=== PATIENT | female | born 1945 | race African-American/Black ===

== ENCOUNTER 2022-05-26 12:22 | Inpatient (IN) | payer MEDICARE, SELFPAY ==
[2022-05-26] VITALS (31 sets, daily range): BP systolic 76–135; BP diastolic 46–67; PULSE 46–108; RESP 13–28; TEMP 36.6–37.9; O2SAT 94–100; BMI 37.2
--- NOTE | ~2022-05-26 | CT_ITS ---
EXAMINATION: CTA abd aorta runoff DATE: 05/31/2022 09:00 INDICATION: Diabetic foot ulcer with possible severe peripheral vascular disease TECHNIQUE: Computed tomographic angiography (CTA) of the abdominal, pelvis, and both lower extremitie s was performed with 150 mL Omnipaque 350 intravenous contrast. Automated exposure control and iterat silvestre reconstruction technique were employed. The dose-length product was 1875.28 mGy-cm. COMPARISON: None. FINDINGS: ABDOMINAL AORTA AND ITS BRANCHES: Abdominal aorta is normal in caliber with small amount of scattered atherosclerotic plaque without si gnificant stenosis. Mild, <50% stenosis at the origin of the celiac axis, left renal artery and domin ant right renal artery. Inferior mesenteric artery is patent. PELVIC VASCULATURE: Atherosclerotic plaque with mild stenosis along the bilateral common iliac and bilateral internal nick ac arteries. The bilateral external iliac arteries are patent with no evident plaque. RIGHT LOWER EXTREMITY: Mild scattered atherosclerotic plaque along the right femoral and popliteal arteries with mild stenos is at the [id number] right popliteal artery. There is occlusion of the right anterior tibial brooklynn ry with reconstitution of the dorsalis pedis artery below the level of the ankle via collaterals. The re is scattered atherosclerotic plaque along the right peroneal and posterior tibial arteries with mu ltifocal mild to moderate stenosis but with runoff below the ankle. LEFT LOWER EXTREMITY: Mild scattered atherosclerotic plaque along the left femoral and popliteal arteries with multifocal m ild stenosis. Moderate stenosis at the origin of the anterior tibial artery which occludes shortly af ter its origin. Atherosclerotic plaque with multifocal mild stenosis along the left peroneal artery. Atherosclerotic plaque along the left posterior tibial artery with multifocal moderate to severe sten osis along the mid to distal artery but with runoff below the ankle. ADDITIONAL FINDINGS: Mild dependent atelectasis in the bilateral lower lobes. Heart size is normal. No pericardial or pleu ral effusion. Liver, gallbladder, pancreas and bilateral adrenal glands are normal. 1.2 cm low-attenu ation splenic cyst versus hemangioma. Geographic region of cortical atrophy with thinning and decreas ed enhancement at the lower pole of the right kidney which could be related to prior infection or inf arction. The latter is favored as the anterior lower pole of the right kidney appears to be supplied via a tiny caliber accessory right renal artery. Left kidney is normal. Normal appendix. No bowel obs truction. Prominent but decreased amount of stool at the rectum where there is some persistent wall t hickening suggestive of stercoral colitis. Bladder is normal. 5.2 cm fibroid at the uterine fundus. M oderate-sized fat-containing umbilical hernia. Heterotopic ossification at the right iliopsoas tendon . Asymmetric soft tissue swelling and subcutaneous edema at the right calf. Bilateral subdermal dystrop hic calcifications. Ulceration extending to the level of bone at the posterior tuberosity of the righ t calcaneus. There is adjacent soft tissue gas as well as cortical erosion of the bone with small misael unt of intramedullary gas consistent with osteomyelitis. 7.0 x 3.3 x 2.3 cm gas and fluid containing subcutaneous abscess at the plantar/medial soft tissues at the right mid and hindfoot which drains vi a a sinus tract to the deep ulceration. IMPRESSION: 1. Atherosclerotic disease throughout the abdominal aorta, several of its branch vessels in the abdo men and pelvis and along multiple arteries in the bilateral lower limbs with no significant stenosis above the level of the popliteal arteries. 2. More prominent disease along the arteries of both calves with occlusion portion of the bilateral a nterior tibial arteries and three-vessel runoff
--- NOTE | ~2022-05-26 | XR_ITS ---
EXAM: XR abdomen/kub 1V DATE: 06/10/2022 17:15 HISTORY: Constipation . COMPARISON: 06/05/2022. FINDINGS: Senescent change in the lung bases. The rectum is mildly dilated up to 5.[address] ool, otherwise normal bowel gas pattern. No organomegaly. Multiple pelvic phleboliths. Degenerative d isc disease in the lumbar spine. Bilateral hip osteoarthritis.. IMPRESSION: Mild fecal impaction. Reviewed, dictated and finalized at location K. CH STRATEGIST IMPRESSION: Mild fecal impaction.
--- NOTE | ~2022-05-26 | XR_ITS ---
EXAMINATION: XR abdomen/kub 1V DATE: 06/05/2022 12:18 INDICATION: Bowel obstruction. TECHNIQUE: A supine view of the abdomen on 2 radiographs was obtained. COMPARISON: CT dated 05/31/2022 FINDINGS: Moderate amount of gas and stool scattered throughout the colon which could be seen with constipation . Moderate gaseous distention of the stomach. No dilated loops of gas-filled small bowel to suggest o bstruction. Several phleboliths in the left hemipelvis. Lung bases are clear. Cardiomegaly. There are bridging osteophytes at multiple levels in the lower thoracic spine consistent with diffuse idiopath ic skeletal hyperostosis (DISH). Severe lower lumbar facet osteoarthritis. IMPRESSION: 1. Moderate amount of gas and stool throughout the colon which could be seen with constipation. No di lated gas-filled small bowel to suggest obstruction. Reviewed, dictated and finalized at location A. E MIXER IMPRESSION: 1. Moderate amount of gas and stool throughout the colon which could be seen wi th constipation. No dilated gas-filled small bowel to suggest obstruction.
--- NOTE | ~2022-05-26 | US_ITS ---
EXAMINATION: US renal BI DATE: 06/12/2022 09:50 INDICATION: Acute kidney injury. TECHNIQUE: Multiple ultrasound grayscale images of the kidneys were obtained. COMPARISON: CT 05/31/2022 FINDINGS: The right kidney measures 10.1 x 5.2 x 6.1 cm. The left kidney measures 10.0 x 5.5 x 5.0 cm. The kidn eys demonstrate normal parenchymal echogenicity. There is no hydronephrosis. The bladder is normal. IMPRESSION: 1. Normal kidney sizes. No hydronephrosis. Reviewed, dictated and finalized at location A. IFIED MARINE MECHANIC
--- NOTE | ~2022-05-26 | CT_ITS ---
CT Abdomen and Pelvis with contrast. History: Abdominal pain. Spiral CT of the abdomen and pelvis was performed after the administration of intravenous contrast. 1 00 cc of Omnipaque 350 was administered intravenously without complication. Dose reduction technique was used on this scan by utilizing automated exposure control and iterative reconstruction technique. The dose-length product (DLP) was 1203.74 mGy-cm. Findings: Scans through the lung bases demonstrate mild atelectatic change. The liver, spleen, pancreas, gallbladder, adrenals and kidneys are within normal limits. No evidence of aortic aneurysm. No lymphadenopathy is seen. Rectum is significantly distended and filled with stool, with moderate stool throughout the remainder of the large bowel. No bowel obstruction evident. No abscess or free air. Normal appendix. Moderate fat-containing umbilical hernia present. Images through the pelvis were performed. Fundal hypodense, possibly degenerating fibroid measures 5 cm in diameter. No other adnexal mass seen. No ascites is seen. Impression: Fecal impaction and constipation. 5 cm presumed fibroid, as detailed above, possibly degenerating fibroid or necrotic given central hyp odensity. Moderate sized fat-containing umbilical hernia. Reviewed, dictated and finalized at location [] SH SPECIALIST Impression: Fecal impaction and constipation. 5 cm presumed fibroid, as detailed above, possibly degenerating fibroid or necr otic given central hypodensity. Moderate sized fat-containing umbilical hernia.
--- NOTE | ~2022-05-26 | US_ITS ---
EXAMINATION: US arterial ankle brachial ind DATE: 05/29/2022 19:44 INDICATION: Right foot diabetic ulcer. TECHNIQUE: Segmental pressures and plethysmographic and Doppler waveforms of the brachial and lower e xtremity arteries were obtained. COMPARISON: None. FINDINGS: Right and left brachial artery pressures of 175 mm Hg and 177 mm Hg, respectively, are concordant (no rmal difference <= 30 mmHg). The patient could not tolerate pressure at the ankles or toes. There is no detectable arterial signal in the right posterior tibial artery or dorsalis pedis. There is no detectable arterial signal in th e left posterior tibial artery. Dorsalis pedis demonstrates a biphasic waveform. IMPRESSION: 1. No detectable arterial signal in the right posterior tibial artery, right dorsalis pedis, or left posterior tibial artery. 2. ABIs and TBIs could not be measured. Reviewed, dictated and finalized at location A. ATIONAL INSTITUTION PRESIDENT IMPRESSION: 1. No detectable arterial signal in the right posterior tibial artery, right do rsalis pedis, or left posterior tibial artery. 2. ABIs and TBIs could not be measured.
--- NOTE | ~2022-05-26 | XR_ITS ---
Portable chest x-ray Comparison: None Clinical History: Cough Findings: Lungs are clear, without focal consolidation or pleural effusion. Cardiomediastinal silho uette is unremarkable. Bones and soft tissues are unremarkable. Impression: Clear lungs. Reviewed, dictated and finalized at location [] COREMAKER Impression: Clear lungs.
--- NOTE | ~2022-05-26 | XR_ITS ---
EXAMINATION: XR foot RT 2V DATE: 05/26/2022 20:40 INDICATION: Right foot heel ulcer TECHNIQUE: Dorsoplantar and lateral views of the right foot were obtained. COMPARISON: None. FINDINGS: Diffuse osteopenia. Bone alignment is normal. No fracture. Ulceration and underlying soft tissue gas at the heel. There is osteolysis along the inferior aspect of the posterior tuberosity of the calcane us consistent with osteomyelitis. Mild polyarticular osteoarthritis at many of the profiled joints th roughout the right foot. IMPRESSION: 1. Osteomyelitis at the inferior aspect of the posterior tuberosity of the calcaneus with overlying h eel ulceration and deep soft tissue gas. Reviewed, dictated and finalized at location A. AND AND CONTROL OFFICER IMPRESSION: 1. Osteomyelitis at the inferior aspect of the posterior tuberosity of the calc aneus with overlying heel ulceration and deep soft tissue gas.
--- NOTE | 2022-05-26 12:22 | ECG_ITS ---
Measurements Intervals [place] Rate: 107 P: 61 RI: 143 QRS: 0 QRSD: 94 T: 59 QT: 327 QTc: 437 Interpretive Statements SINUS TACHYCARDIA NONSPECIFIC ST AND T ABNORMALITY ABNORMAL ECG NO PREVIOUS ECG AVAILABLE FOR COMPARISON Electronically Signed On 05-26-2022 16:43:07 FIBERGLASS FINISHER by Trace Guerrero M.D.
--- NOTE | 2022-05-26 12:32 | ED.AMS ---
HPI - Altered Mental Status General Chief Complaint: Altered Mental Status Stated Complaint: AMS Time Seen by Provider: 05/26/22 12:29 History of Present Illness HPI narrative: Patient is a 77-year-old female presenting from a skilled nursing with altered mental status. Patient reportedly is ANO x4 at baseline. She has been experiencing fevers, nausea, vomiting for the last several days. Today she was noted to be more somnolent and confused so EMS was called. Currently patient is alert but only oriented to self. She complains of diffuse body pain. Denies any focal pain. Further history is limited due to altered mental status. Related Data Home Medications Medication Instructions Recorded Confirmed Ex-Lax (sennosides) 8.6 mg PO HS constipation 05/27/22 05/27/22 gabapentin 100 mg capsule 100 mg PO TID nerve pain 05/27/22 05/27/22 lisinopril 40 mg tablet 40 mg PO DAILY 05/27/22 05/27/22 metformin 500 mg tablet 500 mg PO TID DM 05/27/22 05/27/22 nifedipine 30 mg tablet,extended 30 mg PO DAILY 05/27/22 05/27/22 release 24 hr Allergies Allergy/AdvReac Type Severity Reaction Status Date / Time No Known Allergies Allergy Verified 05/27/22 04:16 Review of Systems Review of Systems: ROS unobtainable: Yes unobtainable due to mental status PMFSH Past Medical History Medical History (Updated 05/27/22 @ 09:15 by Yanira Mina PA-C) Combined hyperlipidemia CVA (cerebral vascular accident) Dementia Diabetic foot ulcer DM2 (diabetes mellitus, type 2) HTN (hypertension), benign Surgical History Surgical History (Updated 05/26/22 @ 20:03 by Marga Steele NP) No pertinent past surgical history Family History Family History Father Hypertension Diabetes mellitus Mother Hypertension Diabetes mellitus Social History Social History (Updated 05/26/22 @ 20:06 by Marga Steele NP) Social History: The patient is and has 6 children. 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 The patient resides at [facility]. Her daughter is the durable power commonwealth attorney for healthcare. Former smoker. She denies any alcohol marijuana or illicit drugs. Code status full code Smoking status: Former smoker Alcohol intake: never Substance use: never Lack of Transportation: No Lack of Food: Never True Current Housing: I Have Housing Concerned About Future Housing: No Difficulty Paying Gas/Electric Bills: No Difficulty Paying for Meds: No Currently Unemployed: No Education: Decline to Answer Difficulty w/ Childcare or Family Care: No Spiritual care concerns: No Exam Narrative: GENERAL: Ill-appearing but in no acute distress. HEAD: Normocephalic, atraumatic. EYES: PERRLA and EOMI. ENT: Nares clear, no rhinorrhea or epistaxis. Mucous membranes dry NECK: Supple. CHEST: Clear to auscultation. No respiratory distress. HEART: Tachycardic, regular rhythm. No murmur heard. Normal peripheral pulses. ABDOMEN: Soft, mild diffuse tenderness, nondistended, no guarding or rebound EXTREMITIES: Edema in bilateral lower extremities with skin changes consistent with chronic venous stasis changes, pressure ulcer on right heel with clean dressing in place SKIN: Warm, dry, no rash. NEURO: Moving all extremities spontaneously. Alert and oriented x1 Course Vital Signs Vital signs: Vital Signs Temperature 100.3 F H 05/26/22 12:22 Pulse Rate 106 H 05/26/22 12:22 Respiratory Rate 22 H 05/26/22 12:22 Blood Pressure 77/66 L 05/26/22 12:22 Pulse Oximetry 99 05/26/22 12:22 Oxygen Delivery Room Air 05/26/22 12:22 Temperature 97.8 F 05/27/22 04:40 Pulse Rate 78 05/27/22 12:00 Respiratory Rate 18 05/27/22 10:08 Blood Pressure 106/54 L 05/27/22 10:08 Pulse Oximetry 99 05/27/22 10:08 Oxygen Delivery Room Air 05/27/22 10:15 MDM - Altered Mental Status MDM Narrative Medical decision making narrative:
[2022-05-26] MEDS: SODIUM CHLORIDE 0.9% IV 1,000 ML 999 ML IV CONT (12:37)
[2022-05-26] MEDS: ONDANSETRON INJ 4 MG/2 ML VIAL IV PUSH (12:38)
[2022-05-26 12:46] LABS: Basophils Percent Auto 0.1 % (0.2-1.2); Eosinophils Percent Auto 0.1 % (0-4.4); Hematocrit 26.2 % (37.0-47.0); Hemoglobin 7.8 g/dL (12.0-15.0); Immature Granulocyte Percent A 0.6 % (0-0.5); Lymphocytes Absolute Auto 0.42 K/mm3 (0.9-3.2); Lymphocytes Percent Auto 2.6 % (18.3-44.2); Mean Corpuscular HGB Conc 29.8 g/dl (32-36); Mean Corpuscular Hemoglobin 25.2 pg (26-34); Mean Corpuscular Volume 84.5 fl (80-100); Mean Platelet Volume 9.2 fl (7.4-10.4); Monocytes Absolute Auto 0.1 K/mm3 (0.1-0.6); Monocytes Percent Auto 0.6 % (2.6-8.5); Neutrophils Absolute Auto 15.2 K/mm3 (1.3-6.7); Platelet Count Result 381 k/mm3 (150-375); Red Cell Distribution Width 14.8 % (11.5-14.5); White Blood Count 15.9 K/mm3 (4.5-10.0)
[2022-05-26 12:58] LABS: INR 1.3; Prothrombin Time 15.4 Seconds (11.1-14.7)
[2022-05-26 12:59] LABS: Partial Thromboplastin Time 28.5 SECONDS (22.3-36.8)
[2022-05-26 13:02] LABS: Alanine Aminotransferase 18 U/L (6-35); Albumin Level 3.2 g/dL (3.5-5.1); Alkaline Phosphatase 204 U/L (38-126); Anion Gap 6 mmol/L (8-16); Aspartate Amino Transferase 37 U/L (14-36); Bilirubin,Total 1.1 mg/dL (0.2-1.3); Blood Urea Nitrogen 38 mg/dL (7-17); Calcium 9.3 mg/dL (8.4-10.2); Carbon Dioxide 27 mmol/L (22-30); Chloride 104 mmol/L (98-107); Estimated Glomerular Filt Rate 53; Glucose 178 mg/dL (65-110); Lactic Acid Reflex 2.5 mmol/L (0.7-2.0); Lipase 48 U/L (23-300); Potassium 3.9 mmol/L (3.4-5.0); Sodium 137 mmol/L (137-145)
[2022-05-26 13:12] LABS: Add Urine Microscopic? YES; Appearance Urine Clear (Clear); Bilirubin Urine Negative (Negative); Blood Urine Negative (Negative); Color Urine Orange (Yellow); Glucose Urine UA Negative (Negative); Ketones Urine Negative (Negative); Leukocyte Esterase Ur Negative LEU/UL (Negative); Nitrate Urine Negative (Negative); Protein Urine Trace mg/dL (Negative); Specific Grav Ur 1.015 (1.001-1.035)
[2022-05-26 13:13] LABS: NT Pro B Type Natriuretic Pept 626 pg/mL (5-100); Troponin I < 0.012 ng/mL (0.000-0.034)
[2022-05-26 13:14] LABS: Bacteria Urine Trace /hpf; Mucus Urine Rare /lpf; Squamous Epithelial Cell Urine Rare /hpf (Few); WBC Urine 0-3 /hpf
[2022-05-26 13:16] LABS: Hypochromasia 1+ (NORMAL); Platelet Estimate Adequate (Adequate)
[2022-05-26 13:17] LABS: Anisocytosis 1+ (NORMAL)
[2022-05-26 13:20] LABS: Schistocytes None Seen (NORMAL)
[2022-05-26 13:46] LABS: Influenza A QL RT-PCR Negative (Negative); Influenza B QL RT-PCR Negative (Negative); RSV RNA, RT-PCR Negative (Negative); SARS-CoV-2 RNA PCR Negative
--- NOTE | 2022-05-26 15:17 | PM.IMHP ---
H&P: HPI History of Present Illness Date/Time: 05/26/22 15:17 Chief Complaint: Altered mental status Narrative: This is a 77-year-old female patient who is from [facility]. Her daughter is at the bedside answering questions for her. Typically the patient is A&O x4 but is slightly confused today. She has been experiencing fevers nausea vomiting for several days. The patient has a chronic diabetic wound to her right heel that has a very odorous smell. Her white count was 15.9. H&H is 7.8 and 26.9. The patient has never been admitted here and we have no previous labs to compare with these values. The patient had her right foot wrapped today and I would need to remove it and the patient would not allow me to remove her dressing from the right foot at this time. I explained her that the nurses would need to remove it to take pictures and the patient agreed that I could look at her heel then. Creatinine is 1.2. Glucose is 178. Lactic is 2.5 and 2.2. Her urine is negative for UTI. Patient was negative for influenza A/B RSV and COVID. The patient was started on vancomycin and cefepime. She was also given IV fluids and Zofran. Patient was placed in observation status on the date of service of 05/26/2022. Review of Systems Review of Systems: See HPI All systems reviewed & are unremarkable except as noted in HPI and below Constitutional: Constitutional: Reports as per HPI and Reports no additional constitutional complaints Eyes: Eyes: Reports as per HPI and Reports no additional eye complaints ENT: Reports system reviewed and no additional complaints, except as documented and Reports Normal hearing present Cardiovascular: Cardiovascular: Reports no additional cardiovascular complaints Respiratory: Respiratory: Reports no additional respiratory complaints and Reports no additional respiratory complaints Gastrointestinal: Gastrointestinal: Reports as per HPI and Reports no additional gastrointestinal complaints Musculoskeletal: Musculoskeletal: Reports no additional musculoskeletal complaints Integumentary/Breasts: Skin/Breast: Reports system reviewed and no additional complaints, except as docu and Reports as per HPI Neurologic: Reports system reviewed and no additional complaints, except as documented, Reports as per HPI and Reports Normal hearing present Psychiatric: Psychiatric: Reports no additional psychiatric complaints and Reports as per HPI Endocrine: Endocrine: Reports no additional endocrine complaints Hematologic/Lymphatic: Hematologic/Lymphatic: Reports no additional hematologic/lymphatic complaints Allergic/Immunologic: Allergic/Immunologic: Reports no additional allergic/immunologic complaints PMFSH Past Medical History Medical History (Updated 05/26/22 @ 20:12 by Marga Steele NP) Combined hyperlipidemia CVA (cerebral vascular accident) Dementia Diabetic foot ulcer DM2 (diabetes mellitus, type 2) HTN (hypertension), benign Surgical History Surgical History (Updated 05/26/22 @ 20:03 by Marga Steele NP) No pertinent past surgical history Family History Family History Father Hypertension Diabetes mellitus Mother Hypertension Diabetes mellitus Social History Social History (Updated 05/26/22 @ 20:06 by Marga Steele NP) Social History: The patient is and has 6 children. 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 The patient resides at [facility]. Her daughter is the durable power collections attorney for healthcare. Former smoker. She denies any alcohol marijuana or illicit drugs. Code status full code Smoking status: Former smoker Meds Vital Signs Vital Signs - 24 hr 05/26/22 12:22 05/26/22 13:03 05/26/22 13:36 Temperature 37.9 C H Pulse Rate 106 H 96 46 L Respiratory Rate 22 H 16 16 Blood Pressure 77/66 L 122/56 L 120/67 Pulse Oximetry 99 96 96 Oxygen Delivery Room Air
[2022-05-26 15:42] LABS: Reflex Lactic Acid Yes or No Add Lactic
[2022-05-26 16:17] LABS: Lactic Acid 2.2 mmol/L (0.7-2.0)
--- NOTE | 2022-05-26 16:57 | PC.NURSE ---
diabetic diet dinner tray ordered
[2022-05-26 17:14] LABS: Troponin I 0.015 ng/mL (0.000-0.034)
[2022-05-26 22:04] LABS: Hemoglobin A1C 6.2 % (<5.7)
[2022-05-26 23:14] LABS: Hematocrit 22.7 % (37.0-47.0)
[2022-05-26 23:25] LABS: Hemoglobin 6.9 g/dL (12.0-15.0)
[2022-05-27] VITALS (14 sets, daily range): BP systolic 106–135; BP diastolic 47–54; PULSE 66–82; RESP 16–20; TEMP 36.6–36.9; O2SAT 96–100
--- NOTE | 2022-05-27 00:31 | ADMGEN ---
This patient, Erika Young, was admitted to Medical Room 260-. Patient/family oriented to hospital policies and general routines including ID bracelet, bed and alarms, visiting hours, pain management, procedures, bathroom and other care routines, personal items, smoking policy, room service/diet, and visiting hours. Information on how to activate the Rapid Response Team has been discussed. Patient/Family are encouraged to report perceived risks to care and to ask questions if they do not understand what they are told or what they should do.
[2022-05-27] MEDS: SODIUM CHLORIDE 0.9% IV 1,000 ML 100 ML IV CONT ×2 (02:25→18:12)
[2022-05-27 05:28] LABS: Basophils Absolute Auto 0.1 K/mm3 (0.0-0.1); Basophils Percent Auto 0.3 % (0.2-1.2); Eosinophils Absolute Auto 0.2 K/mm3 (0-0.3); Eosinophils Percent Auto 0.7 % (0-4.4); Hematocrit 22.2 % (37.0-47.0); Immature Granulocyte Absolute 0.55 K/mm3 (0.00-0.031); Immature Granulocyte Percent A 1.9 % (0-0.5); Lymphocytes Absolute Auto 3.42 K/mm3 (0.9-3.2); Lymphocytes Percent Auto 12.1 % (18.3-44.2); Mean Corpuscular HGB Conc 30.6 g/dl (32-36); Mean Corpuscular Hemoglobin 26.7 pg (26-34); Mean Corpuscular Volume 87.1 fl (80-100); Mean Platelet Volume 9.2 fl (7.4-10.4); Monocytes Absolute Auto 1.4 K/mm3 (0.1-0.6); Neutrophils Absolute Auto 22.6 K/mm3 (1.3-6.7); Platelet Count Result 346 k/mm3 (150-375); Red Blood Count 2.55 M/mm3 (4.2-5.4); Red Cell Distribution Width 14.9 % (11.5-14.5); White Blood Count 28.3 K/mm3 (4.5-10.0)
[2022-05-27 05:46] LABS: Alanine Aminotransferase 16 U/L (6-35); Albumin Level 2.9 g/dL (3.5-5.1); Alkaline Phosphatase 124 U/L (38-126); Anion Gap 4 mmol/L (8-16); Aspartate Amino Transferase 29 U/L (14-36); Bilirubin,Total 0.8 mg/dL (0.2-1.3); Blood Urea Nitrogen 41 mg/dL (7-17); Calcium 8.6 mg/dL (8.4-10.2); Carbon Dioxide 26 mmol/L (22-30); Chloride 103 mmol/L (98-107); Estimated CRCL calculation 28 ml/min; Estimated Glomerular Filt Rate 41; Glucose 122 mg/dL (65-110); Magnesium 1.8 mg/dL (1.6-2.3); Potassium 3.9 mmol/L (3.4-5.0); Sodium 133 mmol/L (137-145)
[2022-05-27 06:25] LABS: Thyroid Stimulating Hormone Reflex 0.325 uIU/mL (0.465-4.68)
[2022-05-27 07:01] LABS: Hemoglobin 6.8 g/dL (12.0-15.0)
[2022-05-27 08:11] LABS: Free T4 Free Thyroxine Reflex 2.33 ng/dL (0.78-2.19)
[2022-05-27 08:53] LABS: Glucose Point of Care 114 mg/dl (65-105)
--- NOTE | 2022-05-27 09:02 | PM.IMPN ---
Progress Note: A&P Assessment and Plan (1) Osteomyelitis: Code(s): M86.9 - Osteomyelitis, unspecified Status: Acute Assessment and Plan: Although pt would not let me examin the right foot xray consistent with osteomyelitis -ortho has been consulted but i'm unsure if they have been notified. I have asked nursing staff to reach out -Continue cefepime and vanc, await wound and blood cultures -CBC worse today, hopfully this will start trending down with abx. Will likely need debridement but again I was unable to assess it on exam -last fever / at 1200 -tachycardia and bp have improved -continue IV fluids due to dry mucus membranes, no crackles on exam (2) Sepsis: Code(s): A41.9 - Sepsis, unspecified organism Status: Acute Assessment and Plan: 2/2 to above -vitals and lactic improving but CBC worsening -continue vanc and cefepime (3) Anemia: Code(s): D64.9 - Anemia, unspecified Status: Acute Assessment and Plan: Pt states she has a hx of this but we have no records -Will transfuse 1 prbc -anemia labs -telemetry until stable -no signs of blood loss. Pt does have fiborid but she is unable to tell me if she has had vagainal bleeding (4) Fibroid tumor: Code(s): D21.9 - Benign neoplasm of connective and other soft tissue, unspecified Status: Acute Assessment and Plan: Follow up with OBGYN outpatient. (5) DM2 (diabetes mellitus, type 2): Code(s): E11.9 - Type 2 diabetes mellitus without complications Status: Acute Assessment and Plan: Last glucose 114 with A1c 6.2 -continue SSI -hold home metformin while hospitlized (6) Combined hyperlipidemia: Code(s): E78.2 - Mixed hyperlipidemia Status: Acute Assessment and Plan: Continue with home medications (7) HTN (hypertension), benign: Code(s): I10 - Essential (primary) hypertension Status: Acute Assessment and Plan: Pt was hypotensive on admission but this is improving -hold lisinopril -continue nifedipine but add parameters -hydralazine PRN as needed (8) Dementia: Code(s): F03.90 - Unspecified dementia, unspecified severity, without behavioral disturbance, psychotic disturbance, mood disturbance, and anxiety Status: Acute Assessment and Plan: -continue home medications. (9) Fecal impaction: Code(s): K56.41 - Fecal impaction Status: Acute Assessment and Plan: Noted on imaging -start miralax and enema -good BS WO pain -monitor bowl movements Time Spent With Patient Time with patient: 25 - 35 minutes Subjective Date/time seen: 05/27/22 09:02 Interval history: Patient is a 77-year-old female here for osteomyelitis. Patient states that she is doing okay and feels better than yesterday. She denies any pain, chest pain, shortness of breath, diarrhea or abdominal pain. She says that she has a history of anemia but has never needed a blood transfusion. She is agreeable to one but once talk to her daughter as well about at. she said the nurse just wrapped her foot and she does not want me to unwrap it. Review of Systems Review of Systems: All systems reviewed & are unremarkable except as noted in HPI and below Exam Narrative: General: Well developed well nourished patient in NAD HEENT: normocephalic, dry mucus membranes Neck: supple Neuro: Alert and oriented x 3 (got the year wrong, thought it was 1921) CV:RRR no murmurs Resp:CTA Abd: Soft, non distended. No pain to palpation. Positive bowel sounds Extremities: right foot wrapped with gauze with a foul odor. Pt would not let me unwrap it. No erythema or edema to the LE Objective Data Vital Signs Vital Signs: Vital Signs - 24 hr 05/26/22 12:22 05/26/22 13:03 05/26/22 13:36 Temperature 100.3 F H Pulse Rate 106 H 96 46 L Respiratory Rate 22 H 16 16 Blood Pressure 77/66 L 122/56 L 120/6
[2022-05-27 09:28] LABS: Iron 14 ug/dL (37-170)
[2022-05-27 09:37] LABS: Percent Iron Saturation 8 % (20-50)
[2022-05-27 09:57] LABS: Transferrin 110 mg/dL (206-381)
[2022-05-27] MEDS: ENOXAPARIN 40 MG/0.4 ML SYRINGE SUB-Q (10:12)
[2022-05-27] MEDS: polyethylene glycoL 3350 17 GM POWD.PACK PO (10:12)
[2022-05-27] MEDS: GABAPENTIN 100 MG CAPSULE PO ×2 (10:12→18:12)
[2022-05-27 10:39] LABS: Folic Acid 4.1 ng/mL (2.76->20)
[2022-05-27 12:46] LABS: Glucose Point of Care 113 mg/dl (65-105)
[2022-05-27 17:10] LABS: IFOB Positive Control Positive
[2022-05-27 17:11] LABS: Immunochemical Fecal Occult Bl Negative (N)
--- NOTE | 2022-05-27 17:59 | PC.NURSE ---
spoke with pharmacy about patient antibiotics, did not hang cefepime on time due to patient getting blood transfusion and now vancomycin is due. Pharmacist states he will re-time cefepime and to hang vancomycin now.
[2022-05-27 18:35] LABS: Glucose Point of Care 144 mg/dl (65-105)
[2022-05-27 19:23] LABS: Hematocrit 27.4 % (37.0-47.0); Hemoglobin 8.5 g/dL (12.0-15.0); Mean Platelet Volume 9.6 fl (7.4-10.4); Platelet Count Result 358 k/mm3 (150-375); Red Blood Count 3.15 M/mm3 (4.2-5.4)
[2022-05-27] MEDS: SENNOSIDES 8.6 MG TABLET PO (20:00)
[2022-05-27 20:11] LABS: Glucose Point of Care 156 mg/dl (65-105)
[2022-05-28] VITALS (10 sets, daily range): BP systolic 145–160; BP diastolic 50–53; PULSE 77–82; RESP 16–20; TEMP 36.4–37.1; O2SAT 95–100
[2022-05-28] MEDS: SODIUM CHLORIDE 0.9% IV 1,000 ML 100 ML IV CONT (05:06)
[2022-05-28 05:39] LABS: Hematocrit 25.9 % (37.0-47.0); Mean Corpuscular HGB Conc 30.9 g/dl (32-36); Mean Corpuscular Hemoglobin 26.8 pg (26-34); Mean Corpuscular Volume 86.6 fl (80-100); Mean Platelet Volume 9.4 fl (7.4-10.4); Platelet Count Result 353 k/mm3 (150-375); Red Blood Count 2.99 M/mm3 (4.2-5.4); Red Cell Distribution Width 14.8 % (11.5-14.5); White Blood Count 24.9 K/mm3 (4.5-10.0)
[2022-05-28 05:48] LABS: Anion Gap 6 mmol/L (8-16); Blood Urea Nitrogen 30 mg/dL (7-17); Calcium 8.6 mg/dL (8.4-10.2); Carbon Dioxide 22 mmol/L (22-30); Chloride 109 mmol/L (98-107); Estimated CRCL calculation 38 ml/min; Estimated Glomerular Filt Rate 59; Glucose 117 mg/dL (65-110); Potassium 3.7 mmol/L (3.4-5.0); Sodium 137 mmol/L (137-145)
[2022-05-28 09:41] LABS: Glucose Point of Care 119 mg/dl (65-105)
[2022-05-28] MEDS: polyethylene glycoL 3350 17 GM POWD.PACK PO (09:44)
[2022-05-28] MEDS: ENOXAPARIN 40 MG/0.4 ML SYRINGE SUB-Q (09:44)
[2022-05-28] MEDS: GABAPENTIN 100 MG CAPSULE PO ×3 (09:44→17:02)
--- NOTE | 2022-05-28 11:45 | ECG_ITS ---
Measurements Intervals [place] Rate: 78 P: 57 NC: 177 QRS: -14 QRSD: 105 T: 15 QT: 370 QTc: 422 Interpretive Statements SINUS RHYTHM MODERATE VOLTAGE CRITERIA FOR LVH, CONSIDER NORMAL VARIANT [MEETS CRITERIA IN ONE OF: R(aVL), S(V1), R(V5), R(V5/V6)+S(V1)] COMPARED TO ECG 05/26/2022 12:28:49 THE RATE IS SLOWER Electronically Signed On 05-28-2022 14:49:56 TRUCKLOAD OWNER OPERATOR by Candice Cain M.D.
--- NOTE | 2022-05-28 11:48 | PM.IMPN ---
Progress Note: A&P Assessment and Plan (1) Osteomyelitis: Code(s): M86.9 - Osteomyelitis, unspecified Status: Acute Assessment and Plan: Clinically patient presents with right heel dark necrotic eschar; right foot xray consistent with osteomyelitis -Continue cefepime; start clindamycin and dincontinue vanc, blood cultures growing proteus mirabilis -Persistent leucocytosis on CBC -Obtain wound care consult, cont IV abx and Santyl for now (2) Sepsis: Code(s): A41.9 - Sepsis, unspecified organism Status: Acute Assessment and Plan: Sepsis secondary to infected heel wound bed currently improving with hemodynamic stability. -persistent leukocytosis. -continue vanc and clindamycin. (3) Anemia: Code(s): D64.9 - Anemia, unspecified Status: Acute Assessment and Plan: Patient presented with normocytic hypochromic anemia with a hemoglobin of 7.8. After 1 unit PRBC transfusion, hemoglobin is currently stable at 8.0. This likely represent anemia of chronic disease in the setting of a chronic wound infection. Will send iron panel B12 and folate levels. Continue to monitor the CBC in a.m. labs. No indication for blood transfusion today. Due to the history of fibroid there was a concern about possible chronic blood loss, however patient is postmenopausal and denies any ongoing vaginal bleeding. In the postmenopausal period, fibroid are likely to involute. (4) Fibroid tumor: Code(s): D21.9 - Benign neoplasm of connective and other soft tissue, unspecified Status: Acute Assessment and Plan: Unlikely a cause of ongoing vaginal bleeding in this postmenopausal patient. Follow up with OBGYN outpatient. (5) DM2 (diabetes mellitus, type 2): Code(s): E11.9 - Type 2 diabetes mellitus without complications Status: Acute Assessment and Plan: Last glucose 114 with A1c 6.2 -continue SSI -hold home metformin while hospitalized. -Accu-Cheks have been in the 113-159 range. (6) Combined hyperlipidemia: Code(s): E78.2 - Mixed hyperlipidemia Status: Acute Assessment and Plan: Continue with home medications (7) HTN (hypertension), benign: Code(s): I10 - Essential (primary) hypertension Status: Acute Assessment and Plan: Pt was hypotensive on admission but this is improving -hold lisinopril -continue nifedipine; -blood pressure is moderately controlled in the 147 over 50-1 60/50. This is appropriate in this acutely sick patient. Continue to monitor. (8) Dementia: Code(s): F03.90 - Unspecified dementia, unspecified severity, without behavioral disturbance, psychotic disturbance, mood disturbance, and anxiety Status: Acute Assessment and Plan: -continue home medications. -reassurance of the patient. -maintain fall precaution. -communication with family regarding decision making. (9) Fecal impaction: Code(s): K56.41 - Fecal impaction Status: Acute Assessment and Plan: Noted on imaging -start miralax and enema -good BS WO pain -monitor bowl movements Time Spent With Patient Time with patient: 15 - 25 minutes Subjective Date/time seen: 05/28/22 14:48 Interval history: S: Patient was seen and examined at the bedside; she denies any complaints. Review of Systems Review of Systems: All systems reviewed & are unremarkable except as noted in HPI and below ROS unobtainable: Yes unobtainable due to mental status Constitutional: Constitutional: Reports as per HPI and Reports no additional constitutional complaints Eyes: Eyes: Reports as per HPI and Reports no additional eye complaints ENT: Reports system reviewed and no additional complaints, except as documented and Reports Normal hearing present Cardiovascular: Cardiovascular: Reports no additional cardiovascular complaints Respiratory: Respiratory: Reports no addition
--- NOTE | 2022-05-28 12:10 | PM.CNGS ---
Assessment and Plan Assessment and plan (1) Sepsis: Code(s): A41.9 - Sepsis, unspecified organism Status: Acute Assessment and Plan: likely secondary to ulcer, osteo, cont abx, local wound care (2) Diabetic foot ulcer: Code(s): E11.621 - Type 2 diabetes mellitus with foot ulcer; L97.509 - Non-pressure chronic ulcer of other part of unspecified foot with unspecified severity Status: Acute Assessment and Plan: d/w pt need for abx and poss amputation, will discuss further c family tomorrow after getting wound care consult, cont IV abx and Santyl for now History of Present Illness Consult details Consult date: 05/28/22 Reason for consult: wound care Requesting physician: Marga Steele NP Narrative: The patient is a 77-year-old female with multiple medical issues presenting from her correction with confusion, fevers, poor appetite, and nausea over the last week or so. Of note, all history is obtained via chart given patient's mental status. The patient reports she has a chronic right foot wound, although she cannot tell me any treatment for the wound or how long it has been there. Review of Systems Review of Systems: ROS unobtainable: Yes unobtainable due to mental status PMFSH Past Medical History Medical History Combined hyperlipidemia CVA (cerebral vascular accident) Dementia Diabetic foot ulcer DM2 (diabetes mellitus, type 2) HTN (hypertension), benign Surgical History Surgical History No pertinent past surgical history Family History Family History Father Hypertension Diabetes mellitus Mother Hypertension Diabetes mellitus Social History Social History Social History: The patient is and has 6 children. 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 The patient resides at [facility]. Her daughter is the durable power legal support analyst for healthcare. Former smoker. She denies any alcohol marijuana or illicit drugs. Code status full code Smoking status: Former smoker Alcohol intake: never Substance use: never Lack of Transportation: No Lack of Food: Never True Current Housing: I Have Housing Concerned About Future Housing: No Difficulty Paying Gas/Electric Bills: No Difficulty Paying for Meds: No Currently Unemployed: No Education: Decline to Answer Difficulty w/ Childcare or Family Care: No Spiritual care concerns: No Meds Home Medications and Allergies Home Medications Medication Instructions Recorded Confirmed Type Ex-Lax (sennosides) 8.6 mg PO HS constipation 05/27/22 05/27/22 History gabapentin 100 mg capsule 100 mg PO TID nerve pain 05/27/22 05/27/22 History lisinopril 40 mg tablet 40 mg PO DAILY 05/27/22 05/27/22 History metformin 500 mg tablet 500 mg PO TID DM 05/27/22 05/27/22 History nifedipine 30 mg tablet,extended 30 mg PO DAILY 05/27/22 05/27/22 History release 24 hr Allergies Allergy/AdvReac Type Severity Reaction Status Date / Time No Known Allergies Allergy Verified 05/27/22 04:16 Vital Signs Vital Signs - 24 hr 05/27/22 15:05 05/27/22 15:20 05/27/22 15:24 Temperature 36.7 C 36.7 C 36.7 C Pulse Rate 80 79 75 Respiratory Rate 16 18 18 Blood Pressure 128/47 L 135/49 L 127/48 L Pulse Oximetry 100 97 100 Oxygen Delivery 05/27/22 14:25 05/27/22 16:00 05/27/22 16:24 Temperature 36.7 C 36.9 C Pulse Rate 75 79 74 Respiratory Rate 18 18 Blood Pressure 127/48 L 133/52 L Pulse Oximetry 100 100 Oxygen Delivery 05/27/22 17:56 05/27/22 20:00 05/27/22 22:00 Temperature 36.8 C 36.8 C Pulse Rate 73 82 Respiratory Rate 16 20 Blood Pressure 135/53 L 134/50 L Pulse Oximetry 100 99 Oxygen Delivery Room Air 05/27/22 20:00 05/28/22 00:00 05/28/22 04:00 Temp
[2022-05-28 12:36] LABS: Glucose Point of Care 159 mg/dl (65-105)
[2022-05-28] MEDS: CLINDAMYCIN 600 MG/D5W 50 ML 600 MG/50 ML PIGGYBACK 100 MG IVPB (17:01)
[2022-05-28] MEDS: COLLAGENASE OINT 30 GM TUBE 1 APPLIC TOPICAL (17:02)
[2022-05-28 18:12] LABS: Glucose Point of Care 199 mg/dl (65-105)
[2022-05-28] MEDS: SENNOSIDES 8.6 MG TABLET PO (20:16)
[2022-05-28 21:26] LABS: Glucose Point of Care 176 mg/dl (65-105)
[2022-05-29] VITALS (10 sets, daily range): BP systolic 151–164; BP diastolic 51–58; PULSE 66–76; RESP 16–18; TEMP 36.9–37.4; O2SAT 98–100
[2022-05-29] MEDS: CLINDAMYCIN 600 MG/D5W 50 ML 600 MG/50 ML PIGGYBACK 100 MG IVPB ×2 (01:49→09:49)
[2022-05-29 08:29] LABS: Glucose Point of Care 118 mg/dl (65-105)
[2022-05-29] MEDS: GABAPENTIN 100 MG CAPSULE PO ×3 (08:50→16:36)
[2022-05-29] MEDS: ENOXAPARIN 40 MG/0.4 ML SYRINGE SUB-Q (08:50)
[2022-05-29] MEDS: polyethylene glycoL 3350 17 GM POWD.PACK PO (08:50)
[2022-05-29] MEDS: COLLAGENASE OINT 30 GM TUBE 1 APPLIC TOPICAL (08:51)
--- NOTE | 2022-05-29 11:28 | PM.PNGS ---
Progress Note: A&P Assessment and Plan (1) Diabetic foot ulcer: Code(s): E11.621 - Type 2 diabetes mellitus with foot ulcer; L97.509 - Non-pressure chronic ulcer of other part of unspecified foot with unspecified severity Status: Acute Assessment and Plan: cont local wound care and abx, will at least need debridement of the wound, will d/w family and hospitalist as the patient will ultimately need vascular workup and likely amputation (2) Osteomyelitis: Code(s): M86.9 - Osteomyelitis, unspecified Status: Acute Assessment and Plan: cont IV abx, see above Subjective Subjective Date/Time Seen: 05/29/22 11:28 no acute issues overnight, still a little confused Review of Systems Review of Systems: ROS unobtainable: Yes unobtainable due to mental status Exam Const: General: cooperative, comfortable and no acute distress Resp: Auscultation: clear to auscultation bilaterally Cardio: Rate: regular rate Rhythm: regular rhythm GI: Inspection: normal to inspection Extrem: Other: R foot drsg - C/D/I Objective Data Vital Signs Vital Signs: Vital Signs - 24 hr 05/28/22 12:00 05/28/22 14:00 05/28/22 16:00 Temperature 36.4 C L Pulse Rate 78 82 82 Respiratory Rate 20 Blood Pressure 160/53 H Pulse Oximetry 100 Oxygen Delivery 05/28/22 21:47 05/28/22 20:00 05/28/22 20:00 Temperature 37.0 C Pulse Rate 81 81 Respiratory Rate 18 Blood Pressure 145/51 H Pulse Oximetry 100 Oxygen Delivery Room Air 05/29/22 00:00 05/29/22 04:00 05/29/22 05:38 Temperature 36.9 C Pulse Rate 72 71 70 Respiratory Rate 17 Blood Pressure 151/57 H Pulse Oximetry 98 Oxygen Delivery 05/29/22 08:48 05/29/22 08:00 05/29/22 08:50 Temperature Pulse Rate 66 66 Respiratory Rate 18 Blood Pressure 164/52 H Pulse Oximetry 100 Oxygen Delivery Room Air Intake/Output Intake/Output: Intake & Output 05/26/22 05/27/22 05/28/22 05/29/22 23:59 23:59 23:59 23:59 Intake Total 1615 2480 2200 100 Balance 1615 2480 2200 100 Meds/Results Medications: Active Medications Generic Name Dose Route Start Last Admin Trade Name Freq PRN Reason Stop Dose Admin Collagenase 1 applic 05/28/22 17:00 05/29/22 08:51 Collagenase Oint 30 Gm Tube TOPICAL 1 applic BID [place] Administration Dextrose 12.5 gm 05/26/22 20:15 Dextrose 50% 25 Gm/50 Ml Syringe IV PUSH PRN PRN Hypoglycemia Protocol Enoxaparin Sodium 40 mg 05/27/22 09:00 05/29/22 08:50 Enoxaparin 40 Mg/0.4 Ml Syringe SUB-Q 40 mg DAILY [place] Administration Gabapentin 100 mg 05/27/22 09:00 05/29/22 08:50 Gabapentin 100 Mg Capsule PO 100 mg TID [place] Administration Glucagon 1 mg 05/26/22 20:15 Glucagon For Inj 1 Mg Vial IM PRN PRN Hypoglycemia Protocol Glucose 15 gm 05/26/22 20:15 Glucose Oral Gel 15 Gm Of Glucse In 37.5 Gm Tube PO PRN PRN Hypoglycemia Protocol Cefepime HCl 2 gm in 50 mls @ 100 mls/hr 05/27/22 15:00 05/28/22 19:04 Maxipime 2 Gm/D5w 50 Ml IVPB Infused Q24H [place] Infusion Dextrose 1,000 mls @ 100 mls/hr 05/26/22 20:15 Dextrose 5% 1,000 Ml IVPB PRN PRN Hypoglycemia Protocol Clindamycin Phosphate 600 mg in 50 mls @ 100 mls/hr 05/28/22 17:00 05/29/22 10:38 Clindamycin 600 Mg/D5w 50 Ml IVPB Infused Q8H [place] Infusion Insulin Aspart 2 - 5 units 05/27/22 08:00 05/29/22 08:41 Insulin Aspart (*Bkc) 100 Units/Ml SUB-Q Not Given TIDWM [facility] Protocol Miconazole Nitrate 1 applic 05/29/22 09:00 05/29/22 11:19 Miconazole 2% Antifungal Ointment 56 Gm TOPICAL 1 applic Q12HR [place] Administration Nifedipine 30 mg 05/27/22 09:00 05/29/22 08:51 Nifedipine 30 Mg Tab.Er.24 PO Not Given DAILY [place] Ondansetron HCl 4 mg 05/26/22 14:37 Ondansetron Inj 4 Mg/2 Ml Vial IV PUSH Q4H PRN Nausea Polyethylene Glycol 17 gm 05/27/22 09:2
[2022-05-29 12:43] LABS: Glucose Point of Care 146 mg/dl (65-105)
--- NOTE | 2022-05-29 13:14 | PM.IMPN ---
Progress Note: A&P Assessment and Plan (1) Osteomyelitis: Code(s): M86.9 - Osteomyelitis, unspecified Status: Acute Assessment and Plan: Clinically patient presents with right heel dark necrotic eschar; right foot xray consistent with osteomyelitis -Continue cefepime; and clindamycin; blood cultures growing proteus mirabilis -Persistent leucocytosis on CBC -Obtain wound care consult, cont IV abx and Santyl for now -Plan for debridement nad later amputation. Discussed with daughter; family will discuss how to proceed. - (2) Sepsis: Code(s): A41.9 - Sepsis, unspecified organism Status: Acute Assessment and Plan: Sepsis secondary to infected heel wound bed currently improving with hemodynamic stability. -persistent leukocytosis. -continue vanc and clindamycin. (3) Anemia: Code(s): D64.9 - Anemia, unspecified Status: Acute Assessment and Plan: Patient presented with normocytic hypochromic anemia with a hemoglobin of 7.8. After 1 unit PRBC transfusion, hemoglobin is currently stable at 8.0. This likely represent anemia of chronic disease in the setting of a chronic wound infection. Will send iron panel B12 and folate levels. Continue to monitor the CBC in a.m. labs. No indication for blood transfusion today. Due to the history of fibroid there was a concern about possible chronic blood loss, however patient is postmenopausal and denies any ongoing vaginal bleeding. In the postmenopausal period, fibroid are likely to involute. (4) Fibroid tumor: Code(s): D21.9 - Benign neoplasm of connective and other soft tissue, unspecified Status: Acute Assessment and Plan: Unlikely a cause of ongoing vaginal bleeding in this postmenopausal patient. Follow up with OBGYN outpatient. (5) DM2 (diabetes mellitus, type 2): Code(s): E11.9 - Type 2 diabetes mellitus without complications Status: Acute Assessment and Plan: Last glucose 114 with A1c 6.2 -continue SSI -hold home metformin while hospitalized. -Accu-Cheks have been in the 118-146 range. (6) Combined hyperlipidemia: Code(s): E78.2 - Mixed hyperlipidemia Status: Acute Assessment and Plan: Continue with home medications (7) HTN (hypertension), benign: Code(s): I10 - Essential (primary) hypertension Status: Acute Assessment and Plan: Pt was hypotensive on admission but this is improving -hold lisinopril -continue nifedipine; -blood pressure is moderately controlled in the 151/57-164/52 range. This is appropriate in this acutely sick patient. Continue to monitor. (8) Dementia: Code(s): F03.90 - Unspecified dementia, unspecified severity, without behavioral disturbance, psychotic disturbance, mood disturbance, and anxiety Status: Acute Assessment and Plan: -continue home medications. -reassurance of the patient. -maintain fall precaution. -communication with family regarding decision making. (9) Fecal impaction: Code(s): K56.41 - Fecal impaction Status: Acute Assessment and Plan: Noted on imaging -start miralax and enema -good BS WO pain -monitor bowl movements Time Spent With Patient Time with patient: 15 - 25 minutes Subjective Date/time seen: 05/29/22 13:14 Interval history: S: Patient was seen and examined at the bedside; she denies any complaints. Grandson was at the bedside. Review of Systems Review of Systems: All systems reviewed & are unremarkable except as noted in HPI and below ROS unobtainable: Yes unobtainable due to mental status Constitutional: Constitutional: Reports as per HPI and Reports no additional constitutional complaints Eyes: Eyes: Reports as per HPI and Reports no additional eye complaints ENT: Reports system reviewed and no additional complaints, except as documented and Reports Normal hearing present Cardiovascular
--- NOTE | 2022-05-29 13:39 | PM.PNGS ---
Subjective Subjective Date/Time Seen: 05/29/22 13:39 Patient reports: afebrile Objective Data Vital Signs Vital Signs: Vital Signs - 24 hr 05/28/22 14:00 05/28/22 16:00 05/28/22 21:47 Temperature 97.5 F L 98.6 F Pulse Rate 82 82 81 Respiratory Rate 20 18 Blood Pressure 160/53 H 145/51 H Pulse Oximetry 100 100 Oxygen Delivery 05/28/22 20:00 05/28/22 20:00 05/29/22 00:00 Temperature Pulse Rate 81 72 Respiratory Rate Blood Pressure Pulse Oximetry Oxygen Delivery Room Air 05/29/22 04:00 05/29/22 05:38 05/29/22 08:48 Temperature 98.5 F Pulse Rate 71 70 66 Respiratory Rate 17 18 Blood Pressure 151/57 H 164/52 H Pulse Oximetry 98 100 Oxygen Delivery 05/29/22 08:00 05/29/22 08:50 05/29/22 12:00 Temperature Pulse Rate 66 69 Respiratory Rate Blood Pressure Pulse Oximetry Oxygen Delivery Room Air Intake/Output Intake/Output: Intake & Output 05/26/22 05/27/22 05/28/22 05/29/22 23:59 23:59 23:59 23:59 Intake Total 1615 2480 2200 100 Balance 1615 2480 2200 100 Meds/Results Medications: Active Medications Generic Name Dose Route Start Last Admin Trade Name Freq PRN Reason Stop Dose Admin Collagenase 1 applic 05/28/22 17:00 05/29/22 08:51 Collagenase Oint 30 Gm Tube TOPICAL 1 applic BID [place] Administration Dextrose 12.5 gm 05/26/22 20:15 Dextrose 50% 25 Gm/50 Ml Syringe IV PUSH PRN PRN Hypoglycemia Protocol Enoxaparin Sodium 40 mg 05/27/22 09:00 05/29/22 08:50 Enoxaparin 40 Mg/0.4 Ml Syringe SUB-Q 40 mg DAILY [place] Administration Gabapentin 100 mg 05/27/22 09:00 05/29/22 08:50 Gabapentin 100 Mg Capsule PO 100 mg TID [place] Administration Glucagon 1 mg 05/26/22 20:15 Glucagon For Inj 1 Mg Vial IM PRN PRN Hypoglycemia Protocol Glucose 15 gm 05/26/22 20:15 Glucose Oral Gel 15 Gm Of Glucse In 37.5 Gm Tube PO PRN PRN Hypoglycemia Protocol Cefepime HCl 2 gm in 50 mls @ 100 mls/hr 05/27/22 15:00 05/28/22 19:04 Maxipime 2 Gm/D5w 50 Ml IVPB Infused Q24H [place] Infusion Dextrose 1,000 mls @ 100 mls/hr 05/26/22 20:15 Dextrose 5% 1,000 Ml IVPB PRN PRN Hypoglycemia Protocol Clindamycin Phosphate 600 mg in 50 mls @ 100 mls/hr 05/28/22 17:00 05/29/22 10:38 Clindamycin 600 Mg/D5w 50 Ml IVPB Infused Q8H [place] Infusion Insulin Aspart 2 - 5 units 05/27/22 08:00 05/29/22 12:54 Insulin Aspart (*Bkc) 100 Units/Ml SUB-Q Not Given TIDWM [facility] Protocol Miconazole Nitrate 1 applic 05/29/22 09:00 05/29/22 11:19 Miconazole 2% Antifungal Ointment 56 Gm TOPICAL 1 applic Q12HR [place] Administration Nifedipine 30 mg 05/27/22 09:00 05/29/22 08:51 Nifedipine 30 Mg Tab.Er.24 PO Not Given DAILY [facility] Ondansetron HCl 4 mg 05/26/22 14:37 Ondansetron Inj 4 Mg/2 Ml Vial IV PUSH Q4H PRN Nausea Polyethylene Glycol 17 gm 05/27/22 09:20 05/29/22 08:50 Polyethylene Glycol 3350 17 Gm Powd.Pack PO 17 gm QAM [place] Administration Senna 8.6 mg 05/27/22 21:00 05/28/22 20:16 Sennosides 8.6 Mg Tablet PO 06/26/22 20:59 8.6 mg HS [place] Administration Radiology Results: ITS Impressions Abdomen/Pelvis CT 05/26/22 14:06 Impression: Fecal impaction and constipation. 5 cm presumed fibroid, as detailed above, possibly degenerating fibroid or necrotic given central hypodensity. Moderate sized fat-containing umbilical hernia. Chest X-Ray 05/26/22 14:10 Impression: Clear lungs. Foot X-Ray 05/26/22 21:39 IMPRESSION: 1. Osteomyelitis at the inferior aspect of the posterior tuberosity of the calcaneus with overlying heel ulceration and deep soft tissue gas. Labs Labs: Laboratory Results - last 24 hr 05/28/22 05/28/2222 18:10 20:14 08:26 POC Capillary Glucose 199 H 176 H 118 H 05/29/22 12:40 POC Capillary Glucose 146
[2022-05-29 14:26] LABS: Hematocrit 28.2 % (37.0-47.0); Hemoglobin 8.8 g/dL (12.0-15.0); Mean Corpuscular HGB Conc 31.2 g/dl (32-36); Mean Corpuscular Hemoglobin 27.2 pg (26-34); Mean Platelet Volume 9.4 fl (7.4-10.4); Platelet Count Result 387 k/mm3 (150-375); Red Blood Count 3.24 M/mm3 (4.2-5.4); Red Cell Distribution Width 15.1 % (11.5-14.5)
[2022-05-29 14:39] LABS: Anion Gap 4 mmol/L (8-16); Blood Urea Nitrogen 19 mg/dL (7-17); Calcium 8.8 mg/dL (8.4-10.2); Carbon Dioxide 27 mmol/L (22-30); Chloride 103 mmol/L (98-107); Estimated CRCL calculation 41 ml/min; Estimated Glomerular Filt Rate > 60; Glucose 145 mg/dL (65-110); Potassium 3.8 mmol/L (3.4-5.0); Sodium 134 mmol/L (137-145)
[2022-05-29 14:49] LABS: INR 1.3; Prothrombin Time 15.2 Seconds (11.1-14.7)
[2022-05-29] MEDS: SOD HYPOCHLORITE 1/4 STRENGTH 473 ML 1 APPLIC TOPICAL ×2 (16:30→20:14)
[2022-05-29 17:46] LABS: Glucose Point of Care 178 mg/dl (65-105)
[2022-05-29] MEDS: SENNOSIDES 8.6 MG TABLET PO (20:14)
[2022-05-29 21:42] LABS: Glucose Point of Care 165 mg/dl (65-105)
[2022-05-30] VITALS (17 sets, daily range): BP systolic 152–177; BP diastolic 53–87; PULSE 63–80; RESP 16–22; TEMP 36.4–37.4; O2SAT 98–100
[2022-05-30] MEDS: ENOXAPARIN 40 MG/0.4 ML SYRINGE SUB-Q (08:48)
[2022-05-30] MEDS: SOD HYPOCHLORITE 1/4 STRENGTH 473 ML 1 APPLIC TOPICAL ×2 (08:49→21:58)
[2022-05-30 09:09] LABS: Glucose Point of Care 128 mg/dl (65-105)
[2022-05-30 12:43] LABS: Glucose Point of Care 138 mg/dl (65-105)
[2022-05-30 13:50] LABS: Hematocrit 28.7 % (37.0-47.0); Hemoglobin 8.9 g/dL (12.0-15.0); Mean Corpuscular Hemoglobin 26.3 pg (26-34); Mean Corpuscular Volume 84.9 fl (80-100); Mean Platelet Volume 9.3 fl (7.4-10.4); Platelet Count Result 399 k/mm3 (150-375); Red Blood Count 3.38 M/mm3 (4.2-5.4); Red Cell Distribution Width 14.9 % (11.5-14.5); White Blood Count 19.6 K/mm3 (4.5-10.0)
[2022-05-30 14:01] LABS: Anion Gap 3 mmol/L (8-16); Blood Urea Nitrogen 14 mg/dL (7-17); Calcium 9.1 mg/dL (8.4-10.2); Carbon Dioxide 27 mmol/L (22-30); Chloride 106 mmol/L (98-107); Estimated CRCL calculation 51 ml/min; Estimated Glomerular Filt Rate > 60; Glucose 133 mg/dL (65-110); Potassium 4.1 mmol/L (3.4-5.0); Sodium 136 mmol/L (137-145)
[2022-05-30] MEDS: LACTATED RINGERS 1,000 ML 30 ML IV CONT (14:10)
--- NOTE | 2022-05-30 14:33 | WPDANESEPPF ---
Anes - Initial Pre Proc Eval Procedure: Operation Date: 05/30/22 15:00 Proposed Procedures p Incision And Drainage Right Heel Ulcer - Althea Huffman MD Date/Time: 05/30/22 14:33 Surgeon: Yanira Mina PA-C Pre Op Diagnosis: Sepsis Patient Data Age: 77 Gender: F Height: 1.52 m Weight: 86.4 kg Last Vital Signs Temp 37.4 C 05/30/22 14:08 Pulse 71 05/30/22 14:08 Resp 16 05/30/22 14:08 BP 173/64 H 05/30/22 14:08 Pulse Ox 100 05/30/22 14:08 O2 Del Method Room Air 05/30/22 14:08 Allergies Allergy/AdvReac Type Severity Reaction Status Date / Time No Known Allergies Allergy Verified 05/27/22 04:16 Home Medications Medication Instructions Recorded Confirmed Type Ex-Lax (sennosides) 8.6 mg PO HS constipation 05/27/22 05/27/22 History gabapentin 100 mg capsule 100 mg PO TID nerve pain 05/27/22 05/27/22 History lisinopril 40 mg tablet 40 mg PO DAILY 05/27/22 05/27/22 History metformin 500 mg tablet 500 mg PO TID DM 05/27/22 05/27/22 History nifedipine 30 mg tablet,extended 30 mg PO DAILY 05/27/22 05/27/22 History release 24 hr Laboratory Tests 05/29/22 05/29/22 05/29/22 14:12 14:12 17:33 WBC RBC Hgb Hct MCV MCH MCHC RDW Plt Count MPV PT 15.2 Seconds H Seconds (11.1-14.7) INR 1.3 Sodium 134 mmol/L L mmol/L (137-145) Potassium 3.8 mmol/L mmol/L (3.4-5.0) Chloride 103 mmol/L mmol/L (98-107) Carbon Dioxide 27 mmol/L mmol/L (22-30) Anion Gap 4 mmol/L L mmol/L (8-16) BUN 19 mg/dL H D mg/dL (7-17) Creatinine 1.00 mg/dL mg/dL (0.7-1.0) Estim Creat Clear Calc 41 ml/min ml/min Estimated GFR > 60 (59 - ) Glucose 145 mg/dL H mg/dL (65-110) POC Capillary Glucose 178 mg/dl H mg/dl (65-105) Calcium 8.8 mg/dL mg/dL (8.4-10.2) 05/29/22 05/30/22 05/30/22 20:13 08:50 12:40 WBC RBC Hgb Hct MCV MCH MCHC RDW Plt Count MPV PT INR Sodium Potassium Chloride Carbon Dioxide Anion Gap BUN Creatinine Estim Creat Clear Calc Estimated GFR Glucose POC Capillary Glucose 165 mg/dl H mg/dl 128 mg/dl H mg/dl 138 mg/dl H mg/dl (65-105) (65-105) (65-105) Calcium 05/30/22 05/30/22 13:37 13:37 WBC 19.6 K/mm3 H K/mm3 (4.5-10.0) RBC 3.38 M/mm3 L M/mm3 (4.2-5.4) Hgb 8.9 g/dL L g/dL (12.0-15.0) Hct 28.7 % L % (37.0-47.0) MCV 84.9 fl fl (80-100) MCH 26.3 pg pg (26-34) MCHC 31.0 g/dl L g/dl (32-36) RDW 14.9 % H % (11.5-14.5) Plt Count 399 k/mm3 H k/mm3 (150-375) MPV 9.3 fl fl (7.4-10.4) PT INR Sodium 136 mmol/L L mmol/L (137-145) Potassium 4.1 mmol/L mmol/L (3.4-5.0) Chloride 106 mmol/L mmol/L (98-107) Carbon Dioxide 27 mmol/L mmol/L (22-30) Anion Gap 3 mmol/L L mmol/L (8-16) BUN 14 mg/dL D mg/dL (7-17) Creatinine 0.80 mg/dL mg/dL (0.7-1.0) Estim Creat Clear Calc 51 ml/min ml/min Estimated GFR > 60 (59 - ) Glucose 133 mg/dL H mg/dL (65-110) POC Capillary Glucose Calcium 9.1 mg/dL mg/dL (8.4-10.2) Patient hx anesthesia problems: none Family hx anesthesia problems: none Results Review: All pre-operative results and documents have been reviewed as part of the pre-operative evaluation. [facility] Past Medical History Medical History Combined hyperlipidemi
--- NOTE | 2022-05-30 14:54 | WPDHPUPDATE1 ---
History and Physical Update Update Date/Time: 05/30/22 14:54 History and Physical has been reviewed, including an updated exam of the patient. There are NO changes in the patient's condition. Risks, benefits, and alternatives have been discussed and questions answered. Patient agrees to proceed with procedure.
--- NOTE | 2022-05-30 15:00 | PM.IMPN ---
Progress Note: A&P Assessment and Plan (1) Osteomyelitis: Code(s): M86.9 - Osteomyelitis, unspecified Status: Acute Assessment and Plan: Clinically patient presents with right heel dark necrotic eschar; right foot xray consistent with osteomyelitis -Continue cefepime; and clindamycin; blood cultures growing proteus mirabilis -Persistent leucocytosis on CBC -Obtain wound care consult, cont IV abx and Santyl for now -for debridement and later amputation Gen surgery following - (2) Sepsis: Code(s): A41.9 - Sepsis, unspecified organism Status: Acute Assessment and Plan: Sepsis secondary to infected heel wound bed currently improving with hemodynamic stability. -persistent leukocytosis. -continue vanc and Cefepime (3) Anemia: Code(s): D64.9 - Anemia, unspecified Status: Acute Assessment and Plan: Patient presented with normocytic hypochromic anemia with a hemoglobin of 7.8. After 1 unit PRBC transfusion, hemoglobin is currently stable at 8.0. This likely represent anemia of chronic disease in the setting of a chronic wound infection. Will send iron panel B12 and folate levels. Continue to monitor the CBC in a.m. labs. No indication for blood transfusion today. Due to the history of fibroid there was a concern about possible chronic blood loss, however patient is postmenopausal and denies any ongoing vaginal bleeding. In the postmenopausal period, fibroid are likely to involute. Iron profile indicative of iron def of inflammation however, SOluble transferrin receptor ordered Monitor and transfuse if hb below 7. (4) Fibroid tumor: Code(s): D21.9 - Benign neoplasm of connective and other soft tissue, unspecified Status: Acute Assessment and Plan: Unlikely a cause of ongoing vaginal bleeding in this postmenopausal patient. Follow up with OBGYN outpatient. (5) DM2 (diabetes mellitus, type 2): Code(s): E11.9 - Type 2 diabetes mellitus without complications Status: Acute Assessment and Plan: Last glucose 114 with A1c 6.2 -continue SSI -hold home metformin while hospitalized. -Accu-Cheks have been in the 118-146 range. (6) Combined hyperlipidemia: Code(s): E78.2 - Mixed hyperlipidemia Status: Acute Assessment and Plan: Continue with home medications (7) HTN (hypertension), benign: Code(s): I10 - Essential (primary) hypertension Status: Acute Assessment and Plan: Pt was hypotensive on admission but this is improving -hold lisinopril -continue nifedipine; -titrate home emds with clinical course (8) Dementia: Code(s): F03.90 - Unspecified dementia, unspecified severity, without behavioral disturbance, psychotic disturbance, mood disturbance, and anxiety Status: Acute Assessment and Plan: -continue home medications. -reassurance of the patient. -maintain fall precaution. -communication with family regarding decision making. (9) Fecal impaction: Code(s): K56.41 - Fecal impaction Status: Acute Assessment and Plan: Noted on imaging -start miralax and enema -good BS WO pain -monitor bowl movements (10) Peripheral artery disease: Code(s): I73.9 - Peripheral vascular disease, unspecified Status: Acute Assessment and Plan: VANIA did not detect any arterial flow and VANIA was immeasurable CTA abd aorta with runoof ordered if interventional lesion is present patient will need transfer to tertiary institution Subjective Date/time seen: 05/30/22 15:00 Interval history: Patient was seen and examined at the bedside, was mostly sleepy and unable to respond to questions. Review of Systems Review of Systems: All systems reviewed & are unremarkable except as noted in HPI and below ROS unobtainable: Yes unobtainable due to mental status Constitutional: Constitutional: Reports as per H
--- NOTE | 2022-05-30 16:17 | W.PM.PROC2 ---
Procedure Note - Detailed Date of Procedure 05/30/22 Pre-op Diagnosis Sepsis, Right heel necrotic ulcer, osteomyelitis Post-op Diagnosis Same Procedure Performed extensive debridement right heel necrotic ulcer, osteomyelitis, washout Surgeon Althea Huffman MD Anesthesia MAC Indications 77-year-old female presenting with sepsis secondary to necrotic right heel ulcer and osteomyelitis Findings necrotic right heel ulcer involving skin subcutaneous tissue underlying muscle and bone, wound measurements 11 by 6 by 3 cm with tunneling into the foot of approximately 2 additional cm Description of Procedure The patient was taken to the operating room placed in the supine position. After adequate induction of IV sedation, the patient was prepped and draped in the normal sterile fashion. A time-out was then done to verify the patient's identity, as well as the procedure being performed. I began by using a 10 blade scalpel and debriding away the necrotic eschar in the right heel. Upon getting through the dermis, it was noted that the underlying tissue was completely necrotic and liquified. This tissue included the underlying subcutaneous tissue as well as muscle, including the exposed bone. The necrotic and infected tissue was completely debrided using sharp dissection with the scalpel. After complete debridement, the wound measured approximately 11 x 6 by 3 cm. There was enough additional 2 cm tunneling going into the foot itself. I then copiously washed out the wound. Wet to dry dressing with Dakin solution was then placed. The patient was alert and awake in the operating room postoperatively and will be transferred back to the floor. Estimated Blood Loss 10 Complications No immediate complications Condition Stable Disposition PACU [facility] Billing Surgery - Charge Forward: Surgery Billing
[2022-05-30 16:19] LABS: Glucose Point of Care 173 mg/dl (65-105)
[2022-05-30 17:51] LABS: Glucose Point of Care 118 mg/dl (65-105)
[2022-05-30] MEDS: GABAPENTIN 100 MG CAPSULE PO (17:58)
--- NOTE | 2022-05-30 18:09 | PC.NURSE ---
Patient has returned to the floor with telemetry leads intact and attached, however the tele box itself is not with the patient. After extensive searching and calls to the PACU, the telemetry box was found and retrieved.
[2022-05-30] MEDS: SENNOSIDES 8.6 MG TABLET PO (22:00)
[2022-05-31] VITALS (9 sets, daily range): BP systolic 143–154; BP diastolic 46–50; PULSE 65–78; RESP 16–20; TEMP 36.2–36.8; O2SAT 96–98
[2022-05-31 01:15] LABS: Glucose Point of Care 222 mg/dl (65-105)
[2022-05-31 06:18] LABS: Estimated CRCL calculation 51 ml/min; Estimated Glomerular Filt Rate > 60
[2022-05-31 06:52] LABS: Iron 21 ug/dL (37-170)
[2022-05-31 07:02] LABS: Percent Iron Saturation 13 % (20-50)
--- NOTE | 2022-05-31 07:18 | WPDANESPN ---
Anes - Prog Note Post-Op Date/Time: 05/31/22 07:18 Cardiovascular status: normal Respiratory status: normal Airway patency: baseline Mental status: baseline Post-Op hydration status: normal Vital Signs: Last Vital Signs Temp 36.8 C 05/31/22 04:31 Pulse 65 05/31/22 04:31 Resp 20 05/31/22 04:31 BP 154/50 H 05/31/22 04:31 Pulse Ox 98 05/31/22 04:31 O2 Del Method Room Air 05/30/22 17:23 O2 Flow Rate 8 05/30/22 16:25 Pain Score (VAS): 2 I/O: Intake & Output 05/30/22 05/30/22 05/31/22 15:59 23:59 07:59 Intake Total 250 270 120 Balance 250 270 120 Laboratory Tests 05/30/22 13:37 05/31/22 05:57 05/30/22 05/30/22 05/30/22 08:50 12:40 13:37 WBC 19.6 H RBC 3.38 L Hgb 8.9 L Hct 28.7 L MCV 84.9 MCH 26.3 MCHC 31.0 L RDW 14.9 H Plt Count 399 H MPV 9.3 Sodium Potassium Chloride Carbon Dioxide Anion Gap BUN Creatinine Estim Creat Clear Calc Estimated GFR Glucose POC Capillary Glucose 128 H 138 H Calcium Iron TIBC % Saturation Lisa Transferrin Receptr 05/30/22 05/30/22 05/30/22 13:37 16:16 17:44 WBC RBC Hgb Hct MCV MCH MCHC RDW Plt Count MPV Sodium 136 L Potassium 4.1 Chloride 106 Carbon Dioxide 27 Anion Gap 3 L BUN 14 D Creatinine 0.80 Estim Creat Clear Calc 51 Estimated GFR > 60 Glucose 133 H POC Capillary Glucose 173 H 118 H Calcium 9.1 Iron TIBC % Saturation Lisa Transferrin Receptr 05/31/22 05/31/22 05/31/22 01:12 05:57 05:57 WBC RBC Hgb Hct MCV MCH MCHC RDW Plt Count MPV Sodium Potassium Chloride Carbon Dioxide Anion Gap BUN Creatinine Estim Creat Clear Calc Estimated GFR Glucose POC Capillary Glucose 222 H Calcium Iron 21 L TIBC 161 L % Saturation 13 L Lisa Transferrin Receptr Pending 05/31/22 05:57 WBC RBC Hgb Hct MCV MCH MCHC RDW Plt Count MPV Sodium Potassium Chloride Carbon Dioxide Anion Gap BUN Creatinine 0.80 Estim Creat Clear Calc 51 Estimated GFR > 60 Glucose POC Capillary Glucose Calcium Iron TIBC % Saturation Lisa Transferrin Receptr Microbiology 05/27/22 05:04 Foot Right Wound Culture - Final Staphylococcus aureus Post-procedural complaints: none Patient Feedback: Patient satisfied with anesthetic care.
[2022-05-31] MEDS: ENOXAPARIN 40 MG/0.4 ML SYRINGE SUB-Q (09:00)
[2022-05-31] MEDS: NIFEdipine 30 MG TAB.ER.24 PO (09:01)
[2022-05-31] MEDS: GABAPENTIN 100 MG CAPSULE PO ×3 (09:02→17:28)
[2022-05-31] MEDS: SOD HYPOCHLORITE 1/4 STRENGTH 473 ML 1 APPLIC TOPICAL ×2 (09:02→22:52)
[2022-05-31] MEDS: polyethylene glycoL 3350 17 GM POWD.PACK PO (09:02)
[2022-05-31 09:15] LABS: Glucose Point of Care 162 mg/dl (65-105)
[2022-05-31 11:54] LABS: Glucose Point of Care 180 mg/dl (65-105)
--- NOTE | 2022-05-31 13:02 | PM.PNGS ---
Progress Note: A&P Assessment and Plan (1) Osteomyelitis: Code(s): M86.9 - Osteomyelitis, unspecified Status: Acute Assessment and Plan: s/p debridement, cont local wound care, abx, will need more definitive treatment c likely amputation, long d/w family and will need vascular workup prior to amputation (2) Peripheral artery disease: Code(s): I73.9 - Peripheral vascular disease, unspecified Status: Acute Assessment and Plan: see above Subjective Subjective Date/Time Seen: 05/31/22 13:02 no acute issues, family present today at bedside Review of Systems Review of Systems: ROS unobtainable: Yes unobtainable due to mental status Exam Const: General: cooperative, comfortable and no acute distress Resp: Auscultation: clear to auscultation bilaterally Cardio: Rate: regular rate Rhythm: regular rhythm GI: Inspection: normal to inspection Skin: Other: R heel dressing - C/D/I Objective Data Vital Signs Vital Signs: Vital Signs - 24 hr 05/30/22 14:08 05/30/22 16:10 05/30/22 16:25 Temperature 37.4 C Pulse Rate 71 73 69 Respiratory Rate 16 16 18 Blood Pressure 173/64 H 176/80 H 170/61 H Pulse Oximetry 100 100 100 Oxygen Delivery Room Air Simple Face Mask Simple Face Mask Oxygen Flow Rate 8 8 05/30/22 16:29 05/30/22 16:40 05/30/22 16:55 Temperature Pulse Rate 68 67 Respiratory Rate 20 16 Blood Pressure 177/71 H 176/64 H Pulse Oximetry 100 100 100 Oxygen Delivery Room Air Room Air Room Air Oxygen Flow Rate 05/30/22 17:10 05/30/22 17:23 05/30/22 17:38 Temperature 36.7 C Pulse Rate 71 71 72 Respiratory Rate 22 H 22 H 16 Blood Pressure 173/62 H 166/55 H 152/74 H Pulse Oximetry 100 100 100 Oxygen Delivery Room Air Room Air Oxygen Flow Rate 05/30/22 17:53 05/30/22 20:10 05/31/22 04:31 Temperature 36.7 C 37.3 C 36.8 C Pulse Rate 80 72 65 Respiratory Rate 16 18 20 Blood Pressure 168/87 H 163/57 H 154/50 H Pulse Oximetry 100 98 98 Oxygen Delivery Oxygen Flow Rate 05/30/22 20:00 05/31/22 00:00 05/31/22 04:00 Temperature Pulse Rate 80 78 67 Respiratory Rate Blood Pressure Pulse Oximetry Oxygen Delivery Oxygen Flow Rate 05/31/22 08:00 05/31/22 09:00 Temperature Pulse Rate 67 Respiratory Rate Blood Pressure Pulse Oximetry Oxygen Delivery Room Air Oxygen Flow Rate Intake/Output Intake/Output: Intake & Output 05/28/22 05/29/22 05/30/22 05/31/22 23:59 23:59 23:59 23:59 Intake Total 2200 820 520 360 Balance 2200 820 520 360 Meds/Results Medications: Active Medications Generic Name Dose Route Start Last Admin Trade Name Freq PRN Reason Stop Dose Admin Dextrose 12.5 gm 05/26/22 20:15 Dextrose 50% 25 Gm/50 Ml Syringe IV PUSH PRN PRN Hypoglycemia Protocol Enoxaparin Sodium 40 mg 05/27/22 09:00 05/31/22 09:00 Enoxaparin 40 Mg/0.4 Ml Syringe SUB-Q 40 mg DAILY [place] Administration Gabapentin 100 mg 05/27/22 09:00 05/31/22 12:40 Gabapentin 100 Mg Capsule PO 100 mg TID [place] Administration Glucagon 1 mg 05/26/22 20:15 Glucagon For Inj 1 Mg Vial IM PRN PRN Hypoglycemia Protocol Glucose 15 gm 05/26/22 20:15 Glucose Oral Gel 15 Gm Of Glucse In 37.5 Gm Tube PO PRN PRN Hypoglycemia Protocol Cefepime HCl 2 gm in 50 mls @ 100 mls/hr 05/27/22 15:00 05/30/22 18:30 Maxipime 2 Gm/D5w 50 Ml IVPB Infused Q24H [place] Infusion Dextrose 1,000 mls @ 100 mls/hr 05/26/22 20:15 Dextrose 5% 1,000 Ml IVPB PRN PRN Hypoglycemia Protocol Vancomycin HCl 1,250 mg in 250 mls @ 200 mls/hr 05/29/22 15:00 05/31/22 03:42 Vancomycin 1,250 Mg/D5w 250 Ml IVPB 0 mls/hr Q18H [place] Infusion Insulin Aspart 2 - 5 units 05/27/22 08:00 05/31/22 12:40 Insulin Aspart (*Bkc) 100 Units/Ml SUB-Q Not Given TIDWM [place] Protocol Miconazole Nitrate 1 applic 05/29/22 09:00 05/31/22 09
[2022-05-31 15:52] LABS: Hematocrit 27.5 % (37.0-47.0); Hemoglobin 8.5 g/dL (12.0-15.0); Mean Corpuscular HGB Conc 30.9 g/dl (32-36); Mean Corpuscular Volume 87.3 fl (80-100); Mean Platelet Volume 9.3 fl (7.4-10.4); Platelet Count Result 382 k/mm3 (150-375); Red Blood Count 3.15 M/mm3 (4.2-5.4); Red Cell Distribution Width 15.4 % (11.5-14.5); White Blood Count 16.4 K/mm3 (4.5-10.0)
[2022-05-31 16:05] LABS: Anion Gap 4 mmol/L (8-16); Blood Urea Nitrogen 13 mg/dL (7-17); Calcium 8.8 mg/dL (8.4-10.2); Carbon Dioxide 27 mmol/L (22-30); Chloride 100 mmol/L (98-107); Estimated CRCL calculation 46 ml/min; Estimated Glomerular Filt Rate > 60; Glucose 233 mg/dL (65-110); Potassium 3.9 mmol/L (3.4-5.0); Sodium 131 mmol/L (137-145)
[2022-05-31 17:07] LABS: Glucose Point of Care 213 mg/dl (65-105)
[2022-05-31] MEDS: INSULIN ASPART (*BKC) 100 UNITS/ML SUB-Q (17:28)
--- NOTE | 2022-05-31 17:45 | PM.IMPN ---
Progress Note: A&P Assessment and Plan (1) Osteomyelitis: Code(s): M86.9 - Osteomyelitis, unspecified Status: Acute Assessment and Plan: Clinically patient presents with right heel dark necrotic eschar; right foot xray consistent with osteomyelitis -Continue cefepime; and clindamycin; blood cultures growing proteus mirabilis -Persistent leucocytosis on CBC -Obtain wound care consult, cont IV abx and Santyl for now -for debridement and later amputation Gen surgery following - 05/31/2022 interval history 77-year-old female resident of [facility] presented with dark necrotic eschar on right heal, patient was seen by surgery service and had a significant debridement of the wound and concerning for osteomyelitis, today patient had a CT angiogram of right lower extremity showing significant peripheral vascular disease, surgery service is recommending amputation however due to severe peripheral vascular disease patient will need to be seen by vascular surgery service which we do not have available at the hospital and may need to be transferred to tertiary care, had a long discussion with family, again patient will be seen by surgery service and further recommendation to follow (2) Sepsis: Code(s): A41.9 - Sepsis, unspecified organism Status: Acute Assessment and Plan: Sepsis secondary to infected heel wound bed currently improving with hemodynamic stability. -persistent leukocytosis. -continue vanc and Cefepime (3) Anemia: Code(s): D64.9 - Anemia, unspecified Status: Acute Assessment and Plan: Patient presented with normocytic hypochromic anemia with a hemoglobin of 7.8. After 1 unit PRBC transfusion, hemoglobin is currently stable at 8.0. This likely represent anemia of chronic disease in the setting of a chronic wound infection. Will send iron panel B12 and folate levels. Continue to monitor the CBC in a.m. labs. No indication for blood transfusion today. Due to the history of fibroid there was a concern about possible chronic blood loss, however patient is postmenopausal and denies any ongoing vaginal bleeding. In the postmenopausal period, fibroid are likely to involute. Iron profile indicative of iron def of inflammation however, SOluble transferrin receptor ordered Monitor and transfuse if hb below 7. (4) Fibroid tumor: Code(s): D21.9 - Benign neoplasm of connective and other soft tissue, unspecified Status: Acute Assessment and Plan: Unlikely a cause of ongoing vaginal bleeding in this postmenopausal patient. Follow up with OBGYN outpatient. (5) DM2 (diabetes mellitus, type 2): Code(s): E11.9 - Type 2 diabetes mellitus without complications Status: Acute Assessment and Plan: Last glucose 114 with A1c 6.2 -continue SSI -hold home metformin while hospitalized. -Accu-Cheks have been in the 118-146 range. (6) Combined hyperlipidemia: Code(s): E78.2 - Mixed hyperlipidemia Status: Acute Assessment and Plan: Continue with home medications (7) HTN (hypertension), benign: Code(s): I10 - Essential (primary) hypertension Status: Acute Assessment and Plan: Pt was hypotensive on admission but this is improving -hold lisinopril -continue nifedipine; -titrate home emds with clinical course (8) Dementia: Code(s): F03.90 - Unspecified dementia, unspecified severity, without behavioral disturbance, psychotic disturbance, mood disturbance, and anxiety Status: Acute Assessment and Plan: -continue home medications. -reassurance of the patient. -maintain fall precaution. -communication with family regarding decision making. (9) Fecal impaction: Code(s): K56.41 - Fecal impaction Status: Acute Assessment and Plan: Noted on imaging -start miralax and enema -good BS WO pain -monitor bowl movements (10) Periphera
[2022-05-31 21:11] LABS: Vancomycin Trough 16.9 ug/mL (10.0-20.0)
[2022-05-31] MEDS: SENNOSIDES 8.6 MG TABLET PO (22:57)
[2022-06-01] VITALS (10 sets, daily range): BP systolic 143–146; BP diastolic 48–82; PULSE 66–71; RESP 18; TEMP 36.7–37.3; O2SAT 99–100
[2022-06-01 01:10] LABS: Glucose Point of Care 163 mg/dl (65-105)
[2022-06-01 08:33] LABS: Glucose Point of Care 127 mg/dl (65-105)
[2022-06-01] MEDS: NIFEdipine 30 MG TAB.ER.24 PO (09:08)
[2022-06-01] MEDS: polyethylene glycoL 3350 17 GM POWD.PACK PO (09:08)
[2022-06-01] MEDS: GABAPENTIN 100 MG CAPSULE PO ×3 (09:08→18:01)
[2022-06-01] MEDS: ENOXAPARIN 40 MG/0.4 ML SYRINGE SUB-Q (09:09)
[2022-06-01] MEDS: SOD HYPOCHLORITE 1/4 STRENGTH 473 ML 1 APPLIC TOPICAL ×2 (09:09→21:40)
--- NOTE | 2022-06-01 10:51 | PM.PNGS ---
Progress Note: A&P Assessment and Plan (1) Osteomyelitis: Code(s): M86.9 - Osteomyelitis, unspecified Status: Acute Assessment and Plan: cont abx, local wound care, will need amputation but needs vascular workup/treatment prior to amp Subjective Subjective Date/Time Seen: 06/01/22 10:51 no acute issues Review of Systems Review of Systems: ROS unobtainable: Yes unobtainable due to mental status Exam Const: General: cooperative, comfortable and no acute distress Extrem: Other: R foot - dressing C/D/I Objective Data Vital Signs Vital Signs: Vital Signs - 24 hr 05/31/22 12:00 05/31/22 14:58 05/31/22 16:00 Temperature 36.6 C Pulse Rate 70 70 66 Respiratory Rate 16 Blood Pressure 154/46 H Pulse Oximetry 97 Oxygen Delivery 05/31/22 22:00 05/31/22 20:00 05/31/22 20:00 Temperature 36.2 C L Pulse Rate 71 73 Respiratory Rate 18 Blood Pressure 143/48 H Pulse Oximetry 96 Oxygen Delivery Room Air 06/01/22 00:00 06/01/22 04:50 06/01/22 04:00 Temperature 36.7 C Pulse Rate 69 67 66 Respiratory Rate 18 Blood Pressure 145/55 H Pulse Oximetry 99 Oxygen Delivery 06/01/22 09:15 Temperature Pulse Rate 70 Respiratory Rate Blood Pressure 143/82 H Pulse Oximetry 99 Oxygen Delivery Intake/Output Intake/Output: Intake & Output 05/29/22 05/30/22 05/31/22 06/01/22 23:59 23:59 23:59 23:59 Intake Total 104 803 4440 370 Balance 615 720 2227 370 Meds/Results Medications: Active Medications Generic Name Dose Route Start Last Admin Trade Name Freq PRN Reason Stop Dose Admin Dextrose 12.5 gm 05/26/22 20:15 Dextrose 50% 25 Gm/50 Ml Syringe IV PUSH PRN PRN Hypoglycemia Protocol Enoxaparin Sodium 40 mg 05/27/22 09:00 06/01/22 09:09 Enoxaparin 40 Mg/0.4 Ml Syringe SUB-Q 40 mg DAILY [place] Administration Gabapentin 100 mg 05/27/22 09:00 06/01/22 09:08 Gabapentin 100 Mg Capsule PO 100 mg TID [place] Administration Glucagon 1 mg 05/26/22 20:15 Glucagon For Inj 1 Mg Vial IM PRN PRN Hypoglycemia Protocol Glucose 15 gm 05/26/22 20:15 Glucose Oral Gel 15 Gm Of Glucse In 37.5 Gm Tube PO PRN PRN Hypoglycemia Protocol Cefepime HCl 2 gm in 50 mls @ 100 mls/hr 05/27/22 15:00 05/31/22 19:02 Maxipime 2 Gm/D5w 50 Ml IVPB Infused Q24H [place] Infusion Dextrose 1,000 mls @ 100 mls/hr 05/26/22 20:15 Dextrose 5% 1,000 Ml IVPB PRN PRN Hypoglycemia Protocol Vancomycin HCl 1,250 mg in 250 mls @ 200 mls/hr 05/31/22 22:00 06/01/22 00:15 Vancomycin 1,250 Mg/D5w 250 Ml IVPB Infused Q18H [place] Infusion Insulin Aspart 2 - 5 units 05/27/22 08:00 06/01/22 09:04 Insulin Aspart (*Bkc) 100 Units/Ml SUB-Q Not Given TIDWM [facility] Protocol Miconazole Nitrate 1 applic 05/29/22 09:00 06/01/22 09:09 Miconazole 2% Antifungal Ointment 56 Gm TOPICAL 1 applic Q12HR [place] Administration Nifedipine 30 mg 05/27/22 09:00 06/01/22 09:08 Nifedipine 30 Mg Tab.Er.24 PO 30 mg DAILY [place] Administration Ondansetron HCl 4 mg 05/26/22 14:37 Ondansetron Inj 4 Mg/2 Ml Vial IV PUSH Q4H PRN Nausea Polyethylene Glycol 17 gm 05/27/22 09:20 06/01/22 09:08 Polyethylene Glycol 3350 17 Gm Powd.Pack PO 17 gm QAM [place] Administration Senna 8.6 mg 05/27/22 21:00 05/31/22 22:57 Sennosides 8.6 Mg Tablet PO 06/26/22 20:59 8.6 mg HS [place] Administration Sodium Hypochlorite 1 applic 05/29/22 14:30 06/01/22 09:09 Sod Hypochlorite 1/4 Strength 473 Ml TOPICAL 1 applic Q12HR [place] Administration Radiology Results: ITS Impressions Abdomen/Pelvis CT 05/26/22 14:06 Impression: Fecal impaction and constipation. 5 cm presumed fibroid, as detailed above, possibly degenerating fibroid or necrotic given central hypodensity. Moderate sized fat-containing umbilical hernia. Chest X-Ray
[2022-06-01 12:39] LABS: Glucose Point of Care 157 mg/dl (65-105)
--- NOTE | 2022-06-01 13:29 | PM.IMPN ---
Progress Note: A&P Assessment and Plan (1) Osteomyelitis: Code(s): M86.9 - Osteomyelitis, unspecified Status: Acute Assessment and Plan: Clinically patient presents with right heel dark necrotic eschar; right foot xray consistent with osteomyelitis -Continue cefepime; and clindamycin; blood cultures growing proteus mirabilis -Persistent leucocytosis on CBC -Obtain wound care consult, cont IV abx and Santyl for now -for debridement and later amputation Gen surgery following - 06/01/2022 interval history 77-year-old [facility] presented with dark necrotic eschar on right heal, 05/30 patient was seen by surgery service and had a significant debridement of the wound and concerning for osteomyelitis, on 06/[address] angiogram of right lower extremity showing significant peripheral vascular disease, surgery service is recommending amputation however due to severe peripheral vascular disease patient will need to be seen by vascular surgery service which we do not have available at the hospital and may need to be transferred to tertiary care, spoke with the surgeon recommended to continue current abx treatment and reassess next week and plan, wound culture is growing staph aureus and blood culture is growing proteus mirabiliis, also discuseed with [facility] and recommended to continue ceftriaxone 2g IV daily, and on 05/31 had a long discussion with family, again patient will be seen by surgery service and further recommendation to follow (2) Sepsis: Code(s): A41.9 - Sepsis, unspecified organism Status: Acute Assessment and Plan: Sepsis secondary to infected heel wound bed currently improving with hemodynamic stability. -persistent leukocytosis. -continue vanc and Cefepime (3) Anemia: Code(s): D64.9 - Anemia, unspecified Status: Acute Assessment and Plan: Patient presented with normocytic hypochromic anemia with a hemoglobin of 7.8. After 1 unit PRBC transfusion, hemoglobin is currently stable at 8.0. This likely represent anemia of chronic disease in the setting of a chronic wound infection. Will send iron panel B12 and folate levels. Continue to monitor the CBC in a.m. labs. No indication for blood transfusion today. Due to the history of fibroid there was a concern about possible chronic blood loss, however patient is postmenopausal and denies any ongoing vaginal bleeding. In the postmenopausal period, fibroid are likely to involute. Iron profile indicative of iron def of inflammation however, SOluble transferrin receptor ordered Monitor and transfuse if hb below 7. (4) Fibroid tumor: Code(s): D21.9 - Benign neoplasm of connective and other soft tissue, unspecified Status: Acute Assessment and Plan: Unlikely a cause of ongoing vaginal bleeding in this postmenopausal patient. Follow up with OBGYN outpatient. (5) DM2 (diabetes mellitus, type 2): Code(s): E11.9 - Type 2 diabetes mellitus without complications Status: Acute Assessment and Plan: Last glucose 114 with A1c 6.2 -continue SSI -hold home metformin while hospitalized. -Accu-Cheks have been in the 118-146 range. (6) Combined hyperlipidemia: Code(s): E78.2 - Mixed hyperlipidemia Status: Acute Assessment and Plan: Continue with home medications (7) HTN (hypertension), benign: Code(s): I10 - Essential (primary) hypertension Status: Acute Assessment and Plan: Pt was hypotensive on admission but this is improving -hold lisinopril -continue nifedipine; -titrate home emds with clinical course (8) Dementia: Code(s): F03.90 - Unspecified dementia, unspecified severity, without behavioral disturbance, psychotic disturbance, mood disturbance, and anxiety Status: Acute Assessment and Plan: -continue home medications. -reassurance of the patient. -maintain
[2022-06-01 13:58] LABS: Hematocrit 28.7 % (37.0-47.0); Hemoglobin 8.8 g/dL (12.0-15.0); Mean Corpuscular HGB Conc 30.7 g/dl (32-36); Mean Corpuscular Hemoglobin 26.9 pg (26-34); Mean Corpuscular Volume 87.8 fl (80-100); Mean Platelet Volume 8.9 fl (7.4-10.4); Platelet Count Result 426 k/mm3 (150-375); Red Blood Count 3.27 M/mm3 (4.2-5.4); Red Cell Distribution Width 15.8 % (11.5-14.5)
[2022-06-01 14:10] LABS: Anion Gap 4 mmol/L (8-16); Blood Urea Nitrogen 13 mg/dL (7-17); Calcium 9.1 mg/dL (8.4-10.2); Carbon Dioxide 27 mmol/L (22-30); Chloride 101 mmol/L (98-107); Estimated CRCL calculation 41 ml/min; Estimated Glomerular Filt Rate > 60; Glucose 163 mg/dL (65-110); Potassium 4.1 mmol/L (3.4-5.0); Sodium 132 mmol/L (137-145)
[2022-06-01] MEDS: cefTRIAXone 2 GM in SODIUM CHLORIDE 0.9% IV 100 ML 200 ML IVPB (14:23)
[2022-06-01 17:34] LABS: Glucose Point of Care 169 mg/dl (65-105)
[2022-06-01] MEDS: DOXYCYCLINE 100 MG/NS 100 ML 100 MG/100 ML BAG IVPB (21:40)
[2022-06-01] MEDS: SENNOSIDES 8.6 MG TABLET PO (21:40)
[2022-06-01 21:56] LABS: Glucose Point of Care 180 mg/dl (65-105)
[2022-06-02] VITALS (10 sets, daily range): BP systolic 133–157; BP diastolic 41–80; PULSE 71–80; RESP 14–20; TEMP 36.6–37.7; O2SAT 95–99; BMI 37.2
[2022-06-02 08:28] LABS: Glucose Point of Care 140 mg/dl (65-105)
[2022-06-02] MEDS: GABAPENTIN 100 MG CAPSULE PO ×3 (09:38→17:01)
[2022-06-02] MEDS: NIFEdipine 30 MG TAB.ER.24 PO (09:38)
[2022-06-02] MEDS: polyethylene glycoL 3350 17 GM POWD.PACK PO (09:38)
[2022-06-02] MEDS: ENOXAPARIN 40 MG/0.4 ML SYRINGE SUB-Q (09:38)
[2022-06-02] MEDS: SOD HYPOCHLORITE 1/4 STRENGTH 473 ML 1 APPLIC TOPICAL ×2 (09:39→21:50)
[2022-06-02] MEDS: DOXYCYCLINE 100 MG/NS 100 ML 100 MG/100 ML BAG IVPB ×2 (10:17→22:08)
--- NOTE | 2022-06-02 10:49 | PM.PNGS ---
Progress Note: A&P Assessment and Plan (1) Osteomyelitis: Code(s): M86.9 - Osteomyelitis, unspecified Status: Acute Assessment and Plan: cont local wound care, cont abx, will need PICC and IV abx as outpt, will ultimately need further amputation and vascular workup Subjective Subjective Date/Time Seen: 06/02/22 10:49 no acute issues, still somewhat confused (?baseline) Review of Systems Review of Systems: ROS unobtainable: Yes unobtainable due to mental status Exam Const: General: cooperative, comfortable and no acute distress Skin: Other: R heel - dressing C/D/I Objective Data Vital Signs Vital Signs: Vital Signs - 24 hr 06/01/22 15:27 06/01/22 12:00 06/01/22 16:00 Temperature 37.3 C Pulse Rate 68 71 70 Respiratory Rate 18 Blood Pressure 143/49 H Pulse Oximetry 100 06/01/22 20:43 06/01/22 20:00 06/02/22 00:00 Temperature 36.7 C Pulse Rate 71 69 71 Respiratory Rate 18 Blood Pressure 146/48 H Pulse Oximetry 99 06/02/22 04:00 06/02/22 04:54 06/02/22 09:40 Temperature 36.6 C Pulse Rate 73 72 Respiratory Rate 20 Blood Pressure 137/48 L 155/80 H Pulse Oximetry 95 Intake/Output Intake/Output: Intake & Output 05/30/22 05/31/22 06/01/22 06/02/22 23:59 23:59 23:59 23:59 Intake Total 520 1340 1490 600 Balance 520 1340 1490 600 Meds/Results Medications: Active Medications Generic Name Dose Route Start Last Admin Trade Name Freq PRN Reason Stop Dose Admin Dextrose 12.5 gm 05/26/22 20:15 Dextrose 50% 25 Gm/50 Ml Syringe IV PUSH PRN PRN Hypoglycemia Protocol Enoxaparin Sodium 40 mg 05/27/22 09:00 06/02/22 09:38 Enoxaparin 40 Mg/0.4 Ml Syringe SUB-Q 40 mg DAILY [place] Administration Gabapentin 100 mg 05/27/22 09:00 06/02/22 09:38 Gabapentin 100 Mg Capsule PO 100 mg TID [place] Administration Glucagon 1 mg 05/26/22 20:15 Glucagon For Inj 1 Mg Vial IM PRN PRN Hypoglycemia Protocol Glucose 15 gm 05/26/22 20:15 Glucose Oral Gel 15 Gm Of Glucse In 37.5 Gm Tube PO PRN PRN Hypoglycemia Protocol Dextrose 1,000 mls @ 100 mls/hr 05/26/22 20:15 Dextrose 5% 1,000 Ml IVPB PRN PRN Hypoglycemia Protocol Doxycycline Hyclate 100 mg in 100 mls @ 100 mls/hr 06/01/22 21:00 06/02/22 10:17 Vibramycin 100 Mg/Ns 100 Ml IVPB 100 mls/hr Q12HR [place] Administration Ceftriaxone Sodium 2 gm/ 100 mls @ 200 mls/hr 06/01/22 14:00 06/01/22 14:53 Sodium Chloride IVPB Infused Q24H [place] Infusion Insulin Aspart 2 - 5 units 05/27/22 08:00 06/02/22 09:38 Insulin Aspart (*Bkc) 100 Units/Ml SUB-Q Not Given TIDWM [place] Protocol Miconazole Nitrate 1 applic 05/29/22 09:00 06/02/22 09:39 Miconazole 2% Antifungal Ointment 56 Gm TOPICAL 1 applic Q12HR [place] Administration Nifedipine 30 mg 05/27/22 09:00 06/02/22 09:38 Nifedipine 30 Mg Tab.Er.24 PO 30 mg DAILY [place] Administration Ondansetron HCl 4 mg 05/26/22 14:37 Ondansetron Inj 4 Mg/2 Ml Vial IV PUSH Q4H PRN Nausea Polyethylene Glycol 17 gm 05/27/22 09:20 06/02/22 09:38 Polyethylene Glycol 3350 17 Gm Powd.Pack PO 17 gm QAM [place] Administration Senna 8.6 mg 05/27/22 21:00 06/01/22 21:40 Sennosides 8.6 Mg Tablet PO 06/26/22 20:59 8.6 mg HS [place] Administration Sodium Hypochlorite 1 applic 05/29/22 14:30 06/02/22 09:39 Sod Hypochlorite 1/4 Strength 473 Ml TOPICAL 1 applic Q12HR [place] Administration Radiology Results: ITS Impressions Abdomen/Pelvis CT 05/26/22 14:06 Impression: Fecal impaction and constipation. 5 cm presumed fibroid, as detailed above, possibly degenerating fibroid or necrotic given central hypodensity. Moderate sized fat-containing umbilical hernia. Chest X-Ray 05/26/22 14:10 Impression: Clear lungs. Foot X-Ray 05/26/22 21:39 IMPRESSION: 1. Osteomyelitis at the i
[2022-06-02 12:36] LABS: Glucose Point of Care 165 mg/dl (65-105)
[2022-06-02] MEDS: cefTRIAXone 2 GM in SODIUM CHLORIDE 0.9% IV 100 ML 200 ML IVPB (14:06)
--- NOTE | 2022-06-02 14:32 | PM.IMPN ---
Progress Note: A&P Assessment and Plan (1) Osteomyelitis: Code(s): M86.9 - Osteomyelitis, unspecified Status: Acute Assessment and Plan: Clinically patient presents with right heel dark necrotic eschar; right foot xray consistent with osteomyelitis -Continue cefepime; and clindamycin; blood cultures growing proteus mirabilis -Persistent leucocytosis on CBC -Obtain wound care consult, cont IV abx and Santyl for now -for debridement and later amputation Gen surgery following 06/02/2022 interval history 77-year-old female resident of assisted presented with dark necrotic eschar on right heal, 05/30 patient was seen by surgery service and had a significant debridement of the wound and concerning for osteomyelitis, on 06/[address] angiogram of right lower extremity showing significant peripheral vascular disease, surgery service is recommending amputation however due to severe peripheral vascular disease patient will need to be seen by vascular surgery service which we do not have available at the hospital and may need to be transferred to tertiary care, on 06/01 spoke with the surgeon recommended to continue current abx treatment and reassess next week and plan, wound culture is growing staph aureus and blood culture is growing proteus mirabiliis, also on 06/01 discussed with ID pharmacy and recommended to continue ceftriaxone 2g IV daily, and on 05/31 had a long discussion with family, again patient will be seen by surgery service and further recommendation to follow (2) Sepsis: Code(s): A41.9 - Sepsis, unspecified organism Status: Acute Assessment and Plan: Sepsis secondary to infected heel wound bed currently improving with hemodynamic stability. -persistent leukocytosis. -continue vanc and Cefepime (3) Anemia: Code(s): D64.9 - Anemia, unspecified Status: Acute Assessment and Plan: Patient presented with normocytic hypochromic anemia with a hemoglobin of 7.8. After 1 unit PRBC transfusion, hemoglobin is currently stable at 8.0. This likely represent anemia of chronic disease in the setting of a chronic wound infection. Will send iron panel B12 and folate levels. Continue to monitor the CBC in a.m. labs. No indication for blood transfusion today. Due to the history of fibroid there was a concern about possible chronic blood loss, however patient is postmenopausal and denies any ongoing vaginal bleeding. In the postmenopausal period, fibroid are likely to involute. Iron profile indicative of iron def of inflammation however, SOluble transferrin receptor ordered Monitor and transfuse if hb below 7. (4) Fibroid tumor: Code(s): D21.9 - Benign neoplasm of connective and other soft tissue, unspecified Status: Acute Assessment and Plan: Unlikely a cause of ongoing vaginal bleeding in this postmenopausal patient. Follow up with OBGYN outpatient. (5) DM2 (diabetes mellitus, type 2): Code(s): E11.9 - Type 2 diabetes mellitus without complications Status: Acute Assessment and Plan: Last glucose 114 with A1c 6.2 -continue SSI -hold home metformin while hospitalized. -Accu-Cheks have been in the 118-146 range. (6) Combined hyperlipidemia: Code(s): E78.2 - Mixed hyperlipidemia Status: Acute Assessment and Plan: Continue with home medications (7) HTN (hypertension), benign: Code(s): I10 - Essential (primary) hypertension Status: Acute Assessment and Plan: Pt was hypotensive on admission but this is improving -hold lisinopril -continue nifedipine; -titrate home emds with clinical course (8) Dementia: Code(s): F03.90 - Unspecified dementia, unspecified severity, without behavioral disturbance, psychotic disturbance, mood disturbance, and anxiety Status: Acute Assessment and Plan: -continue home medications. -reassurance of the patien
[2022-06-02 17:16] LABS: Glucose Point of Care 169 mg/dl (65-105)
[2022-06-02 23:06] LABS: Glucose Point of Care 173 mg/dl (65-105)
[2022-06-03] VITALS (11 sets, daily range): BP systolic 146–158; BP diastolic 46–59; PULSE 66–86; RESP 16–18; TEMP 36.4–37.4; O2SAT 97–100
[2022-06-03 08:43] LABS: Glucose Point of Care 125 mg/dl (65-105)
--- NOTE | 2022-06-03 09:17 | PCPTNOTE ---
Patient has physical therapy orders, but also has bedrest orders. Unable to see until bedrest orders are discontinued.
[2022-06-03] MEDS: DOXYCYCLINE 100 MG/NS 100 ML 100 MG/100 ML BAG IVPB ×2 (10:01→21:39)
[2022-06-03] MEDS: ENOXAPARIN 40 MG/0.4 ML SYRINGE SUB-Q (10:01)
[2022-06-03] MEDS: GABAPENTIN 100 MG CAPSULE PO ×3 (10:01→18:14)
[2022-06-03] MEDS: polyethylene glycoL 3350 17 GM POWD.PACK PO (10:01)
[2022-06-03] MEDS: SOD HYPOCHLORITE 1/4 STRENGTH 473 ML 1 APPLIC TOPICAL (10:02)
[2022-06-03 12:16] LABS: Glucose Point of Care 136 mg/dl (65-105)
--- NOTE | 2022-06-03 14:51 | PM.IMPN ---
Progress Note: A&P Assessment and Plan (1) Osteomyelitis: Code(s): M86.9 - Osteomyelitis, unspecified Status: Acute Assessment and Plan: Clinically patient presents with right heel dark necrotic eschar; right foot xray consistent with osteomyelitis -Continue cefepime; and clindamycin; blood cultures growing proteus mirabilis -Persistent leucocytosis on CBC -Obtain wound care consult, cont IV abx and Santyl for now -for debridement and later amputation Gen surgery following 06/03/2022 interval history 77-year-old female [facility] presented with dark necrotic eschar on right heal, 05/30 patient was seen by surgery service and had a significant debridement of the wound and concerning for osteomyelitis, on 06/[address] angiogram of right lower extremity showing significant peripheral vascular disease, surgery service is recommending amputation however due to severe peripheral vascular disease patient will need to be seen by vascular surgery service which we do not have available at the hospital and may need to be transferred to tertiary care, on 06/01 spoke with the surgeon recommended to continue current abx treatment and reassess next week and plan, wound culture is growing staph aureus and blood culture is growing proteus mirabiliis, also on 06/01 discussed with ID pharmacy and recommended to continue ceftriaxone 2g IV daily, today patient daughter is present in the room discuss the plan will continue antibiotics until 06/06/2022 and may discharge patient home, patient will need to follow up with vascular surgeon possible angioplasty of RT lower extremity, again patient will be seen by surgery service and further recommendation to follow (2) Sepsis: Code(s): A41.9 - Sepsis, unspecified organism Status: Acute Assessment and Plan: Sepsis secondary to infected heel wound bed currently improving with hemodynamic stability. -persistent leukocytosis. -continue vanc and Cefepime (3) Anemia: Code(s): D64.9 - Anemia, unspecified Status: Acute Assessment and Plan: Patient presented with normocytic hypochromic anemia with a hemoglobin of 7.8. After 1 unit PRBC transfusion, hemoglobin is currently stable at 8.0. This likely represent anemia of chronic disease in the setting of a chronic wound infection. Will send iron panel B12 and folate levels. Continue to monitor the CBC in a.m. labs. No indication for blood transfusion today. Due to the history of fibroid there was a concern about possible chronic blood loss, however patient is postmenopausal and denies any ongoing vaginal bleeding. In the postmenopausal period, fibroid are likely to involute. Iron profile indicative of iron def of inflammation however, SOluble transferrin receptor ordered Monitor and transfuse if hb below 7. (4) Fibroid tumor: Code(s): D21.9 - Benign neoplasm of connective and other soft tissue, unspecified Status: Acute Assessment and Plan: Unlikely a cause of ongoing vaginal bleeding in this postmenopausal patient. Follow up with OBGYN outpatient. (5) DM2 (diabetes mellitus, type 2): Code(s): E11.9 - Type 2 diabetes mellitus without complications Status: Acute Assessment and Plan: Last glucose 114 with A1c 6.2 -continue SSI -hold home metformin while hospitalized. -Accu-Cheks have been in the 118-146 range. (6) Combined hyperlipidemia: Code(s): E78.2 - Mixed hyperlipidemia Status: Acute Assessment and Plan: Continue with home medications (7) HTN (hypertension), benign: Code(s): I10 - Essential (primary) hypertension Status: Acute Assessment and Plan: Pt was hypotensive on admission but this is improving -hold lisinopril -continue nifedipine; -titrate home emds with clinical course (8) Dementia: Code(s): F03.90 - Unspecified dementia, unspecified severity, wi
[2022-06-03 17:44] LABS: Glucose Point of Care 154 mg/dl (65-105)
--- NOTE | 2022-06-03 18:06 | PC.NURSE ---
Spoke with pharmacist to clarify that I can give 1400 rocephin now, as patient was awaiting midline placement and had no IV. She states okay to give dose now.
[2022-06-03] MEDS: cefTRIAXone 2 GM in SODIUM CHLORIDE 0.9% IV 100 ML 200 ML IVPB (18:24)
[2022-06-03 21:15] LABS: Glucose Point of Care 164 mg/dl (65-105)
[2022-06-03] MEDS: SENNOSIDES 8.6 MG TABLET PO (21:39)
[2022-06-04] VITALS (10 sets, daily range): BP systolic 142–156; BP diastolic 51–56; PULSE 69–92; RESP 17–18; TEMP 36.6–37.2; O2SAT 99–100
[2022-06-04 08:55] LABS: Glucose Point of Care 139 mg/dl (65-105)
[2022-06-04] MEDS: DOXYCYCLINE 100 MG/NS 100 ML 100 MG/100 ML BAG IVPB ×2 (09:35→21:59)
[2022-06-04] MEDS: ENOXAPARIN 40 MG/0.4 ML SYRINGE SUB-Q (09:36)
[2022-06-04] MEDS: GABAPENTIN 100 MG CAPSULE PO ×3 (09:36→17:47)
[2022-06-04] MEDS: polyethylene glycoL 3350 17 GM POWD.PACK PO (09:36)
[2022-06-04] MEDS: SOD HYPOCHLORITE 1/4 STRENGTH 473 ML 1 APPLIC TOPICAL ×2 (09:38→21:59)
--- NOTE | 2022-06-04 10:32 | PCOTNOTE ---
Patient has bedrest orders in on this date. Will complete OT evaluation when bedrest is removed.
--- NOTE | 2022-06-04 10:35 | PCPTNOTE ---
Patient has bedrest orders in on this date. Will complete PT evaluation when bedrest is removed.
[2022-06-04 12:30] LABS: Glucose Point of Care 123 mg/dl (65-105)
--- NOTE | 2022-06-04 12:43 | PM.IMPN ---
Progress Note: A&P Assessment and Plan (1) Osteomyelitis: Code(s): M86.9 - Osteomyelitis, unspecified Status: Acute Assessment and Plan: Clinically patient presents with right heel dark necrotic eschar; right foot xray consistent with osteomyelitis -Continue cefepime; and clindamycin; blood cultures growing proteus mirabilis -Persistent leucocytosis on CBC -Obtain wound care consult, cont IV abx and Santyl for now -for debridement and later amputation Gen surgery following 06/04/2022 interval history 77-year-[facility] presented with dark necrotic eschar on right heal, 05/30 patient was seen by surgery service and had a significant debridement of the wound and concerning for osteomyelitis, on 06/[address] angiogram of right lower extremity showing significant peripheral vascular disease, surgery service is recommending amputation however due to severe peripheral vascular disease patient will need to be seen by vascular surgery service which we do not have available at the hospital and may need to be transferred to tertiary care, on 06/01 spoke with the surgeon recommended to continue current abx treatment and reassess next week and plan, wound culture is growing staph aureus and blood culture is growing proteus mirabiliis, also on 06/01 discussed with ID pharmacy and recommended to continue ceftriaxone 2g IV daily, today patient daughter is present in the room discuss the plan will continue antibiotics until 06/06/2022 and may discharge patient home, patient will need to follow up with vascular surgeon for possible angioplasty of RT lower extremity, patient has no new complaitns, again patient will be seen by surgery service and further recommendation to follow (2) Sepsis: Code(s): A41.9 - Sepsis, unspecified organism Status: Acute Assessment and Plan: Sepsis secondary to infected heel wound bed currently improving with hemodynamic stability. -persistent leukocytosis. -continue vanc and Cefepime (3) Anemia: Code(s): D64.9 - Anemia, unspecified Status: Acute Assessment and Plan: Patient presented with normocytic hypochromic anemia with a hemoglobin of 7.8. After 1 unit PRBC transfusion, hemoglobin is currently stable at 8.0. This likely represent anemia of chronic disease in the setting of a chronic wound infection. Will send iron panel B12 and folate levels. Continue to monitor the CBC in a.m. labs. No indication for blood transfusion today. Due to the history of fibroid there was a concern about possible chronic blood loss, however patient is postmenopausal and denies any ongoing vaginal bleeding. In the postmenopausal period, fibroid are likely to involute. Iron profile indicative of iron def of inflammation however, SOluble transferrin receptor ordered Monitor and transfuse if hb below 7. (4) Fibroid tumor: Code(s): D21.9 - Benign neoplasm of connective and other soft tissue, unspecified Status: Acute Assessment and Plan: Unlikely a cause of ongoing vaginal bleeding in this postmenopausal patient. Follow up with OBGYN outpatient. (5) DM2 (diabetes mellitus, type 2): Code(s): E11.9 - Type 2 diabetes mellitus without complications Status: Acute Assessment and Plan: Last glucose 114 with A1c 6.2 -continue SSI -hold home metformin while hospitalized. -Accu-Cheks have been in the 118-146 range. (6) Combined hyperlipidemia: Code(s): E78.2 - Mixed hyperlipidemia Status: Acute Assessment and Plan: Continue with home medications (7) HTN (hypertension), benign: Code(s): I10 - Essential (primary) hypertension Status: Acute Assessment and Plan: Pt was hypotensive on admission but this is improving -hold lisinopril -continue nifedipine; -titrate home emds with clinical course (8) Dementia: Code(s): F03.90 - Unspecif
[2022-06-04] MEDS: METOCLOPRAMIDE HCL INJ 10 MG/2 ML VIAL IV PUSH (15:58)
[2022-06-04] MEDS: cefTRIAXone 2 GM in SODIUM CHLORIDE 0.9% IV 100 ML 200 ML IVPB (17:47)
[2022-06-04 17:52] LABS: Glucose Point of Care 124 mg/dl (65-105)
[2022-06-04 20:56] LABS: Glucose Point of Care 152 mg/dl (65-105)
[2022-06-04] MEDS: SENNOSIDES 8.6 MG TABLET PO (22:00)
[2022-06-05] VITALS (10 sets, daily range): BP systolic 140–160; BP diastolic 58–80; PULSE 68–78; RESP 14–20; TEMP 36.8–37; O2SAT 96–100
--- NOTE | 2022-06-05 08:45 | PCOTNOTE ---
Pt. unable to be seen for occupational therapy evaluation, until after bedrest orders can be removed and pt. has clear weight bearing status on LE. Awaiting availability of hospitalist for clarification. Following.
[2022-06-05 09:28] LABS: Glucose Point of Care 111 mg/dl (65-105)
[2022-06-05] MEDS: polyethylene glycoL 3350 17 GM POWD.PACK PO (09:46)
[2022-06-05] MEDS: NIFEdipine 30 MG TAB.ER.24 PO (09:46)
[2022-06-05] MEDS: GABAPENTIN 100 MG CAPSULE PO ×3 (09:46→16:51)
[2022-06-05] MEDS: SOD HYPOCHLORITE 1/4 STRENGTH 473 ML 1 APPLIC TOPICAL ×2 (09:46→21:35)
[2022-06-05] MEDS: ENOXAPARIN 40 MG/0.4 ML SYRINGE SUB-Q (09:46)
[2022-06-05] MEDS: DOXYCYCLINE 100 MG/NS 100 ML 100 MG/100 ML BAG IVPB ×2 (09:47→21:30)
--- NOTE | 2022-06-05 10:15 | PCPTNOTE ---
Spoke with Hospitalist this date about pt's ability to participate in skilled therapy due to bedrest orders and not having a weight bearing status. Per Hospitalist, pt OK to be discharged from therapy services at this time due to not being needed.
--- NOTE | 2022-06-05 10:35 | PCOTNOTE ---
Spoke with Hospitalist this date about pt's ability to participate in skilled therapy due to bedrest orders and not having a weight bearing status. Per Hospitalist, pt OK to be discharged from therapy services at this time due to pt. condition with intent to transfer to another hospital for specialized care.
[2022-06-05 12:12] LABS: Glucose Point of Care 125 mg/dl (65-105)
--- NOTE | 2022-06-05 12:48 | PM.IMPN ---
Progress Note: A&P Assessment and Plan (1) Osteomyelitis: Code(s): M86.9 - Osteomyelitis, unspecified Status: Acute Assessment and Plan: Clinically patient presents with right heel dark necrotic eschar; right foot xray consistent with osteomyelitis -Continue cefepime; and clindamycin; blood cultures growing proteus mirabilis -Persistent leucocytosis on CBC -Obtain wound care consult, cont IV abx and Santyl for now -for debridement and later amputation Gen surgery following 06/05/2022 interval history 77-year-old female resident of residential presented with dark necrotic eschar on right heal, 05/30 patient was seen by surgery service and had a significant debridement of the wound and concerning for osteomyelitis, on 06/[address] angiogram of right lower extremity showing significant peripheral vascular disease, surgery service is recommending amputation however due to severe peripheral vascular disease patient will need to be seen by vascular surgery service which we do not have available at the hospital and may need to be transferred to tertiary care, on 06/01 spoke with the surgeon recommended to continue current abx treatment and reassess next week and plan, wound culture is growing staph aureus and blood culture is growing proteus mirabiliis, also on 06/01 discussed with ID pharmacy and recommended to continue ceftriaxone 2g IV daily, patient complains of constipation has not had BM in several days passing gas, KUB showed constipation, patient is receiving Colace and MiraLax without any relief, will give the do clock suppository, , patient will need to follow up with vascular surgeon for possible angioplasty of RT lower extremity, patient has no new complains, again patient will be seen by surgery service and further recommendation to follow (2) Sepsis: Code(s): A41.9 - Sepsis, unspecified organism Status: Acute Assessment and Plan: Sepsis secondary to infected heel wound bed currently improving with hemodynamic stability. -persistent leukocytosis. -continue vanc and Cefepime (3) Anemia: Code(s): D64.9 - Anemia, unspecified Status: Acute Assessment and Plan: Patient presented with normocytic hypochromic anemia with a hemoglobin of 7.8. After 1 unit PRBC transfusion, hemoglobin is currently stable at 8.0. This likely represent anemia of chronic disease in the setting of a chronic wound infection. Will send iron panel B12 and folate levels. Continue to monitor the CBC in a.m. labs. No indication for blood transfusion today. Due to the history of fibroid there was a concern about possible chronic blood loss, however patient is postmenopausal and denies any ongoing vaginal bleeding. In the postmenopausal period, fibroid are likely to involute. Iron profile indicative of iron def of inflammation however, SOluble transferrin receptor ordered Monitor and transfuse if hb below 7. (4) Fibroid tumor: Code(s): D21.9 - Benign neoplasm of connective and other soft tissue, unspecified Status: Acute Assessment and Plan: Unlikely a cause of ongoing vaginal bleeding in this postmenopausal patient. Follow up with OBGYN outpatient. (5) DM2 (diabetes mellitus, type 2): Code(s): E11.9 - Type 2 diabetes mellitus without complications Status: Acute Assessment and Plan: Last glucose 114 with A1c 6.2 -continue SSI -hold home metformin while hospitalized. -Accu-Cheks have been in the 118-146 range. (6) Combined hyperlipidemia: Code(s): E78.2 - Mixed hyperlipidemia Status: Acute Assessment and Plan: Continue with home medications (7) HTN (hypertension), benign: Code(s): I10 - Essential (primary) hypertension Status: Acute Assessment and Plan: Pt was hypotensive on admission but this is improving -hold lisinopril -continue nifedipine; -titrate home emds with clinical co
[2022-06-05] MEDS: BISACODYL 10 MG SUPPOSITORY RECTAL (13:10)
[2022-06-05 17:26] LABS: Glucose Point of Care 118 mg/dl (65-105)
[2022-06-05] MEDS: cefTRIAXone 2 GM in SODIUM CHLORIDE 0.9% IV 100 ML 200 ML IVPB (17:41)
[2022-06-05] MEDS: SENNOSIDES 8.6 MG TABLET PO (21:00)
[2022-06-05 21:24] LABS: Glucose Point of Care 120 mg/dl (65-105)
[2022-06-05 21:49] LABS: Hematocrit 26.5 % (37.0-47.0); Mean Corpuscular HGB Conc 30.2 g/dl (32-36); Mean Corpuscular Hemoglobin 26.1 pg (26-34); Mean Corpuscular Volume 86.6 fl (80-100); Mean Platelet Volume 8.6 fl (7.4-10.4); Platelet Count Result 429 k/mm3 (150-375); Red Blood Count 3.06 M/mm3 (4.2-5.4); Red Cell Distribution Width 16.2 % (11.5-14.5); White Blood Count 11.4 K/mm3 (4.5-10.0)
[2022-06-05 22:04] LABS: Anion Gap 2 mmol/L (8-16); Blood Urea Nitrogen 15 mg/dL (7-17); Calcium 9.2 mg/dL (8.4-10.2); Carbon Dioxide 31 mmol/L (22-30); Chloride 102 mmol/L (98-107); Estimated CRCL calculation 41 ml/min; Estimated Glomerular Filt Rate > 60; Glucose 113 mg/dL (65-110); Potassium 4.3 mmol/L (3.4-5.0); Sodium 135 mmol/L (137-145)
[2022-06-06] VITALS (10 sets, daily range): BP systolic 147–157; BP diastolic 52–99; PULSE 63–75; RESP 17–20; TEMP 36.2–37.1; O2SAT 98–99
[2022-06-06 06:08] LABS: Hematocrit 26.8 % (37.0-47.0); Hemoglobin 8.1 g/dL (12.0-15.0); Mean Corpuscular HGB Conc 30.2 g/dl (32-36); Mean Corpuscular Hemoglobin 26.5 pg (26-34); Mean Corpuscular Volume 87.6 fl (80-100); Mean Platelet Volume 8.9 fl (7.4-10.4); Platelet Count Result 437 k/mm3 (150-375); Red Blood Count 3.06 M/mm3 (4.2-5.4); Red Cell Distribution Width 16.1 % (11.5-14.5); White Blood Count 10.9 K/mm3 (4.5-10.0)
[2022-06-06 06:17] LABS: Anion Gap 3 mmol/L (8-16); Blood Urea Nitrogen 14 mg/dL (7-17); Calcium 9.3 mg/dL (8.4-10.2); Carbon Dioxide 31 mmol/L (22-30); Chloride 106 mmol/L (98-107); Estimated CRCL calculation 46 ml/min; Estimated Glomerular Filt Rate > 60; Glucose 103 mg/dL (65-110); Potassium 4.1 mmol/L (3.4-5.0); Sodium 140 mmol/L (137-145)
[2022-06-06 08:44] LABS: Glucose Point of Care 94 mg/dl (65-105)
[2022-06-06] MEDS: GABAPENTIN 100 MG CAPSULE PO ×3 (09:45→17:59)
[2022-06-06] MEDS: polyethylene glycoL 3350 17 GM POWD.PACK PO (09:45)
[2022-06-06] MEDS: DOXYCYCLINE 100 MG/NS 100 ML 100 MG/100 ML BAG IVPB ×2 (09:45→20:30)
[2022-06-06] MEDS: SOD HYPOCHLORITE 1/4 STRENGTH 473 ML 1 APPLIC TOPICAL ×2 (09:46→20:31)
[2022-06-06] MEDS: ENOXAPARIN 40 MG/0.4 ML SYRINGE SUB-Q (09:46)
[2022-06-06 12:39] LABS: Glucose Point of Care 141 mg/dl (65-105)
--- NOTE | 2022-06-06 14:36 | PM.IMPN ---
Progress Note: A&P Assessment and Plan (1) Osteomyelitis: Code(s): M86.9 - Osteomyelitis, unspecified Status: Acute Assessment and Plan: Clinically patient presents with right heel dark necrotic eschar; right foot xray consistent with osteomyelitis -Continue cefepime; and clindamycin; blood cultures growing proteus mirabilis -Persistent leucocytosis on CBC -Obtain wound care consult, cont IV abx and Santyl for now -for debridement and later amputation Gen surgery following 06/06/2022 interval history 77-year-old female resident [facility] presented with dark necrotic eschar on right heal, 05/30 patient was seen by surgery service and had a significant debridement of the wound and concerning for osteomyelitis, on 06/[address] angiogram of right lower extremity showing significant peripheral vascular disease, surgery service is recommending amputation however due to severe peripheral vascular disease patient will need to be seen by vascular surgery service which we do not have available at the hospital and may need to be transferred to tertiary care, on 06/01 spoke with the surgeon recommended to continue current abx treatment and reassess next week and plan, wound culture is growing staph aureus and blood culture is growing proteus mirabiliis, also on 06/01 discussed with ID pharmacy and recommended to continue ceftriaxone 2g IV daily, patient complains of constipation has not had BM in several days passing gas, KUB showed constipation, patient is receiving Colace and MiraLax without any relief, no relief with dulcolax suppository, patient is passing gas, and no nausea or vomiting, will give fleet enema, general surgery will evaluate the patient today and further recommendations to follow, patient will need to follow up with vascular surgeon for possible angioplasty of RT lower extremity, patient has no new complains, again patient will be seen by surgery service and further recommendation to follow (2) Sepsis: Code(s): A41.9 - Sepsis, unspecified organism Status: Acute Assessment and Plan: Sepsis secondary to infected heel wound bed currently improving with hemodynamic stability. -persistent leukocytosis. -continue vanc and Cefepime (3) Anemia: Code(s): D64.9 - Anemia, unspecified Status: Acute Assessment and Plan: Patient presented with normocytic hypochromic anemia with a hemoglobin of 7.8. After 1 unit PRBC transfusion, hemoglobin is currently stable at 8.0. This likely represent anemia of chronic disease in the setting of a chronic wound infection. Will send iron panel B12 and folate levels. Continue to monitor the CBC in a.m. labs. No indication for blood transfusion today. Due to the history of fibroid there was a concern about possible chronic blood loss, however patient is postmenopausal and denies any ongoing vaginal bleeding. In the postmenopausal period, fibroid are likely to involute. Iron profile indicative of iron def of inflammation however, SOluble transferrin receptor ordered Monitor and transfuse if hb below 7. (4) Fibroid tumor: Code(s): D21.9 - Benign neoplasm of connective and other soft tissue, unspecified Status: Acute Assessment and Plan: Unlikely a cause of ongoing vaginal bleeding in this postmenopausal patient. Follow up with OBGYN outpatient. (5) DM2 (diabetes mellitus, type 2): Code(s): E11.9 - Type 2 diabetes mellitus without complications Status: Acute Assessment and Plan: Last glucose 114 with A1c 6.2 -continue SSI -hold home metformin while hospitalized. -Accu-Cheks have been in the 118-146 range. (6) Combined hyperlipidemia: Code(s): E78.2 - Mixed hyperlipidemia Status: Acute Assessment and Plan: Continue with home medications (7) HTN (hypertension), benign: Code(s): I10 - Essential (primary) hypertension Status: Acute
[2022-06-06 17:17] LABS: Soluble Transferrin Receptor 1.05 mg/L (0.76-1.76)
[2022-06-06 17:41] LABS: Glucose Point of Care 144 mg/dl (65-105)
[2022-06-06] MEDS: cefTRIAXone 2 GM in SODIUM CHLORIDE 0.9% IV 100 ML 200 ML IVPB (17:59)
[2022-06-06] MEDS: SENNOSIDES 8.6 MG TABLET PO (20:31)
[2022-06-06 22:43] LABS: Glucose Point of Care 163 mg/dl (65-105)
[2022-06-07] VITALS (10 sets, daily range): BP systolic 135–174; BP diastolic 42–83; PULSE 66–76; RESP 16–18; TEMP 36.5–37; O2SAT 96–100
[2022-06-07 05:57] LABS: Hematocrit 28.2 % (37.0-47.0); Hemoglobin 8.5 g/dL (12.0-15.0); Mean Corpuscular HGB Conc 30.1 g/dl (32-36); Mean Corpuscular Hemoglobin 26.6 pg (26-34); Mean Corpuscular Volume 88.4 fl (80-100); Mean Platelet Volume 8.7 fl (7.4-10.4); Platelet Count Result 411 k/mm3 (150-375); Red Blood Count 3.19 M/mm3 (4.2-5.4); Red Cell Distribution Width 16.3 % (11.5-14.5); White Blood Count 10.6 K/mm3 (4.5-10.0)
[2022-06-07 06:10] LABS: Anion Gap 4 mmol/L (8-16); Blood Urea Nitrogen 14 mg/dL (7-17); Calcium 9.1 mg/dL (8.4-10.2); Carbon Dioxide 29 mmol/L (22-30); Chloride 102 mmol/L (98-107); Estimated CRCL calculation 46 ml/min; Estimated Glomerular Filt Rate > 60; Glucose 123 mg/dL (65-110); Potassium 4.1 mmol/L (3.4-5.0); Sodium 135 mmol/L (137-145)
[2022-06-07 08:32] LABS: Glucose Point of Care 101 mg/dl (65-105)
[2022-06-07] MEDS: NIFEdipine 30 MG TAB.ER.24 PO (08:56)
[2022-06-07] MEDS: polyethylene glycoL 3350 17 GM POWD.PACK PO (08:56)
[2022-06-07] MEDS: GABAPENTIN 100 MG CAPSULE PO ×3 (08:56→18:07)
[2022-06-07] MEDS: DOXYCYCLINE 100 MG/NS 100 ML 100 MG/100 ML BAG IVPB ×2 (08:56→21:14)
[2022-06-07] MEDS: ENOXAPARIN 40 MG/0.4 ML SYRINGE SUB-Q (08:56)
[2022-06-07] MEDS: SOD HYPOCHLORITE 1/4 STRENGTH 473 ML 1 APPLIC TOPICAL ×2 (08:57→21:17)
--- NOTE | 2022-06-07 09:42 | PM.PNGS ---
Progress Note: A&P Assessment and Plan (1) Osteomyelitis: Code(s): M86.9 - Osteomyelitis, unspecified Status: Acute Assessment and Plan: Right foot ulcer with significant peripheral arterial disease s/p debridement. Still has some purulent drainage coming from the midfoot but draining through an opening in the skin just distal to the ulcer on the plantar aspect of the foot. Discussed this with Dr. Huffman. Will start 1/4 iodoform packing to the opening to help facilitate drainage, continue dakin's dressing changes to the right foot ulcer. Continue IV antibiotics. Recommend toe touch weight bearing with post-op shoe, PT/OT ordered. Okay from our standpoint to work on discharge planning for SNF placement with IV antibiotics. Will need vascular surgery referral as an outpatient. Plan I have discussed the patient's case and plan of care with Dr. Huffman. Subjective Subjective Date/Time Seen: 06/07/22 09:42 Patient reports: no new complaints and afebrile Interval history: Hospitalist requested we re-evaluate the patient for weight-bearing status and possibly working towards discharge planning. Patient seen this morning. She still has pain in the right foot with movement or palpation. She reports prior to admission, she would ambulate with a walker independently. In review of [facility] notes, she was at a snf ambulating with a walker. Review of Systems Review of Systems: ROS unobtainable: Yes unobtainable due to mental status (baseline confusion) Exam Const: General: alert Orientation/consciousness: oriented to person, No oriented to place, No oriented to time and confusion Skin: Other: Right heel ulcer with about 40% of the wound bed with yellow slough and some necrotic tissue, there is some fluctuance in the midfoot on the plantar aspect that with palpation there is some purulent drainage expressed at an opening in the skin near the heel ulcer. No surrounding erythema, swelling overall improved. Tender to palpation. Objective Data Vital Signs Vital Signs: Vital Signs - 24 hr 06/06/22 09:43 06/06/22 09:50 06/06/22 12:00 Temperature 98.1 F Pulse Rate 72 72 Respiratory Rate 17 Blood Pressure 157/52 H Pulse Oximetry 98 Oxygen Delivery Room Air 06/06/22 14:52 06/06/22 16:00 06/06/22 20:00 Temperature 98.8 F Pulse Rate 67 75 75 Respiratory Rate 20 Blood Pressure 148/54 H Pulse Oximetry 99 Oxygen Delivery 06/06/22 22:36 06/07/22 00:00 06/07/22 04:00 Temperature 97.7 F Pulse Rate 74 69 73 Respiratory Rate 20 Blood Pressure 147/99 H Pulse Oximetry 99 Oxygen Delivery 06/07/22 06:00 06/07/22 08:55 Temperature 98.5 F Pulse Rate 67 74 Respiratory Rate 18 18 Blood Pressure 174/57 H 158/83 H Pulse Oximetry 97 96 Oxygen Delivery Intake/Output Intake/Output: Intake & Output 06/04/22 06/05/22 06/06/22 06/07/22 23:59 23:59 23:59 23:59 Intake Total 1490 1250 1180 500 Balance 1490 1250 1180 500 Meds/Results Medications: Active Medications Generic Name Dose Route Start Last Admin Trade Name Freq PRN Reason Stop Dose Admin Dextrose 12.5 gm 05/26/22 20:15 Dextrose 50% 25 Gm/50 Ml Syringe IV PUSH PRN PRN Hypoglycemia Protocol Enoxaparin Sodium 40 mg 05/27/22 09:00 06/07/22 08:56 Enoxaparin 40 Mg/0.4 Ml Syringe SUB-Q 40 mg DAILY GERMANIA Administration Gabapentin 100 mg 05/27/22 09:00 06/07/22 08:56 Gabapentin 100 Mg Capsule PO 100 mg TID GERMANIA Administration Glucagon 1 mg 05/26/22 20:15 Glucagon For Inj 1 Mg Vial IM PRN PRN Hypoglycemia Protocol Glucose 15 gm 05/26/22 20:15 Glucose Oral Gel 15 Gm Of Glucse In 37.5 Gm Tube PO PRN PRN Hypoglycemia Protocol Dextrose 1,000 mls @ 100 mls/hr 05/26/22 20:15 Dextrose 5% 1,000 Ml IVPB PRN PRN Hypoglycemia Protocol Doxycycline Hyclate 100 mg in 100 mls @ 100 mls/hr 06/01/22 21:00 06/07/22 08:56
--- NOTE | 2022-06-07 11:52 | PCPTNOTE ---
Attempted PT evaluation. Pt requested the therapist return later. Will Follow
[2022-06-07 12:22] LABS: Glucose Point of Care 150 mg/dl (65-105)
[2022-06-07] MEDS: SALINE LOCK FLUSH 10 ML IV PUSH ×2 (12:50→21:17)
--- NOTE | 2022-06-07 16:36 | PM.IMPN ---
Progress Note: A&P Assessment and Plan (1) Osteomyelitis: Code(s): M86.9 - Osteomyelitis, unspecified Status: Acute Assessment and Plan: Clinically patient presents with right heel dark necrotic eschar; right foot xray consistent with osteomyelitis -Continue cefepime; and clindamycin; blood cultures growing proteus mirabilis -Persistent leucocytosis on CBC -Obtain wound care consult, cont IV abx and Santyl for now -for debridement and later amputation Gen surgery following 06/07/2022 interval history 77-year-old female resident of [facility] presented with dark necrotic eschar on right heal, 05/30 patient was seen by surgery service and had a significant debridement of the wound and concerning for osteomyelitis, on 06/[address] angiogram of right lower extremity showing significant peripheral vascular disease, surgery service is recommending amputation however due to severe peripheral vascular disease patient will need to be seen by vascular surgery service which we do not have available at the hospital and may need to be transferred to tertiary care, on 06/01 spoke with the surgeon recommended to continue current abx treatment and reassess next week and plan, wound culture is growing staph aureus and blood culture is growing proteus mirabiliis, also on 06/01 discussed with ID pharmacy and recommended to continue ceftriaxone 2g IV daily, patient complains of constipation has not had BM in several days passing gas, KUB showed constipation, patient is receiving Colace and MiraLax without any relief, no relief with dulcolax suppository, patient is passing gas, and no nausea or vomiting, will give fleet enema, general surgery evaluated the patient today patient may need revision of the surgery,and further recommendations to follow, patient will need to follow up with vascular surgeon for possible angioplasty of RT lower extremity, patient has no new complains, again patient will be seen by surgery service and further recommendation to follow (2) Sepsis: Code(s): A41.9 - Sepsis, unspecified organism Status: Acute Assessment and Plan: Sepsis secondary to infected heel wound bed currently improving with hemodynamic stability. -persistent leukocytosis. -continue vanc and Cefepime (3) Anemia: Code(s): D64.9 - Anemia, unspecified Status: Acute Assessment and Plan: Patient presented with normocytic hypochromic anemia with a hemoglobin of 7.8. After 1 unit PRBC transfusion, hemoglobin is currently stable at 8.0. This likely represent anemia of chronic disease in the setting of a chronic wound infection. Will send iron panel B12 and folate levels. Continue to monitor the CBC in a.m. labs. No indication for blood transfusion today. Due to the history of fibroid there was a concern about possible chronic blood loss, however patient is postmenopausal and denies any ongoing vaginal bleeding. In the postmenopausal period, fibroid are likely to involute. Iron profile indicative of iron def of inflammation however, SOluble transferrin receptor ordered Monitor and transfuse if hb below 7. (4) Fibroid tumor: Code(s): D21.9 - Benign neoplasm of connective and other soft tissue, unspecified Status: Acute Assessment and Plan: Unlikely a cause of ongoing vaginal bleeding in this postmenopausal patient. Follow up with OBGYN outpatient. (5) DM2 (diabetes mellitus, type 2): Code(s): E11.9 - Type 2 diabetes mellitus without complications Status: Acute Assessment and Plan: Last glucose 114 with A1c 6.2 -continue SSI -hold home metformin while hospitalized. -Accu-Cheks have been in the 118-146 range. (6) Combined hyperlipidemia: Code(s): E78.2 - Mixed hyperlipidemia Status: Acute Assessment and Plan: Continue with home medications (7) HTN (hypertension), benign: Code(s): I10 - Essential (pr
[2022-06-07 17:16] LABS: Glucose Point of Care 122 mg/dl (65-105)
[2022-06-07] MEDS: cefTRIAXone 2 GM in SODIUM CHLORIDE 0.9% IV 100 ML 200 ML IVPB (18:07)
[2022-06-07 20:58] LABS: Glucose Point of Care 125 mg/dl (65-105)
[2022-06-07] MEDS: SENNOSIDES 8.6 MG TABLET PO (21:16)
--- NOTE | 2022-06-07 22:18 | PC.NURSE ---
[address] [place] RN CHANGED DRESSING AT 1800 AND DID NOT SCAN DAKINS, SCANNED DAKINS AT 2100 BUT DID NOT CHANGE DRESSING.
[2022-06-08] VITALS (10 sets, daily range): BP systolic 134–152; BP diastolic 47–59; PULSE 63–77; RESP 16–20; TEMP 36.3–36.7; O2SAT 94–99
[2022-06-08 05:56] LABS: Hematocrit 27.9 % (37.0-47.0); Hemoglobin 8.3 g/dL (12.0-15.0); Mean Corpuscular HGB Conc 29.7 g/dl (32-36); Mean Corpuscular Hemoglobin 26.3 pg (26-34); Mean Corpuscular Volume 88.3 fl (80-100); Mean Platelet Volume 8.6 fl (7.4-10.4); Platelet Count Result 380 k/mm3 (150-375); Red Blood Count 3.16 M/mm3 (4.2-5.4); Red Cell Distribution Width 16.6 % (11.5-14.5); White Blood Count 9.4 K/mm3 (4.5-10.0)
[2022-06-08] MEDS: SALINE LOCK FLUSH 10 ML IV PUSH ×3 (05:57→21:11)
[2022-06-08 06:09] LABS: Anion Gap 4 mmol/L (8-16); Blood Urea Nitrogen 15 mg/dL (7-17); Calcium 9.2 mg/dL (8.4-10.2); Carbon Dioxide 28 mmol/L (22-30); Chloride 107 mmol/L (98-107); Estimated CRCL calculation 46 ml/min; Estimated Glomerular Filt Rate > 60; Glucose 99 mg/dL (65-110); Potassium 4.1 mmol/L (3.4-5.0); Sodium 139 mmol/L (137-145)
[2022-06-08 08:17] LABS: Glucose Point of Care 87 mg/dl (65-105)
[2022-06-08] MEDS: GABAPENTIN 100 MG CAPSULE PO ×3 (09:34→16:26)
[2022-06-08] MEDS: NIFEdipine 30 MG TAB.ER.24 PO (09:34)
[2022-06-08] MEDS: ENOXAPARIN 40 MG/0.4 ML SYRINGE SUB-Q (09:34)
[2022-06-08] MEDS: polyethylene glycoL 3350 17 GM POWD.PACK PO (09:34)
[2022-06-08] MEDS: SOD HYPOCHLORITE 1/4 STRENGTH 473 ML 1 APPLIC TOPICAL ×2 (09:35→21:12)
[2022-06-08] MEDS: DOXYCYCLINE 100 MG/NS 100 ML 100 MG/100 ML BAG IVPB ×2 (09:35→21:10)
[2022-06-08 12:40] LABS: Glucose Point of Care 120 mg/dl (65-105)
[2022-06-08 16:53] LABS: Glucose Point of Care 122 mg/dl (65-105)
[2022-06-08] MEDS: cefTRIAXone 2 GM in SODIUM CHLORIDE 0.9% IV 100 ML IVPB (17:19)
--- NOTE | 2022-06-08 18:11 | PM.IMPN ---
Progress Note: A&P Assessment and Plan (1) Osteomyelitis: Code(s): M86.9 - Osteomyelitis, unspecified Status: Acute Assessment and Plan: Clinically patient presents with right heel dark necrotic eschar; right foot xray consistent with osteomyelitis -Continue cefepime; and clindamycin; blood cultures growing proteus mirabilis -Persistent leucocytosis on CBC -Obtain wound care consult, cont IV abx and Santyl for now -for debridement and later amputation Gen surgery following 06/08/2022 interval history 77-year-old female [facility] presented with dark necrotic eschar on right heal, 05/30 patient was seen by surgery service and had a significant debridement of the wound and concerning for osteomyelitis, on 06/[address] angiogram of right lower extremity showing significant peripheral vascular disease, surgery service is recommending amputation however due to severe peripheral vascular disease patient will need to be seen by vascular surgery service which we do not have available at the hospital and may need to be transferred to tertiary care, on 06/01 spoke with the surgeon recommended to continue current abx treatment and reassess next week and plan, wound culture is growing staph aureus and blood culture is growing proteus mirabiliis, also on 06/01 discussed with ID pharmacy and recommended to continue ceftriaxone 2g IV daily, patient complains of constipation has not had BM in several days passing gas, KUB showed constipation, patient is receiving Colace and MiraLax without any relief, no relief with dulcolax suppository, patient is passing gas, and no nausea or vomiting, will give fleet enema, general surgery evaluated the patient today patient may need revision of the surgery,and further recommendations to follow, patient will need to follow up with vascular surgeon for possible angioplasty of RT lower extremity, patient has no new complains, again patient will be seen by surgery service and further recommendation to follow, Today I had VANIA to further evaluate her vascular, patient blood vessels are calcified that US was not able to do VANIA, I called [facility] transferline to tanfer the patient at [facility], there are completely full and currently not accepting any patient however I was able to talk to Dr. Diaz a vascular surgeon he is willing to accept the patient however I spoke with Dr. Monte hospitalist he refused the transfer as their currently does not have any ID physician, I spoke to patient duaghter let her know current situation, will CPM. (2) Sepsis: Code(s): A41.9 - Sepsis, unspecified organism Status: Acute Assessment and Plan: Sepsis secondary to infected heel wound bed currently improving with hemodynamic stability. -persistent leukocytosis. -continue vanc and Cefepime (3) Anemia: Code(s): D64.9 - Anemia, unspecified Status: Acute Assessment and Plan: Patient presented with normocytic hypochromic anemia with a hemoglobin of 7.8. After 1 unit PRBC transfusion, hemoglobin is currently stable at 8.0. This likely represent anemia of chronic disease in the setting of a chronic wound infection. Will send iron panel B12 and folate levels. Continue to monitor the CBC in a.m. labs. No indication for blood transfusion today. Due to the history of fibroid there was a concern about possible chronic blood loss, however patient is postmenopausal and denies any ongoing vaginal bleeding. In the postmenopausal period, fibroid are likely to involute. Iron profile indicative of iron def of inflammation however, SOluble transferrin receptor ordered Monitor and transfuse if hb below 7. (4) Fibroid tumor: Code(s): D21.9 - Benign neoplasm of connective and other soft tissue, unspecified Status: Acute Assessment and Plan: Unlikely a cause of ongoing vaginal bleeding in this postmenopausal patient. Follow
[2022-06-08] MEDS: SENNOSIDES 8.6 MG TABLET PO (21:12)
[2022-06-08 21:51] LABS: Glucose Point of Care 168 mg/dl (65-105)
[2022-06-09] VITALS (10 sets, daily range): BP systolic 130–152; BP diastolic 41–56; PULSE 66–71; RESP 16–21; TEMP 36.4–37.2; O2SAT 97–100
[2022-06-09 05:53] LABS: Hematocrit 27.6 % (37.0-47.0); Hemoglobin 8.2 g/dL (12.0-15.0); Mean Corpuscular HGB Conc 29.7 g/dl (32-36); Mean Corpuscular Hemoglobin 26.7 pg (26-34); Mean Corpuscular Volume 89.9 fl (80-100); Mean Platelet Volume 8.8 fl (7.4-10.4); Platelet Count Result 366 k/mm3 (150-375); Red Blood Count 3.07 M/mm3 (4.2-5.4); Red Cell Distribution Width 16.6 % (11.5-14.5); White Blood Count 8.7 K/mm3 (4.5-10.0)
[2022-06-09 06:20] LABS: Anion Gap 3 mmol/L (8-16); Blood Urea Nitrogen 17 mg/dL (7-17); Calcium 9.1 mg/dL (8.4-10.2); Carbon Dioxide 28 mmol/L (22-30); Chloride 104 mmol/L (98-107); Estimated CRCL calculation 51 ml/min; Estimated Glomerular Filt Rate > 60; Glucose 104 mg/dL (65-110); Potassium 4.2 mmol/L (3.4-5.0); Sodium 135 mmol/L (137-145)
[2022-06-09] MEDS: SALINE LOCK FLUSH 10 ML IV PUSH ×3 (06:36→21:04)
[2022-06-09 08:04] LABS: Glucose Point of Care 92 mg/dl (65-105)
[2022-06-09] MEDS: GABAPENTIN 100 MG CAPSULE PO ×3 (08:55→17:44)
[2022-06-09] MEDS: polyethylene glycoL 3350 17 GM POWD.PACK PO (08:55)
[2022-06-09] MEDS: ENOXAPARIN 40 MG/0.4 ML SYRINGE SUB-Q (08:55)
[2022-06-09] MEDS: DOXYCYCLINE 100 MG/NS 100 ML 100 MG/100 ML BAG IVPB ×2 (08:55→21:02)
[2022-06-09] MEDS: SOD HYPOCHLORITE 1/4 STRENGTH 473 ML 1 APPLIC TOPICAL ×2 (08:56→21:03)
[2022-06-09 11:51] LABS: Glucose Point of Care 124 mg/dl (65-105)
--- NOTE | 2022-06-09 12:45 | PCNFU ---
Nutrition Follow-Up Complete: Suboptimal po intake related to appetite as evidenced by charted intake Goal:PO intake 75% of meals and supplements. Pt is meeting goal. continue with same goal. Pt current nutrition is Diabetic consistent carb, glucerna shakes BID. Nutrition recommendation: Continue with current plan of care. Last recorded weight is 86.4 kg - stable at this time Bowel Motility: No BM recorded at this time Labs Reviewed: NA:135, Glu:124 Meds Noted: lovenox, novolog, zofran Skin: no skin issues noted Additional Notes: Pt continues on a diabetic consistent carb diet, intake 75-100% at this time. Monitor intake, wt, labs. Follow up in 7 days.
[2022-06-09 16:54] LABS: Glucose Point of Care 143 mg/dl (65-105)
[2022-06-09] MEDS: cefTRIAXone 2 GM in SODIUM CHLORIDE 0.9% IV 100 ML 200 ML IVPB (17:44)
[2022-06-09] MEDS: SENNOSIDES 8.6 MG TABLET PO (21:02)
[2022-06-09 21:55] LABS: Glucose Point of Care 138 mg/dl (65-105)
[2022-06-10] VITALS (11 sets, daily range): BP systolic 120–138; BP diastolic 40–80; PULSE 65–95; RESP 16–22; TEMP 36.7–37.1; O2SAT 98–100
[2022-06-10] MEDS: SALINE LOCK FLUSH 10 ML IV PUSH ×3 (06:00→20:17)
[2022-06-10 06:17] LABS: Hematocrit 28.6 % (37.0-47.0); Hemoglobin 8.6 g/dL (12.0-15.0); Mean Corpuscular HGB Conc 30.1 g/dl (32-36); Mean Corpuscular Hemoglobin 26.6 pg (26-34); Mean Corpuscular Volume 88.5 fl (80-100); Mean Platelet Volume 8.7 fl (7.4-10.4); Platelet Count Result 391 k/mm3 (150-375); Red Blood Count 3.23 M/mm3 (4.2-5.4); Red Cell Distribution Width 16.8 % (11.5-14.5); White Blood Count 8.2 K/mm3 (4.5-10.0)
[2022-06-10 06:41] LABS: Anion Gap 3 mmol/L (8-16); Blood Urea Nitrogen 15 mg/dL (7-17); Calcium 9.4 mg/dL (8.4-10.2); Carbon Dioxide 29 mmol/L (22-30); Chloride 104 mmol/L (98-107); Estimated CRCL calculation 51 ml/min; Estimated Glomerular Filt Rate > 60; Glucose 94 mg/dL (65-110); Potassium 4.2 mmol/L (3.4-5.0); Sodium 136 mmol/L (137-145)
--- NOTE | 2022-06-10 07:52 | PC.NURSE ---
Attempted to draw blood from midline- unable to do so No blood return
[2022-06-10 08:33] LABS: Glucose Point of Care 88 mg/dl (65-105)
--- NOTE | 2022-06-10 10:02 | PM.IMPN ---
Progress Note: A&P Assessment and Plan (1) Osteomyelitis: Code(s): M86.9 - Osteomyelitis, unspecified Status: Acute Assessment and Plan: Clinically patient presents with right heel dark necrotic eschar; right foot xray consistent with osteomyelitis -Continue cefepime; and clindamycin; blood cultures growing proteus mirabilis -Persistent leucocytosis on CBC -Obtain wound care consult, cont IV abx and Santyl for now -for debridement and later amputation Gen surgery following 06/09/2022 interval history 77-year-old female resident of assisted presented with dark necrotic eschar on right heal, 05/30 patient was seen by surgery service and had a significant debridement of the wound and concerning for osteomyelitis, on 06/[address] angiogram of right lower extremity showing significant peripheral vascular disease, surgery service is recommending amputation however due to severe peripheral vascular disease patient will need to be seen by vascular surgery service which we do not have available at the hospital and may need to be transferred to tertiary care, on 06/01 spoke with the surgeon recommended to continue current abx treatment and reassess next week and plan, wound culture is growing staph aureus and blood culture is growing proteus mirabiliis, also on 06/01 discussed with ID pharmacy and recommended to continue ceftriaxone 2g IV daily, patient complains of constipation has not had BM in several days passing gas, KUB showed constipation, patient is receiving Colace and MiraLax without any relief, no relief with dulcolax suppository, patient is passing gas, and no nausea or vomiting, will give fleet enema, general surgery evaluated the patient today patient may need revision of the surgery,and further recommendations to follow, patient will need to follow up with vascular surgeon for possible angioplasty of RT lower extremity, patient has no new complains, again patient will be seen by surgery service and further recommendation to follow, on 06/08 I had ordered VANIA to further evaluate her vascular, patient blood vessels are so calcified that US was not able to do VANIA, I called [facility] transferline to [facility] the patient at [facility], there are completely full and currently not accepting any patient however I was able to talk to Dr. Diaz a vascular surgeon he is willing to accept the patient however I spoke with Dr. Monte hospitalist he refused the transfer as their hospital because currently does not have any ID physician, I called and spoke with patient shawna let her know current situation, will CPM. today patient remains clinically stable, will continue abx and changing wound dressing, her daughter is present in the room gave update. (2) Sepsis: Code(s): A41.9 - Sepsis, unspecified organism Status: Acute Assessment and Plan: Sepsis secondary to infected heel wound bed currently improving with hemodynamic stability. -persistent leukocytosis. -continue vanc and Cefepime (3) Anemia: Code(s): D64.9 - Anemia, unspecified Status: Acute Assessment and Plan: Patient presented with normocytic hypochromic anemia with a hemoglobin of 7.8. After 1 unit PRBC transfusion, hemoglobin is currently stable at 8.0. This likely represent anemia of chronic disease in the setting of a chronic wound infection. Will send iron panel B12 and folate levels. Continue to monitor the CBC in a.m. labs. No indication for blood transfusion today. Due to the history of fibroid there was a concern about possible chronic blood loss, however patient is postmenopausal and denies any ongoing vaginal bleeding. In the postmenopausal period, fibroid are likely to involute. Iron profile indicative of iron def of inflammation however, SOluble transferrin receptor ordered Monitor and transfuse if hb below 7. (4) Fibroid tumor: Code(s): D21.9 - Benign neoplasm
[2022-06-10] MEDS: DOXYCYCLINE 100 MG/NS 100 ML 100 MG/100 ML BAG IVPB ×2 (10:28→20:13)
[2022-06-10] MEDS: NIFEdipine 30 MG TAB.ER.24 PO (10:29)
[2022-06-10] MEDS: ENOXAPARIN 40 MG/0.4 ML SYRINGE SUB-Q (10:29)
[2022-06-10] MEDS: polyethylene glycoL 3350 17 GM POWD.PACK PO (10:29)
[2022-06-10] MEDS: GABAPENTIN 100 MG CAPSULE PO ×3 (10:29→18:05)
[2022-06-10] MEDS: SOD HYPOCHLORITE 1/4 STRENGTH 473 ML 1 APPLIC TOPICAL ×2 (10:31→20:16)
[2022-06-10 12:19] LABS: Glucose Point of Care 118 mg/dl (65-105)
--- NOTE | 2022-06-10 15:29 | PCPTNOTE ---
Attempted to see patient for Physical Therapy this date. Patient refused and stated that she was too tired to do therapy. Nursing staff notified. Will plan to continue treatment per plan of care.
--- NOTE | 2022-06-10 16:13 | PM.IMPN ---
Progress Note: A&P Assessment and Plan (1) Osteomyelitis: Code(s): M86.9 - Osteomyelitis, unspecified Status: Acute Assessment and Plan: Clinically patient presents with right heel dark necrotic eschar; right foot xray consistent with osteomyelitis -Continue cefepime; and clindamycin; blood cultures growing proteus mirabilis -Persistent leucocytosis on CBC -Obtain wound care consult, cont IV abx and Santyl for now -for debridement and later amputation Gen surgery following 06/10/2022 interval history 77-year-old female resident of [facility]term presented with dark necrotic eschar on right heal, 05/30 patient was seen by surgery service and had a significant debridement of the wound and concerning for osteomyelitis, on 06/[address] angiogram of right lower extremity showing significant peripheral vascular disease, surgery service is recommending amputation however due to severe peripheral vascular disease patient will need to be seen by vascular surgery service which we do not have available at the hospital and may need to be transferred to tertiary care, on 06/01 spoke with the surgeon recommended to continue current abx treatment and reassess next week and plan, wound culture is growing staph aureus and blood culture is growing proteus mirabiliis, also on 06/01 discussed with ID pharmacy and recommended to continue ceftriaxone 2g IV daily, patient complains of constipation has not had BM in several days passing gas, KUB showed constipation, patient is receiving Colace and MiraLax without any relief, no relief with dulcolax suppository, patient is passing gas, and no nausea or vomiting, will give fleet enema, general surgery evaluated the patient today patient may need revision of the surgery,and further recommendations to follow, patient will need to follow up with vascular surgeon for possible angioplasty of RT lower extremity, patient has no new complains, again patient will be seen by surgery service and further recommendation to follow, on 06/08 I had ordered VANIA to further evaluate her vascular, patient blood vessels are so calcified that US was not able to do VANIA, [facility], there are completely full and currently not accepting any patient however I was able to talk to Dr. Diaz a vascular surgeon he is willing to accept the patient however I spoke with Dr. Monte hospitalist he refused the transfer as their hospital because currently does not have any ID physician, I called and spoke with patient shawna let her know current situation,. on 06/09 patient daughter was present in the room and discuss current situation, patient remains clinically stable, will continue abx and changing wound dressing, patient still has not had a regular BM but passing gas and has no complaints of N/V and eating well, may give Enema. (2) Sepsis: Code(s): A41.9 - Sepsis, unspecified organism Status: Acute Assessment and Plan: Sepsis secondary to infected heel wound bed currently improving with hemodynamic stability. -persistent leukocytosis. -continue vanc and Cefepime (3) Anemia: Code(s): D64.9 - Anemia, unspecified Status: Acute Assessment and Plan: Patient presented with normocytic hypochromic anemia with a hemoglobin of 7.8. After 1 unit PRBC transfusion, hemoglobin is currently stable at 8.0. This likely represent anemia of chronic disease in the setting of a chronic wound infection. Will send iron panel B12 and folate levels. Continue to monitor the CBC in a.m. labs. No indication for blood transfusion today. Due to the history of fibroid there was a concern about possible chronic blood loss, however patient is postmenopausal and denies any ongoing vaginal bleeding. In the postmenopausal period, fibroid are likely to involute. Iron profile indicative of iron def of inflammation however, SOluble
--- NOTE | 2022-06-10 16:14 | PCOTNOTE ---
The patient treatment was not able to be completed on [06/10/2022]. Will plan to continue treatment per plan of care.
[2022-06-10 17:18] LABS: Glucose Point of Care 113 mg/dl (65-105)
[2022-06-10] MEDS: cefTRIAXone 2 GM in SODIUM CHLORIDE 0.9% IV 100 ML IVPB (18:05)
[2022-06-10 20:13] LABS: Glucose Point of Care 208 mg/dl (65-105)
[2022-06-10] MEDS: SENNOSIDES 8.6 MG TABLET PO (20:16)
[2022-06-11] VITALS (10 sets, daily range): BP systolic 110–124; BP diastolic 38–42; PULSE 71–100; RESP 18–21; TEMP 36.2–37; O2SAT 98–100
[2022-06-11 03:52] LABS: IFOB Positive Control Positive; Immunochemical Fecal Occult Bl Positive (N)
[2022-06-11 05:30] LABS: Hemoglobin 8.2 g/dL (12.0-15.0); Mean Corpuscular HGB Conc 30.4 g/dl (32-36); Mean Corpuscular Hemoglobin 26.7 pg (26-34); Mean Corpuscular Volume 87.9 fl (80-100); Platelet Count Result 391 k/mm3 (150-375); Red Blood Count 3.07 M/mm3 (4.2-5.4); Red Cell Distribution Width 17.1 % (11.5-14.5); White Blood Count 16.1 K/mm3 (4.5-10.0)
[2022-06-11] MEDS: SALINE LOCK FLUSH 10 ML IV PUSH ×2 (06:05→14:37)
[2022-06-11 06:54] LABS: Anion Gap 6 mmol/L (8-16); Blood Urea Nitrogen 24 mg/dL (7-17); Carbon Dioxide 27 mmol/L (22-30); Chloride 105 mmol/L (98-107); Estimated CRCL calculation 32 ml/min; Estimated Glomerular Filt Rate 48; Glucose 193 mg/dL (65-110); Potassium 4.2 mmol/L (3.4-5.0); Sodium 138 mmol/L (137-145)
[2022-06-11 07:54] LABS: Glucose Point of Care 153 mg/dl (65-105)
[2022-06-11] MEDS: DOXYCYCLINE 100 MG/NS 100 ML 100 MG/100 ML BAG IVPB ×2 (09:24→20:31)
[2022-06-11] MEDS: NIFEdipine 30 MG TAB.ER.24 PO (09:25)
[2022-06-11] MEDS: polyethylene glycoL 3350 17 GM POWD.PACK PO (09:25)
[2022-06-11] MEDS: GABAPENTIN 100 MG CAPSULE PO ×3 (09:25→17:04)
[2022-06-11] MEDS: ENOXAPARIN 40 MG/0.4 ML SYRINGE SUB-Q (09:25)
[2022-06-11] MEDS: SOD HYPOCHLORITE 1/4 STRENGTH 473 ML 1 APPLIC TOPICAL ×2 (09:26→20:30)
--- NOTE | 2022-06-11 10:00 | PM.IMPN ---
Progress Note: A&P Assessment and Plan (1) Osteomyelitis: Code(s): M86.9 - Osteomyelitis, unspecified Status: Acute Assessment and Plan: Currently on doxycycline and rocephin IV 1 of 2 blood cultures from May 26 were positive for Proteus mirabilis, sensitive to rocephin Repeat blood cultures negative Wound culture did grow Staph aureus, pansensitive (2) Sepsis: Code(s): A41.9 - Sepsis, unspecified organism Status: Acute Assessment and Plan: As above (3) Anemia: Code(s): D64.9 - Anemia, unspecified Status: Acute Assessment and Plan: Stable, monitor hemoglobin (4) Fibroid tumor: Code(s): D21.9 - Benign neoplasm of connective and other soft tissue, unspecified Status: Acute (5) DM2 (diabetes mellitus, type 2): Code(s): E11.9 - Type 2 diabetes mellitus without complications Status: Acute Assessment and Plan: Accu-Cheks, sliding scale insulin, A1c less than 7 (6) Combined hyperlipidemia: Code(s): E78.2 - Mixed hyperlipidemia Status: Acute (7) HTN (hypertension), benign: Code(s): I10 - Essential (primary) hypertension Status: Acute (8) Dementia: Code(s): F03.90 - Unspecified dementia, unspecified severity, without behavioral disturbance, psychotic disturbance, mood disturbance, and anxiety Status: Acute (9) Fecal impaction: Code(s): K56.41 - Fecal impaction Status: Acute Assessment and Plan: Improving (10) Peripheral artery disease: Code(s): I73.9 - Peripheral vascular disease, unspecified Status: Acute Assessment and Plan: Will need vascular consultation, transfer attempted at [place], follow-up on this and attempt to transfer to other locations versus outpatient follow-up with vascular surgery due to severity of vascular disease (11) Leukocytosis: Code(s): D72.829 - Elevated white blood cell count, unspecified Status: Acute Assessment and Plan: White blood cell count suddenly jumped up to 16 from 8, no change in antibiotics, unsure of etiology No change in vital signs including no fever noted to him to possible worsening infection Will monitor and recheck tomorrow, continue current antibiotics and treatment plan (12) Acute kidney injury: Code(s): N17.9 - Acute kidney failure, unspecified Status: Acute Assessment and Plan: Renal ultrasound, urinalysis pending, no change in fluid status or medications to explain the sudden increasing creatinine and BUN, will give gentle IV fluid hydration and follow-up testing and creatinine level tomorrow Plan DVT prophylaxis with Lovenox GI prophylaxis not indicated Code status full code Subjective Date/time seen: 06/11/22 10:00 Interval history: No overnight events noted. No chest pain or shortness of breath. No nausea, vomiting or diarrhea. No fevers or chills. Review of Systems Review of Systems: 12 point review of systems was assessed and was negative except as noted in the HPI Exam Narrative: General: No acute distress, alert and oriented per baseline HEENT: Atraumatic, normocephalic, mucous membranes moist CV: Regular rate and rhythm, S1, S2 Lungs: Clear to auscultation bilaterally, no rales or crackles noted, no wheezes, good air entry Abdomen: Soft, nontender, nondistended Extremities: Normal to inspection Skin: No rashes noted, no lesions or wounds seen Psych: Euthymic, normal affect Objective Data Vital Signs Vital Signs: Vital Signs - 24 hr 06/10/22 10:32 06/10/22 12:00 06/10/22 14:20 Temperature 98.7 F Pulse Rate 80 73 Respiratory Rate 16 Blood Pressure 131/80 132/58 L Pulse Oximetry 98 Oxygen Delivery 06/10/22 10:30 06/10/22 16:00 06/10/22 21:30 Temperature Pulse Rate 69 Respiratory Rate Blood Pressure 120/40 L Pulse Oximetry Oxygen Delivery Room Air 06/10/22 20:00 06/10/22 22:11 06/11/22
[2022-06-11 12:05] LABS: Glucose Point of Care 135 mg/dl (65-105)
[2022-06-11 12:12] LABS: Lactic Acid Reflex 1.4 mmol/L (0.7-2.0)
[2022-06-11 12:15] LABS: CRP 4.6 mg/dL (<1.0)
[2022-06-11] MEDS: SODIUM CHLORIDE 0.9% IV 1,000 ML 100 ML IV CONT (12:18)
[2022-06-11 12:20] LABS: Erythrocyte Sedimentation Rate > 140 mm/hr (0-20)
[2022-06-11] MEDS: cefTRIAXone 2 GM in SODIUM CHLORIDE 0.9% IV 100 ML IVPB (17:05)
[2022-06-11 17:32] LABS: Glucose Point of Care 119 mg/dl (65-105)
[2022-06-11 17:50] LABS: Procalcitonin 7.2 ng/mL
[2022-06-11] MEDS: SENNOSIDES 8.6 MG TABLET PO (20:35)
[2022-06-11 20:51] LABS: Glucose Point of Care 155 mg/dl (65-105)
[2022-06-12] VITALS (9 sets, daily range): BP systolic 137–141; BP diastolic 47–49; PULSE 66–78; RESP 18–21; TEMP 36.2–37.4; O2SAT 98–100
[2022-06-12] MEDS: SODIUM CHLORIDE 0.9% IV 1,000 ML 100 ML IV CONT ×2 (00:45→12:01)
[2022-06-12] MEDS: SALINE LOCK FLUSH 10 ML IV PUSH ×4 (00:46→20:14)
[2022-06-12 05:47] LABS: Hematocrit 24.7 % (37.0-47.0); Hemoglobin 7.3 g/dL (12.0-15.0); Mean Corpuscular HGB Conc 29.6 g/dl (32-36); Mean Corpuscular Hemoglobin 26.3 pg (26-34); Mean Corpuscular Volume 88.8 fl (80-100); Mean Platelet Volume 9.2 fl (7.4-10.4); Platelet Count Result 363 k/mm3 (150-375); Red Blood Count 2.78 M/mm3 (4.2-5.4); Red Cell Distribution Width 17.2 % (11.5-14.5); White Blood Count 9.4 K/mm3 (4.5-10.0)
[2022-06-12 05:49] LABS: Anion Gap 3 mmol/L (8-16); Blood Urea Nitrogen 23 mg/dL (7-17); Calcium 8.7 mg/dL (8.4-10.2); Carbon Dioxide 25 mmol/L (22-30); Chloride 110 mmol/L (98-107); Estimated CRCL calculation 38 ml/min; Estimated Glomerular Filt Rate 59; Glucose 97 mg/dL (65-110); Potassium 3.9 mmol/L (3.4-5.0); Sodium 138 mmol/L (137-145)
--- NOTE | 2022-06-12 08:23 | PM.IMPN ---
Progress Note: A&P Assessment and Plan (1) Osteomyelitis: Code(s): M86.9 - Osteomyelitis, unspecified Status: Acute Assessment and Plan: Currently on doxycycline and rocephin IV 1 of 2 blood cultures from May 26 were positive for Proteus mirabilis, sensitive to rocephin Repeat blood cultures negative Wound culture did grow Staph aureus, pansensitive Will need long-term IV antibiotics, PICC placement ordered Anticipate discharge to SNF tomorrow, outpatient follow-up with vascular surgery for possible amputation in the future (2) Sepsis: Code(s): A41.9 - Sepsis, unspecified organism Status: Acute Assessment and Plan: As above (3) Anemia: Code(s): D64.9 - Anemia, unspecified Status: Acute Assessment and Plan: Stable, monitor hemoglobin (4) Fibroid tumor: Code(s): D21.9 - Benign neoplasm of connective and other soft tissue, unspecified Status: Acute (5) DM2 (diabetes mellitus, type 2): Code(s): E11.9 - Type 2 diabetes mellitus without complications Status: Acute Assessment and Plan: Accu-Cheks, sliding scale insulin, A1c less than 7 (6) Combined hyperlipidemia: Code(s): E78.2 - Mixed hyperlipidemia Status: Acute (7) HTN (hypertension), benign: Code(s): I10 - Essential (primary) hypertension Status: Acute (8) Dementia: Code(s): F03.90 - Unspecified dementia, unspecified severity, without behavioral disturbance, psychotic disturbance, mood disturbance, and anxiety Status: Acute (9) Fecal impaction: Code(s): K56.41 - Fecal impaction Status: Acute Assessment and Plan: Improving (10) Peripheral artery disease: Code(s): I73.9 - Peripheral vascular disease, unspecified Status: Acute Assessment and Plan: Will need vascular consultation, transfer attempted at [place], follow-up on this and attempt to transfer to other locations versus outpatient follow-up with vascular surgery due to severity of vascular disease No beds available, recommended d/c on IV abx and f/u outpatient for vasc workup (11) Leukocytosis: Code(s): D72.829 - Elevated white blood cell count, unspecified Status: Acute Assessment and Plan: 06/11/22 White blood cell count suddenly jumped up to 16 from 8, no change in antibiotics, unsure of etiology No change in vital signs including no fever noted to him to possible worsening infection Will monitor and recheck tomorrow, continue current antibiotics and treatment plan 06/12/22 WBC back down, not sure why the jump yesterday? Cont current management (12) Acute kidney injury: Code(s): N17.9 - Acute kidney failure, unspecified Status: Acute Assessment and Plan: 06/11/22 Renal ultrasound, urinalysis pending, no change in fluid status or medications to explain the sudden increasing creatinine and BUN, will give gentle IV fluid hydration and follow-up testing and creatinine level tomorrow 06/12/22 Creat improved on IVF Plan DVT prophylaxis with Lovenox GI prophylaxis not indicated Code status full code Subjective Date/time seen: 06/12/22 08:23 Interval history: No overnight events noted. No chest pain or shortness of breath. No nausea, vomiting or diarrhea. No fevers or chills. Review of Systems Review of Systems: 12 point review of systems was assessed and was negative except as noted in the HPI Exam Narrative: General: No acute distress, alert and oriented per baseline HEENT: Atraumatic, normocephalic, mucous membranes moist CV: Regular rate and rhythm, S1, S2 Lungs: Clear to auscultation bilaterally, no rales or crackles noted, no wheezes, good air entry Abdomen: Soft, nontender, nondistended Extremities: Normal to inspection significant necrotic lesions noted of right heel Psych: Euthymic, normal affect Objective Data Vital Signs Vital Signs: Vital Signs - 24 hr 06/11/22 09:20
[2022-06-12 08:45] LABS: Glucose Point of Care 91 mg/dl (65-105)
[2022-06-12] MEDS: DOXYCYCLINE 100 MG/NS 100 ML 100 MG/100 ML BAG IVPB ×2 (08:54→21:43)
[2022-06-12] MEDS: GABAPENTIN 100 MG CAPSULE PO ×3 (08:55→16:44)
[2022-06-12] MEDS: ENOXAPARIN 40 MG/0.4 ML SYRINGE SUB-Q (08:55)
[2022-06-12] MEDS: SOD HYPOCHLORITE 1/4 STRENGTH 473 ML 1 APPLIC TOPICAL ×2 (08:56→20:12)
[2022-06-12 12:17] LABS: Glucose Point of Care 109 mg/dl (65-105)
--- NOTE | 2022-06-12 13:05 | PCOTNOTE ---
Attempted to see patient this pm, however patient was with physical therapy.
[2022-06-12] MEDS: NIFEdipine 30 MG TAB.ER.24 PO (16:44)
[2022-06-12 16:57] LABS: Glucose Point of Care 106 mg/dl (65-105)
[2022-06-12] MEDS: cefTRIAXone 2 GM in SODIUM CHLORIDE 0.9% IV 100 ML IVPB (18:04)
[2022-06-12] MEDS: SENNOSIDES 8.6 MG TABLET PO (20:12)
[2022-06-12 22:32] LABS: Glucose Point of Care 115 mg/dl (65-105)
[2022-06-13] VITALS (8 sets, daily range): BP systolic 139–148; BP diastolic 46–55; PULSE 69–80; RESP 18–20; TEMP 36.3–36.6; O2SAT 98–100
[2022-06-13 05:33] LABS: Hemoglobin 7.5 g/dL (12.0-15.0); Mean Corpuscular Hemoglobin 27.1 pg (26-34); Mean Corpuscular Volume 90.3 fl (80-100); Platelet Count Result 350 k/mm3 (150-375); Red Blood Count 2.77 M/mm3 (4.2-5.4); Red Cell Distribution Width 17.1 % (11.5-14.5); White Blood Count 10.2 K/mm3 (4.5-10.0)
[2022-06-13 05:37] LABS: Anion Gap 2 mmol/L (8-16); Blood Urea Nitrogen 16 mg/dL (7-17); Calcium 8.8 mg/dL (8.4-10.2); Carbon Dioxide 25 mmol/L (22-30); Chloride 108 mmol/L (98-107); Estimated CRCL calculation 46 ml/min; Estimated Glomerular Filt Rate > 60; Glucose 88 mg/dL (65-110); Potassium 4.1 mmol/L (3.4-5.0); Sodium 135 mmol/L (137-145)
--- NOTE | 2022-06-13 07:53 | PM.IMPN ---
Progress Note: A&P Assessment and Plan (1) Osteomyelitis: Code(s): M86.9 - Osteomyelitis, unspecified Status: Acute Assessment and Plan: Currently on doxycycline and rocephin IV 1 of 2 blood cultures from May 26 were positive for Proteus mirabilis, sensitive to rocephin Repeat blood cultures negative Wound culture did grow Staph aureus, pansensitive Will need long-term IV antibiotics, PICC placement ordered On wait list for vasc surg + ID at [facility] (2) Sepsis: Code(s): A41.9 - Sepsis, unspecified organism Status: Acute Assessment and Plan: As above (3) Anemia: Code(s): D64.9 - Anemia, unspecified Status: Acute Assessment and Plan: Stable, monitor hemoglobin (4) Fibroid tumor: Code(s): D21.9 - Benign neoplasm of connective and other soft tissue, unspecified Status: Acute (5) DM2 (diabetes mellitus, type 2): Code(s): E11.9 - Type 2 diabetes mellitus without complications Status: Acute Assessment and Plan: Accu-Cheks, sliding scale insulin, A1c less than 7 (6) Combined hyperlipidemia: Code(s): E78.2 - Mixed hyperlipidemia Status: Acute (7) HTN (hypertension), benign: Code(s): I10 - Essential (primary) hypertension Status: Acute (8) Dementia: Code(s): F03.90 - Unspecified dementia, unspecified severity, without behavioral disturbance, psychotic disturbance, mood disturbance, and anxiety Status: Acute (9) Fecal impaction: Code(s): K56.41 - Fecal impaction Status: Acute Assessment and Plan: Improving (10) Peripheral artery disease: Code(s): I73.9 - Peripheral vascular disease, unspecified Status: Acute Assessment and Plan: Will need vascular consultation, transfer attempted at [place], follow-up on this and attempt to transfer to other locations versus outpatient follow-up with vascular surgery due to severity of vascular disease No beds available, recommended d/c on IV abx and f/u outpatient for vasc workup (11) Leukocytosis: Code(s): D72.829 - Elevated white blood cell count, unspecified Status: Acute Assessment and Plan: 06/11/22 White blood cell count suddenly jumped up to 16 from 8, no change in antibiotics, unsure of etiology No change in vital signs including no fever noted to him to possible worsening infection Will monitor and recheck tomorrow, continue current antibiotics and treatment plan 06/12/22 WBC back down, not sure why the jump yesterday? Cont current management 06/13/22 WBC fluctuating, cont current management (12) Acute kidney injury: Code(s): N17.9 - Acute kidney failure, unspecified Status: Acute Assessment and Plan: 06/11/22 Renal ultrasound, urinalysis pending, no change in fluid status or medications to explain the sudden increasing creatinine and BUN, will give gentle IV fluid hydration and follow-up testing and creatinine level tomorrow 06/12/22 Creat improved on IVF 06/13/22 Resolved, d/c IVF Plan 06/13/22: on waiting list for vasc surg + ID at [facility] DVT prophylaxis with Lovenox GI prophylaxis not indicated Code status full code Subjective Date/time seen: 06/13/22 07:53 Interval history: No overnight events noted. No chest pain or shortness of breath. No nausea, vomiting or diarrhea. No fevers or chills. Patient states she feels well, she does not understand why she needs to have her foot addressed. She states her children brought her to the hospital, she does not feel like she has an infection. Extensive time spent discussing with patient the risks and benefits of continuing treatment and she was in agreement with the treatment plan as detailed below. Review of Systems Review of Systems: 12 point review of systems was assessed and was negative except as noted in the HPI Exam Narrative: General: No acute distress, alert and oriented per baseline HEENT: Atraumatic, normocephali
[2022-06-13 08:14] LABS: Glucose Point of Care 76 mg/dl (65-105)
[2022-06-13] MEDS: DOXYCYCLINE 100 MG/NS 100 ML 100 MG/100 ML BAG IVPB ×2 (09:47→22:03)
[2022-06-13] MEDS: GABAPENTIN 100 MG CAPSULE PO ×3 (09:48→17:52)
[2022-06-13] MEDS: NIFEdipine 30 MG TAB.ER.24 PO (09:48)
[2022-06-13] MEDS: SALINE LOCK FLUSH 10 ML IV PUSH ×3 (09:48→22:08)
[2022-06-13] MEDS: ENOXAPARIN 40 MG/0.4 ML SYRINGE SUB-Q (09:48)
[2022-06-13] MEDS: SOD HYPOCHLORITE 1/4 STRENGTH 473 ML 1 APPLIC TOPICAL ×2 (09:49→22:04)
[2022-06-13] MEDS: polyethylene glycoL 3350 17 GM POWD.PACK PO (09:49)
[2022-06-13 12:16] LABS: Glucose Point of Care 129 mg/dl (65-105)
--- NOTE | 2022-06-13 13:45 | PCOTNOTE ---
Addendum entered by DURAN Cruz 06/13/22 15:58: Pt stated she did not want to wash up at this time and declined to participatein therapeutic exercises on edge of bed at this time. Original Note: Pt stated she already therapy on the side of the bed. She is tired and will wash up later. Continue with POC.
[2022-06-13 17:09] LABS: Glucose Point of Care 105 mg/dl (65-105)
[2022-06-13] MEDS: cefTRIAXone 2 GM in SODIUM CHLORIDE 0.9% IV 100 ML 200 ML IVPB (17:51)
[2022-06-13 21:47] LABS: Glucose Point of Care 115 mg/dl (65-105)
[2022-06-14] VITALS (8 sets, daily range): BP systolic 135–157; BP diastolic 52–54; PULSE 67–78; RESP 16–20; TEMP 36.3–36.8; O2SAT 98–100
[2022-06-14] MEDS: SALINE LOCK FLUSH 10 ML IV PUSH ×3 (05:33→21:17)
[2022-06-14] MEDS: LIDOCAINE HCL 1% PF INJ 5 ML VIAL INFILTRATE (08:40)
[2022-06-14 09:18] LABS: Glucose Point of Care 82 mg/dl (65-105)
[2022-06-14] MEDS: DOXYCYCLINE 100 MG/NS 100 ML 100 MG/100 ML BAG IVPB ×2 (10:27→21:16)
[2022-06-14] MEDS: ENOXAPARIN 40 MG/0.4 ML SYRINGE SUB-Q (10:27)
[2022-06-14] MEDS: SOD HYPOCHLORITE 1/4 STRENGTH 473 ML 1 APPLIC TOPICAL ×2 (10:27→21:18)
[2022-06-14] MEDS: GABAPENTIN 100 MG CAPSULE PO ×3 (10:27→18:56)
[2022-06-14] MEDS: polyethylene glycoL 3350 17 GM POWD.PACK PO (10:27)
[2022-06-14] MEDS: NIFEdipine 30 MG TAB.ER.24 PO (10:28)
[2022-06-14 10:53] LABS: Hematocrit 25.5 % (37.0-47.0); Hemoglobin 7.7 g/dL (12.0-15.0); Mean Corpuscular HGB Conc 30.2 g/dl (32-36); Mean Corpuscular Hemoglobin 26.5 pg (26-34); Mean Corpuscular Volume 87.6 fl (80-100); Mean Platelet Volume 8.9 fl (7.4-10.4); Platelet Count Result 365 k/mm3 (150-375); Red Blood Count 2.91 M/mm3 (4.2-5.4); Red Cell Distribution Width 17.1 % (11.5-14.5); White Blood Count 8.6 K/mm3 (4.5-10.0)
[2022-06-14 10:58] LABS: Anion Gap 2 mmol/L (8-16); Blood Urea Nitrogen 13 mg/dL (7-17); Calcium 9.4 mg/dL (8.4-10.2); Carbon Dioxide 29 mmol/L (22-30); Chloride 104 mmol/L (98-107); Estimated CRCL calculation 51 ml/min; Estimated Glomerular Filt Rate > 60; Glucose 103 mg/dL (65-110); Potassium 4.1 mmol/L (3.4-5.0); Sodium 135 mmol/L (137-145)
[2022-06-14 12:23] LABS: Glucose Point of Care 100 mg/dl (65-105)
[2022-06-14] MEDS: CENTRAL LINE FLUSH 10 ML IV PUSH ×2 (13:01→22:00)
--- NOTE | 2022-06-14 14:30 | PCOTNOTE ---
The OT treatment was unable to be completed this date. Will continue to follow with plan of care.
--- NOTE | 2022-06-14 15:09 | PM.IMPN ---
Progress Note: A&P Assessment and Plan (1) Osteomyelitis: Code(s): M86.9 - Osteomyelitis, unspecified Status: Acute (2) Sepsis: Code(s): A41.9 - Sepsis, unspecified organism Status: Acute (3) Anemia: Code(s): D64.9 - Anemia, unspecified Status: Acute (4) Acute kidney injury: Code(s): N17.9 - Acute kidney failure, unspecified Status: Acute (5) DM2 (diabetes mellitus, type 2): Code(s): E11.9 - Type 2 diabetes mellitus without complications Status: Acute (6) HTN (hypertension), benign: Code(s): I10 - Essential (primary) hypertension Status: Acute (7) Dementia: Code(s): F03.90 - Unspecified dementia, unspecified severity, without behavioral disturbance, psychotic disturbance, mood disturbance, and anxiety Status: Acute (8) Fecal impaction: Code(s): K56.41 - Fecal impaction Status: Acute (9) Peripheral artery disease: Code(s): I73.9 - Peripheral vascular disease, unspecified Status: Acute (10) Leukocytosis: Code(s): D72.829 - Elevated white blood cell count, unspecified Status: Acute (11) Fibroid tumor: Code(s): D21.9 - Benign neoplasm of connective and other soft tissue, unspecified Status: Acute (12) Combined hyperlipidemia: Code(s): E78.2 - Mixed hyperlipidemia Status: Acute (13) Foot abscess, right: Code(s): L02.611 - Cutaneous abscess of right foot Status: Acute Plan PICC line has been placed. Blood cultures were positive for Proteus mirabilis and she has completed a 2 week course of this. Wound culture growing methicillin sensitive Staph aureus. Repeat blood cultures are negative. A 3rd set of blood cultures drawn on 06/11/2022 is no growth to date. White count is normal now. Fecal impaction noted on admission. Most recent abdominal x-ray on 06/10/22 showing mild fecal impaction still. Continue MiraLax and senna. Uterine fibroid noted with possibly degenerative is necrosis. Foot x-ray shows osteomyelitis at the inferior aspect of the posterior tuberosity of the right calcaneus. CTA of the lower extremities showed bilateral calf atherosclerotic disease with occlusion of the bilateral anterior tibial arteries that reconstitutes. She also had a 7 cm subcutaneous abscess in the right mid and hindfoot now s/p debridement. She will need 6 weeks of treatment with continued dressing changes. Awaiting placement now. Stop tele. Subjective Date/time seen: 06/14/22 15:09 Interval history: 77yo female with DM and dementia here for AMS and found to have sepsis from diabetic wound. Assuming care. Chart reviewed. No problems overnight. Patient denies any chest pain or abdominal pain. no Shortness of breath. Exam Narrative: AF 135/54 71 16 100% ra Gen - NARD Chest - Few scattered rhonchi CV - RRR S1/S2. telemetry showing no significant dysrhythmias Abd - Soft, NT/ND, Positive BS Ext - No pedal edema. wrinkling of the LE skin bilaterally. Waffle boots in place. Neuro - Alert and oriented x4. Psych - Nml mood and affect Skin - Warm and dry. Right ankle dressing is clean, dry and intact. Objective Data Vital Signs Vital Signs: Vital Signs - 24 hr 06/13/22 16:00 06/13/22 20:00 06/14/22 00:00 Temperature Pulse Rate 73 79 78 Respiratory Rate Blood Pressure Pulse Oximetry Oxygen Delivery 06/14/22 05:08 06/14/22 04:00 06/14/22 10:25 Temperature 97.4 F L Pulse Rate 69 67 71 Respiratory Rate 18 16 Blood Pressure 143/53 H 135/54 L Pulse Oximetry 98 100 Oxygen Delivery 06/14/22 08:00 06/14/22 10:30 06/14/22 12:00 Temperature Pulse Rate 71 71 Respiratory Rate Blood Pressure Pulse Oximetry Oxygen Delivery Room Air Intake/Output Intake/Output: Intake & Output 06/11/22 06/12/22 06/13/22 06/14/22 23:59 23:59 23:59 23:59 Intake Total 2060 2798 3400 580 Output Total 300 90
[2022-06-14 16:58] LABS: Glucose Point of Care 104 mg/dl (65-105)
[2022-06-14] MEDS: cefTRIAXone 2 GM in SODIUM CHLORIDE 0.9% IV 100 ML 200 ML IVPB (18:30)
[2022-06-14 22:11] LABS: Glucose Point of Care 82 mg/dl (65-105)
[2022-06-15 05:32] VITALS: BP 151/48; PULSE 72; RESP 17; TEMP 36.8; O2SAT 96
[2022-06-15 08:15] LABS: Glucose Point of Care 74 mg/dl (65-105)
[2022-06-15 08:38] VITALS: BP 164/80
[2022-06-15] MEDS: ENOXAPARIN 40 MG/0.4 ML SYRINGE SUB-Q (08:40)
[2022-06-15] MEDS: DOXYCYCLINE 100 MG/NS 100 ML 100 MG/100 ML BAG IVPB ×2 (08:40→20:38)
[2022-06-15] MEDS: polyethylene glycoL 3350 17 GM POWD.PACK PO (08:40)
[2022-06-15] MEDS: NIFEdipine 30 MG TAB.ER.24 PO (08:41)
[2022-06-15] MEDS: GABAPENTIN 100 MG CAPSULE PO ×2 (08:41→13:10)
[2022-06-15] MEDS: SOD HYPOCHLORITE 1/4 STRENGTH 473 ML 1 APPLIC TOPICAL ×2 (08:41→20:36)
--- NOTE | 2022-06-15 12:01 | PM.IMPN ---
Progress Note: A&P Assessment and Plan (1) Osteomyelitis: Code(s): M86.9 - Osteomyelitis, unspecified Status: Acute (2) Sepsis: Code(s): A41.9 - Sepsis, unspecified organism Status: Acute (3) Anemia: Code(s): D64.9 - Anemia, unspecified Status: Acute (4) Acute kidney injury: Code(s): N17.9 - Acute kidney failure, unspecified Status: Acute (5) DM2 (diabetes mellitus, type 2): Code(s): E11.9 - Type 2 diabetes mellitus without complications Status: Acute (6) HTN (hypertension), benign: Code(s): I10 - Essential (primary) hypertension Status: Acute (7) Dementia: Code(s): F03.90 - Unspecified dementia, unspecified severity, without behavioral disturbance, psychotic disturbance, mood disturbance, and anxiety Status: Acute (8) Fecal impaction: Code(s): K56.41 - Fecal impaction Status: Acute (9) Peripheral artery disease: Code(s): I73.9 - Peripheral vascular disease, unspecified Status: Acute (10) Leukocytosis: Code(s): D72.829 - Elevated white blood cell count, unspecified Status: Acute (11) Fibroid tumor: Code(s): D21.9 - Benign neoplasm of connective and other soft tissue, unspecified Status: Acute (12) Combined hyperlipidemia: Code(s): E78.2 - Mixed hyperlipidemia Status: Acute (13) Foot abscess, right: Code(s): L02.611 - Cutaneous abscess of right foot Status: Acute Plan Patient was admitted from skilled nursing for altered mental status. Blood cultures were positive for Proteus mirabilis and she has completed a course of abx. Wound culture growing methicillin sensitive Staph aureus. Repeat blood cultures were negative. A 3rd set of blood cultures drawn on 06/11/2022 are no growth to date. White count is normal now. Fecal impaction noted on admission. Most recent abdominal x-ray on 06/10/22 showing mild fecal impaction still. Continue MiraLax and senna. Uterine fibroid noted with possibly degenerative is necrosis. Foot x-ray shows osteomyelitis at the inferior aspect of the posterior tuberosity of the right calcaneus. CTA of the lower extremities showed bilateral calf atherosclerotic disease with occlusion of the bilateral anterior tibial arteries that reconstitutes. She also had a 7 cm subcutaneous abscess in the right mid and hindfoot now s/p debridement. She will need 6 weeks of treatment with continued dressing changes. PICC line has been placed. Awaiting placement now Subjective Date/time seen: 06/15/22 12:01 Interval history: 77yo female with DM and dementia here for AMS and found to have sepsis from diabetic wound. No problems overnight. Eating okay. Denies chest pain or shortness of breath. Exam Narrative: AF 164/80 72 17 96% ra Gen - NARD Chest - clar anteriorly and in the flanks. nml RR CV - RRR S1/S2 Abd - Soft, NT/ND, Positive BS Ext - No pedal edema. wrinkling of the LE skin bilaterally. Waffle boots in place. Psych - Nml mood and affect. Alert and appropriate Skin - Warm and dry. Right ankle dressing is clean, dry and intact. bilateral lower extremity dry, peeling skin. Small left shallow heel ulcer. Objective Data Vital Signs Vital Signs: Vital Signs - 24 hr 06/14/22 15:00 06/14/22 22:00 06/15/22 05:32 Temperature 97.4 F L 98.3 F 98.2 F Pulse Rate 70 71 72 Respiratory Rate 20 18 17 Blood Pressure 147/52 H 157/54 H 151/48 H Pulse Oximetry 98 100 96 06/15/22 08:38 Temperature Pulse Rate Respiratory Rate Blood Pressure 164/80 H Pulse Oximetry Intake/Output Intake/Output: Intake & Output 06/12/22 06/13/22 06/14/22 06/15/22 23:59 23:59 23:59 23:59 Intake Total 2798 3400 1490 490 Output Total 900 150 Balance 1898 3400 1340 490 Meds/Results Medications: Active Medications Generic Name Dose Route Start Last Admin Trade Name Freq PRN Reason Stop Dose Admin Dextrose 12.5 gm
[2022-06-15 12:19] LABS: Glucose Point of Care 101 mg/dl (65-105)
[2022-06-15] MEDS: EUCERIN CREAM 120 GM JAR 1 APPLIC TOPICAL (13:10)
[2022-06-15] MEDS: CENTRAL LINE FLUSH 10 ML IV PUSH (13:11)
[2022-06-15] MEDS: SALINE LOCK FLUSH 10 ML IV PUSH ×2 (13:11→20:37)
--- NOTE | 2022-06-15 14:32 | PCOTNOTE ---
Attempted to see patient this pm, however patient declined stating maybe later. Encouraged patient to participate at this time and patient replied, I'm busy. Pt stated, I'm busy watching tv, and I'm about to watch the news. Pt continued to refuse at this time.
[2022-06-15 14:39] VITALS: BP 174/61; PULSE 69; RESP 20; TEMP 36.3; O2SAT 100
[2022-06-15 17:42] LABS: Glucose Point of Care 94 mg/dl (65-105)
[2022-06-15] MEDS: cefTRIAXone 2 GM in SODIUM CHLORIDE 0.9% IV 100 ML 200 ML IVPB (17:49)
[2022-06-15 20:00] VITALS: PULSE 73; RESP 20; O2SAT 93
[2022-06-15] MEDS: SENNOSIDES 8.6 MG TABLET PO (20:36)
[2022-06-15 21:08] LABS: Glucose Point of Care 87 mg/dl (65-105)
[2022-06-15 21:09] VITALS: BP 144/54; PULSE 73; RESP 20; TEMP 36.6; O2SAT 93
[2022-06-16 06:33] VITALS: BP 143/58; PULSE 67; RESP 18; TEMP 36.6; O2SAT 100
[2022-06-16] MEDS: SALINE LOCK FLUSH 10 ML IV PUSH ×2 (06:58→13:22)
[2022-06-16 08:23] LABS: Glucose Point of Care 81 mg/dl (65-105)
[2022-06-16] MEDS: DOXYCYCLINE 100 MG/NS 100 ML 100 MG/100 ML BAG IVPB (08:51)
[2022-06-16] MEDS: CENTRAL LINE FLUSH 10 ML IV PUSH ×2 (08:54→13:23)
[2022-06-16] MEDS: ENOXAPARIN 40 MG/0.4 ML SYRINGE SUB-Q (08:55)
[2022-06-16] MEDS: GABAPENTIN 100 MG CAPSULE PO ×3 (08:55→17:45)
[2022-06-16] MEDS: NIFEdipine 30 MG TAB.ER.24 PO (08:55)
[2022-06-16] MEDS: EUCERIN CREAM 120 GM JAR 1 APPLIC TOPICAL ×2 (08:56→17:46)
[2022-06-16] MEDS: polyethylene glycoL 3350 17 GM POWD.PACK PO (08:56)
[2022-06-16] MEDS: SOD HYPOCHLORITE 1/4 STRENGTH 473 ML 1 APPLIC TOPICAL (08:56)
--- NOTE | 2022-06-16 10:48 | PCNFU ---
Nutrition Follow-Up Complete: Suboptimal po intake related to appetite as evidenced by charted intake Goal: PO intake 75% of meals and supplements Patient is meeting current goal. No new goal. Pt current nutrition is DBCC. Last recorded weight is 86.4 kg. Bowel Motility:Last BM reported 06/11. Miralax started. Labs Reviewed:No labs to report. Meds Noted:Miralax, Senokot,NovoLog, Lovenox, Zofran Skin:WNL Additional Notes: Nutrition follow up. Patient seen today finished breakfast, tolerated diet (95% consumed). Patient is not drinking Glucerna shakes, discontinued today. Agree with diet orders. No further nutritional needs at this time. Monitor intake, wt, labs. Follow up in 7 days.
[2022-06-16 12:54] LABS: Glucose Point of Care 106 mg/dl (65-105)
[2022-06-16 14:00] VITALS: BP 105/51; PULSE 87; RESP 16; TEMP 36.4; O2SAT 99
--- NOTE | 2022-06-16 14:00 | PM.DS ---
DS: Admitting Diagnosis Discharge Date 06/16/22 Admitting Diagnosis Altered mental status DS: Discharge Diagnosis Discharge Diagnosis (1) Osteomyelitis: Code(s): M86.9 - Osteomyelitis, unspecified Status: Acute (2) Sepsis: Code(s): A41.9 - Sepsis, unspecified organism Status: Acute (3) Anemia: Code(s): D64.9 - Anemia, unspecified Status: Acute (4) Acute kidney injury: Code(s): N17.9 - Acute kidney failure, unspecified Status: Acute (5) DM2 (diabetes mellitus, type 2): Code(s): E11.9 - Type 2 diabetes mellitus without complications Status: Acute (6) HTN (hypertension), benign: Code(s): I10 - Essential (primary) hypertension Status: Acute (7) Dementia: Code(s): F03.90 - Unspecified dementia, unspecified severity, without behavioral disturbance, psychotic disturbance, mood disturbance, and anxiety Status: Acute (8) Fecal impaction: Code(s): K56.41 - Fecal impaction Status: Acute (9) Peripheral artery disease: Code(s): I73.9 - Peripheral vascular disease, unspecified Status: Acute (10) Leukocytosis: Code(s): D72.829 - Elevated white blood cell count, unspecified Status: Acute (11) Fibroid tumor: Code(s): D21.9 - Benign neoplasm of connective and other soft tissue, unspecified Status: Acute (12) Combined hyperlipidemia: Code(s): E78.2 - Mixed hyperlipidemia Status: Acute (13) Foot abscess, right: Code(s): L02.611 - Cutaneous abscess of right foot Status: Acute DS: Summary Hospital Course Reason for hospitalization: 77yo female with DM and dementia here for AMS and found to have sepsis from diabetic wound. Please see H&P for details. Hospital Course: Patient was admitted from intermediate for altered mental status. Blood cultures were positive for Proteus mirabilis and she has completed a course of abx. Wound culture growing methicillin sensitive Staph aureus. Repeat blood cultures were negative. A 3rd set of blood cultures drawn on 06/11/2022 are no growth to date. Powers that her AMS was realted to the infections. White count is normal now. Fecal impaction noted on admission. Most recent abdominal x-ray on 06/10/22 showing mild fecal impaction still. We continued MiraLax and senna. Uterine fibroid noted with possibly degenerative necrosis. Foot x-ray shows osteomyelitis at the inferior aspect of the posterior tuberosity of the right calcaneus. CTA of the lower extremities showed bilateral calf atherosclerotic disease with occlusion of the bilateral anterior tibial arteries that reconstitutes. She also had a 7 cm subcutaneous abscess in the right mid and hindfoot now s/p debridement. General surgery feels the wound is healing well. She will need 6 weeks of treatment for osteomyelitis with continued dressing changes (to start after her debridement). Plan for her to follow-up with a vascular surgeon further evaluation treatment of her vascular disease. Our hope is at the right foot wound well healed with antibiotics dressing changes. If it does not, she may need amputation. This was discussed with her. PICC line was placed. she overall did well able discharged 06/16/2022. Status at Discharge Cognitive/behavioral status at discharge: Stable Time Spent with Patient Time attestation: Total time spent providing and/or coordinating discharge services: 35 minutes Time spent: Greater than 30 minutes Exam Narrative: AF143/[id number] 67 18 100% ra Gen - NARD Chest - CTA bilaterally, nml RR CV - RRR S1/S2 Abd - Soft, NT/ND, Positive BS Ext - No pedal edema. wrinkling of the LE skin bilaterally. Psych - Nml mood and affect. Alert and appropriate Skin - Warm and dry. Right ankle dressing is clean, dry and intact. DS: Data Data Completed and Pending Labs on day of discharge: Labs from last 24 hours 06/16/22 06/16/22 06/15/22 12:34
[2022-06-16 15:14] LABS: EDCOVIDSCREEN Negative (Negative)
[2022-06-16 17:33] LABS: Glucose Point of Care 111 mg/dl (65-105)
[2022-06-16] MEDS: cefTRIAXone 2 GM in SODIUM CHLORIDE 0.9% IV 100 ML 200 ML IVPB (17:45)
== END 2022-06-16 20:24 | DRG 854 ==
LOC: ANHED 16:01 → ANH3MEDSUR 18:35 → ANH2MED 20:23
PROVIDERS: Emergency Medicine; Family Medicine; Internal Medicine; Internal Medicine Critical Care Medicine; Nurse Practitioner; Physician Assistant; Student in an Organized Health Care Education/Training Program; Surgery; Admitting Provider Internal Medicine; Emergency Provider Emergency Medicine; Visit Provider Internal Medicine
PROC: 0QBL0ZZ Excision of Right Tarsal, Open Approach (ICD-10-PCS; principal; 2022-05-30 15:00)
DX: A41.9 Sepsis, unspecified organism (principal); L02.611 Cutaneous abscess of right foot; M86.171 Other acute osteomyelitis, right ankle and foot; L97.414 Non-pressure chronic ulcer of right heel and midfoot with necrosis of bone; N17.9 Acute kidney failure, unspecified; T81.49XA Infection following a procedure, other surgical site, initial encounter; E11.69 Type 2 diabetes mellitus with other specified complication; E11.621 Type 2 diabetes mellitus with foot ulcer; B95.61 Methicillin susceptible Staphylococcus aureus infection as the cause of diseases classified elsewhere; B96.4 Proteus (mirabilis) (morganii) as the cause of diseases classified elsewhere; F03.90 Unspecified dementia, unspecified severity, without behavioral disturbance, psychotic disturbance, mood disturbance, and anxiety; I95.9 Hypotension, unspecified; I10 Essential (primary) hypertension; E78.2 Mixed hyperlipidemia; D63.8 Anemia in other chronic diseases classified elsewhere; Z20.822 Contact with and (suspected) exposure to COVID-19; D25.9 Leiomyoma of uterus, unspecified; I73.9 Peripheral vascular disease, unspecified; K56.41 Fecal impaction; Z86.73 Personal history of transient ischemic attack (TIA), and cerebral infarction without residual deficits; Z87.891 Personal history of nicotine dependence; E66.9 Obesity, unspecified; Z68.37 Body mass index [BMI] 37.0-37.9, adult; D72.829 Elevated white blood cell count, unspecified
CPT/HCPCS: 36415; 36430; 36569; 51701; 71045; 73620; 74018; 74177; 75635; 76775; 80048; 80053; 80202; 81001; 82274; 82565; 82607; 82728; 82746; 82948; 83036; 83540; 83550; 83605; 83690; 83735; 83880; 84145; 84238; 84439; 84443; 84466; 84484; 85014; 85018; 85025; 85027; 85610; 85652; 85730; 86140; 86850; 86900; 86901; 86923; 87040; 87070; 87077; 87147; 87186; 87205; 87426; 87637; 93005; 93922; 96361; 96365; 96366; 96367; 96372; 96375; 97110; 97161; 97166; 97530; 97535; 99285; A9270; C1751; C9803; G0378; J0131; J0692; J0696; J1650; J1815; J2405; J2704; J2765; J3010; J3370; J7030; J7120; P9016; Q9967

== ENCOUNTER 2022-09-13 19:05 | Observation (INO) | payer MEDICARE, MEDICAID, SELFPAY ==
[2022-09-13] VITALS (27 sets, daily range): BP systolic 126–143; BP diastolic 61–73; PULSE 88–98; RESP 12–25; TEMP 36.7; O2SAT 97–100
--- NOTE | ~2022-09-13 | CT_ITS ---
EXAMINATION: CT abdomen pelvis wo con DATE: 09/13/2022 20:15 INDICATION: Abdominal distention TECHNIQUE: Computed tomography (CT) of the abdomen and pelvis was performed without intravenous contr ast. Automated exposure control and iterative reconstruction technique were employed. The dose-length product was 1272.83 mGy-cm. COMPARISON: 05/26/2022. FINDINGS: Lower thorax: Left basilar scarring. Aortic valve, mitral, and coronary artery calcification. Cardiom egaly. Liver: Normal. Biliary/Gallbladder: Gallbladder is normal, with spurious contrast excretion. No bile duct dilation. Pancreas: Pancreatic atrophy. Spleen: Normal. Adrenals:Normal. Kidneys: No mass, stone, or hydronephrosis. GI tract: Diffuse large bowel dilation with large volume of colonic feces. Marked rectal dilation, up to 10.9 cm by formed stool, with rectal wall thickening. No small bowel dilation. Normal appendix. Mesentery/Peritoneum: No ascites, mass, or free air. Retroperitoneum: No mass. Atherosclerotic abdominal aortic and/or arterial calcifications. Pelvis: The bladder and uterus are displaced. Uterine fibroids.. Soft Tissues: Moderate sized, uncomplicated appearing fat-containing umbilical hernia. Dystrophic bakari cifications in the left lateral and lower abdomen subcutaneous tissues. Bones: No acute osseous finding. IMPRESSION: Marked fecal impaction, with accompanying diffuse large bowel dilation. Rectal wall thickening which can be early sign of stercoral colitis. Reviewed, dictated and finalized at location K.
--- NOTE | ~2022-09-13 | US_ITS ---
EXAMINATION: US renal BI DATE: 09/14/2022 11:43 INDICATION: Acute on chronic kidney disease TECHNIQUE: Multiple grayscale and Doppler ultrasound images of the kidneys were obtained. COMPARISON: None. FINDINGS: The right kidney measures 9.5 x 4.7 x 5.0 cm. The left kidney measures 9.3 x 5.1 x 4.6 cm. The kidneys demonstrate normal parenchymal echogenicity. There is no hydronephrosis. The bladder is n ormal. IMPRESSION: 1. Mild atrophy of the kidneys. Reviewed, dictated and finalized at location L.
--- NOTE | 2022-09-13 19:28 | ECG_ITS ---
Measurements Intervals [place] Rate: 93 P: 53 GA: 191 QRS: -9 QRSD: 97 T: 66 QT: 364 QTc: 455 Interpretive Statements SINUS RHYTHM MODERATE VOLTAGE CRITERIA FOR LVH, CONSIDER NORMAL VARIANT [MEETS CRITERIA IN ONE OF: R(aVL), S(V1), R(V5), R(V5/V6)+S(V1)] NONSPECIFIC T-WAVE ABNORMALITY COMPARED TO ECG 05/28/2022 12:12:01 NO SIGNIFICANT CHANGES Electronically Signed On 09-14-2022 10:37:32 CDT by Amanuel Mary M.D.
[2022-09-13] MEDS: SODIUM CHLORIDE 0.9% IV 1,000 ML 999 ML IV CONT ×2 (19:49→22:06)
[2022-09-13] MEDS: PANTOPRAZOLE SODIUM IV 40 MG VIAL 80 MG IV PUSH (19:51)
[2022-09-13 19:52] LABS: Basophils Percent Auto 0.2 % (0.2-1.2); Eosinophils Absolute Auto 0.4 K/mm3 (0-0.3); Eosinophils Percent Auto 3.1 % (0-4.4); Hematocrit 28.4 % (37.0-47.0); Hemoglobin 8.4 g/dL (12.0-15.0); Immature Granulocyte Absolute 0.03 K/mm3 (0.00-0.031); Immature Granulocyte Percent A 0.3 % (0-0.5); Lymphocytes Absolute Auto 4.58 K/mm3 (0.9-3.2); Lymphocytes Percent Auto 38.9 % (18.3-44.2); Mean Corpuscular HGB Conc 29.6 g/dl (32-36); Mean Corpuscular Hemoglobin 26.7 pg (26-34); Mean Corpuscular Volume 90.2 fl (80-100); Mean Platelet Volume 8.8 fl (7.4-10.4); Monocytes Absolute Auto 0.6 K/mm3 (0.1-0.6); Neutrophils Absolute Auto 6.2 K/mm3 (1.3-6.7); Neutrophils Percent Auto 52.5 % (45.5-73.1); Platelet Count Result 439 k/mm3 (150-375); Red Blood Count 3.15 M/mm3 (4.2-5.4); Red Cell Distribution Width 16.3 % (11.5-14.5); White Blood Count 11.8 K/mm3 (4.5-10.0)
--- NOTE | 2022-09-13 19:54 | ED.GENADULT ---
HPI - General Adult General Chief complaint: Unspecified Stated complaint: coffee ground emesis Time Seen by Provider: 09/13/22 19:10 History of Present Illness HPI narrative: This is a 77-year-old female from a long term presenting for coffee-ground emesis. He patient has dementia and is a poor historian. Per EMS and long term patient had 2 bouts of coffee-ground emesis, 1 at noon and 1 at 3:00 p.m. today. They also say she has been constipated and has not had a normal bowel movement for several days. The patient herself denies any complaints at this time. Related Data Home Medications Medication Instructions Recorded Confirmed Ex-Lax (sennosides) 8.6 mg PO HS constipation 05/27/22 05/27/22 gabapentin 100 mg capsule 100 mg PO TID nerve pain 05/27/22 05/27/22 nifedipine 30 mg tablet,extended 30 mg PO DAILY 05/27/22 05/27/22 release 24 hr Allergies Allergy/AdvReac Type Severity Reaction Status Date / Time No Known Allergies Allergy Verified 09/13/22 19:28 [facility] Past Medical History Medical History Combined hyperlipidemia CVA (cerebral vascular accident) Dementia Diabetic foot ulcer DM2 (diabetes mellitus, type 2) HTN (hypertension), benign Surgical History Surgical History No pertinent past surgical history Family History Family History Father Hypertension Diabetes mellitus Mother Hypertension Diabetes mellitus Social History Social History Social History: The patient is and has 6 children. 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 The patient resides at [facility]. Her daughter is the durable power automotive exhaust emissions technician for healthcare. Former smoker. She denies any alcohol marijuana or illicit drugs. Code status full code Smoking status: Former smoker Alcohol intake: never Substance use: never Lack of Transportation: No Lack of Food: Never True Current Housing: I Have Housing Concerned About Future Housing: No Difficulty Paying Gas/Electric Bills: No Difficulty Paying for Meds: No Currently Unemployed: No Education: Decline to Answer Difficulty w/ Childcare or Family Care: No Spiritual care concerns: No Exam Narrative: APPEARANCE: No apparent distress. Head: atraumatic. EYES: EOMI, NOSE: Atraumatic NECK: Trachea midline RESPIRATORY: No increased rate of breathing , clear to auscultation CARDIOVASCULAR: RRR, ABDOMINAL: Abdomen is soft but distended with a reducible periumbilical hernia. No guarding no rebound. rectal exam revealed soft stool in the rectal vault. No jeovanny blood. MUSCULOSKELETAl: No obvious deformities NEURO: Alert. Moving 4/4 extremities SKIN:: stage II decubitus ulcers in the sacrum. Patient's ankles are wrapped in gauze for chronic infections that are being treated in a long term. PSYCHIATRIC: Normal affect Course Vital Signs Vital signs: Vital Signs Temperature 98.1 F 09/13/22 19:10 Pulse Rate 94 09/13/22 19:10 Respiratory Rate 16 09/13/22 19:10 Blood Pressure 126/64 09/13/22 19:10 Pulse Oximetry 100 09/13/22 19:10 Oxygen Delivery Room Air 09/13/22 19:10 Temperature 98.1 F 09/13/22 19:10 Pulse Rate 95 09/13/22 19:45 Respiratory Rate 19 09/13/22 19:45 Blood Pressure 126/64 09/13/22 19:10 Pulse Oximetry 100 09/13/22 19:10 Oxygen Delivery Room Air 09/13/22 19:10 Procedures Rectal Disimpaction Rectal Disimpaction #1: Rectal Disimpaction Date: 09/13/22 Time out performed rectal disimpaction: Yes Indication: fecal impaction Procedural Sedation: No Sedation/Analgesia: benzodiazepines Technique: manual disimpaction with gloved finger Result: significant stool output Patient Tolerated Procedure: well
[2022-09-13 20:03] LABS: Alanine Aminotransferase 10 U/L (6-35); Albumin Level 3.4 g/dL (3.5-5.1); Alkaline Phosphatase 89 U/L (38-126); Anion Gap 8 mmol/L (8-16); Aspartate Amino Transferase 18 U/L (14-36); Bilirubin,Total 0.5 mg/dL (0.2-1.3); Blood Urea Nitrogen 51 mg/dL (7-17); Calcium 9.9 mg/dL (8.4-10.2); Carbon Dioxide 29 mmol/L (22-30); Chloride 104 mmol/L (98-107); Estimated CRCL calculation 23 ml/min; Estimated Glomerular Filt Rate 29; Glucose 127 mg/dL (65-110); Lactic Acid Reflex 1.5 mmol/L (0.7-2.0); Lipase 42 U/L (23-300); Magnesium 2.2 mg/dL (1.6-2.3); Potassium 3.9 mmol/L (3.4-5.0); Sodium 141 mmol/L (137-145)
[2022-09-13 20:05] LABS: Estimated CRCL calculation 19 ml/min; Estimated Glomerular Filt Rate 23
[2022-09-13 20:13] LABS: INR 1.1; Prothrombin Time 14.1 Seconds (11.1-14.7)
[2022-09-13 20:14] LABS: Partial Thromboplastin Time 34.7 SECONDS (22.3-36.8)
[2022-09-13 20:24] LABS: Platelet Estimate Increased (Adequate)
[2022-09-13 20:25] LABS: Schistocytes None Seen (NORMAL)
[2022-09-13 20:26] LABS: Anisocytosis 2+ (NORMAL); Hypochromasia 1+ (NORMAL)
[2022-09-13 20:39] LABS: Influenza A QL RT-PCR Negative (Negative); Influenza B QL RT-PCR Negative (Negative); RSV RNA, RT-PCR Negative (Negative); SARS-CoV-2 RNA PCR Negative
[2022-09-13] MEDS: MIDAZOLAM HCL (*CRX) 2 MG/2 ML VIAL IV PUSH (21:10)
[2022-09-13] MEDS: BISACODYL 10 MG SUPPOSITORY RECTAL (21:26)
--- NOTE | 2022-09-13 21:27 | PM.IMHP ---
H&P: HPI History of Present Illness Date/Time: 09/13/22 21:27 Chief Complaint: Constipation Narrative: This is a 77-year-old female detention resident with past medical history significant for hypertension, patient was brought to the emergency room due to detention concerns for the patient's constipation has not had a bowel movement in several days. Patient was unable to give much history. Preliminary workup was significant for BUN [address] of abdomen and pelvis was reported as: FINDINGS: Lower thorax: Left basilar scarring. Aortic valve, mitral, and coronary artery calcification. Cardiomegaly. Liver: Normal.? Biliary/Gallbladder: Gallbladder is normal, with spurious contrast excretion. No bile duct dilation. Pancreas: Pancreatic atrophy. Spleen: Normal. Adrenals:Normal. Kidneys: No mass, stone, or hydronephrosis. GI tract: Diffuse large bowel dilation with large volume of colonic feces. Marked rectal dilation, up to 10.9 cm by formed stool, with rectal wall thickening. No small bowel dilation. Normal appendix. Mesentery/Peritoneum: No ascites, mass, or free air. Retroperitoneum: No mass. Atherosclerotic abdominal aortic and/or arterial calcifications. Pelvis: The bladder and uterus are displaced. Uterine fibroids.. Soft Tissues: Moderate sized, uncomplicated appearing fat-containing umbilical hernia. Dystrophic calcifications in the left lateral and lower abdomen subcutaneous tissues. Bones:? No acute osseous finding. IMPRESSION: Marked fecal impaction, with accompanying diffuse large bowel dilation. Rectal wall thickening which can be early sign of stercoral colitis. Patient was disimpacted in emergency room. Patient tested negative for influenza type A, influenza type B and COVID-19 Patient being admitted for further evaluation management and treatment Review of Systems Review of Systems: ROS unobtainable: Yes unobtainable due to mental status (dementia) [facility] Past Medical History Medical History Combined hyperlipidemia CVA (cerebral vascular accident) Dementia Diabetic foot ulcer DM2 (diabetes mellitus, type 2) HTN (hypertension), benign Surgical History Surgical History No pertinent past surgical history Family History Family History Father Hypertension Diabetes mellitus Mother Hypertension Diabetes mellitus Social History Social History Social History: The patient is and has 6 children. 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 The patient resides at [facility]. Her daughter is the durable power employee benefits attorney for healthcare. Former smoker. She denies any alcohol marijuana or illicit drugs. Code status full code Smoking status: Former smoker Alcohol intake: never Substance use: never Lack of Transportation: No Lack of Food: Never True Current Housing: I Have Housing Concerned About Future Housing: No Difficulty Paying Gas/Electric Bills: No Difficulty Paying for Meds: No Currently Unemployed: No Education: Decline to Answer Difficulty w/ Childcare or Family Care: No Spiritual care concerns: No Meds Home Medications and Allergies Home Medications Medication Instructions Recorded Confirmed Type Ex-Lax (sennosides) 8.6 mg PO HS constipation 05/27/22 05/27/22 History gabapentin 100 mg capsule 100 mg PO TID nerve pain 05/27/22 05/27/22 History nifedipine 30 mg tablet,extended 30 mg PO DAILY 05/27/22 05/27/22 History release 24 hr ceftriaxone 2 gram intravenous 2 g IV DAILY #26 ea 06/16/22 Rx solution lanolin alcohols-mineral 1 applic topical BID #113 grams 06/16/22 Rx oil-w.petrolatum-ceresin topical cream (Minerin Creme topical) lisinopril 40 mg tablet 20 mg PO DAILY #30 tabs 06/16/22 05/27/22 Rx metro
[2022-09-13 22:01] LABS: Appearance Urine Clear (Clear); Bacteria Urine None Seen /hpf; Bilirubin Urine Negative (Negative); Blood Urine Negative (Negative); Color Urine Dark Yellow (Yellow); Glucose Urine UA Negative (Negative); Hyaline Casts Urine Present /lpf; Ketones Urine Trace mg/dL (Negative); Leukocyte Esterase Ur Negative LEU/UL (Negative); Nitrate Urine Negative (Negative); Non Pathogenic Casts >20; Protein Urine Trace mg/dL (Negative); RBC Urine 0-2 /hpf (0-2); Specific Grav Ur 1.024 (1.001-1.035); Squamous Epithelial Cell Urine None seen /hpf (Few); Urobilinogen Urine 0.2 mg/dL (<2.0); WBC Urine 0-5 /hpf
[2022-09-13 22:02] LABS: Add Urine Microscopic? YES
--- NOTE | 2022-09-13 22:10 | PC.NURSE ---
Osvaldo Rae, daughter, updated at this time via telephone. [phone]. No further questions.
--- NOTE | 2022-09-13 23:52 | PC.NURSE ---
Addendum entered by Cecelia Irvin RN 09/13/22 23:52: Report given to SMOOTH Fernandes at [id number]. Original Note: Report given to SMOOTH Fernandes at this time.
[2022-09-14] VITALS (10 sets, daily range): BP systolic 131–151; BP diastolic 51–62; PULSE 81–100; RESP 16–18; TEMP 36.2–36.4; O2SAT 98–100; BMI 26.8
--- NOTE | 2022-09-14 01:30 | ADMGEN ---
This patient, Erika Young, was admitted to Medical Room 343-01. Patient/family oriented to hospital policies and general routines including ID bracelet, bed and alarms, visiting hours, pain management, procedures, bathroom and other care routines, personal items, smoking policy, room service/diet, and visiting hours. Information on how to activate the Rapid Response Team has been discussed. Patient/Family are encouraged to report perceived risks to care and to ask questions if they do not understand what they are told or what they should do.
[2022-09-14] MEDS: LACTATED RINGERS 1,000 ML 125 ML IV CONT ×2 (01:41→12:28)
[2022-09-14 07:33] LABS: Glucose Point of Care 66 mg/dl (65-105)
[2022-09-14] MEDS: DEXTROSE 50% 25 GM/50 ML SYRINGE IV PUSH (07:56)
[2022-09-14 08:06] LABS: Glucose Point of Care 64 mg/dl (65-105)
[2022-09-14 08:19] LABS: Glucose Point of Care 108 mg/dl (65-105)
--- NOTE | 2022-09-14 09:24 | PM.IMPN ---
Progress Note: A&P Assessment and Plan (1) Acute kidney injury: Code(s): N17.9 - Acute kidney failure, unspecified Status: Acute Assessment and Plan: Likely from dehydration due to fecal impaction and poor PO intake. Continue IV hydration. Trend chemistry Monitor I/O. hold lisinopril Renal ultrasound shows mild atrophy of kidneys Last drawn labs show BUN 13, creatinine 0.8, GFR >60 on 06/2022 (2) Fecal impaction: Code(s): K56.41 - Fecal impaction Status: Acute Assessment and Plan: Status post disimpaction in the ED Continue bowel regimen (3) Peripheral artery disease: Code(s): I73.9 - Peripheral vascular disease, unspecified Status: Chronic Assessment and Plan: Continue current medications and wound care. (4) Diabetic foot ulcer: Code(s): E11.621 - Type 2 diabetes mellitus with foot ulcer; L97.509 - Non-pressure chronic ulcer of other part of unspecified foot with unspecified severity Status: Chronic Assessment and Plan: Continue glucose control and topical wound care. Wound RN consulted for assistance. (5) DM2 (diabetes mellitus, type 2): Code(s): E11.9 - Type 2 diabetes mellitus without complications Status: Chronic Assessment and Plan: Glucose 66 this morning and patient given juice. Continue accu-checks AC/HS with sliding scale insulin and hypoglycemic protocol. Consistent carb diet. Resume metformin at discharge when renal function at baseline. (6) HTN (hypertension), benign: Code(s): I10 - Essential (primary) hypertension Status: Chronic Assessment and Plan: BP 131-143/57. Continue nifedipine Hold lisinopril due to JENNIFER and resume when renal function improved for renal protection d/t diabetes. Plan CODE STATUS: FULL CODE Disposition: from SNF. Discharge when renal function improved. Time Spent With Patient Time: 25 minutes time spent with patient assessment, patient education, review of labs, vitals and nursing documentation. All questions answered to the best of my ability. Subjective Date/time seen: 09/14/22 09:24 She denies new complaints. No overnight events. Nursing reports the patient has had multiple bowel movements. She reports urinating without concerns and denies concerns for incomplete emptying. Review of Systems Review of Systems: All systems reviewed & are unremarkable except as noted in HPI and below Exam Narrative: General: No acute distress.? Older adult female sitting up in bed. Neuro/Psych: Awake, alert and oriented x3 with clear speech. Pleasant and cooperative. Neutral mood and affect. No focal deficits. Skin: warm. BLE chronic wounds not assessed, dressings clean, dry and intact. Chronic lymphedema skin changes BLE. HEENT: Normocephalic. Sclera is non-icteric. Pupils equal and round. Oral mucosa pink and moist. Neck: Supple. No JVD. Heart: S1 and S2 regular rate and rhythm. No murmurs, gallops or rubs. Chest: Respirations even and unlabored. Lung sounds clear to auscultation bilaterally. Abdomen: Soft, round, non-distended and non-tender to palpation.? Bowel sounds present in all 4 quadrants. No guarding or suprapubic tenderness. Extremities: No edema, erythema or calf tenderness. Grossly normal ROM all extremities. ? Objective Data Vital Signs Vital Signs: Vital Signs - 24 hr 09/13/22 19:10 09/13/22 19:29 09/13/22 19:33 Temperature 98.1 F Pulse Rate 94 96 97 Respiratory Rate 16 20 Blood Pressure 126/64 Pulse Oximetry 100 Oxygen Delivery Room Air 09/13/22 19:45 09/13/22 20:19 09/13/22 20:39 Temperature Pulse Rate 95 92 88 Respiratory Rate 19 24 H 15 Blood Pressure Pulse Oximetry 100 100 Oxygen Delivery 09/13/22 20:51 09/13/22 21:00 09/13/22 21:20 Temperature Pulse Rate 89 90 95 Respiratory Rate 13 20 19 Blood Pressure Pulse Oximetry 100 100 100 Oxygen Delivery 09/13/22 21:30 09/13/22 2
[2022-09-14 10:16] LABS: Alanine Aminotransferase 11 U/L (6-35); Alkaline Phosphatase 79 U/L (38-126); Anion Gap 10 mmol/L (8-16); Aspartate Amino Transferase 17 U/L (14-36); Bilirubin,Total 0.5 mg/dL (0.2-1.3); Blood Urea Nitrogen 46 mg/dL (7-17); Calcium 9.3 mg/dL (8.4-10.2); Carbon Dioxide 21 mmol/L (22-30); Chloride 109 mmol/L (98-107); Estimated CRCL calculation 24 ml/min; Estimated Glomerular Filt Rate 38; Glucose 108 mg/dL (65-110); Potassium 4.7 mmol/L (3.4-5.0); Sodium 140 mmol/L (137-145)
[2022-09-14 10:47] LABS: Thyroid Stimulating Hormone Reflex 0.041 uIU/mL (0.465-4.68)
[2022-09-14] MEDS: polyethylene glycoL 3350 17 GM POWD.PACK PO (11:33)
[2022-09-14] MEDS: SILVERGEL (ELTA) 45 ML 1 APPLIC TOPICAL (11:33)
[2022-09-14] MEDS: MULTIVITAMINS /C LUTEIN (CENTRUM SILVER) TABLET *BKC 1 TAB PO (11:33)
[2022-09-14] MEDS: NIFEdipine 30 MG TAB.ER.24 PO (11:33)
[2022-09-14 11:51] LABS: Glucose Point of Care 120 mg/dl (65-105)
[2022-09-14] MEDS: GABAPENTIN 100 MG CAPSULE PO ×2 (12:05→17:20)
[2022-09-14 13:44] LABS: Free T4 Free Thyroxine Reflex 1.98 ng/dL (0.78-2.19)
[2022-09-14 14:42] LABS: Total Triiodothyronine (T3) 0.71 NG/ML (0.97-1.69)
[2022-09-14 16:26] LABS: Glucose Point of Care 126 mg/dl (65-105)
[2022-09-14] MEDS: ASCORBIC ACID 500 MG TABLET PO (17:20)
[2022-09-14] MEDS: SENNA/DOCUSATE SODIUM TABLET 1 TAB PO (20:27)
[2022-09-14 21:11] LABS: Glucose Point of Care 105 mg/dl (65-105)
[2022-09-15] MEDS: LACTATED RINGERS 1,000 ML 75 ML IV CONT (01:20)
[2022-09-15 05:51] VITALS: BP 122/50; PULSE 90; RESP 18; TEMP 36.6; O2SAT 100
[2022-09-15 06:35] LABS: Hematocrit 26.3 % (37.0-47.0); Hemoglobin 7.8 g/dL (12.0-15.0); Mean Corpuscular HGB Conc 29.7 g/dl (32-36); Mean Platelet Volume 8.9 fl (7.4-10.4); Platelet Count Result 350 k/mm3 (150-375); Red Blood Count 2.89 M/mm3 (4.2-5.4); White Blood Count 10.6 K/mm3 (4.5-10.0)
[2022-09-15 06:42] LABS: Albumin Level 2.9 g/dL (3.5-5.1); Anion Gap 6 mmol/L (8-16); Blood Urea Nitrogen 41 mg/dL (7-17); Calcium 9.3 mg/dL (8.4-10.2); Carbon Dioxide 25 mmol/L (22-30); Chloride 107 mmol/L (98-107); Estimated CRCL calculation 30 ml/min; Estimated Glomerular Filt Rate 48; Glucose 85 mg/dL (65-110); Magnesium 1.9 mg/dL (1.6-2.3); Phosphorus 2.3 mg/dL (2.5-4.5); Potassium 4.7 mmol/L (3.4-5.0); Sodium 138 mmol/L (137-145)
[2022-09-15 08:37] LABS: Glucose Point of Care 84 mg/dl (65-105)
[2022-09-15] MEDS: polyethylene glycoL 3350 17 GM POWD.PACK PO (08:58)
[2022-09-15] MEDS: GABAPENTIN 100 MG CAPSULE PO ×2 (08:58→13:00)
[2022-09-15] MEDS: ASCORBIC ACID 500 MG TABLET PO (08:59)
[2022-09-15] MEDS: NIFEdipine 30 MG TAB.ER.24 PO (08:59)
[2022-09-15] MEDS: MULTIVITAMINS /C LUTEIN (CENTRUM SILVER) TABLET *BKC 1 TAB PO (08:59)
[2022-09-15 09:00] VITALS: PULSE 90; RESP 18; O2SAT 100
[2022-09-15] MEDS: SILVERGEL (ELTA) 45 ML 1 APPLIC TOPICAL (09:00)
--- NOTE | 2022-09-15 11:59 | PM.DS ---
DS: Admitting Diagnosis Discharge Date 09/15/2022 Admitting Diagnosis Acute kidney failure, unspecified Fecal impaction Peripheral vascular disease, unspecified, chronic Diabetic foot ulcer, chronic DM2 (diabetes mellitus, type 2) Hypertension DS: Discharge Diagnosis Discharge Diagnosis (1) Acute kidney injury: Code(s): N17.9 - Acute kidney failure, unspecified Status: Acute Assessment and Plan: Likely from dehydration due to fecal impaction and poor PO intake. Treated with IV hydration and renal function improved to near baseline. Monitor I/O. held lisinopril while inpatient. Resumed when renal function improved. Renal ultrasound shows mild atrophy of kidneys Last drawn labs show BUN 13, creatinine 0.8, GFR >60 on 06/2022 labs on discharge BUN 41, creatinine 1.3, GFR 48. Repeat renal function panel in 3 days. (2) Fecal impaction: Code(s): K56.41 - Fecal impaction Status: Acute Assessment and Plan: Status post disimpaction in the ED Treated with senna plus at HS and miralax 17 gm in am Last BM 09/15/22 (3) Peripheral artery disease: Code(s): I73.9 - Peripheral vascular disease, unspecified Status: Chronic Assessment and Plan: Continue current medications and wound care. Plans to see vascular specialist in [place] outpatient. (4) Diabetic foot ulcer: Code(s): E11.621 - Type 2 diabetes mellitus with foot ulcer; L97.509 - Non-pressure chronic ulcer of other part of unspecified foot with unspecified severity Status: Chronic Assessment and Plan: Continue glucose control and topical wound care with silver gel for autodebridement Wound RN consulted for assistance. (5) DM2 (diabetes mellitus, type 2): Code(s): E11.9 - Type 2 diabetes mellitus without complications Status: Chronic Assessment and Plan: Glucose 66 on 09/14 and patient given juice. Continue accu-checks AC/HS with sliding scale insulin and hypoglycemic protocol. Consistent carb diet. Resumed metformin at discharge when renal function improved. GFR 48 (6) HTN (hypertension), benign: Code(s): I10 - Essential (primary) hypertension Status: Chronic Assessment and Plan: BP 131-143/57. Continued nifedipine Held lisinopril due to JENNIFER and resume when renal function improved for renal protection d/t diabetes. Resumed lisinopril at discharge. Repeat chemistry in 3 days to monitor. DS: Summary Hospital Course Reason for hospitalization: Constipation Hospital Course: Patient is a 77-year-old female correction resident with hypertension, noninsulin dependent diabetes, hyperlipidemia, peripheral artery disease with chronic ulcerations, dementia and previous stroke. Patient was brought to the emergency room for concerns of constipation as patient had not had a bowel movement in several days. Patient was unable to give much history upon admission.? Preliminary workup was significant for BUN 50, creatinine 2.5, a CT of abdomen and pelvis showed marked fecal impaction with accompanying mild diffuse large bowel dilation and rectal wall thickening. Patient was disimpacted in the emergency room. She was admitted to the medical floor and treated with IV isotonic fluids. Renal US was unremarkable. Renal function panel was monitored her renal function improved to near normal levels. She was eating and drinking with encouragement. Bowel regimen of senna plus and miralax daily was initiated and the patient was having regular bowel movements. She had no complaints of abdominal pain or nausea. Wound RN was consulted for evaluation of bilateral foot ulcers and recommended silver gel and dry gauze dressing changes daily. Patient was discharged back to the nursing facility in stable condition. She will have repeat renal function profile in 3 days. We discussed drinking more fluids throughout the day to prevent dehydration and her daughters were updated regarding the soledad
[2022-09-15 12:22] LABS: Glucose Point of Care 83 mg/dl (65-105)
[2022-09-15] MEDS: LINEZOLID 600 MG TABLET PO (12:59)
[2022-09-15 14:00] VITALS: BP 136/63; PULSE 97; RESP 20; TEMP 36.9; O2SAT 100
[2022-09-15 17:31] LABS: Glucose Point of Care 128 mg/dl (65-105)
== END 2022-09-15 17:40 ==
LOC: ANHED 22:45 → ANH3MED 09-14 06:38
PROVIDERS: Nurse Practitioner Family; Admitting Provider Internal Medicine; Emergency Provider Emergency Medicine; Visit Provider Internal Medicine
DX: K92.0 Hematemesis (principal); K56.41 Fecal impaction; I73.9 Peripheral vascular disease, unspecified; E11.621 Type 2 diabetes mellitus with foot ulcer; L97.509 Non-pressure chronic ulcer of other part of unspecified foot with unspecified severity; I10 Essential (primary) hypertension; F03.90 Unspecified dementia, unspecified severity, without behavioral disturbance, psychotic disturbance, mood disturbance, and anxiety; E11.9 Type 2 diabetes mellitus without complications; R19.7 Diarrhea, unspecified; Z20.822 Contact with and (suspected) exposure to COVID-19; E78.2 Mixed hyperlipidemia; N17.9 Acute kidney failure, unspecified; Z87.891 Personal history of nicotine dependence; Z86.73 Personal history of transient ischemic attack (TIA), and cerebral infarction without residual deficits; Z79.899 Other long term (current) drug therapy; Z82.3 Family history of stroke; Z82.49 Family history of ischemic heart disease and other diseases of the circulatory system; Z83.3 Family history of diabetes mellitus
CPT/HCPCS: 36415; 45915; 74176; 76775; 80053; 80069; 81001; 82948; 83605; 83690; 83735; 84439; 84443; 84480; 85025; 85027; 85610; 85730; 87637; 93005; 96361; 96374; 96375; 99285; A9270; C9113; G0378; J2250; J7030; J7120

== ENCOUNTER 2022-10-08 13:06 | Inpatient (IN) | payer MEDICARE, MEDICAID, SELFPAY ==
[2022-10-08] VITALS (7 sets, daily range): BP systolic 100–121; BP diastolic 51–81; PULSE 80–100; RESP 14–20; TEMP 36.3–37.1; O2SAT 97–100; BMI 28.5
--- NOTE | ~2022-10-08 | XR_ITS ---
EXAMINATION: XR barium swallow modified DATE: 10/09/2022 14:13 INDICATION: Slurred speech. Right hemiparesis. TECHNIQUE: The patient was given barium-containing material of multiple consistencies to swallow by t isabel speech pathologist while I performed fluoroscopy. Fluoroscopy exposure time was 1.4 minutes. The n umber of fluoroscopy images saved to the PACS was 1. Dose-area product was 0.828 Gy-cm^2. FINDINGS: There is aspiration of thin liquids. IMPRESSION: 1. Aspiration of thin liquids. 2. Please refer to the speech therapy report for recommendations. Reviewed, dictated and finalized at location A.
--- NOTE | ~2022-10-08 | XR_ITS ---
EXAMINATION: XR foot RT min 3V DATE: 10/08/2022 14:31 INDICATION: Right foot pain, ulceration TECHNIQUE: Dorsoplantar, lateral, and oblique views of the right foot were obtained. COMPARISON: 05/26/2012 FINDINGS: There is a large soft tissue ulceration overlying the calcaneus which penetrates to the bon e. No definite fracture is identified. There is periarticular osteopenia and mild to moderate polyart icular osteoarthritis at many metatarsophalangeal joints and interphalangeal joints. IMPRESSION: 1. Large soft tissue ulceration inferior to the calcaneus which penetrates to the bone. Reviewed, dictated and finalized at location F. IMPRESSION: 1. Large soft tissue ulceration inferior to the calcaneus which penetrates to t he bone.
--- NOTE | ~2022-10-08 | CT_ITS ---
EXAMINATION: CT brain wo con DATE: 10/08/2022 14:15 INDICATION: Right arm weakness TECHNIQUE: Computed tomography (CT) of the head was performed without intravenous contrast. Sagittal and coronal reconstructions were performed. The mA was adjusted according to patient size. Iterative reconstruction technique was employed. The dose-length product was 605.33 mGy-cm. COMPARISON: None FINDINGS: Small regions of encephalomalacia in the left frontal and right parietal lobes consistent with chroni c infarcts. There is moderate-sized region of slightly less decreased attenuation at the inferior rig ht cerebellar hemisphere consistent with additional age-indeterminate infarct. There is moderate to s evere additional scattered white matter hypoattenuation consistent with chronic small vessel ischemic disease. No acute intracranial hemorrhage or abnormal extra axial fluid collection. Symmetric promin ence of the sulci consistent with mild age-appropriate diffuse cerebral volume loss. Ventricles are normal and symmetric. No mass/mass effect. The orbits, paranasal sinuses and mastoid air cells are no rmal. Intracranial calcified cerebral atherosclerosis is noted. IMPRESSION: 1. Moderate sized region of decreased attenuation in the inferior right cerebellar hemisphere consist ent with age-indeterminate infarct. 2. Small chronic infarcts in the left frontal and right parietal lobes. 3. Age-related changes including mild diffuse volume loss and moderate to severe scattered white michael er hypoattenuation consistent with chronic small vessel ischemic disease. Reviewed, dictated and finalized at location A. IMPRESSION: 1. Moderate sized region of decreased attenuation in the inferior right cerebel lar hemisphere consistent with age-indeterminate infarct. 2. Small chronic infarcts in the left frontal and right parietal lobes. 3. Age-related changes including mild diffuse volume loss and moderate to sever e scattered white matter hypoattenuation consistent with chronic small vessel i schemic disease.
--- NOTE | ~2022-10-08 | US_ITS ---
EXAMINATION: US art doppler w press LE DATE: 10/09/2022 12:41 INDICATION: Peripheral arterial disease. TECHNIQUE: Segmental pressures and plethysmographic and Doppler waveforms of the brachial and lower e xtremity arteries were obtained. COMPARISON: None. FINDINGS: Right and left brachial artery pressures of 136 mm Hg and 125 mm Hg, respectively, are concordant (no rmal difference <= 30 mmHg). The right ankle-brachial index (VANIA) is 1.45 (normal >= 0.9-1.0). The right great toe-brachial index (TBI) is 0.36 (normal >= 0.65). Arterial Doppler waveforms are biphasic from common femoral artery to dorsalis pedis and not well evaluated in posterior tibial artery.. Arterial flow was not detectable in left posterior tibial artery or dorsalis pedis. Left VANIA could no t be measured. The left TBI is 0.49. Arterial Doppler waveforms are biphasic from common femoral brooklynn ry to popliteal artery. IMPRESSION: 1. Decreased right TBI and normal right VANIA, consistent with right right-sided arterial occlusive dis ease. Note that VANIA may be overestimated if arteries are calcified. 2. Undetectable arterial flow in left posterior tibial artery and left dorsalis pedis. Left VANIA could not be measured. Reviewed, dictated and finalized at location A. IMPRESSION: 1. Decreased right TBI and normal right VANIA, consistent with right right-sided arterial occlusive disease. Note that VANIA may be overestimated if arteries are calcified. 2. Undetectable arterial flow in left posterior tibial artery and left dorsalis pedis. Left VANIA could not be measured.
--- NOTE | ~2022-10-08 | XR_ITS ---
EXAMINATION: XR foot LT min 3V DATE: 10/08/2022 14:31 INDICATION: Ulcer, left foot pain TECHNIQUE: Dorsoplantar, lateral, and oblique views of the left foot were obtained. COMPARISON: None. FINDINGS: There is a posterior soft tissue ulceration overlying the calcaneus which penetrates to the bone. Subtle osteopenia is seen where the ulceration touches the bone. The bones are osteopenic whic h limits the sensitivity for fracture however none is seen. There is mild to moderate polyarticular o steoarthritis. Calcified atherosclerosis is noted. IMPRESSION: 1. Posterior soft tissue ulceration overlying the calcaneus with possible associated osteomyelitis of the calcaneus. Reviewed, dictated and finalized at location F. IMPRESSION: 1. Posterior soft tissue ulceration overlying the calcaneus with possible assoc iated osteomyelitis of the calcaneus.
--- NOTE | ~2022-10-08 | XR_ITS ---
EXAMINATION: XR chest 1V INDICATION: Weakness TECHNIQUE: AP view of the chest is obtained. COMPARISON: 05/26/2022 FINDINGS: The lungs are free of acute opacities. No pleural effusion or pneumothorax. The cardiomedia stinal silhouette is normal. IMPRESSION: 1. No acute cardiopulmonary abnormality. Reviewed, dictated and finalized at location F.
[2022-10-08 13:12] LABS: Glucose Point of Care 165 mg/dl (65-105)
--- NOTE | 2022-10-08 13:19 | ECG_ITS ---
Measurements Intervals [place] Rate: 95 P: 55 NH: 137 QRS: -9 QRSD: 93 T: 54 QT: 332 QTc: 419 Interpretive Statements SINUS RHYTHM MODERATE VOLTAGE CRITERIA FOR LVH, CONSIDER NORMAL VARIANT [MEETS CRITERIA IN ONE OF: R(aVL), S(V1), R(V5), R(V5/V6)+S(V1)] NONSPECIFIC T-WAVE ABNORMALITY COMPARED TO ECG 09/13/2022 19:55:13 NO SIGNIFICANT CHANGES Electronically Signed On 10-08-2022 13:44:53 CDT by Amanuel Mary M.D.
--- NOTE | 2022-10-08 13:26 | ED.NEUROSD ---
HPI - Neuro Symptoms/Deficit General Chief Complaint: Suspected CVA Stated Complaint: slurred speech, weakness Time Seen by Provider: 10/08/22 13:08 Source: patient, EMS and RN notes reviewed Mode of arrival: EMS Limitations: dementia History of Present Illness HPI Narrative: This is 77 year old female with history of peripheral vascular disease, hypertension, demention, chronic bilateral heel ulcers who presents for evaluation of slurred speech. EMS states that patient's family came to visit her at 11 am and they noticed patient seemed to be slurring her speech. She lives at [facility] so her last well is unknown. EMS reports nursing staff reports patient has been weak for a couple of days. They states she slept all day yesterday and today. They reported that patient only had urine output once. Patient is oriented x 2 which is her baseline. EMS reports patient complained of being tired. She as found to have right arm drift on exam by EMS. It is reported that patient had CVA years ago that affected her left side. PAtient is bedbound. Related Data Home Medications Medication Instructions Recorded Confirmed gabapentin 100 mg capsule 100 mg PO TID nerve pain 05/27/22 09/14/22 nifedipine 30 mg tablet,extended 30 mg PO DAILY 05/27/22 09/14/22 release 24 hr acidophilus 100 million 1 cap PO BID 09/14/22 09/14/22 cell-pectin, citrus 10 mg capsule ascorbic acid (vitamin C) 500 mg 500 mg PO BID 09/14/22 09/14/22 tablet magnesium citrate (Citroma oral 300 ml PO DAILY PRN Constipation 09/14/22 09/14/22 solution) magnesium hydroxide 400 mg/5 mL 400 mg PO HS PRN Constipation 09/14/22 09/14/22 oral suspension (Milk of Magnesia) metformin 500 mg tablet 500 mg PO BID 09/14/22 09/14/22 multivit with minerals-iron 18 1 tablet PO DAILY 09/14/22 09/14/22 mg-folic ac 400 mcg-vit K 25 mcg tablet (Adults Multivitamin) povidone-iodine 10 % solution 1 ml miscellaneous BID 09/14/22 09/14/22 sennosides 8.6 mg capsule (senna) 8.6 mg PO HS 09/14/22 09/14/22 Allergies Allergy/AdvReac Type Severity Reaction Status Date / Time No Known Allergies Allergy Verified 09/14/22 01:58 Review of Systems Review of Systems: ROS unobtainable: Yes unobtainable due to medical condition PMFSH Past Medical History Medical History Combined hyperlipidemia CVA (cerebral vascular accident) Dementia Diabetic foot ulcer DM2 (diabetes mellitus, type 2) HTN (hypertension), benign Surgical History Surgical History No pertinent past surgical history Family History Family History Father Hypertension Diabetes mellitus Mother Hypertension Diabetes mellitus Social History Social History Social History: The patient is and has 6 children. 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 The patient resides at [facility]. Her daughter is the durable power attorney at law for healthcare. Former smoker. She denies any alcohol marijuana or illicit drugs. Code status full code Smoking status: Former smoker Alcohol intake: never Substance use: never Lack of Transportation: No Lack of Food: Never True Current Housing: I Have Housing Concerned About Future Housing: No Difficulty Paying Gas/Electric Bills: No Difficulty Paying for Meds: No Currently Unemployed: No Education: Don't Know Difficulty w/ Childcare or Family Care: No Spiritual care concerns: No Exam Const: General: cooperative and lethargic Nutritional Appearance: overweight Orientation/consciousness: oriented to person, oriented to place and lethargic HENMT: Head: normal to inspection, normocephalic and atraumatic Face/Nose/Sinus: Normal external nose present Face and sinus: face symmetric and dry mucous membranes Mout
[2022-10-08 13:37] LABS: Basophils Percent Auto 0.3 % (0.2-1.2); Eosinophils Absolute Auto 0.2 K/mm3 (0-0.3); Eosinophils Percent Auto 1.4 % (0-4.4); Hematocrit 24.2 % (37.0-47.0); Hemoglobin 7.3 g/dL (12.0-15.0); Immature Granulocyte Absolute 0.06 K/mm3 (0.00-0.031); Immature Granulocyte Percent A 0.4 % (0-0.5); Lymphocytes Absolute Auto 5.77 K/mm3 (0.9-3.2); Lymphocytes Percent Auto 42.5 % (18.3-44.2); Mean Corpuscular HGB Conc 30.2 g/dl (32-36); Mean Corpuscular Hemoglobin 27.1 pg (26-34); Mean Platelet Volume 9.5 fl (7.4-10.4); Monocytes Absolute Auto 0.9 K/mm3 (0.1-0.6); Monocytes Percent Auto 6.6 % (2.6-8.5); Neutrophils Absolute Auto 6.6 K/mm3 (1.3-6.7); Neutrophils Percent Auto 48.8 % (45.5-73.1); Platelet Count Result 405 k/mm3 (150-375); Red Blood Count 2.69 M/mm3 (4.2-5.4); Red Cell Distribution Width 16.7 % (11.5-14.5); White Blood Count 13.6 K/mm3 (4.5-10.0)
[2022-10-08 14:03] LABS: Troponin I 0.013 ng/mL (0.000-0.034)
[2022-10-08] MEDS: SODIUM CHLORIDE 0.9% IV 1,000 ML 999 ML IV CONT (14:03)
--- NOTE | 2022-10-08 14:06 | PC.NURSE ---
Phlebotomy called at 1405 to ask for a blood draw. Had to stick multiple times to get blood as veins are fragile. Spoke to Francesca who said she would be down within the hour.
[2022-10-08 14:13] LABS: Influenza A QL RT-PCR Negative (Negative); Influenza B QL RT-PCR Negative (Negative); SARS-CoV-2 RNA PCR Negative (Negative)
[2022-10-08 14:20] LABS: Lactic Acid Reflex 1.3 mmol/L (0.7-2.0)
[2022-10-08 14:30] LABS: Add Urine Microscopic? YES; Appearance Urine Turbid (Clear); Bacteria Urine 4+ /hpf; Bilirubin Urine Negative (Negative); Color Urine Dark Yellow (Yellow); Glucose Urine UA Negative (Negative); Ketones Urine Negative (Negative); Leukocyte Esterase Ur 3+ LEU/UL (Negative); Need Manual Microscopic Reviewed; Nitrate Urine Positive (Negative); Protein Urine 1+ mg/dL (Negative); RBC Urine 0-2 /hpf (0-2); Specific Grav Ur 1.016 (1.001-1.035); Squamous Epithelial Cell Urine None seen /hpf (Few); WBC Urine >100 /hpf; pH Urine 6.5 (5.0-9.0)
[2022-10-08 15:31] LABS: INR 1.1; Prothrombin Time 14.8 Seconds (11.1-14.7)
[2022-10-08 15:47] LABS: Alanine Aminotransferase 12 U/L (6-35); Albumin Level 2.9 g/dL (3.5-5.1); Alkaline Phosphatase 86 U/L (38-126); Anion Gap 6 mmol/L (8-16); Aspartate Amino Transferase 30 U/L (14-36); Bilirubin,Total 0.6 mg/dL (0.2-1.3); Blood Urea Nitrogen 68 mg/dL (7-17); Carbon Dioxide 28 mmol/L (22-30); Chloride 106 mmol/L (98-107); Estimated Glomerular Filt Rate 26; Glucose 156 mg/dL (65-110); Potassium 4.8 mmol/L (3.4-5.0); Sodium 140 mmol/L (137-145)
[2022-10-08 15:57] LABS: CRP 15.9 mg/dL (<1.0)
[2022-10-08] MEDS: PIPERACILLN/TAZ 3.375GM/NS50ML 3.375 GM/50 ML BAG IVPB (16:10)
--- NOTE | 2022-10-08 17:38 | PM.IMHP ---
H&P: HPI History of Present Illness Date/Time: 10/08/22 17:38 Chief Complaint: Slurred speech and weakness Narrative: This is a 77-year-old female patient who has a history of peripheral vascular disease, dementia, chronic bilateral heel ulcers and hypertension. She was brought in to be evaluated for her slurred speech. Her family members came to visit her are at 11:00 a.m. and then noticed that she was slurring her speech at her resident at [facility]. According to the nursing staff the patient has been weak for the last couple days. She slept all day yesterday and today. They reported that the patient only had urinated once. The patient is orientated x2 at her baseline. The patient has been complaining of feeling tired. She was found have a right arm drift per exam right EMS. 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 The patient is bedbound. She has open areas to bilateral heels. Her white count is noted to be 13.7. H&H is 7.3 and hematocrit 24.2. With a hemoglobin of 7.8 earlier this month. Her creatinine is 2.2 with a creatinine of 1.3 earlier this month. Her blood sugar is 165 now 126. C reactive protein is 15.9. Her urine is positive for nitrate and greater than 100 wbc's. She is negative for influenza A/B and COVID. The patient was started on IV fluids and Zosyn. Left foot x-ray was read asPosterior soft tissue ulceration overlying the calcaneus with possible associated osteomyelitis of the calcaneus. Chest x-ray was read as no acute cardiopulmonary abnormality. Right foot x-ray was read as1. Large soft tissue ulceration inferior to the calcaneus which penetrates to the bone. Head CT was read asModerate sized region of decreased attenuation in the inferior right cerebellar hemisphere consistent with age-indeterminate infarct. 2. Small chronic infarcts in the left frontal and right parietal lobes. 3. Age-related changes including mild diffuse volume loss and moderate to severe scattered white matter hypoattenuation consistent with chronic small vessel ischemic disease. The patient is being admitted to inpatient status on the date of service of 10/08/2022. Review of Systems Review of Systems: All systems reviewed & are unremarkable except as noted in HPI and below Constitutional: Constitutional: Reports as per HPI and Reports no additional constitutional complaints Eyes: Eyes: Reports as per HPI and Reports no additional eye complaints ENT: Reports system reviewed and no additional complaints, except as documented and Reports Normal hearing present Cardiovascular: Cardiovascular: Reports no additional cardiovascular complaints Respiratory: Respiratory: Reports no additional respiratory complaints and Reports no additional respiratory complaints Gastrointestinal: Gastrointestinal: Reports as per HPI and Reports no additional gastrointestinal complaints Musculoskeletal: Musculoskeletal: Reports no additional musculoskeletal complaints Integumentary/Breasts: Skin/Breast: Reports system reviewed and no additional complaints, except as docu and Reports as per HPI Neurologic: Reports system reviewed and no additional complaints, except as documented, Reports as per HPI and Reports Normal hearing present Psychiatric: Psychiatric: Reports no additional psychiatric complaints and Reports as per HPI Endocrine: Endocrine: Reports no additional endocrine complaints Hematologic/Lymphatic: Hematologic/Lymphatic: Reports no additional hematologic/lymphatic complaints Allergic/Immunologic: Allergic/Immunologic: Reports no additional allergic/immunologic complaints PMFSH Past Medical History Medical History Combined hyperlipidemia CVA (cerebral vascular accident) Dementia Diabetic foot ulcer DM2 (diabetes mellitus, type 2) HTN (hypertension), benign Surgical History Surgical History (Reviewed 10/08/22 @ 19:27 by Marga Delcid
--- NOTE | 2022-10-08 17:49 | PC.NURSE ---
Patient's Blood glucose at 1747 was 126. Rn notified.
[2022-10-08 17:54] LABS: Glucose Point of Care 126 mg/dl (65-105)
--- NOTE | 2022-10-08 19:44 | ADMGEN ---
This patient, Erika Young, was admitted to Medical Room 251-01. Patient/family oriented to hospital policies and general routines including ID bracelet, bed and alarms, visiting hours, pain management, procedures, bathroom and other care routines, personal items, smoking policy, room service/diet, and visiting hours. Information on how to activate the Rapid Response Team has been discussed. Patient/Family are encouraged to report perceived risks to care and to ask questions if they do not understand what they are told or what they should do.
--- NOTE | 2022-10-08 20:16 | PC.NURSE ---
Called Marga Steele NP, to clarify which bedside glucose management order to follow. Ordered to follow Q6H bedside glucose management since pt is NPO.
[2022-10-08] MEDS: SODIUM CHLORIDE 0.9% IV 1,000 ML 125 ML IV CONT (20:38)
[2022-10-08] MEDS: ASPIRIN 300 MG SUPPOSITORY RECTAL (20:57)
[2022-10-08] MEDS: HEPARIN SODIUM 5,000 UNITS/ML VIAL 5000 UNITS SUB-Q (21:02)
[2022-10-08] MEDS: PIPERACILLIN/TAZ 2.25G/NS 50ML 2.25 GM/50 ML BAG IVPB (22:51)
[2022-10-08 23:07] LABS: Glucose Point of Care 143 mg/dl (65-105)
[2022-10-09] VITALS (9 sets, daily range): BP systolic 107–139; BP diastolic 34–56; PULSE 72–87; RESP 16–21; TEMP 36.3–37; O2SAT 99–100; BMI 28.5
[2022-10-09] MEDS: PIPERACILLIN/TAZ 2.25G/NS 50ML 2.25 GM/50 ML BAG IVPB ×3 (05:25→21:52)
[2022-10-09 05:41] LABS: Basophils Percent Auto 0.4 % (0.2-1.2); Eosinophils Absolute Auto 0.4 K/mm3 (0-0.3); Eosinophils Percent Auto 4.7 % (0-4.4); Hematocrit 24.8 % (37.0-47.0); Hemoglobin 7.2 g/dL (12.0-15.0); Immature Granulocyte Absolute 0.05 K/mm3 (0.00-0.031); Immature Granulocyte Percent A 0.5 % (0-0.5); Lymphocytes Percent Auto 38.5 % (18.3-44.2); Mean Corpuscular Volume 92.9 fl (80-100); Mean Platelet Volume 9.1 fl (7.4-10.4); Monocytes Absolute Auto 0.7 K/mm3 (0.1-0.6); Monocytes Percent Auto 7.3 % (2.6-8.5); Neutrophils Absolute Auto 4.6 K/mm3 (1.3-6.7); Neutrophils Percent Auto 48.6 % (45.5-73.1); Platelet Count Result 389 k/mm3 (150-375); Red Blood Count 2.67 M/mm3 (4.2-5.4); Red Cell Distribution Width 16.4 % (11.5-14.5); White Blood Count 9.4 K/mm3 (4.5-10.0)
[2022-10-09 05:51] LABS: Hemoglobin A1C 5.2 % (<5.7)
[2022-10-09 06:02] LABS: Lactic Acid Reflex 0.9 mmol/L (0.7-2.0)
[2022-10-09 06:03] LABS: Alanine Aminotransferase 12 U/L (6-35); Albumin Level 2.9 g/dL (3.5-5.1); Alkaline Phosphatase 82 U/L (38-126); Anion Gap 4 mmol/L (8-16); Aspartate Amino Transferase 25 U/L (14-36); Bilirubin,Total 0.6 mg/dL (0.2-1.3); Blood Urea Nitrogen 61 mg/dL (7-17); Calcium 9.2 mg/dL (8.4-10.2); Carbon Dioxide 24 mmol/L (22-30); Chloride 110 mmol/L (98-107); Estimated CRCL calculation 23 ml/min; Estimated Glomerular Filt Rate 33; Glucose 70 mg/dL (65-110); Magnesium 2.2 mg/dL (1.6-2.3); Potassium 4.9 mmol/L (3.4-5.0); Sodium 138 mmol/L (137-145)
[2022-10-09 06:27] LABS: Glucose Point of Care 75 mg/dl (65-105)
[2022-10-09 06:27] LABS: Glucose Point of Care 74 mg/dl (65-105)
[2022-10-09] MEDS: SODIUM CHLORIDE 0.9% IV 1,000 ML 125 ML IV CONT ×2 (07:39→19:38)
[2022-10-09 08:51] LABS: Glucose Point of Care 79 mg/dl (65-105)
[2022-10-09] MEDS: HEPARIN SODIUM 5,000 UNITS/ML VIAL 5000 UNITS SUB-Q ×2 (09:26→20:41)
--- NOTE | 2022-10-09 09:54 | PCPTNOTE ---
Pt is bedbound (pt at Prior level of function) and is a retirement resident. Spoke with hospitalist who agreed to DC therapy orders at this time.
--- NOTE | 2022-10-09 10:03 | PCOTNOTE ---
Pt is bedbound (pt at Prior level of function for dependence with ADLs) and is a [facility] resident. Spoke with hospitalist who agreed to DC therapy orders at this time.
--- NOTE | 2022-10-09 10:53 | PCSTNOTE ---
Communication/language evaluation attempted but pt being taken for testing and reported to be unavailable for next 50 minutes.
--- NOTE | 2022-10-09 11:57 | WPDNEURCNPN ---
Assessment and Plan Assessment and plan (1) Weakness of right arm: Code(s): R29.898 - Other symptoms and signs involving the musculoskeletal system Status: Acute (2) Sepsis: Code(s): A41.9 - Sepsis, unspecified organism Status: Acute Plan 1. Cerebrovascular accident as documented by the CT scan 2. Ongoing dementia 3. Diabetic foot ulcer 4. Peripheral vascular disease. Plan as already outlined with continuation of the antibiotics and further adjustment accordingly. Might need an EEG, Doppler study of the carotid. Consult date: 10/09/22 HPI: Erika Young is a 77 year old female admitted to the hospital through the emergency room for the complaints of slurred speech and weakness in addition to the history of underlying 1. dementia, 2. Hypertension 3. Peripheral vascular disease 4. Chronic bilateral heel ulcers. As per the information available in the emergency room family visited the patient at 11:00 a.m. when she was found to have slurred speech she lives at [facility] saw her last Lucero was unknown but the EMS were informed by the nursing staff patient had been weak for couple of days and she slept the whole day day prior to. Patient normally oriented x2 with only urinary output once in the last 24 hours and complaining of being tired and observation of right upper extremity drift by the EMS. Patient has had CVA years ago which affected her left side. Her medications included gabapentin 100 mg 3 times a day nifedipine 30 mg daily extended release metformin 500 mg twice a day. As mentioned before she carries the diagnosis of hyperlipidemia, cerebrovascular accident, dementia, diabetic foot ulcer, and hypertension. On initial evaluation in the emergency room she was found to have hyper pigmented skin of both lower extremities with bilateral heel ulcer and left heel black eschar with debridement of the right heel and right great toe with black eschar on neurological examination she was noted to have drift of the right upper extremity against the gravity, Rhonda signs were stable CBC was normal BMP with BUN of 68 and creatinine of 2.2 with blood sugar 156 negative for influenza A influenza B and sars negative, lactic acid only 1.3 urine nitrate positive with more than 100 wbc's and 4+ bacteria. The CT scan of the head documented decreased attenuation in the inferior right cerebellar hemisphere with the possibility of infarct of undetermined age and small chronic infarct in left frontal and right parietal lobes along with scattered changes and mild diffuse volume loss also x-rays of the foot documenting large soft tissue ulceration inferior to the calcaneus penetrating to the bone. EKG was normal without atrial fibrillation. [facility] Past Medical History Medical History Combined hyperlipidemia CVA (cerebral vascular accident) Dementia Diabetic foot ulcer DM2 (diabetes mellitus, type 2) HTN (hypertension), benign Surgical History Surgical History No pertinent past surgical history Family History Family History Father Hypertension Diabetes mellitus Mother Hypertension Diabetes mellitus Social History Social History Social History: The patient is and has 6 children. 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 The patient resides at [facility]. Her daughter is the durable power real estate attorney for healthcare. Former smoker. She denies any alcohol marijuana or illicit drugs. Code status full code Smoking status: Former smoker Alcohol intake: never Substance use: never Lack of Transportation: No Lack of Food: Never True Current Housing: I Have Housing Concerned About Future Housing: No Difficulty Paying Gas/Electric Bills: No Difficulty Paying for Meds: No Currently Unempl
[2022-10-09 12:46] LABS: Glucose Point of Care 75 mg/dl (65-105)
[2022-10-09] MEDS: MULTIVITAMINS /C LUTEIN (CENTRUM SILVER) TABLET *BKC 1 TAB PO (12:46)
[2022-10-09] MEDS: GABAPENTIN 100 MG CAPSULE PO ×2 (12:46→17:16)
[2022-10-09] MEDS: lisinopriL 20 MG TABLET PO (12:46)
[2022-10-09 17:12] LABS: Glucose Point of Care 119 mg/dl (65-105)
[2022-10-09] MEDS: EUCERIN CREAM 120 GM JAR 1 APPLIC TOPICAL (17:16)
[2022-10-09] MEDS: ASCORBIC ACID 500 MG TABLET PO (17:16)
[2022-10-09] MEDS: SACCHAROMYCES BOULARDII 250 MG CAPSULE PO (17:17)
--- NOTE | 2022-10-09 17:42 | PM.IMPN ---
Progress Note: A&P Assessment and Plan (1) CVA (cerebral vascular accident): Code(s): I63.9 - Cerebral infarction, unspecified Status: Acute Assessment and Plan: CT of the brain was read as1. Moderate sized region of decreased attenuation in the inferior right cerebellar hemisphere consistent with age-indeterminate infarct. 2. Small chronic infarcts in the left frontal and right parietal lobes. 3. Age-related changes including mild diffuse volume loss and moderate to severe scattered white matter hypoattenuation consistent with chronic small vessel ischemic disease. The patient was given an aspirin suppository she is NPO tonight. Speech therapy consult was placed for swallow study PT OT evaluation with greatly be appreciated Neurology consultation with greatly be appreciated Her speech is clear at this time. She is moving all extremities. She has no focal weakness noted. 10/09/2022 interval history: 77-year-old female was brought to emergency department with concerning of CVA however CT scan of the head did not show any acute injury patient does have chronic cerebral disease, and patient clinical symptoms have resolved patient now her baseline, patient also has bilateral lower extremity wound and venous Doppler showed poor circulation and lower extremity, I discussed the patient daughter in detail the patient is to be seen vascular surgeon, we do not have vascular surgeon and heart patient needs to go to [facility] to further evaluate for vascular surgery and her wound evaluation, daughter stated C Will discussed with nursing to arrange for transfer port to vascular clinic at the [facility]. (2) Acute kidney injury: Code(s): N17.9 - Acute kidney failure, unspecified Status: Acute Assessment and Plan: Continue with IV fluids. The patient is NPO for swallow study tomorrow. Her creatinine is 2.2 now. Her last creatinine earlier this month with 1.3. However it has been up to 2.5 in the past. Avoid nephrotoxic medication. (3) Combined hyperlipidemia: Code(s): E78.2 - Mixed hyperlipidemia Status: Acute Assessment and Plan: The patient should be on a statin with her history of CVA. She is currently NPO at this time. (4) Dementia: Code(s): F03.90 - Unspecified dementia, unspecified severity, without behavioral disturbance, psychotic disturbance, mood disturbance, and anxiety Status: Acute Assessment and Plan: The patient is aware of who she is but is not able to answer all my questions. She is a poor historian. She did ask me if her legs broke open again. So she is aware that she has skin issues on her legs. (5) Diabetic foot ulcer: Code(s): E11.621 - Type 2 diabetes mellitus with foot ulcer; L97.509 - Non-pressure chronic ulcer of other part of unspecified foot with unspecified severity Status: Chronic Assessment and Plan: The patient was placed on vancomycin and Zosyn. Patient did have vascular studies on 05/30/2022. No detectable arterial signal in the right posterior tibial artery, right dorsalis pedis, or left posterior tibial artery. 2. ABIs and TBIs could not be measured. I will repeat her arterial Doppler. She does have weak pedal pulses. She has multiple dried cracked areas to both feet with diabetic ulcers to bilateral heels the take up the entire heel area. She has serosanguineous drainage. (6) DM2 (diabetes mellitus, type 2): Code(s): E11.9 - Type 2 diabetes mellitus without complications Status: Chronic Assessment and Plan: Accu-Cheks every 6 hours with sliding scale insulin and hypoglycemic protocol check The patient is NPO and her metformin is on hold due to the acute renal failure [id number] if not performed in the last 3 month (7) HTN (hypertension), benign: Code(s): I10 - Essential (primary) hypertension Status: Chronic Assessment and Plan: The patient's blood pressure is on
[2022-10-09 20:34] LABS: Glucose Point of Care 130 mg/dl (65-105)
[2022-10-09 20:37] LABS: Vancomycin Random 9.7 ug/mL (10-20)
[2022-10-09] MEDS: SENNOSIDES 8.6 MG TABLET PO (20:39)
[2022-10-09] MEDS: TOLNAFTATE 1% POWDER 45 GM BTL 1 APPLIC TOPICAL (20:44)
[2022-10-10] VITALS (10 sets, daily range): BP systolic 118–148; BP diastolic 45–85; PULSE 72–79; RESP 12–21; TEMP 36.3–36.7; O2SAT 100
[2022-10-10 05:59] LABS: Estimated CRCL calculation 28 ml/min; Estimated Glomerular Filt Rate 41
[2022-10-10] MEDS: PIPERACILLIN/TAZ 2.25G/NS 50ML 2.25 GM/50 ML BAG IVPB ×2 (06:11→13:29)
[2022-10-10 08:38] LABS: Glucose Point of Care 72 mg/dl (65-105)
[2022-10-10] MEDS: lisinopriL 20 MG TABLET PO (09:00)
[2022-10-10] MEDS: GABAPENTIN 100 MG CAPSULE PO ×3 (09:00→17:09)
[2022-10-10] MEDS: ASCORBIC ACID 500 MG TABLET PO ×2 (09:00→17:10)
[2022-10-10] MEDS: NIFEdipine 30 MG TAB.ER.24 PO (09:00)
[2022-10-10] MEDS: SACCHAROMYCES BOULARDII 250 MG CAPSULE PO ×2 (09:00→17:10)
[2022-10-10] MEDS: MULTIVITAMINS /C LUTEIN (CENTRUM SILVER) TABLET *BKC 1 TAB PO (09:00)
[2022-10-10] MEDS: HEPARIN SODIUM 5,000 UNITS/ML VIAL 5000 UNITS SUB-Q (09:25)
[2022-10-10] MEDS: SODIUM CHLORIDE 0.9% IV 1,000 ML 125 ML IV CONT (11:03)
--- NOTE | 2022-10-10 11:27 | PC.NURSE ---
On 10/10/22, the student, [Ace Garibay], provided care and completed [facility] documentation on this patient. I have reviewed the student's documentation and agree with the findings.
[2022-10-10 12:14] LABS: Glucose Point of Care 98 mg/dl (65-105)
--- NOTE | 2022-10-10 14:43 | PM.DS ---
DS: Admitting Diagnosis Discharge Date 10/10/2022 Admitting Diagnosis Slurred speech and weakness DS: Discharge Diagnosis Discharge Diagnosis (1) CVA (cerebral vascular accident): Code(s): I63.9 - Cerebral infarction, unspecified Status: Acute Assessment and Plan: CT of the brain was read as1. Moderate sized region of decreased attenuation in the inferior right cerebellar hemisphere consistent with age-indeterminate infarct. 2. Small chronic infarcts in the left frontal and right parietal lobes. 3. Age-related changes including mild diffuse volume loss and moderate to severe scattered white matter hypoattenuation consistent with chronic small vessel ischemic disease. The patient was given an aspirin suppository she is NPO tonight. Speech therapy consult was placed for swallow study PT OT evaluation with greatly be appreciated Neurology consultation with greatly be appreciated Her speech is clear at this time. She is moving all extremities. She has no focal weakness noted. 10/09/2022 interval history: 77-year-old female was brought to emergency department with concerning of CVA however CT scan of the head did not show any acute injury patient does have chronic cerebral disease, and patient clinical symptoms have resolved patient now her baseline, patient also has bilateral lower extremity wound and venous Doppler showed poor circulation and lower extremity, I discussed the patient daughter in detail the patient is to be seen vascular surgeon, we do not have vascular surgeon and heart patient needs to go to [facility] to further evaluate for vascular surgery and her wound evaluation, daughter stated C Will discussed with nursing to arrange for transfer port to vascular clinic at the [facility]. (2) Acute kidney injury: Code(s): N17.9 - Acute kidney failure, unspecified Status: Acute Assessment and Plan: Continue with IV fluids. The patient is NPO for swallow study tomorrow. Her creatinine is 2.2 now. Her last creatinine earlier this month with 1.3. However it has been up to 2.5 in the past. Avoid nephrotoxic medication. (3) Combined hyperlipidemia: Code(s): E78.2 - Mixed hyperlipidemia Status: Acute Assessment and Plan: The patient should be on a statin with her history of CVA. She is currently NPO at this time. (4) Dementia: Code(s): F03.90 - Unspecified dementia, unspecified severity, without behavioral disturbance, psychotic disturbance, mood disturbance, and anxiety Status: Acute Assessment and Plan: The patient is aware of who she is but is not able to answer all my questions. She is a poor historian. She did ask me if her legs broke open again. So she is aware that she has skin issues on her legs. (5) Diabetic foot ulcer: Code(s): E11.621 - Type 2 diabetes mellitus with foot ulcer; L97.509 - Non-pressure chronic ulcer of other part of unspecified foot with unspecified severity Status: Chronic Assessment and Plan: The patient was placed on vancomycin and Zosyn. Patient did have vascular studies on 05/30/2022. No detectable arterial signal in the right posterior tibial artery, right dorsalis pedis, or left posterior tibial artery. 2. ABIs and TBIs could not be measured. I will repeat her arterial Doppler. She does have weak pedal pulses. She has multiple dried cracked areas to both feet with diabetic ulcers to bilateral heels the take up the entire heel area. She has serosanguineous drainage. (6) DM2 (diabetes mellitus, type 2): Code(s): E11.9 - Type 2 diabetes mellitus without complications Status: Chronic Assessment and Plan: Accu-Cheks every 6 hours with sliding scale insulin and hypoglycemic protocol check The patient is NPO and her metformin is on hold due to the acute renal failure [id number] if not performed in the last 3 month (7) HTN (hypertension), benign: Code(s): I10 - Essential
[2022-10-10] MEDS: EUCERIN CREAM 120 GM JAR 1 APPLIC TOPICAL (17:09)
[2022-10-10] MEDS: TOLNAFTATE 1% POWDER 45 GM BTL 1 APPLIC TOPICAL (17:09)
[2022-10-10] MEDS: SILVERGEL (ELTA) 45 ML 1 APPLIC TOPICAL (17:09)
[2022-10-10 18:21] LABS: Glucose Point of Care 135 mg/dl (65-105)
== END 2022-10-10 21:08 | DRG 683 ==
LOC: ANHED 14:29 → ANH3MEDSUR 17:38 → ANH2MED 19:06
PROVIDERS: Nurse Practitioner; Admitting Provider Internal Medicine; Emergency Provider General Practice; Visit Provider Family Medicine
DX: N17.9 Acute kidney failure, unspecified (principal); L97.415 Non-pressure chronic ulcer of right heel and midfoot with muscle involvement without evidence of necrosis; N39.0 Urinary tract infection, site not specified; Z16.12 Extended spectrum beta lactamase (ESBL) resistance; L97.429 Non-pressure chronic ulcer of left heel and midfoot with unspecified severity; L97.519 Non-pressure chronic ulcer of other part of right foot with unspecified severity; E11.621 Type 2 diabetes mellitus with foot ulcer; E11.51 Type 2 diabetes mellitus with diabetic peripheral angiopathy without gangrene; I73.9 Peripheral vascular disease, unspecified; I10 Essential (primary) hypertension; B96.20 Unspecified Escherichia coli [E. coli] as the cause of diseases classified elsewhere; E78.2 Mixed hyperlipidemia; F03.90 Unspecified dementia, unspecified severity, without behavioral disturbance, psychotic disturbance, mood disturbance, and anxiety; R47.81 Slurred speech; Z20.822 Contact with and (suspected) exposure to COVID-19; Z86.73 Personal history of transient ischemic attack (TIA), and cerebral infarction without residual deficits; Z74.01 Bed confinement status
CPT/HCPCS: 36415; 70450; 71045; 73630; 80053; 80202; 81001; 82565; 82948; 83036; 83605; 83735; 84484; 85025; 85610; 85730; 86140; 87040; 87077; 87086; 87186; 87636; 92522; 92611; 93005; 93923; 96365; 99285; A9270; J1644; J2543; J3370; J7030

== ENCOUNTER 2023-02-08 13:18 | Inpatient (IN) | payer OTHER, SELFPAY ==
[2023-02-08] VITALS (39 sets, daily range): BP systolic 103–144; BP diastolic 47–107; PULSE 71–95; RESP 11–18; TEMP 36.6–36.9; O2SAT 100; BMI 29.0
--- NOTE | ~2023-02-08 | US_ITS ---
EXAMINATION: US carotid duplex BI DATE: 02/09/2023 19:43 INDICATION: Carotid stenosis. TECHNIQUE: Grayscale, color Doppler, and pulsed Doppler images of the cervical carotid arteries were obtained. The degree of vessel stenosis is placed in one of the following categories: normal, <50%, 5 0-69%, >=70% but less than near-occlusion, near-occlusion, or total occlusion. Note that percent sten osis relative to normal distal artery lumen diameter is indirectly measured from velocity measurement s as described by Alfred, et al. Radiology 2003; 229:340-346. COMPARISON: Neck CT 02/08/2023 FINDINGS: RIGHT: The right common carotid artery (CCA) peak systolic velocity (PSV) is 74 cm/s. The right internal car otid artery (ICA) PSV is 77 cm/s. The right ICA end-diastolic velocity (EDV) is 16 cm/s. The right IC A/CCA PSV ratio is 1.0. Grayscale and color Doppler images yield an estimate of <50% diameter reducti on from plaque in the ICA. There is antegrade flow in the right vertebral artery. LEFT: The left CCA PSV is 93 cm/s. The left ICA PSV is 124 cm/s. The left ICA EDV is 39 cm/s. The left ICA/ CCA PSV ratio is 1.3. Grayscale and color Doppler images yield an estimate of <50% diameter reduction from plaque in the ICA. There is antegrade flow in the left vertebral artery. IMPRESSION: 1. <50% stenosis in the right internal carotid artery. 2. <50% stenosis in the left internal carotid artery. Reviewed, dictated and finalized at location E.
--- NOTE | ~2023-02-08 | XR_ITS ---
Right foot Technique: AP, oblique, and lateral views were obtained. Clinical History: Osteomyelitis Findings: Generalized osteopenia is present. There is a probable fracture of the distal phalanx of th e great toe. No definite evidence for osteomyelitis. Osseous alignment is anatomic. Joint spaces are preserved without erosive or degenerative change. Soft tissues are unremarkable. Impression: Suspected fracture the distal phalanx of the great toe. No definite evidence for osteomyelitis. Evaluation is suboptimal due to marked osteopenia. Consider MR for further evaluation for fracture/os teomyelitis. Reviewed, dictated and finalized at location . Impression: Suspected fracture the distal phalanx of the great toe. No definite evidence for osteomyelitis. Evaluation is suboptimal due to marked osteopenia. Consider MR for further eval uation for fracture/osteomyelitis.
--- NOTE | ~2023-02-08 | CT_ITS ---
EXAMINATION: CT soft tissue neck wo con DATE: 02/08/2023 18:35 INDICATION: Facial and tongue swelling TECHNIQUE: Computed tomography (CT) of the neck was performed without intravenous contrast. Automated exposure control and iterative reconstruction technique were employed. The dose-length product was 4 65.66 mGy-cm. COMPARISON: None FINDINGS: Orbits are normal. The paranasal sinuses are clear. Mastoid air cells and middle ear cavities are gris ar. Submandibular and parotid glands are symmetric. Thyroid gland is unremarkable. There are scattere d normal-sized lymph nodes in the neck, no lymphadenopathy. There is soft tissue swelling with mild s ubcutaneous edema overlying the right mandible. No abnormal masses or fluid collections identified. A therosclerotic calcifications at the bilateral carotid bulbs which appears potentially hemodynamicall y significant on the left. Multinodular goiter with intrathoracic extension and up to 3 cm nodule in the right thyroid. Airway is unremarkable, specifically the epiglottis and aryepiglottic folds, retro pharyngeal and subglottic tissues are normal. Superior mediastinum is unremarkable. Visualized mid to upper lungs are clear. Patient is edentulous. Mild cervical spondylosis. There are bridging osteophy abram at several levels in the upper thoracic spine consistent with diffuse idiopathic skeletal hyperos tosis (DISH). IMPRESSION: 1. Soft tissue swelling with subcutaneous edema overlying the right mandible. No abnormal masses or f luid collections identified. 2. Atherosclerotic calcific lesions at the bilateral carotid bulbs which may be hemodynamically signi ficant on the left. Could consider further evaluation with carotid ultrasound or CT angiogram. 3. Multinodular goiter with up to 3 cm nodule in the right. Consider further evaluation with thyroid ultrasound for risk stratification. Reviewed, dictated and finalized at location A. IMPRESSION: 1. Soft tissue swelling with subcutaneous edema overlying the right mandible. N o abnormal masses or fluid collections identified. 2. Atherosclerotic calcific lesions at the bilateral carotid bulbs which may be hemodynamically significant on the left. Could consider further evaluation wit h carotid ultrasound or CT angiogram. 3. Multinodular goiter with up to 3 cm nodule in the right. Consider further ev aluation with thyroid ultrasound for risk stratification.
--- NOTE | ~2023-02-08 | CT_ITS ---
Clinical Indication: Acute anemia CT Scan of the Chest, Abdomen, and Pelvis without Contrast: Technique: Contiguous sections were acquired throughout the chest, abdomen, and pelvis without IV con trast administration. Dose reduction technique was used on this scan by utilizing automated exposure control and iterative reconstruction technique. The dose-length product (DLP) was 1376.85 mGy-cm. COMPARISON: 09/13/2022 Findings: Hypodense right thyroid lobe nodule measures 2.8 cm. There is no evidence of any significant mediastinal, hilar or axillary lymphadenopathy. Atherosclerot ic calcifications of the aorta and coronary arteries are present. There is no evidence of pleural or pericardial effusion. The lungs are clear. No pulmonary nodules or infiltrates are noted. The liver, spleen, pancreas, adrenals and kidneys are within normal limits. There is cholelithiasis/g allbladder sludge versus vicarious excretion of contrast in the gallbladder. There are atheroscleroti c calcifications of the aorta. No lymphadenopathy. No bowel obstruction or bowel wall thickening. Large amount of stool present. Moderate fat-containing umbilical hernia present. Urinary bladder is collapsed around a Perla catheter. Possible uterine fib roid. No other adnexal mass seen. No ascites. Impression: No evidence for acute hemorrhage. 2.8 cm hypodense right thyroid lobe nodule. Consider follow-up ultrasound as indicated. Probable vicarious excretion contrast in the gallbladder versus cholelithiasis/gallbladder sludge. Large amount of stool, consistent with constipation. Moderate fat-containing umbilical hernia. Suspected uterine fibroid. Reviewed, dictated and finalized at [facility]. Impression: No evidence for acute hemorrhage. 2.8 cm hypodense right thyroid lobe nodule. Consider follow-up ultrasound as in dicated. Probable vicarious excretion contrast in the gallbladder versus cholelithiasis/ gallbladder sludge. Large amount of stool, consistent with constipation. Moderate fat-containing umbilical hernia. Suspected uterine fibroid.
--- NOTE | ~2023-02-08 | XR_ITS ---
Left foot Technique: AP, oblique, and lateral views were obtained. Clinical History: Osteomyelitis Findings: Marked generalized osteopenia noted. No acute fracture or dislocation is seen. Osseous alig nment is anatomic. Joint spaces are preserved without erosive or degenerative change. Soft tissues ar e unremarkable. Impression: No definite fracture or osteomyelitis. Exam is limited due to marked osteopenia. Consider MR for furt her evaluation as indicated. Reviewed, dictated and finalized at location M. Impression: No definite fracture or osteomyelitis. Exam is limited due to marked osteopenia . Consider MR for further evaluation as indicated.
--- NOTE | ~2023-02-08 | US_ITS ---
EXAMINATION: US thyroid DATE: 02/09/2023 16:55 INDICATION: Thyroid nodule. TECHNIQUE: Multiple ultrasound images of the thyroid were obtained. COMPARISON: CT neck 02/08/2023, chest single view 05/26/2022 FINDINGS: The right thyroid lobe measures at least 5.8 x 3.4 x 2.4 cm. The left thyroid lobe measures at least 2.8 x 2.0 x 1.8 cm. The entirety of the thyroid is not well visualized. The thyroid extends into the superior mediastinum by CT. There are ill-defined nodules throughout the thyroid of similar ultrasou nd appearance without normal intervening parenchyma. IMPRESSION: 1. Partially visualized multinodular goiter. Biopsy is likely not necessary. Reviewed, dictated and finalized at location E.
--- NOTE | 2023-02-08 14:01 | ED.ALLEREA ---
HPI - Allergic Reaction General Chief complaint: Allergic Reaction Stated complaint: POSS ALLERGIC REACTION Time Seen by Provider: 02/08/23 13:30 History of Present Illness HPI narrative: Patient is a 77-year-old female presenting with a possible allergic reaction. Patient is coming from a nursing facility and she is a rather poor historian. She denies any complaints at this time. She was reportedly noted to have some right facial swelling and her tongue looked swollen so the facility called EMS. She denies feeling like her tongue is swelling. She denies difficulty swallowing or breathing. No rashes or itching. Denies further complaints. Related Data Home Medications Medication Instructions Recorded Confirmed gabapentin 100 mg capsule 100 mg PO TID nerve pain 05/27/22 02/08/23 nifedipine 30 mg tablet,extended 30 mg PO DAILY 05/27/22 02/08/23 release 24 hr ascorbic acid (vitamin C) 500 mg 500 mg PO BID 09/14/22 02/08/23 tablet magnesium citrate (Citroma oral 296 ml PO DAILY PRN Constipation 09/14/22 02/08/23 solution) magnesium hydroxide 400 mg/5 mL 30 ml PO HS PRN Constipation 09/14/22 02/08/23 oral suspension (Milk of Magnesia) metformin 500 mg tablet 500 mg PO BID 09/14/22 02/08/23 multivit with minerals-iron 18 1 tablet PO DAILY 09/14/22 02/08/23 mg-folic ac 400 mcg-vit K 25 mcg tablet (Adults Multivitamin) Saccharomyces boulardii 250 mg 250 mg PO BID 10/09/22 02/08/23 capsule mirtazapine 7.5 mg tablet 7.5 mg PO HS 10/09/22 02/08/23 povidone-iodine 10 % topical 1 applic topical DAILY 10/09/22 02/08/23 ointment cholecalciferol (vitamin D3) 25 25 mcg PO DAILY 02/08/23 02/08/23 mcg (1,000 unit) tablet collagenase clostridium histo. 250 1 applic topical DAILY 02/08/23 02/08/23 unit/gram topical ointment (Santyl) cyanocobalamin (vitamin B-12) 1,000 mcg PO DAILY 02/08/23 02/08/23 1,000 mcg tablet gentamicin 0.1 % topical ointment 1 applic topical DAILY 02/08/23 02/08/23 hydrocodone 5 mg-acetaminophen 325 1 tablet PO Q4H PRN Moderate Pain 02/08/23 02/08/23 mg tablet (Scale Score 5-6) lisinopril 20 mg tablet 20 mg PO DAILY 02/08/23 02/08/23 quetiapine 25 mg tablet (Seroquel) 12.5 mg PO HS 02/08/23 02/08/23 zinc gluconate 50 mg tablet 100 mg PO DAILY 02/08/23 02/08/23 Allergies Allergy/AdvReac Type Severity Reaction Status Date / Time No Known Allergies Allergy Verified 02/08/23 13:36 Review of Systems Review of Systems: All systems reviewed & are unremarkable except as noted in HPI and below PMFSH Past Medical History Medical History Combined hyperlipidemia CVA (cerebral vascular accident) Dementia Diabetic foot ulcer DM2 (diabetes mellitus, type 2) HTN (hypertension), benign Surgical History Surgical History No pertinent past surgical history Family History Family History Father Hypertension Diabetes mellitus Mother Hypertension Diabetes mellitus Social History Social History Social History: The patient is and has 6 children. 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 The patient resides at [facility]. Her daughter is the durable power real estate associate attorney for healthcare. Former smoker. She denies any alcohol marijuana or illicit drugs. Code status full code Smoking status: Former smoker Alcohol intake: never Substance use: never Substance use type: does not use Lack of Transportation: No Lack of Food: Never True Current Housing: I Have Housing Concerned About Future Housing: No Difficulty Paying Gas/Electric Bills: No Difficulty Paying for Meds: No Currently Unemployed: No Education: Don't Know Difficulty w/ Childcare or Family Care: No Spiritual care concerns: No Exam Narrative: GENERAL: Elderly female lying in bed in no ac
[2023-02-08] MEDS: methylPREDNISolone SOD SUCC 125 MG VIAL IV PUSH (14:23)
[2023-02-08] MEDS: FAMOTIDINE 20 MG/2 ML VIAL IV PUSH (14:23)
--- NOTE | 2023-02-08 16:49 | PC.NURSE ---
Nurse at [facility] called to check on patient. This RN updated her on the meds that were given and that pt is being observed. Nurse notified that pt is currently resting.
[2023-02-08 18:07] LABS: Influenza A QL RT-PCR Negative (Negative); Influenza B QL RT-PCR Negative (Negative); SARS-CoV-2 RNA PCR Negative (Negative)
[2023-02-08 18:38] LABS: Basophils Percent Auto 0.2 % (0.2-1.2); Eosinophils Absolute Auto 0.3 K/mm3 (0-0.3); Hematocrit 24.9 % (37.0-47.0); Hemoglobin 7.1 g/dL (12.0-15.0); Immature Granulocyte Absolute 0.04 K/mm3 (0.00-0.031); Immature Granulocyte Percent A 0.3 % (0-0.5); Lymphocytes Absolute Auto 4.36 K/mm3 (0.9-3.2); Lymphocytes Percent Auto 34.3 % (18.3-44.2); Mean Corpuscular HGB Conc 28.5 g/dl (32-36); Mean Corpuscular Volume 87.7 fl (80-100); Mean Platelet Volume 9.5 fl (7.4-10.4); Monocytes Absolute Auto 0.6 K/mm3 (0.1-0.6); Monocytes Percent Auto 4.4 % (2.6-8.5); Neutrophils Absolute Auto 7.5 K/mm3 (1.3-6.7); Neutrophils Percent Auto 58.8 % (45.5-73.1); Platelet Count Result 575 k/mm3 (150-375); Red Blood Count 2.84 M/mm3 (4.2-5.4); Red Cell Distribution Width 16.7 % (11.5-14.5); White Blood Count 12.7 K/mm3 (4.5-10.0)
[2023-02-08 18:39] LABS: Hypochromasia 1+ (NORMAL); Platelet Estimate Increased (Adequate)
[2023-02-08 18:40] LABS: Ovalocytes 1+ (NORMAL); Schistocytes None Seen (NORMAL)
[2023-02-08] MEDS: SODIUM CHLORIDE 0.9% IV 1,000 ML 999 ML IV CONT ×3 (18:40→21:05)
[2023-02-08 18:59] LABS: Alanine Aminotransferase 10 U/L (6-35); Albumin Level 3.5 g/dL (3.5-5.1); Alkaline Phosphatase 87 U/L (38-126); Anion Gap 9 mmol/L (8-16); Aspartate Amino Transferase 20 U/L (14-36); Bilirubin,Total 0.3 mg/dL (0.2-1.3); Blood Urea Nitrogen 60 mg/dL (7-17); Calcium 10.8 mg/dL (8.4-10.2); Carbon Dioxide 24 mmol/L (22-30); Chloride 107 mmol/L (98-107); Estimated Glomerular Filt Rate 22; Glucose 130 mg/dL (65-110); Potassium 6.7 mmol/L (3.4-5.0); Sodium 140 mmol/L (137-145)
--- NOTE | 2023-02-08 19:10 | ECG_ITS ---
Measurements Intervals [employer] Rate: 94 P: 43 [place]: 183 QRS: -9 QRSD: 94 T: 55 QT: 337 QTc: 422 Interpretive Statements SINUS RHYTHM EARLY PRECORDIAL R/S TRANSITION VOLTAGE CRITERIA FOR LVH BASELINE ARTIFACT- III, V1-V2 BORDERLINE ECG COMPARED TO ECG 10/08/2022 13:11:05 NO SIGNIFICANT CHANGES Electronically Signed On 02-09-2023 6:47:11 CDT by Cortez Abernathy D.O.
[2023-02-08] MEDS: SODIUM ZIRCONIUM CYCLOSILICATE 10 GM POWD.PACK PO (19:36)
[2023-02-08] MEDS: SODIUM BICARBONATE 8.4% 50 MEQ/50 ML SYRINGE IV PUSH (19:41)
[2023-02-08] MEDS: CALCIUM GLUCONATE 1,000 MG/10 ML VIAL 1000 MG IV PUSH (19:41)
[2023-02-08] MEDS: DEXTROSE 50% 25 GM/50 ML SYRINGE IV PUSH (19:41)
[2023-02-08] MEDS: INSULIN HUMAN REGULAR (*BKC) 100 UNITS/ML 10 UNITS IV PUSH (19:43)
[2023-02-08] MEDS: AMPICILLIN SULB 1.5 GM/NS 50ML 1.5 GM/50 ML VIAL IVPB (21:05)
[2023-02-08 21:07] LABS: Appearance Urine Clear (Clear); Bacteria Urine None Seen /hpf; Bilirubin Urine Negative (Negative); Blood Urine Negative (Negative); Color Urine Yellow (Yellow); Glucose Urine UA Negative (Negative); Ketones Urine Negative (Negative); Leukocyte Esterase Ur Negative LEU/UL (Negative); Need Manual Microscopic Reviewed; Nitrate Urine Negative (Negative); Non Pathogenic Casts 0-2; Protein Urine 1+ mg/dL (Negative); RBC Urine 0-2 /hpf (0-2); Specific Grav Ur 1.017 (1.001-1.035); Squamous Epithelial Cell Urine None seen /hpf (Few); WBC Urine 0-5 /hpf; pH Urine 7.5 (5.0-9.0)
[2023-02-08 21:09] LABS: Add Urine Microscopic? YES
--- NOTE | 2023-02-08 21:34 | PM.IMHP ---
H&P: HPI History of Present Illness Date/Time: 02/08/23 21:34 Chief Complaint: Patient transferred to the ER from care home for evaluation because of swelling of her tongue and being tired and fatigued Narrative: Our patient is a very unfortunate Afro-Ugand[place] female with multiple chronic medical issues who is a care home resident. She is feeling weak, tired and fatigued for the last few days and the nursing staff noticed swelling of her tongue and right-sided facial swelling. Patient was sent to the ER for evaluation. Workup was done which showed JENNIFER with hyperkalemia. Patient was aggressively treated with IV hydration and hypokalemia protocol and she is feeling little better and although she still remains pleasantly confused, she is more communicative with the ER staff during my evaluation in the ER. She was given 1 dose of IV Solu-Medrol for tongue swelling treating for possible allergic etiology. Patient also has a WBC count of 12.7 hence she has been started on Unasyn IV to cover for infectious etiology as well. She is diabetic and also has severe PVD with chronic ulcerations in her both feet and multiple deformities/loss of toe-nails. She is being admitted for medical management and close monitoring. Review of Systems Review of Systems: Unable to be obtained. Patient is pleasantly confused All systems reviewed & are unremarkable except as noted in HPI and below PMFSH Past Medical History Medical History Combined hyperlipidemia CVA (cerebral vascular accident) Dementia Diabetic foot ulcer DM2 (diabetes mellitus, type 2) HTN (hypertension), benign Surgical History Surgical History No pertinent past surgical history Family History Family History Father Hypertension Diabetes mellitus Mother Hypertension Diabetes mellitus Social History Social History Social History: The patient is and has 6 children. 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 The patient resides at [facility]. Her daughter is the durable power workers compensation defense attorney for healthcare. Former smoker. She denies any alcohol marijuana or illicit drugs. Code status full code Smoking status: Former smoker Alcohol intake: never Substance use: never Lack of Transportation: No Lack of Food: Never True Current Housing: I Have Housing Concerned About Future Housing: No Difficulty Paying Gas/Electric Bills: No Difficulty Paying for Meds: No Currently Unemployed: No Education: Don't Know Difficulty w/ Childcare or Family Care: No Spiritual care concerns: No Meds Home Medications and Allergies Home Medications Medication Instructions Recorded Confirmed Type gabapentin 100 mg capsule 100 mg PO TID nerve pain 05/27/22 10/09/22 History nifedipine 30 mg tablet,extended 30 mg PO DAILY 05/27/22 10/09/22 History release 24 hr polyethylene glycol 3350 17 gram 17 g PO QAM #30 ea 06/16/22 10/09/22 Rx oral powder packet (Miralax) ascorbic acid (vitamin C) 500 mg 500 mg PO BID 09/14/22 10/09/22 History tablet magnesium citrate (Citroma oral 296 ml PO DAILY PRN Constipation 09/14/22 10/09/22 History solution) magnesium hydroxide 400 mg/5 mL 30 ml PO HS PRN Constipation 09/14/22 10/09/22 History oral suspension (Milk of Magnesia) metformin 500 mg tablet 500 mg PO BID 09/14/22 10/09/22 History multivit with minerals-iron 18 1 tablet PO DAILY 09/14/22 10/09/22 History mg-folic ac 400 mcg-vit K 25 mcg tablet (Adults Multivitamin) sennosides 8.6 mg capsule (senna) 8.6 mg PO HS 09/14/22 10/09/22 History bisacodyl 10 mg rectal suppository 10 mg RECTAL DAILY PRN 09/15/22 10/09/22 Rx Constipation #12 ea clotrimazole 1 % topical cream 1 applic topical BID #15 grams 09/15/22 10/09/22 Rx lisinopril 40 mg ta
[2023-02-08 23:05] LABS: Anion Gap 12 mmol/L (8-16); Blood Urea Nitrogen 52 mg/dL (7-17); Calcium 10.3 mg/dL (8.4-10.2); Carbon Dioxide 18 mmol/L (22-30); Chloride 109 mmol/L (98-107); Estimated CRCL calculation 16 ml/min; Estimated Glomerular Filt Rate 25; Glucose 157 mg/dL (65-110); Potassium 5.9 mmol/L (3.4-5.0); Sodium 139 mmol/L (137-145)
[2023-02-08] MEDS: SODIUM CHLORIDE 0.9% IV 1,000 ML 100 ML IV CONT (23:52)
[2023-02-09] VITALS (14 sets, daily range): BP systolic 107–159; BP diastolic 52–70; PULSE 72–94; RESP 12–20; TEMP 36.1–37.7; O2SAT 99–100; BMI 29.0
[2023-02-09 05:51] LABS: Basophils Percent Auto 0.1 % (0.2-1.2); Hematocrit 26.6 % (37.0-47.0); Hemoglobin 7.7 g/dL (12.0-15.0); Immature Granulocyte Absolute 0.06 K/mm3 (0.00-0.031); Immature Granulocyte Percent A 0.5 % (0-0.5); Lymphocytes Absolute Auto 2.44 K/mm3 (0.9-3.2); Mean Corpuscular HGB Conc 28.9 g/dl (32-36); Mean Corpuscular Hemoglobin 25.4 pg (26-34); Mean Corpuscular Volume 87.8 fl (80-100); Mean Platelet Volume 8.9 fl (7.4-10.4); Monocytes Absolute Auto 0.1 K/mm3 (0.1-0.6); Monocytes Percent Auto 0.8 % (2.6-8.5); Neutrophils Absolute Auto 9.6 K/mm3 (1.3-6.7); Neutrophils Percent Auto 78.6 % (45.5-73.1); Platelet Count Result 476 k/mm3 (150-375); Red Blood Count 3.03 M/mm3 (4.2-5.4); Red Cell Distribution Width 16.5 % (11.5-14.5); White Blood Count 12.2 K/mm3 (4.5-10.0)
[2023-02-09 06:03] LABS: Anion Gap 6 mmol/L (8-16); Blood Urea Nitrogen 51 mg/dL (7-17); Calcium 10.3 mg/dL (8.4-10.2); Carbon Dioxide 22 mmol/L (22-30); Chloride 110 mmol/L (98-107); Estimated CRCL calculation 19 ml/min; Estimated Glomerular Filt Rate 29; Glucose 167 mg/dL (65-110); Magnesium 2.4 mg/dL (1.6-2.3); Phosphorus 3.9 mg/dL (2.5-4.5); Potassium 6.3 mmol/L (3.4-5.0); Sodium 138 mmol/L (137-145)
[2023-02-09] MEDS: ALBUTEROL SULFATE NEB 2.5 MG/3 ML INH INHALATION (06:25)
[2023-02-09] MEDS: SODIUM BICARBONATE 8.4% 50 MEQ/50 ML SYRINGE IV PUSH (06:45)
[2023-02-09] MEDS: CYANOCOBALAMIN 1,000 MCG TABLET 1000 MCG PO (09:14)
[2023-02-09] MEDS: ASCORBIC ACID 500 MG TABLET PO ×2 (09:14→17:20)
[2023-02-09] MEDS: MULTIVITAMINS /C LUTEIN (CENTRUM SILVER) TABLET *BKC 1 TAB PO (09:14)
[2023-02-09] MEDS: GABAPENTIN 100 MG CAPSULE PO ×3 (09:14→17:20)
[2023-02-09] MEDS: CHOLECALCIFEROL 1,000 UNITS TABLET 1000 UNITS PO (09:14)
[2023-02-09] MEDS: NIFEdipine 30 MG TAB.ER.24 PO (09:15)
[2023-02-09] MEDS: CALCIUM GLUC 1,000 MG/NS 100ML 1,000 MG/100 ML BAG 200 MG IVPB (09:15)
[2023-02-09 09:16] LABS: Glucose Point of Care 166 mg/dl (65-105)
[2023-02-09] MEDS: SACCHAROMYCES BOULARDII 250 MG CAPSULE PO ×2 (09:16→17:20)
[2023-02-09] MEDS: ZINC SULFATE 220 MG CAPSULE PO (09:17)
[2023-02-09] MEDS: AMPICILLIN SULB 1.5 GM/NS 50ML 1.5 GM/50 ML VIAL IVPB ×2 (09:21→20:13)
[2023-02-09] MEDS: SODIUM ZIRCONIUM CYCLOSILICATE 10 GM POWD.PACK PO (09:21)
[2023-02-09] MEDS: LIDOCAINE HCL 1% LOCAL INJ 2 ML AMPUL 5 ML INFILTRATE (11:30)
[2023-02-09 11:33] LABS: Glucose Point of Care 196 mg/dl (65-105)
--- NOTE | 2023-02-09 11:40 | P.CONNP_ITS ---
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 * allergic reaction (?) * check urine studies, CPK, and renal ultrasound * agree with IVF hydration as tolerated * follow trend of repeat labs and UOP (2) Hyperkalemia: Code(s): E87.5 - Hyperkalemia Status: Acute Assessment and Plan: * better following medical management * secondary to JENNIFER/ARF + FRANNY-I use * follow trend of K+ (3) Chronic foot ulcer: Code(s): L97.509 - Non-pressure chronic ulcer of other part of unspecified foot with unspecified severity Status: Acute Assessment and Plan: * extensive history of severe vascular disease in LEs complicated by wound infections * this seems to be the case with right heal on this admission * on antibiotics * follow culture data * precipitation factor for #1 (?) * further intervention needed (?) (4) HTN (hypertension), benign: Code(s): I10 - Essential (primary) hypertension Status: Chronic Assessment and Plan: * reasonable control * FRANNY-I on hold * follow trend of hemodynamics (5) DM2 (diabetes mellitus, type 2): Code(s): E11.9 - Type 2 diabetes mellitus without complications Status: Chronic Assessment and Plan: * follow accu-cheks * glycemic control per hospitalists I will continue to follow the patient with you while she remains hospitalized to make further recommendations as necessary. Thank you for allowing me to participate in care this patient. History of Present Illness Reason for Consult Consult date: 02/09/23 Reason for consult: acute renal failure Chief Complaint Chief complaint: JENNIFER, Hyperkalemia History of Present Illness Narrative: The patient is a 77-year-old female with a past medical history as outlined below is sent to [facility] Emergency room from her nursing facility for further evaluation of swelling of her tongue and right face. Apparently, the nursing staff is no the patient is tongue and right face seemed to be more swollen than usual and because of this change, she was sent to the ER. In association with these symptoms, she has had profound weakness and fatigue. Workup and evaluation in the emergency room were significant for hyperkalemia and acute kidney injury/ acute renal failure. She received medical management for her hyperkalemia and IV fluids were instituted given the afore mentioned acute kidney injury. Her right-sided facial swelling and tongue edema was thought to be a potential allergic reaction so she received a dose of IV Solu-Medrol. Empiric antibiotics were also initiated due to her elevated white blood cell count and numerous ulcerations in her lower extremities. She was subsequently admitted to the hospital for further evaluation and therapy. Since her admission, her potassium level has fluctuated with repeat labs this morning showing persistence of her hyperkalemia and she was reinstituted on medical management for this issue. Her renal function
--- NOTE | 2023-02-09 11:40 | PM.CNNEP ---
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 (?) check urine studies, CPK, and renal ultrasound agree with IVF hydration as tolerated follow trend of repeat labs and UOP (2) Hyperkalemia: Code(s): E87.5 - Hyperkalemia Status: Acute Assessment and Plan: better following medical management secondary to JENNIFER/ARF + FRANNY-I use follow trend of K+ (3) Chronic foot ulcer: Code(s): L97.509 - Non-pressure chronic ulcer of other part of unspecified foot with unspecified severity Status: Acute Assessment and Plan: extensive history of severe vascular disease in LEs complicated by wound infections this seems to be the case with right heal on this admission on antibiotics follow culture data precipitation factor for #1 (?) further intervention needed (?) (4) HTN (hypertension), benign: Code(s): I10 - Essential (primary) hypertension Status: Chronic Assessment and Plan: reasonable control FRANNY-I on hold follow trend of hemodynamics (5) DM2 (diabetes mellitus, type 2): Code(s): E11.9 - Type 2 diabetes mellitus without complications Status: Chronic Assessment and Plan: follow accu-cheks glycemic control per hospitalists I will continue to follow the patient with you while she remains hospitalized to make further recommendations as necessary. Thank you for allowing me to participate in care this patient. History of Present Illness Reason for Consult Consult date: 02/09/23 Reason for consult: acute renal failure Chief Complaint Chief complaint: JENNIFER, Hyperkalemia History of Present Illness Narrative: The patient is a 77-year-old female with a past medical history as outlined below is sent to [facility] Emergency room from her nursing facility for further evaluation of swelling of her tongue and right face. Apparently, the nursing staff is no the patient is tongue and right face seemed to be more swollen than usual and because of this change, she was sent to the ER. In association with these symptoms, she has had profound weakness and fatigue. Workup and evaluation in the emergency room were significant for hyperkalemia and acute kidney injury/ acute renal failure. She received medical management for her hyperkalemia and IV fluids were instituted given the aforementioned acute kidney injury. Her right-sided facial swelling and tongue edema was thought to be a potential allergic reaction so she received a dose of IV Solu-Medrol. Empiric antibiotics were also initiated due to her elevated white blood cell count and numerous ulcerations in her lower extremities. She was subsequently admitted to the hospital for further evaluation and therapy. Since her admission, her potassium level has fluctuated with repeat labs this morning showing persistence of her hyperkalemia and she was reinstituted on medical management for this issue. Her renal function is also better but still not back to baseline Renal consultation was requested due to her acute kidney injury/acute renal failure in association with her hyperkalemia. From review of records, her kidney function was normal earlier this year although she has had some fluctuations in her kidney function as noted by her hospitalizations here at [facility] but they all seem to demonstrate improv
[2023-02-09] MEDS: SOD HYPOCHLORITE 1/4 STRENGTH 473 ML 1 APPLIC TOPICAL (12:13)
[2023-02-09 13:18] LABS: Potassium 5.3 mmol/L (3.4-5.0)
[2023-02-09] MEDS: SALINE LOCK FLUSH 10 ML IV PUSH ×2 (13:45→20:14)
--- NOTE | 2023-02-09 15:54 | PM.IMPN ---
Progress Note: A&P Assessment and Plan (1) Tongue swelling: Code(s): R22.0 - Localized swelling, mass and lump, head Status: Acute Assessment and Plan: Patient brought into the ED for right facial edema and tongue swelling. Tongue appeared edematous but patietn without complaints. CT scan showing soft tissue swelling with SQ edema overlying the right mandible but no masses of fluid collections. Possible thyroid nodules but thyroid US showing goiter but nothing requiring biopsy. Patient is edentulous. She received steroids in ED but this was not continued. Unasyn started for possible anaerobic infection. WBC unchanged but she did receive steroids. Symptoms appear to have resolved. Follow. (2) JESSEE (acute kidney injury): Code(s): N17.9 - Acute kidney failure, unspecified Status: Acute Assessment and Plan: Baseline Cr is probably normal. Cr normal earlier this year but has been noted to have elevated Cr when hospitalized previously. Cr 2.6 with BUN 60 on admission. Suspect related to dehydration, FRANNY inhibitor and acute/chronic infection. She may have underlying CKD from PAD, DM and HTN. Cr trending down with IV fluids. Lisinopril on hold. Continue to follow. Nephrology consulted and appropriate testing ordered. Appreciate their input. (3) Hyperkalemia: Code(s): E87.5 - Hyperkalemia Status: Acute Assessment and Plan: Potassium 6.7 this morning and was treated. Related to the [place] and FRANNY inhibitor. Potassium elevated again this morning and was treated. Repeat potassium now 5.3. 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 Was discharged on IV abx for 6 weeks for osteomyelitis. CTA showing occlusion of the Rt anterior tibial artery with reconstitution of the DP artery below the ankle. There was [id number] stenosis of the right peroneal and posterior tibial arteries. 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 She had moderate to severe stenosis along the left posterior tibial artery with runoff below the ankle. Patient was seen here in October which showed a black eschar noted on the right and left foot including bilateral heel. This admission, there is now purulent material from the right heel. Will continue Unasyn. Will add vancomycin. General surgery consult. Patient most likely will need amputation. (5) Peripheral artery disease: Code(s): I73.9 - Peripheral vascular disease, unspecified Status: Chronic Assessment and Plan: As above. (6) HTN (hypertension), benign: Code(s): I10 - Essential (primary) hypertension Status: Chronic Assessment and Plan: Patient's blood pressure was reviewed on 02/09 Blood pressure remains reasonably well controlled. Will continue to monitor. (7) Dementia: Code(s): F03.90 - Unspecified dementia, unspecified severity, without behavioral disturbance, psychotic disturbance, mood disturbance, and anxiety Status: Acute Assessment and Plan: Stable. (8) DM2 (diabetes mellitus, type 2): Code(s): E11.9 - Type 2 diabetes mellitus without complications Status: Chronic Assessment and Plan: A1c 5.2. The patient's blood glucose was reviewed on 02/09 Glucose remains well controlled. Continue AccuCheks covering with sliding scale. Hypoglycemia protocol available as needed. Continue to monitor. Plan DVT prophylaxis - SCDs Code status - full Disposition - skilled nursing at [facility] Subjective Date/time seen: 02/09/23 15:5
[2023-02-09 16:44] LABS: Glucose Point of Care 129 mg/dl (65-105)
[2023-02-09] MEDS: MICONAZOLE NITRATE 2% CREAM 30 GM TUBE 1 APPLIC TOPICAL (17:20)
[2023-02-09] MEDS: SODIUM CHLORIDE 0.9% IV 1,000 ML 100 ML IV CONT (17:21)
[2023-02-09 17:41] LABS: Creatinine Urine 42.6 mg/dL; Sodium Urine Random 160 meq/L; Total Protein Urine Random 38 mg/dL; Ur Ttl Prot Creatinine Ratio 0.89 mg/mg (0-0.20); Urea Random Urine 569 MG/DL
[2023-02-09 18:01] LABS: Potassium 5.1 mmol/L (3.4-5.0)
[2023-02-09] MEDS: QUEtiapine FUMARATE 12.5 MG TABLET PO (20:13)
[2023-02-09] MEDS: MIRTAZAPINE 7.5 MG TABLET PO (20:13)
[2023-02-09 21:03] LABS: Glucose Point of Care 148 mg/dl (65-105)
[2023-02-10] VITALS (19 sets, daily range): BP systolic 115–159; BP diastolic 45–81; PULSE 70–101; RESP 12–18; TEMP 36.1–37.1; O2SAT 100
[2023-02-10] MEDS: SODIUM CHLORIDE 0.9% IV 1,000 ML 100 ML IV CONT ×2 (03:54→21:36)
[2023-02-10] MEDS: SALINE LOCK FLUSH 10 ML IV PUSH ×3 (03:55→21:36)
[2023-02-10 04:56] LABS: Anion Gap 1 mmol/L (8-16); Blood Urea Nitrogen 46 mg/dL (7-17); Calcium 9.9 mg/dL (8.4-10.2); Carbon Dioxide 27 mmol/L (22-30); Chloride 111 mmol/L (98-107); Creatine Kinase < 20 U/L (30-135); Estimated CRCL calculation 20 ml/min; Estimated Glomerular Filt Rate 31; Glucose 91 mg/dL (65-110); Magnesium 2.1 mg/dL (1.6-2.3); Phosphorus 3.3 mg/dL (2.5-4.5); Potassium 5.4 mmol/L (3.4-5.0); Sodium 139 mmol/L (137-145)
[2023-02-10 05:05] LABS: Basophils Percent Auto 0.2 % (0.2-1.2); Eosinophils Absolute Auto 0.2 K/mm3 (0-0.3); Eosinophils Percent Auto 1.7 % (0-4.4); Immature Granulocyte Absolute 0.04 K/mm3 (0.00-0.031); Immature Granulocyte Percent A 0.3 % (0-0.5); Lymphocytes Absolute Auto 3.19 K/mm3 (0.9-3.2); Lymphocytes Percent Auto 27.9 % (18.3-44.2); Mean Corpuscular HGB Conc 29.3 g/dl (32-36); Mean Corpuscular Hemoglobin 25.6 pg (26-34); Mean Corpuscular Volume 87.2 fl (80-100); Mean Platelet Volume 8.3 fl (7.4-10.4); Monocytes Absolute Auto 0.6 K/mm3 (0.1-0.6); Monocytes Percent Auto 5.1 % (2.6-8.5); Neutrophils Absolute Auto 7.4 K/mm3 (1.3-6.7); Neutrophils Percent Auto 64.8 % (45.5-73.1); Platelet Count Result 408 k/mm3 (150-375); Red Blood Count 2.27 M/mm3 (4.2-5.4); Red Cell Distribution Width 16.6 % (11.5-14.5); White Blood Count 11.4 K/mm3 (4.5-10.0)
[2023-02-10 05:11] LABS: Hematocrit 19.8 % (37.0-47.0); Hemoglobin 5.8 g/dL (12.0-15.0)
[2023-02-10 05:15] LABS: Hypochromasia 1+ (NORMAL); Platelet Estimate Adequate (Adequate); Schistocytes None Seen (NORMAL)
[2023-02-10 05:16] LABS: Eosinophil Urine None Seen % (None Seen); Urine Eos QC 2nd Tech Confirmed
[2023-02-10 06:09] LABS: Hematocrit 19.8 % (37.0-47.0); Hemoglobin 5.8 g/dL (12.0-15.0)
[2023-02-10 06:34] LABS: Free T4 Free Thyroxine Reflex 1.75 ng/dL (0.78-2.19)
[2023-02-10 07:31] LABS: Total Triiodothyronine (T3) 0.63 NG/ML (0.97-1.69)
[2023-02-10 07:38] LABS: Glucose Point of Care 73 mg/dl (65-105)
[2023-02-10] MEDS: SODIUM CHLORIDE 0.9% IV 250 ML 30 ML IV CONT (09:34)
[2023-02-10] MEDS: PANTOPRAZOLE SODIUM IV 40 MG VIAL IV PUSH ×2 (09:35→21:41)
[2023-02-10] MEDS: ASCORBIC ACID 500 MG TABLET PO ×2 (09:43→18:42)
[2023-02-10] MEDS: GABAPENTIN 100 MG CAPSULE PO ×3 (09:43→18:42)
[2023-02-10] MEDS: ZINC SULFATE 220 MG CAPSULE PO (09:43)
[2023-02-10] MEDS: SACCHAROMYCES BOULARDII 250 MG CAPSULE PO ×2 (09:43→18:42)
[2023-02-10] MEDS: NIFEdipine 30 MG TAB.ER.24 PO (09:44)
[2023-02-10] MEDS: MULTIVITAMINS /C LUTEIN (CENTRUM SILVER) TABLET *BKC 1 TAB PO (09:44)
[2023-02-10] MEDS: CHOLECALCIFEROL 1,000 UNITS TABLET 1000 UNITS PO (09:44)
[2023-02-10] MEDS: CYANOCOBALAMIN 1,000 MCG TABLET 1000 MCG PO (09:45)
[2023-02-10] MEDS: TUBING, BLOOD PLUM PUMP TUBING 1 EACH XX (09:45)
[2023-02-10] MEDS: MICONAZOLE NITRATE 2% CREAM 30 GM TUBE 1 APPLIC TOPICAL ×2 (09:45→18:42)
[2023-02-10 12:30] LABS: Glucose Point of Care 124 mg/dl (65-105)
--- NOTE | 2023-02-10 13:18 | PM.IMPN ---
Progress Note: A&P Assessment and Plan (1) Anemia: Code(s): D64.9 - Anemia, unspecified Status: Acute Assessment and Plan: Patient with chronic anemia with Hgb 7-8 range mostly. Patient's hemoglobin was 5.8 this morning. This was verified. She received one unit of PRBC. Source of the blood loss unclear. Possibly GI. Protonix added. Stool guaiac ordered. Patient is asymptomatic from this. She was typed/crossed and given 1U PRBC. Repeat HH and transfuse if needed. (2) Tongue swelling: Code(s): R22.0 - Localized swelling, mass and lump, head Status: Acute Assessment and Plan: Patient brought into the ED for right facial edema and tongue swelling. Tongue appeared edematous but patietn without complaints. CT scan showing soft tissue swelling with SQ edema overlying the right mandible but no masses of fluid collections. Possible thyroid nodules but thyroid US showing goiter but nothing requiring biopsy. Patient is edentulous. She received steroids in ED but this was not continued. Unasyn started for possible anaerobic infection. WBC unchanged but she did receive steroids. Symptoms appear to have resolved. Follow. (3) JENNIFER (acute kidney injury): Code(s): N17.9 - Acute kidney failure, unspecified Status: Acute Assessment and Plan: Baseline Cr is probably normal. Cr normal earlier this year but has been noted to have elevated Cr when hospitalized previously. Cr 2.6 with BUN 60 on admission. Suspect related to dehydration, FRANNY inhibitor and acute/chronic infection. She may have underlying CKD from PAD, DM and HTN. Cr trending down with IV fluids. Lisinopril on hold. Continue to follow. Nephrology consulted and appropriate testing ordered. Appreciate their input. (4) Hyperkalemia: Code(s): E87.5 - Hyperkalemia Status: Acute Assessment and Plan: Potassium 6.7 and was treated. Related to the JENNIFER and FRANNY inhibitor. Potassium elevated again and was treated. Repeat potassium now 5.4. Repeat Lokelma. 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 Was discharged on IV abx for 6 weeks for osteomyelitis. CTA showing occlusion of the Rt anterior tibial artery with reconstitution of the DP artery below the ankle. There was [id number] stenosis of the right peroneal and posterior tibial arteries. 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 She had moderate to severe stenosis along the left posterior tibial artery with runoff below the ankle. Patient was seen here in October which showed a black eschar noted on the right and left foot including bilateral heel. This admission, there is now purulent material from the right heel. Will adjust abx. General surgery consulted and appreciate their input. Discussed the case with surgery in the room with the patient. [place] the patient most likely will need bilateral amputation but patient refuses. Spoke with family (Osvaldo Rae). She and her sister and her father make decisions for the patient. The family has been told inthe past that she needs an amputation but have decided angainst this. Discussed hospice but Ms Rae states that the patietn is already on palliative care. (6) Peripheral artery disease: Code(s): I73.9 - Peripheral vascular disease, unspecified Status: Chronic Assessment and Plan: As above. (7) HTN (hypertension), benign: Code(s): I10 - Essential (primary) hypertension Status: Chronic Assessment and Plan: Patient's blood pressure was reviewed on 02/10 Blood pressure bob
--- NOTE | 2023-02-10 13:21 | PCPTNOTE ---
Patient getting blood HgB 5.8 currently and hospitalist report state patient is probably having amputation. Patient will check on patient tomorrow.
--- NOTE | 2023-02-10 13:37 | PCOTNOTE ---
Addendum entered by Violet Foss, OT 02/10/23 13:43: Pt. to be seen when medically stable and appropriate for therapy services. Original Note: Patient getting blood currently and hospitalist report state patient is probably having amputation.
--- NOTE | 2023-02-10 14:26 | PM.CNGS ---
Assessment and Plan Assessment and plan (1) Chronic foot ulcer: Code(s): L97.509 - Non-pressure chronic ulcer of other part of unspecified foot with unspecified severity Status: Acute Assessment and Plan: would recommend bilateral amputation with preoperative vascular workup as she would not heal any intervention to her bilateral feet at this time, alternatively she could see vascular surgery for options of possible revascularization, patient currently reports that she is not interested in any surgical intervention or amputation, primary care team to reach out to her POA for further discussion, continue local wound care for now History of Present Illness Consult details Consult date: 02/10/23 Reason for consult: wound care Requesting physician: Sher Nick MD Narrative: The patient is a 77-year-old female with multiple medical issues presenting from her assisted initially with tongue swelling possibly secondary to allergic reaction. The patient did receive some steroids and that has seemingly resolved. The patient has multiple chronic issues including severe bilateral lower extremity wounds. The patient was admitted in May of 2020 and had abscess drained in her lower extremity at that time. Workup at that time also showed severe peripheral vascular disease. The patient has been evaluated by Wound Care during this visit and it is felt that her lower extremity wounds are worsening at this time. Of note most history is obtained via the chart and nurse as the patient does not really answer questions. The patient is adamant that she does not want any surgical intervention or amputation. Review of Systems Review of Systems: ROS unobtainable: Yes unobtainable due to mental status PMFSH Past Medical History Medical History Combined hyperlipidemia CVA (cerebral vascular accident) Dementia Diabetic foot ulcer DM2 (diabetes mellitus, type 2) HTN (hypertension), benign Surgical History Surgical History No pertinent past surgical history Family History Family History Father Hypertension Diabetes mellitus Mother Hypertension Diabetes mellitus Social History Social History Social History: The patient is and has 6 children. 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 The patient resides at [facility]. Her daughter is the durable power assistant district attorney for healthcare. Former smoker. She denies any alcohol marijuana or illicit drugs. Code status full code Smoking status: Former smoker Alcohol intake: never Substance use: never Substance use type: does not use Lack of Transportation: No Lack of Food: Never True Current Housing: I Have Housing Concerned About Future Housing: No Difficulty Paying Gas/Electric Bills: No Difficulty Paying for Meds: No Currently Unemployed: No Education: Don't Know Difficulty w/ Childcare or Family Care: No Spiritual care concerns: No Meds Home Medications and Allergies Home Medications Medication Instructions Recorded Confirmed Type gabapentin 100 mg capsule 100 mg PO TID nerve pain 05/27/22 02/08/23 History nifedipine 30 mg tablet,extended 30 mg PO DAILY 05/27/22 02/08/23 History release 24 hr ascorbic acid (vitamin C) 500 mg 500 mg PO BID 09/14/22 02/08/23 History tablet magnesium citrate (Citroma oral 296 ml PO DAILY PRN Constipation 09/14/22 02/08/23 History solution) magnesium hydroxide 400 mg/5 mL 30 ml PO HS PRN Constipation 09/14/22 02/08/23 History oral suspension (Milk of Magnesia) metformin 500 mg tablet 500 mg PO BID 09/14/22 02/08/23 History multivit with minerals-iron 18 1 tablet PO DAILY 09/14/22 02/08/23 History mg-folic ac 400 mcg-vit K 25 mcg tablet (Adults Multivitamin)
[2023-02-10] MEDS: VANCOMYCIN 1,000 MG/NS 250 ML 1,000 MG/250 ML BAG 250 MG IVPB (16:38)
[2023-02-10 16:57] LABS: Glucose Point of Care 143 mg/dl (65-105)
[2023-02-10] MEDS: metroNIDAZOLE 500 MG/ISO 100ML 500 MG/100 ML BAG 100 MG IVPB ×2 (18:41→21:36)
[2023-02-10] MEDS: SOD HYPOCHLORITE 1/4 STRENGTH 473 ML 1 APPLIC TOPICAL ×2 (18:41→21:42)
[2023-02-10] MEDS: MEROPENEM 500 MG in SODIUM CHLORIDE 0.9% IV 100 ML 200 ML IVPB ×2 (18:42→22:52)
[2023-02-10 20:38] LABS: Hematocrit 27.6 % (37.0-47.0); Hemoglobin 8.1 g/dL (12.0-15.0)
--- NOTE | 2023-02-10 21:26 | P.PNNP_ITS ---
Progress Note: A&P Assessment and Plan (1) JENNIFER (acute kidney injury): Code(s): N17.9 - Acute kidney failure, unspecified Status: Acute Assessment and Plan: * creatinine normal in June 2022 * JENNIFER/ARF in September 2022 with a discharge creatinine of 1.5mg/dl * it is unclear if her creatinine returned to normal after that. * renal sono in September did show mild atrophy * I agree that she may have some component of CKD due to DM, HTN * U 'lytes nonprerenal and FeUrea above 50%. 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 * * agree with IVF hydration as tolerated * check cultures (urine clear but infection in foot) * follow trend of repeat labs and UOP (2) Hyperkalemia: Code(s): E87.5 - Hyperkalemia Status: Acute Assessment and Plan: * K 5.4 today * given lokelma today by Dr Nick * check in am (3) Chronic foot ulcer: Code(s): L97.509 - Non-pressure chronic ulcer of other part of unspecified foot with unspecified severity Status: Acute Assessment and Plan: * extensive history of severe vascular disease in LEs complicated by wound infections * this seems to be the case with right heal on this admission * on broad spectrum antibiotics (4) HTN (hypertension), benign: Code(s): I10 - Essential (primary) hypertension Status: Chronic Assessment and Plan: * bp 100 to 140. * see how bp doea over the next 24 hours (5) DM2 (diabetes mellitus, type 2): Code(s): E11.9 - Type 2 diabetes mellitus without complications Status: Chronic Assessment and Plan: * follow accu-cheks * glycemic control per hospitalists Subjective Date/time seen: 02/10/23 21:26 Interval history: alert. eating some lunch non-enthusiastically denies sob feet both bandaged. Review of Systems Cardiovascular: Cardiovascular: Reports no additional cardiovascular complaints Respiratory: Respiratory: Reports no additional respiratory complaints Gastrointestinal: Gastrointestinal: Reports no additional gastrointestinal complaints Genitourinary: Genitourinary: Reports no additional female genitourinary complaints Exam Narrative: WDWN in NAD skin no rash. some chronic venous stasis dermatitis in LEs head ncat lungs clear cor reg no rub abd BS+ nontender and soft ext no edema. feet bandaged Objective Data Vital Signs Vital Signs: Vital Signs - 24 hr 02/09/23 22:00 02/10/23 00:00 02/10/23 00:00 Temperature 97.5 F L Pulse Rate 73 97 71 Respiratory Rate 18 Blood Pressure 116/51 L Pulse Oximetry 100 Oxygen Delivery 02/10/23 02:00 02/10/23 04:00 02/10/23 04:00 Temperature 97.6 F Pulse Rate 70 73 75 Respiratory Rate 16 Blood Pressure 129/59 L Pulse Oximetry 100 Oxygen Delivery 02/10/23 06:00 02/10/23 08:00 02/10/23 09:25 Temperature 97.3 F L 97.1 F L Pulse Rate 71 77 80 Respiratory Rate 14 16 Blood Pressure 133/56 L 124/45 L Pulse Oximetry 100 Oxygen Delivery 02/10/23 09:46 02/10/23 10:42 02/10/23 12:00 Temperature 97.0 F
--- NOTE | 2023-02-10 21:26 | PM.PNNEP ---
Progress Note: A&P Assessment and Plan (1) JENNIFER (acute kidney injury): Code(s): N17.9 - Acute kidney failure, unspecified Status: Acute Assessment and Plan: creatinine normal in June 2022 JENNIFER/ARF in September 2022 with a discharge creatinine of 1.5mg/dl it is unclear if her creatinine returned to normal after that. renal sono in September did show mild atrophy I agree that she may have some component of CKD due to DM, HTN U 'lytes nonprerenal and FeUrea above 50%. 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 agree with IVF hydration as tolerated check cultures (urine clear but infection in foot) follow trend of repeat labs and UOP (2) Hyperkalemia: Code(s): E87.5 - Hyperkalemia Status: Acute Assessment and Plan: K 5.4 today given lokelma today by Dr Nick check in am (3) Chronic foot ulcer: Code(s): L97.509 - Non-pressure chronic ulcer of other part of unspecified foot with unspecified severity Status: Acute Assessment and Plan: extensive history of severe vascular disease in LEs complicated by wound infections this seems to be the case with right heal on this admission on broad spectrum antibiotics (4) HTN (hypertension), benign: Code(s): I10 - Essential (primary) hypertension Status: Chronic Assessment and Plan: bp 100 to 140. see how bp doea over the next 24 hours (5) DM2 (diabetes mellitus, type 2): Code(s): E11.9 - Type 2 diabetes mellitus without complications Status: Chronic Assessment and Plan: follow accu-cheks glycemic control per hospitalists Subjective Date/time seen: 02/10/23 21:26 Interval history: alert. eating some lunch non-enthusiastically denies sob feet both bandaged. Review of Systems Cardiovascular: Cardiovascular: Reports no additional cardiovascular complaints Respiratory: Respiratory: Reports no additional respiratory complaints Gastrointestinal: Gastrointestinal: Reports no additional gastrointestinal complaints Genitourinary: Genitourinary: Reports no additional female genitourinary complaints Exam Narrative: WDWN in NAD skin no rash. some chronic venous stasis dermatitis in LEs head ncat lungs clear cor reg no rub abd BS+ nontender and soft ext no edema. feet bandaged Objective Data Vital Signs Vital Signs: Vital Signs - 24 hr 02/09/23 22:00 02/10/23 00:00 02/10/23 00:00 Temperature 97.5 F L Pulse Rate 73 97 71 Respiratory Rate 18 Blood Pressure 116/51 L Pulse Oximetry 100 Oxygen Delivery 02/10/23 02:00 02/10/23 04:00 02/10/23 04:00 Temperature 97.6 F Pulse Rate 70 73 75 Respiratory Rate 16 Blood Pressure 129/59 L Pulse Oximetry 100 Oxygen Delivery 02/10/23 06:00 02/10/23 08:00 02/10/23 09:25 Temperature 97.3 F L 97.1 F L Pulse Rate 71 77 80 Respiratory Rate 14 16 Blood Pressure 133/56 L 124/45 L Pulse Oximetry 100 Oxygen Delivery 02/10/23 09:46 02/10/23 10:42 02/10/23 12:00 Temperature 97.0 F L 97.3 F L 97.1 F L Pulse Rate 83 75 75 Respiratory Rate 16 12 12 Blood Pressure 119/51 L 119/51 L 115/47 L Pulse Oximetry 100 100 Oxygen Delivery 02/10/23 10:46 02/10/23 11:46 02/10/23 12:46 Temperature 97.1 F L 97.1 F L 98.8 F Pulse Rate 75 75 88 Respiratory Rate 12 12 14 Blood Pressure 115/47 L 115/47 L 150/57 H Pulse Oximetry 100 100 Oxygen Delivery 02/10/23 13:39 02/10/23 16:00 02/10/23 08:00 Temperature 97.2 F L 98.8 F Pulse Rate 75 92 92 Respiratory Rate 16 16 16 Blood Pressure 115/62 159/81 H Pulse Oximetry 100 100 Oxygen Delivery Room Air 02/10/23 12:00 02/10/23 16:00 02/10/23 08:00 Temperature Pulse Rate 92 92 90 Respiratory Rate 16 16 Blood Pressure Pulse Oximetry 100 100 Oxygen Delivery Room Air Room Air 02/10/23 10:00 02/10/23 12:00 02/10/23 14:00 Temperature
[2023-02-10 21:31] LABS: Glucose Point of Care 133 mg/dl (65-105)
[2023-02-10] MEDS: MIRTAZAPINE 7.5 MG TABLET PO (21:36)
[2023-02-10] MEDS: QUEtiapine FUMARATE 12.5 MG TABLET PO (21:36)
[2023-02-10 21:47] LABS: Creatine Kinase 22 U/L (30-135)
[2023-02-11] VITALS (7 sets, daily range): BP systolic 119–146; BP diastolic 55–64; PULSE 75–93; RESP 16–20; TEMP 36.1–37.1; O2SAT 100
[2023-02-11 00:56] LABS: Hematocrit 26.2 % (37.0-47.0); Hemoglobin 7.7 g/dL (12.0-15.0)
[2023-02-11 05:36] LABS: Basophils Percent Auto 0.2 % (0.2-1.2); Eosinophils Absolute Auto 0.2 K/mm3 (0-0.3); Eosinophils Percent Auto 1.7 % (0-4.4); Hematocrit 25.9 % (37.0-47.0); Hemoglobin 7.5 g/dL (12.0-15.0); Immature Granulocyte Absolute 0.04 K/mm3 (0.00-0.031); Immature Granulocyte Percent A 0.3 % (0-0.5); Lymphocytes Absolute Auto 3.95 K/mm3 (0.9-3.2); Lymphocytes Percent Auto 32.5 % (18.3-44.2); Mean Corpuscular Volume 89.6 fl (80-100); Mean Platelet Volume 8.7 fl (7.4-10.4); Monocytes Absolute Auto 0.7 K/mm3 (0.1-0.6); Monocytes Percent Auto 6.1 % (2.6-8.5); Neutrophils Absolute Auto 7.2 K/mm3 (1.3-6.7); Neutrophils Percent Auto 59.2 % (45.5-73.1); Platelet Count Result 385 k/mm3 (150-375); Red Blood Count 2.89 M/mm3 (4.2-5.4); Red Cell Distribution Width 16.3 % (11.5-14.5); White Blood Count 12.2 K/mm3 (4.5-10.0)
[2023-02-11 05:47] LABS: Alanine Aminotransferase 7 U/L (6-35); Albumin Level 2.7 g/dL (3.5-5.1); Alkaline Phosphatase 68 U/L (38-126); Anion Gap 6 mmol/L (8-16); Aspartate Amino Transferase 13 U/L (14-36); Bilirubin,Total 0.2 mg/dL (0.2-1.3); Blood Urea Nitrogen 44 mg/dL (7-17); Calcium 9.3 mg/dL (8.4-10.2); Carbon Dioxide 19 mmol/L (22-30); Chloride 114 mmol/L (98-107); Estimated CRCL calculation 22 ml/min; Estimated Glomerular Filt Rate 35; Glucose 84 mg/dL (65-110); Magnesium 2.1 mg/dL (1.6-2.3); Phosphorus 2.2 mg/dL (2.5-4.5); Potassium 4.9 mmol/L (3.4-5.0); Sodium 139 mmol/L (137-145)
[2023-02-11 05:49] LABS: Vancomycin Random 10.1 ug/mL (10-20)
[2023-02-11] MEDS: metroNIDAZOLE 500 MG/ISO 100ML 500 MG/100 ML BAG 100 MG IVPB ×2 (06:17→21:44)
[2023-02-11] MEDS: SALINE LOCK FLUSH 10 ML IV PUSH ×3 (06:18→21:45)
[2023-02-11 06:31] LABS: Anisocytosis 1+ (NORMAL); Hypochromasia 1+ (NORMAL); Platelet Estimate Increased (Adequate); Poikilocytosis 1+ (NORMAL); Schistocytes None Seen (NORMAL)
--- NOTE | 2023-02-11 08:23 | PCOTNOTE ---
Pt. not appropriate at this time for therapy services due to severity of chronic conditions both physically and cognitively. Spoke with nursing and hospitalist, Dr. Nick, who agree that pt. not appropriate for therapy services at this time, and with cancelation of orders.
--- NOTE | 2023-02-11 10:07 | PM.IMPN ---
Progress Note: A&P Assessment and Plan (1) Anemia: Code(s): D64.9 - Anemia, unspecified Status: Acute Assessment and Plan: Patient with chronic anemia with Hgb 7-8 range mostly. Patient's hemoglobin was 5.8 yesterday morning that was verified. She received one unit of PRBC. Source of the blood loss unclear. CT scan showing no acute blood loss. Protonix added. Stool guaiac ordered. No active GI bleeding noted. Patient was asymptomatic from this. She received 1U PRBC and Hgb climbed to 8.1. Suspect may have been a false result since hgb 5.8->8.1 with just one unit. Will follow. (2) Tongue swelling: Code(s): R22.0 - Localized swelling, mass and lump, head Status: Acute Assessment and Plan: Patient brought into the ED for right facial edema and tongue swelling. Tongue appeared edematous but patietn without complaints. CT scan showing soft tissue swelling with SQ edema overlying the right mandible but no masses of fluid collections. Possible thyroid nodules but thyroid US showing goiter but nothing requiring biopsy. Patient is edentulous. She received steroids in ED but this was not continued. Unasyn started for possible anaerobic infection. WBC unchanged but she did receive steroids. Symptoms appear to have resolved. Follow. (3) JENNIFER (acute kidney injury): Code(s): N17.9 - Acute kidney failure, unspecified Status: Acute Assessment and Plan: Baseline Cr is probably normal. Cr normal earlier this year but has been noted to have elevated Cr when hospitalized previously. Cr 2.6 with BUN 60 on admission. Suspect related to dehydration, FRANNY inhibitor and acute/chronic infection. She may have underlying CKD from PAD, DM and HTN. Lisinopril on hold. Cr trending down with IV fluids. Cr 1.7 today. Positive fluid balance. Will stop IV fluids Continue to follow. Nephrology consulted and appropriate testing ordered. Appreciate their input. (4) Hyperkalemia: Code(s): E87.5 - Hyperkalemia Status: Acute Assessment and Plan: Potassium 6.7 and was treated. Related to the JENNIFER and FRANNY inhibitor. Potassium elevated again and was treated. Repeat potassium now 4.9. Okay to stop Lokelma. 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 Was discharged on IV abx for 6 weeks for osteomyelitis. CTA showing occlusion of the Rt anterior tibial artery with reconstitution of the DP artery below the ankle. There was [id number] stenosis of the right peroneal and posterior tibial arteries. 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 She had moderate to severe stenosis along the left posterior tibial artery with runoff below the ankle. Patient was seen here in October which showed a black eschar noted on the right and left foot including bilateral heel. This admission, there is now purulent material from the right heel. Unasyn stopped and abx adjusted. General surgery consulted and appreciate their input. Discussed the case with surgery who felt the patient most likely will need bilateral amputation but patient refuses. Spoke with family (Osvaldo Rae). She and her sister and her father make decisions for the patient. The family has been told in the past that she needs an amputation but have decided against this. Discussed hospice but Ms Rae states that the patient is already on palliative care. Will have care coordination discussed hospice with family (6) Peripheral artery disease: Code(s): I73.9 - Peripheral vascular disease, unspecified Status: Chronic Assessment and Plan
[2023-02-11] MEDS: VANCOMYCIN 1,000 MG/NS 250 ML 1,000 MG/250 ML BAG 250 MG IVPB (10:48)
[2023-02-11] MEDS: ASCORBIC ACID 500 MG TABLET PO (10:48)
[2023-02-11] MEDS: CHOLECALCIFEROL 1,000 UNITS TABLET 1000 UNITS PO (10:49)
[2023-02-11] MEDS: ZINC SULFATE 220 MG CAPSULE PO (10:49)
[2023-02-11] MEDS: MULTIVITAMINS /C LUTEIN (CENTRUM SILVER) TABLET *BKC 1 TAB PO (10:49)
[2023-02-11] MEDS: NIFEdipine 30 MG TAB.ER.24 PO (10:49)
[2023-02-11] MEDS: SACCHAROMYCES BOULARDII 250 MG CAPSULE PO (10:49)
[2023-02-11] MEDS: MICONAZOLE NITRATE 2% CREAM 30 GM TUBE 1 APPLIC TOPICAL (10:49)
[2023-02-11] MEDS: PANTOPRAZOLE SODIUM IV 40 MG VIAL IV PUSH ×2 (10:49→21:45)
[2023-02-11] MEDS: CYANOCOBALAMIN 1,000 MCG TABLET 1000 MCG PO (10:49)
[2023-02-11] MEDS: GABAPENTIN 100 MG CAPSULE PO (10:49)
--- NOTE | 2023-02-11 10:53 | PM.PNGS ---
Progress Note: A&P Assessment and Plan (1) Chronic foot ulcer: Code(s): L97.509 - Non-pressure chronic ulcer of other part of unspecified foot with unspecified severity Status: Acute Assessment and Plan: appreciate Dr. Nick speaking c family/POA, pt and family do not want amputation, cont local wound care at this point Subjective Subjective Date/Time Seen: 02/11/23 10:53 Interval history: no acute issues, cont to refuse surgical intervention Review of Systems Review of Systems: All systems reviewed & are unremarkable except as noted in HPI and below Exam Const: General: cooperative, no acute distress and ill appearing Resp: Auscultation: diminished lung sounds Cardio: Rate: regular rate Rhythm: regular rhythm GI: Inspection: normal to inspection Extrem: Other: sanjeev LE - dressing and air cast C/D/I Objective Data Vital Signs Vital Signs: Vital Signs - 24 hr 02/10/23 12:00 02/10/23 11:46 02/10/23 12:46 Temperature 36.2 C L 36.2 C L 37.1 C Pulse Rate 75 75 88 Respiratory Rate 12 12 14 Blood Pressure 115/47 L 115/47 L 150/57 H Pulse Oximetry 100 100 Oxygen Delivery 02/10/23 13:39 02/10/23 16:00 02/10/23 12:00 Temperature 36.2 C L 37.1 C Pulse Rate 75 92 92 Respiratory Rate 16 16 16 Blood Pressure 115/62 159/81 H Pulse Oximetry 100 100 Oxygen Delivery Room Air 02/10/23 16:00 02/10/23 12:00 02/10/23 14:00 Temperature Pulse Rate 92 92 81 Respiratory Rate 16 Blood Pressure Pulse Oximetry 100 Oxygen Delivery Room Air 02/10/23 16:00 02/10/23 18:00 02/10/23 20:00 Temperature 36.1 C L Pulse Rate 88 90 101 H Respiratory Rate 16 Blood Pressure 141/59 H Pulse Oximetry 100 Oxygen Delivery 02/10/23 20:00 02/10/23 22:00 02/11/23 00:00 Temperature 36.1 C L Pulse Rate 89 92 93 Respiratory Rate 16 Blood Pressure 139/59 L Pulse Oximetry 100 Oxygen Delivery 02/11/23 00:00 02/11/23 02:00 02/11/23 04:00 Temperature 36.2 C L Pulse Rate 85 81 80 Respiratory Rate 16 Blood Pressure 136/55 L Pulse Oximetry 100 Oxygen Delivery 02/11/23 04:00 02/11/23 06:00 02/11/23 08:00 Temperature 36.8 C Pulse Rate 83 75 82 Respiratory Rate 17 Blood Pressure 138/58 L Pulse Oximetry 100 Oxygen Delivery Intake/Output Intake/Output: Intake & Output 02/08/23 02/09/23 02/10/23 02/11/23 23:59 23:59 23:59 23:59 Intake Total 3050 1800 3700 150 Output Total 400 1100 800 Balance 3050 1400 2600 -650 Meds/Results Medications: Active Medications Generic Name Dose Route Start Last Admin Trade Name Freq PRN Reason Stop Dose Admin Hydrocodone Bitart/Acetaminophen 1 tab 02/08/23 23:53 Hydrocodone/Acetaminophen (*Crx) 5-325 Mg Tablet PO Q4H PRN Pain Rated 4-6 Ascorbic Acid 500 mg 02/09/23 09:00 02/11/23 10:48 Ascorbic Acid 500 Mg Tablet PO 500 mg BID [place] Administration Bisacodyl 10 mg 02/08/23 23:53 Bisacodyl 10 Mg Suppository RECTAL DAILY PRN Constipation Cyanocobalamin 1,000 mcg 02/09/23 09:00 02/11/23 10:49 Cyanocobalamin 1,000 Mcg Tablet PO 1,000 mcg DAILY GER[place] Administration Dextrose 12.5 gm 02/08/23 21:59 Dextrose 50% 25 Gm/50 Ml Syringe IV PUSH PRN PRN Hypoglycemia Protocol Gabapentin 100 mg 02/09/23 09:00 02/11/23 10:49 Gabapentin 100 Mg Capsule PO 100 mg TID GER[place] Administration Glucagon 1 mg 02/08/23 21:59 Glucagon For Inj 1 Mg Vial IM PRN PRN Hypoglycemia Protocol Glucose 15 gm 02/08/23 21:59 Glucose Oral Gel 15 Gm Of Glucse In 37.5 Gm Tube PO PRN PRN Hypoglycemia Protocol Dextrose 1,000 mls @ 100 mls/hr 02/08/23 21:59 Dextrose 5% 1,000 Ml IVPB PRN PRN Hypoglycemia Protocol Sodium Chloride 1,000 mls @ 100 mls/hr 02/08/23 22:05 02/11/23 01:01 Normal Saline Iv IV CONT Not Given .Q10H GER[place]IA Vancomycin HCl 1,000 mg in 250 ml
[2023-02-11] MEDS: MEROPENEM 500 MG in SODIUM CHLORIDE 0.9% IV 100 ML 200 ML IVPB ×2 (12:07→22:51)
[2023-02-11] MEDS: SOD HYPOCHLORITE 1/4 STRENGTH 473 ML 1 APPLIC TOPICAL (12:12)
--- NOTE | 2023-02-11 14:10 | P.PNNP_ITS ---
Progress Note: A&P Assessment and Plan (1) JENNIFER (acute kidney injury): Code(s): N17.9 - Acute kidney failure, unspecified Status: Acute Assessment and Plan: * creatinine normal in June 2022 * JENNIFER/ARF in September 2022 with a discharge creatinine of 1.5mg/dl * it is unclear if her creatinine returned to normal after that. * renal sono in September did show mild atrophy * I agree that she may have some component of CKD due to DM, HTN * U 'lytes nonprerenal and FeUrea above 50%. 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 Now it is down to 1.7. * Blood cultures pending * check another creatinine tomorrow (2) Hyperkalemia: Code(s): E87.5 - Hyperkalemia Status: Acute Assessment and Plan: * K normal today. Check in the morning. (3) Chronic foot ulcer: Code(s): L97.509 - Non-pressure chronic ulcer of other part of unspecified foot with unspecified severity Status: Acute Assessment and Plan: * extensive history of severe vascular disease in LEs complicated by wound infections * this seems to be the case with right heal on this admission * on broad spectrum antibiotics (4) HTN (hypertension), benign: Code(s): I10 - Essential (primary) hypertension Status: Chronic Assessment and Plan: * bp 110s to 140s For the most part. * follow-up both pressure going forward (5) DM2 (diabetes mellitus, type 2): Code(s): E11.9 - Type 2 diabetes mellitus without complications Status: Chronic Assessment and Plan: * follow accu-cheks * glycemic control per hospitalists Subjective Date/time seen: 02/11/23 14:10 Interval history: sleepy now. She was wide awake for family earlier today than was sleepy again then woke up for lunch and now sleepy again. feet both bandaged. Vital signs are stable. Exam Narrative: WDWN Female, sleepy but in NAD skin no rash. some chronic venous stasis dermatitis in LEs head ncat lungs clear cor reg no rub abd BS+ nontender and soft ext no edema. feet bandaged Objective Data Vital Signs Vital Signs: Vital Signs - 24 hr 02/10/23 16:00 02/10/23 16:00 02/10/23 16:00 Temperature 98.8 F Pulse Rate 92 92 88 Respiratory Rate 16 16 Blood Pressure 159/81 H Pulse Oximetry 100 100 Oxygen Delivery Room Air 02/10/23 18:00 02/10/23 20:00 02/10/23 20:00 Temperature 97 F L Pulse Rate 90 101 H 89 Respiratory Rate 16 Blood Pressure 141/59 H Pulse Oximetry 100 Oxygen Delivery 02/10/23 22:00 02/11/23 00:00 02/11/23 00:00 Temperature 97 F L Pulse Rate 92 93 85 Respiratory Rate 16 Blood Pressure 139/59 L Pulse Oximetry 100 Oxygen Delivery 02/11/23 02:00 02/11/23 04:00 02/11/23 04:00 Temperature 97.1 F L Pulse Rate 81 80 83 Respiratory Rate 16 Blood Pressure 136/55 L Pulse Oximetry 100 Oxygen Delivery 02/11/23 06:00 02/11/23 08:00 02/11/23 08:00 Temperature 98.2 F Pulse Rate 75 82
--- NOTE | 2023-02-11 14:10 | PM.PNNEP ---
Progress Note: A&P Assessment and Plan (1) JENNIFER (acute kidney injury): Code(s): N17.9 - Acute kidney failure, unspecified Status: Acute Assessment and Plan: creatinine normal in June 2022 JENNIFER/ARF in September 2022 with a discharge creatinine of 1.5mg/dl it is unclear if her creatinine returned to normal after that. renal sono in September did show mild atrophy I agree that she may have some component of CKD due to DM, HTN U 'lytes nonprerenal and FeUrea above 50%. JENNIFER etiology probably multifactorial: infection relative hypotension ongoing use of FRANNY-I [employer] SAL[employer]GER her creatinine continues to improve gradually. Now it is down to 1.7. Blood cultures pending check another creatinine tomorrow (2) Hyperkalemia: Code(s): E87.5 - Hyperkalemia Status: Acute Assessment and Plan: K normal today. Check in the morning. (3) Chronic foot ulcer: Code(s): L97.509 - Non-pressure chronic ulcer of other part of unspecified foot with unspecified severity Status: Acute Assessment and Plan: extensive history of severe vascular disease in [facility] complicated by wound infections this seems to be the case with right heal on this admission on broad spectrum antibiotics (4) HTN (hypertension), benign: Code(s): I10 - Essential (primary) hypertension Status: Chronic Assessment and Plan: bp 110s to 140s For the most part. follow-up both pressure going forward (5) DM2 (diabetes mellitus, type 2): Code(s): E11.9 - Type 2 diabetes mellitus without complications Status: Chronic Assessment and Plan: follow accu-cheks glycemic control per hospitalists Subjective Date/time seen: 02/11/23 14:10 Interval history: sleepy now. She was wide awake for family earlier today than was sleepy again then woke up for lunch and now sleepy again. feet both bandaged. Vital signs are stable. Exam Narrative: WDWN Female, sleepy but in NAD skin no rash. some chronic venous stasis dermatitis in LEs head ncat lungs clear cor reg no rub abd BS+ nontender and soft ext no edema. feet bandaged Objective Data Vital Signs Vital Signs: Vital Signs - 24 hr 02/10/23 16:00 02/10/23 16:00 02/10/23 16:00 Temperature 98.8 F Pulse Rate 92 92 88 Respiratory Rate 16 16 Blood Pressure 159/81 H Pulse Oximetry 100 100 Oxygen Delivery Room Air 02/10/23 18:00 02/10/23 20:00 02/10/23 20:00 Temperature 97 F L Pulse Rate 90 101 H 89 Respiratory Rate 16 Blood Pressure 141/59 H Pulse Oximetry 100 Oxygen Delivery 02/10/23 22:00 02/11/23 00:00 02/11/23 00:00 Temperature 97 F L Pulse Rate 92 93 85 Respiratory Rate 16 Blood Pressure 139/59 L Pulse Oximetry 100 Oxygen Delivery 02/11/23 02:00 02/11/23 04:00 02/11/23 04:00 Temperature 97.1 F L Pulse Rate 81 80 83 Respiratory Rate 16 Blood Pressure 136/55 L Pulse Oximetry 100 Oxygen Delivery 02/11/23 06:00 02/11/23 08:00 02/11/23 08:00 Temperature 98.2 F Pulse Rate 75 82 Respiratory Rate 17 Blood Pressure 138/58 L Pulse Oximetry 100 Oxygen Delivery Room Air Intake/Output Intake/Output: Intake & Output 02/08/23 02/09/23 02/10/23 02/11/23 23:59 23:59 23:59 23:59 Intake Total 3050 1800 3700 1350 Output Total 400 1100 800 Balance 3050 1400 2600 550 Meds/Results Medications: Active Medications Generic Name Dose Route Start Last Admin Trade Name Freq PRN Reason Stop Dose Admin Hydrocodone Bitart/Acetaminophen 1 tab 02/08/23 23:53 Hydrocodone/Acetaminophen (*Crx) 5-325 Mg Tablet PO Q4H PRN Pain Rated 4-6 Ascorbic Acid 500 mg 02/09/23 09:00 02/11/23 10:48 Ascorbic Acid 500 Mg Tablet PO 500 mg BID [place] Administration Bisacodyl 10 mg 02/08/23 23:53 Bisacodyl 10 Mg Suppository RECTAL DAILY PRN Constipation Cyanocobalamin 1,000 mcg 02/09/23 09:00
[2023-02-11 15:45] LABS: Glucose Point of Care 115 mg/dl (65-105)
[2023-02-11 23:23] LABS: Glucose Point of Care 78 mg/dl (65-105)
[2023-02-11 23:53] LABS: Glucose Point of Care 74 mg/dl (65-105)
[2023-02-12] MEDS: SOD HYPOCHLORITE 1/4 STRENGTH 473 ML 1 APPLIC TOPICAL ×3 (02:35→22:00)
[2023-02-12 03:07] LABS: Glucose Point of Care 102 mg/dl (65-105)
[2023-02-12 06:00] VITALS: BP 121/67; PULSE 71; RESP 19; TEMP 36.6; O2SAT 100
[2023-02-12] MEDS: metroNIDAZOLE 500 MG/ISO 100ML 500 MG/100 ML BAG 100 MG IVPB ×3 (06:08→22:40)
[2023-02-12] MEDS: SALINE LOCK FLUSH 10 ML IV PUSH ×3 (06:28→22:52)
[2023-02-12 06:41] LABS: Basophils Percent Auto 0.2 % (0.2-1.2); Eosinophils Absolute Auto 0.3 K/mm3 (0-0.3); Eosinophils Percent Auto 2.3 % (0-4.4); Hematocrit 26.7 % (37.0-47.0); Hemoglobin 7.8 g/dL (12.0-15.0); Immature Granulocyte Absolute 0.06 K/mm3 (0.00-0.031); Immature Granulocyte Percent A 0.5 % (0-0.5); Lymphocytes Absolute Auto 4.31 K/mm3 (0.9-3.2); Lymphocytes Percent Auto 35.9 % (18.3-44.2); Mean Corpuscular HGB Conc 29.2 g/dl (32-36); Mean Corpuscular Hemoglobin 25.7 pg (26-34); Mean Corpuscular Volume 88.1 fl (80-100); Mean Platelet Volume 8.9 fl (7.4-10.4); Monocytes Absolute Auto 0.7 K/mm3 (0.1-0.6); Monocytes Percent Auto 5.7 % (2.6-8.5); Neutrophils Absolute Auto 6.7 K/mm3 (1.3-6.7); Neutrophils Percent Auto 55.4 % (45.5-73.1); Platelet Count Result 399 k/mm3 (150-375); Red Blood Count 3.03 M/mm3 (4.2-5.4); Red Cell Distribution Width 16.5 % (11.5-14.5)
[2023-02-12 06:55] LABS: Vancomycin Random 16.1 ug/mL (10-20)
[2023-02-12 07:01] LABS: Platelet Estimate Increased (Adequate)
[2023-02-12 07:02] LABS: Anisocytosis 1+ (NORMAL); Hypochromasia 1+ (NORMAL); Schistocytes None Seen (NORMAL)
[2023-02-12 07:11] LABS: Albumin Level 2.9 g/dL (3.5-5.1); Anion Gap 4 mmol/L (8-16); Blood Urea Nitrogen 42 mg/dL (7-17); Calcium 9.7 mg/dL (8.4-10.2); Carbon Dioxide 21 mmol/L (22-30); Chloride 113 mmol/L (98-107); Estimated CRCL calculation 22 ml/min; Estimated Glomerular Filt Rate 35; Glucose 74 mg/dL (65-110); Magnesium 1.9 mg/dL (1.6-2.3); Phosphorus 2.5 mg/dL (2.5-4.5); Potassium 4.9 mmol/L (3.4-5.0); Sodium 138 mmol/L (137-145)
[2023-02-12 08:27] LABS: Glucose Point of Care 67 mg/dl (65-105)
[2023-02-12] MEDS: ZINC SULFATE 220 MG CAPSULE PO (09:18)
[2023-02-12] MEDS: CYANOCOBALAMIN 1,000 MCG TABLET 1000 MCG PO (09:18)
[2023-02-12] MEDS: polyethylene glycoL 3350 17 GM POWD.PACK PO (09:18)
[2023-02-12] MEDS: GABAPENTIN 100 MG CAPSULE PO ×2 (09:18→13:01)
[2023-02-12] MEDS: MULTIVITAMINS /C LUTEIN (CENTRUM SILVER) TABLET *BKC 1 TAB PO (09:18)
[2023-02-12] MEDS: PANTOPRAZOLE SODIUM IV 40 MG VIAL IV PUSH ×2 (09:18→21:48)
[2023-02-12] MEDS: MICONAZOLE NITRATE 2% CREAM 30 GM TUBE 1 APPLIC TOPICAL ×2 (09:18→17:02)
[2023-02-12] MEDS: CHOLECALCIFEROL 1,000 UNITS TABLET 1000 UNITS PO (09:18)
[2023-02-12] MEDS: NIFEdipine 30 MG TAB.ER.24 PO (09:18)
[2023-02-12] MEDS: ASCORBIC ACID 500 MG TABLET PO (09:18)
[2023-02-12] MEDS: SACCHAROMYCES BOULARDII 250 MG CAPSULE PO (09:18)
[2023-02-12] MEDS: MEROPENEM 500 MG in SODIUM CHLORIDE 0.9% IV 100 ML 200 ML IVPB ×2 (09:26→21:37)
[2023-02-12] MEDS: VANCOMYCIN 1,000 MG/NS 250 ML 1,000 MG/250 ML BAG 250 MG IVPB (10:18)
--- NOTE | 2023-02-12 11:55 | PM.IMPN ---
Progress Note: A&P Assessment and Plan (1) Anemia: Code(s): D64.9 - Anemia, unspecified Status: Acute Assessment and Plan: Patient with chronic anemia with Hgb 7-8 range mostly. Patient's hemoglobin was 5.8 on 02/10 that was verified (but drawn out of a line). She received one unit of PRBC. Source of the blood loss unclear; possible factitious. CT scan Ch/A/P showing no acute blood loss. Protonix added. Stool guaiac ordered. No active GI bleeding noted. Patient was asymptomatic from this. She received 1U PRBC and Hgb climbed to 8.1. Suspect may have been a false result since hgb 5.8->8.1 with just one unit. Hgb stable in the 7-8 range. Will follow. (2) Tongue swelling: Code(s): R22.0 - Localized swelling, mass and lump, head Status: Acute Assessment and Plan: Patient brought into the ED for right facial edema and tongue swelling. Tongue appeared edematous but patient without complaints. CT scan showing soft tissue swelling with SQ edema overlying the right mandible but no masses of fluid collections. Possible thyroid nodules but thyroid US showing goiter but nothing requiring biopsy. Patient is edentulous. She received steroids in ED but this was not continued. Unasyn started for possible anaerobic infection and abx adjusted for her feet wounds. WBC unchanged. Symptoms appear to have resolved and she is eating normally. Follow. (3) JENNIFER (acute kidney injury): Code(s): N17.9 - Acute kidney failure, unspecified Status: Acute Assessment and Plan: Baseline Cr is probably normal. Cr normal earlier this year but has been noted to have elevated Cr when hospitalized previously. Cr 2.6 with BUN 60 on admission. Suspect related to dehydration, FRANNY inhibitor and acute/chronic infection. She may have underlying CKD from PAD, DM and HTN. Lisinopril on hold. Cr trending down with IV fluids. Cr 1.7 again today. Positive fluid balance so IV fluids stopped Continue to follow. Nephrology consulted and appropriate testing ordered. Appreciate their input. (4) Hyperkalemia: Code(s): E87.5 - Hyperkalemia Status: Acute Assessment and Plan: Potassium 6.7 and was treated. Related to the JENNIFER and FRANNY inhibitor. Potassium elevated again and was treated. Repeat potassium normal now. 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 Was discharged on IV abx for 6 weeks for osteomyelitis. CTA showing occlusion of the Rt anterior tibial artery with reconstitution of the DP artery below the ankle. There was [id number] stenosis of the right peroneal and posterior tibial arteries. 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 She had moderate to severe stenosis along the left posterior tibial artery with runoff below the ankle. Patient was seen here in October which showed a black eschar noted on the right and left foot including bilateral heel. This admission, there is now purulent material from the right heel. Unasyn stopped and abx adjusted. General surgery consulted and appreciate their input. Discussed the case with surgery who felt the patient most likely will need bilateral amputation but patient refuses. Spoke with family (Osvaldo Rae). She and her sister and her father make decisions for the patient. The family has been told in the past that she needs an amputation but have decided against this. Discussed hospice but Ms Rae states that the patient is already on palliative care. Spoke with Ms Rae's sister in the room. She stated that the family has been told that amputation is recommended but other prov
[2023-02-12 12:06] LABS: Glucose Point of Care 81 mg/dl (65-105)
--- NOTE | 2023-02-12 12:33 | P.PNNP_ITS ---
Progress Note: A&P Assessment and Plan (1) JENNIFER (acute kidney injury): Code(s): N17.9 - Acute kidney failure, unspecified Status: Acute Assessment and Plan: * slow improvement noted * creatinine normal in June 2022 * JENNIFER/ARF in September 2022 with a discharge creatinine of 1.5mg/dl * unclear if her creatinine returned to normal after that * renal ultrasoun in September 2022 did show mild atrophy * hence, she may have some component of CKD due to DM, HTN, vascular disease, and age * urine lytes nonprerenal and FeUrea above 50% * follow repeat labs and UOP (2) Hyperkalemia: Code(s): E87.5 - Hyperkalemia Status: Acute Assessment and Plan: * resolved * follow trend of K+ (3) Chronic foot ulcer: Code(s): L97.509 - Non-pressure chronic ulcer of other part of unspecified foot with unspecified severity Status: Acute Assessment and Plan: * extensive history of severe vascular disease in LEs complicated by wound inf ections * this seems to be the case with right heal on this admission * on broad spectrum antibiotics (4) HTN (hypertension), benign: Code(s): I10 - Essential (primary) hypertension Status: Chronic Assessment and Plan: * reasonable control * follow trend of hemodynamics (5) DM2 (diabetes mellitus, type 2): Code(s): E11.9 - Type 2 diabetes mellitus without complications Status: Chronic Assessment and Plan: * follow accu-cheks * glycemic control per hospitalists Will continue to follow. Subjective Date/time seen: 02/12/23 12:33 Interval history: Follow-up for acute renal failure/acute kidney injury and hyperkalemia. Renal function slowly improving with relative stability in potassium level; fluctuating mentation noted but does not appear to be in any acute distress. Exam Narrative: General: WD/WN AA female in NAD Heart: normal S1 and S2; no rub Lungs: clear to auscultation Abdomen: soft, nontender, nondistended, positive bowel sounds Extremities: no cyanosis or clubbing; no edema Skin: dressings in place of feet Objective Data Vital Signs Vital Signs: Vital Signs Temp Pulse Resp BP Pulse Ox O2 Del Method 02/12/23 08:00 Room Air 02/12/23 06:00 97.9 F 71 19 121/67 100 02/11/23 22:00 97.7 F 82 20 119/64 100 Intake/Output Intake/Output: Intake & Output 02/09/23 02/10/23 02/11/23 02/12/23 23:59 23:59 23:59 23:59 Intake Total 1800 3700 1550 1670 Output Total 400 1100 1550 950 Balance 1400 2600 0 720 Meds/Results Medications: Active Medications Generic Name Dose Route Start Last Admin Trade Name Tonyq PRN Reason Stop Dose Admin Hydrocodone Bitart/Acetaminophen 1 tab 02/08/23 23:53 Hydrocodone/Acetaminophen (*Crx) 5-325 Mg Tablet PO Q4H PRN Pain Rated 4-6 Ascorbic Acid 500 mg 02/09/23 09:00 02/12/23 09:18 Ascorbic Acid 500 Mg Tablet PO 500 mg BID [place] Administration Bisacodyl 10 mg 02/08/23 23:53 Bisacodyl 10 Mg Suppository RECTAL DAILY PRN Constipation Cyanocobalamin 1,000 mcg 02/09/23 09:00 02/12/23 09:18 Cyanocobalamin 1
--- NOTE | 2023-02-12 12:33 | PM.PNNEP ---
Progress Note: A&P Assessment and Plan (1) JENNIFER (acute kidney injury): Code(s): N17.9 - Acute kidney failure, unspecified Status: Acute Assessment and Plan: slow improvement noted creatinine normal in June 2022 JENNIFER/ARF in September 2022 with a discharge creatinine of 1.5mg/dl unclear if her creatinine returned to normal after that renal ultrasoun in September 2022 did show mild atrophy hence, she may have some component of CKD due to DM, HTN, vascular disease, and age urine lytes nonprerenal and FeUrea above 50% follow repeat labs and UOP (2) Hyperkalemia: Code(s): E87.5 - Hyperkalemia Status: Acute Assessment and Plan: resolved follow trend of K+ (3) Chronic foot ulcer: Code(s): L97.509 - Non-pressure chronic ulcer of other part of unspecified foot with unspecified severity Status: Acute Assessment and Plan: extensive history of severe vascular disease in LEs complicated by wound infections this seems to be the case with right heal on this admission on broad spectrum antibiotics (4) HTN (hypertension), benign: Code(s): I10 - Essential (primary) hypertension Status: Chronic Assessment and Plan: reasonable control follow trend of hemodynamics (5) DM2 (diabetes mellitus, type 2): Code(s): E11.9 - Type 2 diabetes mellitus without complications Status: Chronic Assessment and Plan: follow accu-cheks glycemic control per hospitalists Will continue to follow. Subjective Date/time seen: 02/12/23 12:33 Interval history: Follow-up for acute renal failure/acute kidney injury and hyperkalemia. Renal function slowly improving with relative stability in potassium level; fluctuating mentation noted but does not appear to be in any acute distress. Exam Narrative: General: WD/WN AA female in NAD Heart: normal S1 and S2; no rub Lungs: clear to auscultation Abdomen: soft, nontender, nondistended, positive bowel sounds Extremities: no cyanosis or clubbing; no edema Skin: dressings in place of feet Objective Data Vital Signs Vital Signs: Vital Signs Temp Pulse Resp BP Pulse Ox O2 Del Method 02/12/23 08:00 Room Air 02/12/23 06:00 97.9 F 71 19 121/67 100 02/11/23 22:00 97.7 F 82 20 119/64 100 Intake/Output Intake/Output: Intake & Output 02/09/23 02/10/23 02/11/23 02/12/23 23:59 23:59 23:59 23:59 Intake Total 1800 3700 1550 1670 Output Total 400 1100 1550 950 Balance 1400 2600 0 720 Meds/Results Medications: Active Medications Generic Name Dose Route Start Last Admin Trade Name Freq PRN Reason Stop Dose Admin Hydrocodone Bitart/Acetaminophen 1 tab 02/08/23 23:53 Hydrocodone/Acetaminophen (*Crx) 5-325 Mg Tablet PO Q4H PRN Pain Rated 4-6 Ascorbic Acid 500 mg 02/09/23 09:00 02/12/23 09:18 Ascorbic Acid 500 Mg Tablet PO 500 mg BID [place] Administration Bisacodyl 10 mg 02/08/23 23:53 Bisacodyl 10 Mg Suppository RECTAL DAILY PRN Constipation Cyanocobalamin 1,000 mcg 02/09/23 09:00 02/12/23 09:18 Cyanocobalamin 1,000 Mcg Tablet PO 1,000 mcg DAILY [place] Administration Dextrose 12.5 gm 02/08/23 21:59 Dextrose 50% 25 Gm/50 Ml Syringe IV PUSH PRN PRN Hypoglycemia Protocol Gabapentin 100 mg 02/09/23 09:00 02/12/23 13:01 Gabapentin 100 Mg Capsule PO 100 mg TID [place] Administration Glucagon 1 mg 02/08/23 21:59 Glucagon For Inj 1 Mg Vial IM PRN PRN Hypoglycemia Protocol Glucose 15 gm 02/08/23 21:59 Glucose Oral Gel 15 Gm Of Glucse In 37.5 Gm Tube PO PRN PRN Hypoglycemia Protocol Dextrose 1,000 mls @ 100 mls/hr 02/08/23 21:59 Dextrose 5% 1,000 Ml IVPB PRN PRN Hypoglycemia Protocol Vancomycin HCl 1,000 mg in 250 mls @ 250 mls/hr 02/11/23 09:31 Vancomycin 1,000 Mg/Ns 250 Ml IVPB PRN PRN PHARMACY DOSING
[2023-02-12 14:00] VITALS: BP 118/69; PULSE 64; RESP 18; TEMP 36.7; O2SAT 99
[2023-02-12 15:10] LABS: IFOB Positive Control Positive; Immunochemical Fecal Occult Bl Negative (N)
[2023-02-12 16:58] LABS: Glucose Point of Care 131 mg/dl (65-105)
[2023-02-12 20:00] VITALS: BP 146/95; PULSE 88; RESP 18; TEMP 36.8; O2SAT 97
[2023-02-12 21:54] LABS: Glucose Point of Care 193 mg/dl (65-105)
[2023-02-13] MEDS: SALINE LOCK FLUSH 10 ML IV PUSH ×2 (05:39→13:37)
[2023-02-13] MEDS: metroNIDAZOLE 500 MG/ISO 100ML 500 MG/100 ML BAG 100 MG IVPB (05:39)
--- NOTE | 2023-02-13 06:25 | PC.NURSE ---
mack catheter removed per order at 0600
[2023-02-13 06:27] VITALS: BP 135/58; PULSE 83; RESP 19; TEMP 36.7; O2SAT 100
[2023-02-13 07:33] LABS: Glucose Point of Care 98 mg/dl (65-105)
[2023-02-13] MEDS: PANTOPRAZOLE SODIUM IV 40 MG VIAL IV PUSH (08:29)
[2023-02-13] MEDS: polyethylene glycoL 3350 17 GM POWD.PACK PO (08:29)
[2023-02-13] MEDS: MEROPENEM 500 MG in SODIUM CHLORIDE 0.9% IV 100 ML 200 ML IVPB (08:29)
[2023-02-13] MEDS: CHOLECALCIFEROL 1,000 UNITS TABLET 1000 UNITS PO (08:30)
[2023-02-13] MEDS: MICONAZOLE NITRATE 2% CREAM 30 GM TUBE 1 APPLIC TOPICAL (08:30)
[2023-02-13] MEDS: SACCHAROMYCES BOULARDII 250 MG CAPSULE PO (08:30)
[2023-02-13] MEDS: ZINC SULFATE 220 MG CAPSULE PO (08:30)
[2023-02-13] MEDS: MULTIVITAMINS /C LUTEIN (CENTRUM SILVER) TABLET *BKC 1 TAB PO (08:30)
[2023-02-13] MEDS: ASCORBIC ACID 500 MG TABLET PO (08:30)
[2023-02-13] MEDS: SOD HYPOCHLORITE 1/4 STRENGTH 473 ML 1 APPLIC TOPICAL (08:30)
[2023-02-13] MEDS: GABAPENTIN 100 MG CAPSULE PO (08:30)
[2023-02-13] MEDS: NIFEdipine 30 MG TAB.ER.24 PO (08:30)
[2023-02-13] MEDS: CYANOCOBALAMIN 1,000 MCG TABLET 1000 MCG PO (08:30)
[2023-02-13 09:24] LABS: Anion Gap 4 mmol/L (8-16); Blood Urea Nitrogen 46 mg/dL (7-17); Calcium 9.8 mg/dL (8.4-10.2); Carbon Dioxide 22 mmol/L (22-30); Chloride 111 mmol/L (98-107); Estimated CRCL calculation 23 ml/min; Estimated Glomerular Filt Rate 38; Glucose 99 mg/dL (65-110); Phosphorus 2.8 mg/dL (2.5-4.5); Sodium 137 mmol/L (137-145)
[2023-02-13 09:45] LABS: Vancomycin Random 20.6 ug/mL (10-20)
[2023-02-13 09:50] LABS: Basophils Percent Auto 0.2 % (0.2-1.2); Eosinophils Absolute Auto 0.4 K/mm3 (0-0.3); Eosinophils Percent Auto 3.2 % (0-4.4); Hematocrit 26.2 % (37.0-47.0); Hemoglobin 7.8 g/dL (12.0-15.0); Immature Granulocyte Absolute 0.06 K/mm3 (0.00-0.031); Immature Granulocyte Percent A 0.4 % (0-0.5); Lymphocytes Absolute Auto 4.81 K/mm3 (0.9-3.2); Lymphocytes Percent Auto 34.8 % (18.3-44.2); Mean Corpuscular HGB Conc 29.8 g/dl (32-36); Mean Corpuscular Hemoglobin 26.5 pg (26-34); Mean Corpuscular Volume 89.1 fl (80-100); Mean Platelet Volume 8.9 fl (7.4-10.4); Monocytes Absolute Auto 0.7 K/mm3 (0.1-0.6); Monocytes Percent Auto 4.7 % (2.6-8.5); Neutrophils Absolute Auto 7.8 K/mm3 (1.3-6.7); Neutrophils Percent Auto 56.7 % (45.5-73.1); Platelet Count Result 417 k/mm3 (150-375); Red Blood Count 2.94 M/mm3 (4.2-5.4); White Blood Count 13.8 K/mm3 (4.5-10.0)
--- NOTE | 2023-02-13 10:55 | P.PNNP_ITS ---
Progress Note: A&P Assessment and Plan (1) JENNIFER (acute kidney injury): Code(s): N17.9 - Acute kidney failure, unspecified Status: Acute Assessment and Plan: * slow improvement noted * creatinine normal in June 2022 * JENNIFER/ARF in September 2022 with a discharge creatinine of 1.5mg/dl * unclear if her creatinine returned to normal after that * renal ultrasoun in September 2022 did show mild atrophy * hence, she may have some component of CKD due to DM, HTN, vascular disease, and age * urine lytes nonprerenal and FeUrea above 50% * follow repeat labs and UOP (2) Hyperkalemia: Code(s): E87.5 - Hyperkalemia Status: Acute Assessment and Plan: * resolved * follow trend of K+ (3) Chronic foot ulcer: Code(s): L97.509 - Non-pressure chronic ulcer of other part of unspecified foot with unspecified severity Status: Acute Assessment and Plan: * extensive history of severe vascular disease in LEs complicated by wound inf ections * this seems to be the case with right heal on this admission * on broad spectrum antibiotics (4) HTN (hypertension), benign: Code(s): I10 - Essential (primary) hypertension Status: Chronic Assessment and Plan: * reasonable control * follow trend of hemodynamics (5) DM2 (diabetes mellitus, type 2): Code(s): E11.9 - Type 2 diabetes mellitus without complications Status: Chronic Assessment and Plan: * follow accu-cheks * glycemic control per hospitalists Will continue to follow. Subjective Date/time seen: 02/13/23 10:55 Interval history: Follow-up for acute renal failure/acute kidney injury and hyperkalemia. Slow improvement noted in renal function as noted by trend of labs; no other issues/events overnight or earlier this morning; no apparent distress noted. Exam Narrative: General: WD/WN AA female in NAD Heart: normal S1 and S2; no rub Lungs: clear to auscultation Abdomen: soft, nontender, nondistended, positive bowel sounds Extremities: no cyanosis or clubbing; no edema Skin: dressings in place on feet Objective Data Vital Signs Vital Signs: Vital Signs Temp Pulse Resp BP Pulse Ox O2 Del Method 02/13/23 08:00 Room Air 02/13/23 06:27 98.1 F 83 19 135/58 L 100 02/12/23 20:00 98.3 F 88 18 146/95 H 97 02/12/23 20:00 Room Air 02/12/23 14:00 98.1 F 64 18 118/69 99 Intake/Output Intake/Output: Intake & Output 02/10/23 02/11/23 02/12/23 02/13/23 23:59 23:59 23:59 23:59 Intake Total 3700 1550 2230 340 Output Total 1100 1550 1875 550 Balance 2600 0 355 -210 Meds/Results Medications: Active Medications Generic Name Dose Route Start Last Admin Trade Name Freq PRN Reason Stop Dose Admin Hydrocodone Bitart/Acetaminophen 1 tab 02/08/23 23:53 Hydrocodone/Acetaminophen (*Crx) 5-325 Mg Tablet PO Q4H PRN Pain Rated 4-6 Ascorbic Acid 500 mg 02/09/23 09:00 02/13/23 08:30 Ascorbic Acid 500 Mg Tablet PO 500 mg BID [place] Administration Bisacodyl 10 mg 02/08/23 23:53 Bisacodyl 10 Mg Suppository RECTAL DAILY PRN Constipati
--- NOTE | 2023-02-13 10:55 | PM.PNNEP ---
Progress Note: A&P Assessment and Plan (1) JENNIFER (acute kidney injury): Code(s): N17.9 - Acute kidney failure, unspecified Status: Acute Assessment and Plan: slow improvement noted creatinine normal in June 2022 JENNIFER/ARF in September 2022 with a discharge creatinine of 1.5mg/dl unclear if her creatinine returned to normal after that renal ultrasoun in September 2022 did show mild atrophy hence, she may have some component of CKD due to DM, HTN, vascular disease, and age urine lytes nonprerenal and FeUrea above 50% follow repeat labs and UOP (2) Hyperkalemia: Code(s): E87.5 - Hyperkalemia Status: Acute Assessment and Plan: resolved follow trend of K+ (3) Chronic foot ulcer: Code(s): L97.509 - Non-pressure chronic ulcer of other part of unspecified foot with unspecified severity Status: Acute Assessment and Plan: extensive history of severe vascular disease in LEs complicated by wound infections this seems to be the case with right heal on this admission on broad spectrum antibiotics (4) HTN (hypertension), benign: Code(s): I10 - Essential (primary) hypertension Status: Chronic Assessment and Plan: reasonable control follow trend of hemodynamics (5) DM2 (diabetes mellitus, type 2): Code(s): E11.9 - Type 2 diabetes mellitus without complications Status: Chronic Assessment and Plan: follow accu-cheks glycemic control per hospitalists Will continue to follow. Subjective Date/time seen: 02/13/23 10:55 Interval history: Follow-up for acute renal failure/acute kidney injury and hyperkalemia. Slow improvement noted in renal function as noted by trend of labs; no other issues/events overnight or earlier this morning; no apparent distress noted. Exam Narrative: General: WD/WN AA female in NAD Heart: normal S1 and S2; no rub Lungs: clear to auscultation Abdomen: soft, nontender, nondistended, positive bowel sounds Extremities: no cyanosis or clubbing; no edema Skin: dressings in place on feet Objective Data Vital Signs Vital Signs: Vital Signs Temp Pulse Resp BP Pulse Ox O2 Del Method 02/13/23 08:00 Room Air 02/13/23 06:27 98.1 F 83 19 135/58 L 100 02/12/23 20:00 98.3 F 88 18 146/95 H 97 02/12/23 20:00 Room Air 02/12/23 14:00 98.1 F 64 18 118/69 99 Intake/Output Intake/Output: Intake & Output 02/10/23 02/11/23 02/12/23 02/13/23 23:59 23:59 23:59 23:59 Intake Total 3700 1550 2230 340 Output Total 1100 1550 1875 550 Balance 2600 0 355 -210 Meds/Results Medications: Active Medications Generic Name Dose Route Start Last Admin Trade Name Freq PRN Reason Stop Dose Admin Hydrocodone Bitart/Acetaminophen 1 tab 02/08/23 23:53 Hydrocodone/Acetaminophen (*Crx) 5-325 Mg Tablet PO Q4H PRN Pain Rated 4-6 Ascorbic Acid 500 mg 02/09/23 09:00 02/13/23 08:30 Ascorbic Acid 500 Mg Tablet PO 500 mg BID [place] Administration Bisacodyl 10 mg 02/08/23 23:53 Bisacodyl 10 Mg Suppository RECTAL DAILY PRN Constipation Cyanocobalamin 1,000 mcg 02/09/23 09:00 02/13/23 08:30 Cyanocobalamin 1,000 Mcg Tablet PO 1,000 mcg DAILY [place] Administration Dextrose 12.5 gm 02/08/23 21:59 Dextrose 50% 25 Gm/50 Ml Syringe IV PUSH PRN PRN Hypoglycemia Protocol Gabapentin 100 mg 02/09/23 09:00 02/13/23 08:30 Gabapentin 100 Mg Capsule PO 100 mg TID [place] Administration Glucagon 1 mg 02/08/23 21:59 Glucagon For Inj 1 Mg Vial IM PRN PRN Hypoglycemia Protocol Glucose 15 gm 02/08/23 21:59 Glucose Oral Gel 15 Gm Of Glucse In 37.5 Gm Tube PO PRN PRN Hypoglycemia Protocol Dextrose 1,000 mls @ 100 mls/hr 02/08/23 21:59 Dextrose 5% 1,000 Ml IVPB PRN PRN Hypoglycemia Protocol Meropenem 500 mg/ Sodium 100 mls @ 200 mls/hr 02/10/23 13:4
[2023-02-13 11:11] LABS: Anisocytosis 1+ (NORMAL); Platelet Estimate Increased (Adequate)
[2023-02-13 11:39] LABS: Glucose Point of Care 138 mg/dl (65-105)
[2023-02-13 12:00] LABS: Schistocytes None Seen (NORMAL)
[2023-02-13 14:00] VITALS: BP 141/63; PULSE 76; RESP 20; TEMP 36.9; O2SAT 99
--- NOTE | 2023-02-13 16:52 | PM.DS ---
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: Code(s): I70.25 - Atherosclerosis of [place] arteries of other extremities with ulceration; L97.509 - Non-pressure chronic ulcer of other part of unspecified foot with unspecified severity Status: Acute (6) Peripheral artery disease: Code(s): I73.9 - Peripheral vascular disease, unspecified Status: Chronic (7) HTN (hypertension), benign: Code(s): I10 - Essential (primary) hypertension Status: Chronic (8) Dementia: Code(s): F03.90 - Unspecified dementia, unspecified severity, without behavioral disturbance, psychotic disturbance, mood disturbance, and anxiety Status: Acute (9) DM2 (diabetes mellitus, type 2): Code(s): E11.9 - Type 2 diabetes mellitus without complications Status: Chronic DS: Summary Hospital Course Reason for hospitalization: 77yo female with dementia, DM and HTN here for tongue swelling. Please see H&P for details. Hospital Course: Patient brought into the ED for right facial edema and tongue swelling. Tongue appeared edematous but patient without complaints. CT scan showing soft tissue swelling with SQ edema overlying the right mandible but no masses or fluid collections. Possible thyroid nodules but thyroid US showing goiter but nothing requiring biopsy. Patient is edentulous. She received steroids in ED but this was not continued. Unasyn started for possible anaerobic infection and abx adjusted for her feet wounds. Symptoms appear to have resolved and she is eating normally. She ws recently restarted on lisinopril per family and this was stopped on admission. No plans to resume this medication; allergy placed on list. Patient had JENNIFER with Cr 2.6 with BUN 60 on admission. Baseline Cr is unclear but suspect underlying CKD. Cr normal earlier this year but has been noted to have elevated Cr when hospitalized previously. Suspect related to dehydration, FRANNY inhibitor and acute/chronic infection. She may have underlying CKD from PAD, DM and HTN. Renal US in September showing mild renal atrophy. Potassium 6.7 and was treated. Related to the JENNIFER and FRANNY inhibitor. Potassium elevated again and was treated. Repeat potassium normal now. Cr trended down with IV fluids to 1.6. Nephrology consulted and appropriate testing ordered. Appreciate their input. Patient with chronic anemia with Hgb 7-8 range mostly. Patient's hemoglobin was 5.8 on 02/10 that was verified (but drawn out of a line). She received one unit of PRBC. Source of the blood loss unclear; possible factitious. CT scan Ch/A/P showing no acute blood loss. Protonix added. Stool guaiac negative. No active GI bleeding noted. Patient was asymptomatic from this. She received 1U PRBC and Hgb climbed to 8.1. Suspect may have been a false reading result since hgb 5.8->8.1 with just one unit. Hgb remained stable in the 7-8 range. Patient was hospitalized here in May 2022 and found to have right foot abscess s/p debridement and wound vac. Was discharged on IV abx for 6 weeks for osteomyelitis. CTA showing occlusion of the Rt anterior tibial artery with reconstitution of the DP artery below the ankle.? There was [id number] stenosis of the right peroneal and posterior tibial arteries.? She had occlusion of the left anterior tibial artery.? She had moderate to severe stenosis along the left posterior tibial artery with runoff below the ankle.? Patient was seen here
[2023-02-13 17:31] LABS: Glucose Point of Care 116 mg/dl (65-105)
[2023-02-13 17:50] LABS: SARS-CoV-2 RNA PCR Negative (Negative)
[2023-02-13] MEDS: NEOMYCIN/POLYMYXIN/BACITRACIN OINTMENT PACKET 1 PACKET (18:30)
[2023-02-13 20:18] LABS: Glucose Point of Care 108 mg/dl (65-105)
== END 2023-02-13 23:41 | DRG 683 ==
LOC: ANHED 13:40 → ANHIMU 21:34 → ANH3MEDSUR 02-11 17:11
PROVIDERS: Internal Medicine; Internal Medicine Nephrology; Admitting Provider Family Medicine; Emergency Provider Emergency Medicine; Visit Provider Internal Medicine
DX: N17.9 Acute kidney failure, unspecified (principal); E11.52 Type 2 diabetes mellitus with diabetic peripheral angiopathy with gangrene; I70.263 Atherosclerosis of native arteries of extremities with gangrene, bilateral legs; E11.621 Type 2 diabetes mellitus with foot ulcer; L97.509 Non-pressure chronic ulcer of other part of unspecified foot with unspecified severity; E87.5 Hyperkalemia; I10 Essential (primary) hypertension; L97.529 Non-pressure chronic ulcer of other part of left foot with unspecified severity; L97.519 Non-pressure chronic ulcer of other part of right foot with unspecified severity; D64.9 Anemia, unspecified; E04.9 Nontoxic goiter, unspecified; E78.2 Mixed hyperlipidemia; R22.0 Localized swelling, mass and lump, head; S92.421A Displaced fracture of distal phalanx of right great toe, initial encounter for closed fracture; F03.90 Unspecified dementia, unspecified severity, without behavioral disturbance, psychotic disturbance, mood disturbance, and anxiety; Z20.822 Contact with and (suspected) exposure to COVID-19
CPT/HCPCS: 36415; 36430; 36569; 70490; 71250; 73630; 74176; 76536; 80048; 80053; 80069; 80076; 80202; 81001; 81050; 82274; 82550; 82570; 82948; 83735; 84100; 84132; 84156; 84300; 84439; 84443; 84480; 84540; 85014; 85018; 85025; 85999; 86850; 86900; 86901; 86923; 87040; 87635; 87636; 93005; 93880; 94640; 96361; 96365; 96375; 99285; A9270; C9113; J0295; J0612; J1815; J1836; J2185; J2930; J3370; J7030; J7050; P9016

== ENCOUNTER 2024-10-06 13:48 | Emergency (ER) | payer OTHER, SELFPAY ==
[2024-10-06] VITALS (30 sets, daily range): BP systolic 150–191; BP diastolic 59–114; PULSE 59–63; RESP 14; TEMP 36.6–37.1; O2SAT 99–100
--- NOTE | ~2024-10-06 | CT_ITS ---
EXAMINATION: CT abdomen pelvis wo con DATE: 10/06/2024 22:05 INDICATION: rectal distention TECHNIQUE: Computed tomography (CT) of the abdomen and pelvis was performed without intravenous contr ast. Automated exposure control and iterative reconstruction technique were employed. The dose-length product was 969.04 mGy-cm. COMPARISON: 02/10/2023. FINDINGS: Lower thorax: Coronary artery, aortic valve, and mitral calcification. Mild cardiac megaly. Liver: Normal. Biliary/Gallbladder: Cholelithiasis. No inflammatory changes. No bile duct dilation. Pancreas: No mass or duct dilation. Spleen: Normal. Adrenals:No mass. Kidneys: No suspicious mass, obstructing stone, or hydronephrosis. GI tract: No small bowel dilation. Large volume of colonic feces. The rectum is dilated to 8.2 cm by partially formed stool, with mild surrounding stranding and wall thickening. Eccentric wall thickenin g at the anus/rectum. Normal appendix. Mesentery/Peritoneum: No ascites, mass, or free air. Retroperitoneum: No mass. Atherosclerotic calcifications of intra-abdominal arterial vessels. Pelvis: Multiple uterine fibroids. Normal appearing bilateral ovaries. The bladder is mostly empty. Soft Tissues: Small fat-containing left inguinal hernia. Moderate sized, gated appearing fat-containi ng umbilical hernia. Dystrophic calcifications in the left lateral abdominal wall subcutaneous fat, p ossibly from prior injury or injection granuloma. Bones: No acute osseous finding. IMPRESSION: CT findings suggestive of fecal impaction and constipation. Mild surrounding wall thickening/inflamma tion as can be seen with early stercoral colitis. Eccentric distal rectal wall thickening, correlate for clinical findings of proctitis or rectal mass. Reviewed, dictated and finalized at location K. IMPRESSION: CT findings suggestive of fecal impaction and constipation. Mild surrounding wa ll thickening/inflammation as can be seen with early stercoral colitis. Eccentric distal rectal wall thickening, correlate for clinical findings of pro ctitis or rectal mass.
--- NOTE | ~2024-10-06 | US_ITS ---
EXAMINATION: US pelvic complete DATE: 10/06/2024 20:25 INDICATION: vaginal bleeding TECHNIQUE: Multiple transabdominal sonographic images of the pelvis were obtained. COMPARISON: CT cap 03-03 FINDINGS: Uterus: 10.2 x 5.7 x 7.0 cm. Multiple masslike areas within the uterine parenchyma, measuring up to 6 .0 cm Endometrial complex is partially obscured by fibroids and difficult to measure. Right Ovary: cm. Vascular flow is present. Left Ovary: cm. Vascular flow is present. There is no free fluid in the pelvis. Distended rectum which displaces the uterus and bladder. IMPRESSION: Multiple likely uterine fibroids. Endometrial stripe is not adequately visualized in this transabdominal examination. Bilateral ovaries not visualized. Rectal distention. Reviewed, dictated and finalized at location K. IMPRESSION: Multiple likely uterine fibroids. Endometrial stripe is not adequately visualized in this transabdominal examinat ion. Bilateral ovaries not visualized. Rectal distention.
--- OUTSIDE RECORDS SUMMARY | 2024-10-06 15:39 | XMS_ITS | Referral Summary ---
Author Organization [facility] Address [address] [place] [address] Care Team Providers Care Dental Appliance Repairer Name Role Phone Isidoro Pace MD Primary Care Provider [phone] Allergies No known active allergies Medications ascorbic acid 500 mg tablet,chewable Take 1 tablet/chew tab (500 mg total) by mouth daily Active povidone-iodine (Betadine) 10 % external solution Apply 100 mL (10 g total) topically daily Clean right heel with wound cleanser, apply betadine, apply calcium alginate; wrap with Kerlix Active bisacodyL (DULCOLAX) 10 mg suppositoryIndic ations:constipat ion Insert 1 suppository (10 mg total) into the rectum daily as needed for constipation Active magnesium citrate solution Take 296 mL by mouth daily as needed (constipation) If no results from enema Active clotrimazole 1 % cream Apply 1 Application topically 2 (two) times a day Groin and molly area Active sodium phosphates (FLEET) 19-7 gram/118 mL enema Insert 1 enema (118 mL total) into the rectum daily as needed (constipation) If no results 1 day after suppository Active gabapentin (NEURONTIN) 100 mg capsule Take 1 capsule (100 mg total) by mouth 3 (three) times a day Active lisinopriL (PRINIVIL,ZESTRI L) 20 mg tablet Take 1 tablet (20 mg total) by mouth daily Active metFORMIN (GLUCOPHAGE) 500 mg tablet Take 1 tablet (500 mg total) by mouth 2 (two) times a day with meals Active magnesium hydroxide (MILK OF MAGNESIA) suspension 400 mg/5 mL Take 30 mL by mouth nightly as needed (constipation) Active white petrolatum-estate tax examiner al oiL (EUCERIN) creamIndications :skin irritation Apply 1 Application topically 2 (two) times a day BLE Active mirtazapine (REMERON) 7.5 mg tablet Take 1 tablet (7.5 mg total) by mouth nightly Active multivitamin tabletIndication s:Vitamin Deficiency Prevention Take 1 tablet by mouth daily Active NIFEdipine XL 30 mg 24 hr tablet Take 1 tablet (30 mg total) by mouth daily 3 Active polyethylene glycol (MIRALAX) 17 gram packetIndication s:constipation Take 1 packet (17 g total) by mouth daily Active Saccharomyces boulardii (FLORASTOR) 250 mg capsule Take 1 capsule (250 mg total) by mouth 2 (two) times a day 3 Active senna-docusate (PERICOLACE) 8.6-50 mg Take 1 tablet by mouth nightly Active silver sulfadiazine (SILVADENE, SSD) 1 % cream Apply 1 g topically daily Apply to right medial foot topically every day shift for right medial foot ulcer. Right heel ulcer and left heel ulcer Active HYDROcodone-acet aminophen (NORCO) 5-325 mg per tabletIndication s:Pain Take 1 tablet by mouth every 8 (eight) hours as needed for pain 60 tablet 3 Active QUEtiapine (SEROquel) 25 mg tablet Take 1 tablet (25 mg total) by mouth 2 (two) times a day 60 tablet 3 Active Active Problems Problem Noted Date Diagnosed Date Diabetic ulcer of foot assoc iated with type 2 diabetes mellitus, with necrosis of muscle, unspecified laterality, unspecified part of foot 10/12/2022 Palliative care encounter Social History Tobacco Use Types Packs/Day Years Used Date Smoking Tobacco: Never Smokeless Tobacco: Never Tobacco Cessation:Counseling Given: Not Answered Social Connection and Isolation Panel [NHANES] A nswer Date Recorded In a typical week, how many times do you talk on the phone with family, friends, or neighbors? Three times a week 10/12/2022 How often do you get togethe r with friends or relatives? Three times a week 10/12/2022 How often do you attend chur ch or christianity services? Never 10/12/2022 Do you belong to any clubs o r organizations such as adventist groups, unions, fraternal or athletic groups, or school groups? No 10/12/2022 How often do you attend meet ings of the clubs or organizations you belong to? Never 10/12/2022 Are you , , di vorced, , never , or living with a partner? 10/12/2022 Overall Financial Resource Strain (CARDIA) Answe r Date Recorded How hard is it for you to pa y for the very basics like food, housing, medical care, and heating? Not hard at all 10/12/2022 Hunger Vital Sign Answer Date Recorded Within the past 12 months, y ou worried that your food would run out before you got the money to buy more. Never true 10/13/19 23 Within the past 12 months, t he food you bought just didn't last and you didn't have money to get more. Never true 10/12/2022 PRAPARE - Transportation Answer Date Re corded In the past 12 months, has l ack of transportation kept you from medical appointments or from getting medications? No 09/2022 In the past 12 months, has l ack of transportation kept you from meetings, work, or from getting things needed for daily living? No 10/12/2022 Housing Stability Vital Sign Answer Kennedy e Recorded In the last 12 months, was t here a time when you were not able to pay the mortgage or rent on time? No 10/12/2022 In the last 12 months, how many places have you lived? 1 10/12/2022 In the last 12 months, was t here a time when you did not have a steady place to sleep or slept in a [facility] (including now)? No 10/12/2022 Personal Safety Answer Date Recorded Have you ever been in or are you currently in a harmful physical or emotional relationship or is someone making you feel afraid or unsafe? Denies 10/28/2022 Comments Unknown Sex and Gender Information Value Date Recorded Sex Assigned at Not on file Legal Sex Female 8:16 PM DAIRY FEED SALES CONSULTANT Gender Identity Not on file Sexual Orientation Not on file Last Filed Vital Signs Vital Sign Reading Time Taken Comments Blood Pressure 170/91 10/28/2022 2:30 PM CDT Pulse 79 10/28/2022 2:30 PM CDT Temperature 36.5 C (97.7 F) 10/28/2022 10:10 AM CDT Respiratory Rate 18 10/28/2022 2:30 PM CDT Oxygen Saturation 98% 10/28/2022 12:00 PM CDT Inhaled Oxygen Concentration - - Weight 73 kg (160 lb 15 oz) 10/28/2022 10:10 AM CDT Height 162.6 cm (5' 4.02 ) 10/28/2022 10:10 AM C DT Body Mass Index 27.61 10/28/2022 10:10 AM CDT Plan of Treatment Not on file Procedures Procedure Name Priority Date/Time Associated Diagnosis Comments EGFR Routine 11/18/2022 5:15 AM CDT HEMOGLOBIN A1C After X-Ray 06/01/2017 4:34 AM DAIRY FEED SALES CONSULTANT LIPID PANEL After X-Ray 06/01/2017 4:34 AM DAIRY FEED SALES CONSULTANT from Last 3 Months or Most Recently Relevant to Health Maintenance Results * eGFR (11/18/2022 5:15 AM CDT) eGFR 61 mL/min/1. 73 m2 [facility] Comment: Interpretive Data Reference Interval Normal >/= 90 mL/min/1.73m2 Mildly decreased* 60 - 89 mL/min/1.73m2 Mildly to moderately decreased 45 - 59 mL/min/1.73m2 Moderately to severely decreased 30 - 44 mL/min/1.73m2 Severely decreased 15 - 29 mL/min/1.73m2 Kidney Failure < 15 mL/min/1.73m2 *Relative to young adult level Estimated glomerular filtration rate is determined by the 2020 CKD-EPI equation recommended by the National Kidney Foundation (A Unifying Approach to GFR Estimation: Recommendations of the NKF-ASK Task Force on Reassessing the Inclusion of Race in Diagnosing Kidney Disease, JASN 2020). The CKD-EPI equation should not be used for patients with unstable renal function and has not been validated in children and those over 70. Current interpretive data was last reviewed 2021. Blood 11/18/2022 5:15 AM CDT 11/18/2022 9:30 AM CDT Isidoro Pace MD LAB BLOOD ORDERABLES Final Result Performing Organization Address [facility] Co de Phone Number [facility] [address] [place] [address] * (ABNORMAL) Hemoglobin A1c (06/01/2017 4:34 AM DAIRY FEED SALES CONSULTANT) Hgb A1C 10.9(H) 4.0 - 6.0 % [facility] Estimated Average Glucose 266 mg/dL [facility] Comment: The ADA recommends reporting an estimated Average Glucose (eAG) with all Hemoglobin A1c results using the equation derived from a study of 507 normal and diabetic adults. Minority populations were underrepresented and children were not included. (Diabetes Care 31:1098-2531, 2008). The eAG is not equivalent to a fasting glucose. Blood specimen (specimen) 06/01/2017 4:34 AM DAIRY FEED SALES CONSULTANT 06/01/2017 6:13 AM DAIRY FEED SALES CONSULTANT Narrative [facility] - 06/01/2017 6:30 AM DAIRY FEED SALES CONSULTANT us Tres Segovia MD LAB BLOOD ORDERABLES Final Result Performing Organization Address [facility] Co de Phone Number [facility] [address] Department [place] [address] * (ABNORMAL) Lipid panel (06/01/2017 4:34 AM DAIRY FEED SALES CONSULTANT) Cholesterol 256(H) 30 - 200 mg/dL [facility] Comment: Interpretive Data Desirable: <200 mg/dL Borderline high: 200-239 mg/dL High: > or = 240 mg/dL Literature Reference: National Cholesterol Education Program (NCEP) Expert Panel on Detection, Evaluation, and Treatment of High Blood Cholesterol in Adults (Adult Treatment Panel III). Circulation 2004; 110:227. Current interpretive data was last revised on 2015. Triglycerides 78 0 - 150 mg/dL [facility] Comment: Interpretive Data Desirable: < 150 mg/dL Borderline High: 150 - 199 mg/dL High: 200 - 499 mg/dL Very High: > or = 499 mg/dL Literature Reference: See Cholesterol Current interpretive data was last revised on 2015. HDL 69 >=40 mg/dL [facility] Comment: Interpretive Data Less than 40 mg/dL - low; A major risk factor for heart disease. Greater than or equal to 60 mg/dL - High; considered protective of heart disease. Literature Reference: See Cholesterol Current interpretive data was last revised on 2015. LDL, calculated 171(H) 10 - 129 mg/dL [facility] Comment: Interpretive Data Optimal: < 100 mg/dL Near Optimal: 100 - 129 mg/dL Borderline High: 130 - 159 mg/dL High: 160 - 189 mg/dL Very high: > or = 190 mg/dL Literature Reference: See Cholesterol Current interpretive data was last revised on 2015. Non-HDL Cholesterol 187 mg/dL [facility] Comment: Interpretive Data When triglycerides are >200 mg/dL, non-HDL C is a secondary target of therapy, with a goal 30 mg/dL higher than the identified LDL-C goal. Reference: See Cholesterol Reference. Current interpretive data was last revised 2015. Blood specimen (specimen) 06/01/2017 4:34 AM DAIRY FEED SALES CONSULTANT 06/01/2017 6:31 AM DAIRY FEED SALES CONSULTANT Narrative [facility] - 06/01/2017 7:13 AM DAIRY FEED SALES CONSULTANT Tres Segovia MD LAB BLOOD ORDERABLES Final Result [facility] [address] Department [place] [address] from Last 3 Months or Most Recently Relevant to Health Maintenance Additional Health Concerns Infection Onset Date Last Indicated MDR gram neg/ESBL 10/17/2022 10/17/2022 Insurance IDPA [facility] MEDIC[facility] HMO [facility] MED[facility] HMO Advance Directives For more information, please contact: [phone] Documents on File Type Date Recorded Patient Export Packer Expl anation ADVANCE DIRECTIVE 10/24/2022 2:34 PM POLST - Phys Order for PT Preferences ADVANCE DIRECTIVE 10/17/2022 1:59 PM Power of [place]house Supervisor-Medical * Full Code (Latest Code Status on File) Date Activated Date Inactivated Comments 10/12/2022 2:15 AM 10/20/2022 8:31 PM Healthcare Agents on File Name Relationship Healthcare Agent [facility] p Communication Osvaldo Rae Daughter Health Care Agent Care Teams Dental Appliance Repairer Relationship Specialty Start Date End Date Isidoro Pace MD [address] [place] [address] PCP - General Internal Medicine 10/13/22
--- OUTSIDE RECORDS SUMMARY | 2024-10-06 15:39 | XMS_ITS | Clinical Summary ---
Author Organization [facility] Address [address] [place] [address] Phone Care Team Providers Care Supervisor Line Department Name Role Phone Edmund Botello MD Primary Care Provider [phone] Allergies No known active allergies Medications atorvastatin (LIPITOR) 80 mg tablet atorvastatin 80 mg tablet Active glipiZIDE (GLUCOTROL XL) 10 mg Extended Release 24 hour tablet glipizide ER 10 mg tablet, extended release 24 hr Active lisinopriL (PRINIVIL) 20 mg tablet every 24 hours. Acti ve metFORMIN (GLUCOPHAGE) 1,000 mg tablet every 24 hours. Active NIFEdipine (PROCARDIA XL) 60 mg Extended Release 24 hour tablet every 24 hours. Acti ve hydroCHLOROthia zide 50 mg tablet Take 40 mg by mouth daily. Active aspirin (ECOTRIN EC) 81 mg Tablet, Delayed Release (E.C.) Take 1 Tablet (81 mg) by mouth daily. 30 Tablet 1 Active cyanocobalamin 1,000 mcg Tablet Take 1 Tablet (1,000 mcg) by mouth daily. 30 Tablet 1 Active pyridoxine (VITAMIN B6) 50 mg tablet Take 1 Tablet (50 mg) by mouth daily. 30 Tablet 1 Active Active Problems Problem Noted Date Diagnosed Date Type 2 diabetes mellitus with hyperglycemia 12/10 Cerebrovascular accident (CVA) Hypertensive emergency Benign hypertension History of cerebrovascular disease Abnormal CT of brain Acute alteration in mental status Social History Tobacco Use Types Packs/Day Years Used Date Smoking Tobacco: Former Cigarettes Q uit: 1995 Smokeless Tobacco: Never Alcohol Use Standard Drinks/Week Comments Not Currently 0 (1 standard drink = 0.6 oz pur e alcohol) Comments Unknown Sex and Gender Information Value Date Recorded Sex Assigned at Not on file Legal Sex Female 1:47 AM CDT Gender Identity Not on file Sexual Orientation Not on file Last Filed Vital Signs Vital Sign Reading Time Taken Comments Blood Pressure 172/57 01/06/2021 3:58 PM CDT Pulse 65 01/06/2021 3:58 PM CDT Temperature 36.8 C (98.2 F) 01/06/2021 3:58 PM CDT Respiratory Rate 18 01/06/2021 3:58 PM CDT Oxygen Saturation 100% 01/06/2021 3:58 PM CDT Inhaled Oxygen Concentration - - Weight 95.8 kg (211 lb 3.2 oz) 01/03/2021 5:14 A M CDT Height 162.6 cm (5' 4 ) 01/03/2021 2:09 AM CDT Body Mass Index 36.25 01/03/2021 2:09 AM CDT Plan of Treatment Health Maintenance Due Date Last Done Comments DIABETES ANNUAL RETINAL EXAM 1963 DIABETES MICROALBUMIN ANNUAL SCREEN 1963 DTAP/TDAP/TD VACCINES (1 - Tdap) 1965 PNEUMOCOCCAL VACCINE 50+ YEA RS (1 of 2 - PCV) 1965 ZOSTER VACCINE (1 of 2) 1996 OSTEOPOROSIS SCREENING 2011 DIABETES ANNUAL FOOT EXAM 01/17/2019 01/17/2018 RSV VACCINE (60+ or ) (1 - 1-dose 75+ series) 2021 DIABETES HBA1C Q 6 MONTHS 07/06/20212020, 10/25/2017, 06/01/2017 LDL CHOLESTEROL ANNUAL 01/03/2022 01/03/2021 INFLUENZA VACCINE (#1) 2024 Procedures Procedure Name Priority Date/Time Associated Diagnosis Comments LIPID PANEL Routine 01/03/2021 3:14 AM CDT HEMOGLOBIN A1C Routine 01/03/2021 3:14 AM CDT from Last 3 Months or Most Recently Relevant to Health Maintenance Results * (ABNORMAL) HEMOGLOBIN A1C (01/03/2021 3:14 AM CDT) HEMOGLOBIN A1C 7.2(H) <=5.6 % 01/03/2021 9:27 AM CDT [facility] EST. AVG GLUCOSE, A1C 160 mg/dL 01/03/2021 9:27 AM CDT [facility] Blood Venipuncture / Unknown 01/03/2021 3:14 AM CDT 01/03/2021 3:31 AM CDT Narrative [facility] - 01/03/2021 9:27 AM CDT HGB A1C INTERPRETATION NORMAL: <5.7% PRE-DIABETES: 5.7 - 6.4% DIABETES: 6.5% OR GREATER us Yeyo Aguillon MD CHEMISTRY ORDERABLES Final Result [facility] CLIA# [id number] [place] [address] * LIPID PANEL (01/03/2021 3:14 AM CDT) CHOLESTEROL 117 <200 mg/dL 01/04/2021 1:11 AM CDT [facility] TRIGLYCERIDE 90 <150 mg/dL 01/04/2021 1:11 AM CDT [facility] HDL 47 40 - 59 mg/dL 01/04/2021 1:11 AM CDT [facility] LDL CALCULATED 52 <100 mg/dL 01/04/2021 1:11 AM CDT [facility] NON-HDL CHOLESTEROL 70 <130 mg/dL 01/04/2021 1:11 AM CDT [facility] Blood Venipuncture / Unknown 01/03/2021 3:14 AM CDT 01/03/2021 3:31 AM CDT Narrative [facility] - 01/04/2021 1:11 AM CDT TOTAL CHOLESTEROL mg/dL Desirable <200 Borderline high 200-239 High >=240 TRIGLYCERIDES mg/dL Normal <150 Borderline high 150-199 High 200-499 Very high >=500 HDL CHOLESTEROL mg/dL Low <40 Normal 40-59 Desirable >=60 NON HDL CHOLESTEROL mg/dL Optimal <130 Near Optimal 130-159 Borderline High 160-189 Very High >=190 CALCULATED LDL mg/dL LDL <70, OPTIMAL if have Atherosclerotic cardiovascular disease (ASCVD) or intermediate or higher (>7.5%) 10 year risk of ASCVD including most adults with diabetes. LDL <100, Optimal in adult patients with low (<7.5%) 10 year ASCVD risk LDL 100-160, Suboptimal LDL >160, High LDL >190, Very high ATPIII Guidelines Reference Ranges for Lipid Panels (NCEP/AMA) . us [place] CHEMISTRY ORDERABLES Final Res ult [facility] CLIA# [id number] [place] [address] from Last 3 Months or Most Recently Relevant to Health Maintenance Insurance Advance Directives For more information, please contact: [phone] * Full Code (Latest Code Status on File) Date Activated Date Inactivated Comments 01/03/2021 7:56 AM 01/06/2021 8:29 PM Care Teams Supervisor Line Department Relationship Specialty Start Date End Date Edmund Botello MD PCP - General Family Practice 01/03/21
--- OUTSIDE RECORDS SUMMARY | 2024-10-06 15:39 | XMS_ITS | Encounter Summary ---
Author Organization [facility] Address [address] [place] [address] Phone Care Team Providers Care Senior Asic Design Engineer Name Role Phone No, Physician Primary Care Provider [phone] Isidoro Pace MD Primary Care Provider [phone] Encounter Details Date Type Department Care Team (Latest Contact Info) Description 06/06/2017 Orders Only [facility] CONVERSION Scanning, Provider Social History Tobacco Use Types Packs/Day Years Used Date Smoking Tobacco: Never Assessed Comments Unknown Sex and Gender Information Value Date Recorded Sex Assigned at Not on file Legal Sex Female 8:16 PM WARD SERVICE SUPERVISOR Gender Identity Not on file Sexual Orientation Not on file documented as of this encounter Plan of Treatment Not on file documented as of this encounter Procedures Procedure Name Priority Date/Time Associated Diagnosis Comments VASCULAR LABORATORY REPORT 06/06/2017 10:28 PM WARD SERVICE SUPERVISOR documented in this encounter Results * VASCULAR LABORATORY REPORT (06/06/2017 10:28 PM WARD SERVICE SUPERVISOR) Anatomical Region Laterality Modality Ultrasound us Provider Scanning CV VASCULAR PROCEDURES Final R esult documented in this encounter Visit Diagnoses Not on filedocumented in this encounter Additional Health Concerns Infection Onset Date Last Indicated Resolved Time 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
--- OUTSIDE RECORDS SUMMARY | 2024-10-06 15:39 | XMS_ITS | Encounter Summary ---
Author Organization [facility] Address [address] [place] [address] Care Team Providers Care Numerical Control Tool Programmer Name Role Phone Edmund Botello MD Primary Care Provider [phone] Reason for Visit * Reason Onset Date Comments Suspected demtia, behavioral changes at home 01/05/2021 Left voicemail message for Sally Amaya on cell phone Encounter Details Date Type Department Care Team (Late st Contact Info) Description 01/05/2021 Telephone [facility] Admitting [address] [place] [address] [place] [address] [facility] [address] [place] [address] Suspected demtia, behavioral changes at home (Left voicemail message for Dr. Amaya on cell phone) Social History Tobacco Use Types Packs/Day Years [...] on file Sexual Orientation Not on file COVID-19 Exposure Response Date Recorded In the last month, have you been in contact with someone who was confirmed or suspected to have Coronavirus / COVID-19? No / Unsure 01/03/2021 2:19 AM CDT documented as of this encounter Plan of Treatment Not on file documented as of this encounter Visit Diagnoses Not on filedocumented in this encounter Care Teams Numerical Control Tool Programmer Relationship Specialty Start Date End Date Edmund Botello MD PCP - General Family Practice 01/03/21 documented as of this encounter
--- OUTSIDE RECORDS SUMMARY | 2024-10-06 15:39 | XMS_ITS | Clinical Summary ---
Author Organization [facility] Address [address] [place] [address] Care Team Providers Care Timber Grader Name Role Phone Helen Agudelo MD Primary Care Provider [phone] Social History Tobacco Use Types Packs/Day Years Used Date Smoking Tobacco: Never Assessed Comments Unknown Sex and Gender Information Value Date Recorded Sex Assigned at Not on file Legal Sex Female 12:12 PM CDT Gender Identity Not on file Sexual Orientation Not on file Plan of Treatment Health Maintenance Due Date Last Done Comments Hepatitis C 1963 DTaP, Tdap and Td Vaccines ( 1 - Tdap) 1965 Pneumococcal Vaccine: 50+ Ye ars (1 of 1 - PCV) 1996 Zoster Vaccines (1 of 2) 1996 Annual Medicare Wellness Visit 2011 Dexa Scan (General) 2011 RSV Immunization or 60+ Years (1 - 1-dose 75+ series) 2021 COVID-19 Vaccine (2023-2 5 season) 2024 Meningococcal B Vaccine Aged Out No l onger eligible based on patient's age to complete this topic Meningococcal Vaccine Aged Out No yumiko thalia eligible based on patient's age to complete this topic RSV Immunizations Under 20 Months Aged Out No longer eligible based on patient's age to complete this topic Insurance [facility] Care Teams Timber Grader Relationship Specialty Start Date End Date Helen Agudelo MD [address] [place] [id number] PCP - General FAMILY PRACTICE 09/05/17
--- OUTSIDE RECORDS SUMMARY | 2024-10-06 15:39 | XMS_ITS | Clinical Summary ---
Author Organization [facility] [employer] Address [address] [place] [address] Care Team Providers Care Early Childhood Education Coordinator Name Role Phone Helen Agudelo MD Primary Care Provider [phone] Source Comments [employer],non-owned Affiliates and Associated Physician Practices is amultiple site organization consisting of ambulatory clinics and hospital sitesin [place], [place], [place] and [place]. This disclosure is being madepursuant to the Care Everywhere program and may not contain all information available regarding this patient. Last updated 18.[employer] Medications * Be aware that medications may not be up to date on this document. Alwaysverify current medications with the patient. aspirin EC (ECOTRIN) 325 MG tabletIndication s:Type 2 diabetes mellitus with complication, with long-term current use of insulin (HCC) TK 1 T PO D 3 06/28/2017 Act silvestre atorvastatin (LIPITOR) 80 MG tabletIndication s:Type 2 diabetes mellitus with complication, with long-term current use of insulin (HCC) TK 1 T PO ONCE A DAY 3 06/28/2017 Active calcium carbonate-vitami n D 600-400 MG-UNIT tabletIndication s:Type 2 diabetes mellitus with complication, with long-term current use of insulin (HCC) TK 1 T PO QD 1 08/07/2017 Active lisinopril (PRINIVIL; ZESTRIL) 40 MG tabletIndication s:Type 2 diabetes mellitus with complication, with long-term current use of insulin (HCC) TK 1 T PO ONCE D 3 06/28/2017 Active metFORMIN (GLUCOPHAGE) 1000 MG tabletIndication s:Type 2 diabetes mellitus with complication, with long-term current use of insulin ([facility]) TK 1 T PO BID 1 06/28/2017 Active NIFEdipine CR osmotic 24hr (PROCARDIA-XL) 60 MG tabletIndication s:Type 2 diabetes mellitus with complication, with long-term current use of insulin ([facility]) 10/22/2017 Activ e METHIMAZOLE POIndications:Ty pe 2 diabetes mellitus with complication, with long-term current use of insulin ([facility]) Active Cyanocobalamin (B-12) 1000 MCGIndications:B 12 deficiency Take 1,000 mcg by mouth once daily 30 capsule 11 01/17/2018 Active Active Problems Problem Noted Date Diagnosed Date Status post stroke due to cerebrovascular diseas e 01/03/2021 Type 2 diabetes mellitus wit h complication, with long-term current use of insulin 10/25/2017 HTN (hypertension) 10/25/2017 HLD (hyperlipidemia) 10/25/2017 Resolved Problems Problem Noted Date Diagnosed Date Resolved Date Hyperthyroidism 10/25/2017 01/17/2018 Family History Medical History Relation Name Comments Diabetes - Type 1 Brother COPD - Chronic Obstructive Pulmonary Disease Mother Diabetes - Type 1 Mother Hypertension Mother Renal Disease Mother Thyroid Disease Mother Diabetes - Type 1 Sister Relation Name Status Comments Brother Mother Sister Social History Tobacco Use Types Packs/Day Years Used Date Smoking Tobacco: Never Smokeless Tobacco: Never Alcohol Use Standard Drinks/Week Comments No 0 (1 standard drink = 0.6 oz pur e alcohol) Comments No Sex and Gender Information Value Date Recorded Sex Assigned at Not on file Legal Sex Female 5:47 PM CDT Gender Identity Not on file Sexual Orientation Not on file Last Filed Vital Signs Vital Sign Reading Time Taken Comments Blood Pressure 138/64 01/17/2018 11:43 AM CDT Pulse 106 01/17/2018 11:43 AM CDT Temperature 36.8 C (98.3 F) 01/17/2018 11:43 AM CDT Respiratory Rate - - Oxygen Saturation 97% 01/17/2018 11: 43 AM CDT Inhaled Oxygen Concentration - - Weight 116.6 kg (257 lb 1.6 oz) 018 11:43 AM CDT Height 162.6 cm (5' 4 ) 01/17/2018 11:4 3 AM CDT Body Mass Index 44.13 01/17/2018 11:43 AM CDT Plan of Treatment Health Maintenance Due Date Last Done Comments BONE DENSITY TESTING 1945 HEPATITIS C SCREENING 04/14/1964 DIABETES-SERUM CREATININE 1964 DTAP/TDAP/TD VACCINES (1 - Tdap) 1965 PNEUMOCOCCAL VACCINE 50+ (1 of 1 - PCV) 1996 ZOSTER VACCINE (1 of 2) 1996 DIABETES-HGB A1C 04/27/2018 10/25/2017 DIABETES-FOOT EXAM WITH MONOFILAMENT 01/17/2019 01/17/2018, 10/25/2017, 10/25/2017 Respiratory Syncytial Virus (RSV) Vaccine Pt: or over 60 yrs (1 - 1-dose 75+ series) 2021 COVID-19 VACCINE ( - 2023-2 5 season) 2024 DEPRESSION SCREENING 06/11/2024 DIABETES - URINE PROTEIN SCREENING 06/11/2024 10/25/2017 INFLUENZA VACCINE (Season Ended) 2025 HEPATITIS B VACCINE Aged Out No longe r eligible based on patient's age to complete this topic HIB VACCINE Aged Out No longer eligi ble based on patient's age to complete this topic HPV VACCINE Aged Out No longer eligi ble based on patient's age to complete this topic MENINGOCOCCAL (Group B) VACCINE SHARED DECISION-MAKING Aged Out No longer eligible based on patient's age to complete this topic MENINGOCOCCAL GROUPS A/C/Y/W VACCINE Aged Out No longer eligible b ased on patient's age to complete this topic Procedures Procedure Name Priority Date/Time Associated Diagnosis Comments MICROALB/CREAT RATIO URINE RANDOM PANEL Routine 10/25/2017 11:46 AM CDT Type 2 diabetes mellitus with complication, with long-term current use of insulin HEMOGLOBIN A1C - POINT OF CARE (AMB) Routine 10/25/2017 10:55 AM CDT Type 2 diabetes mellitus with complication, with long-term current use of insulin from Last 3 Months or Most Recently Relevant to Health Maintenance Results * (ABNORMAL) MICROALB/CREAT RATIO URINE RANDOM PANEL (10/25/2017 11:46 AM CDT) Albumin Random Urine 35.0 Not Established mcg/mL 10/25/2017 2:13 PM CDT [facility] Creatinine Urine 80 Not Established mg/dL 10/25/2017 2:13 PM CDT [facility] Comment: Result obtained by dilution. Urine Albumin/Creati nine Ratio 44(H) <30 mg/g 10/25/2017 2:13 PM CDT [facility] Urine URINE SPECIMEN OBTAINED BY CLEAN CATCH PROCEDURE / Unknown Collection / Unknown 10/25/2017 11:46 AM CDT 10/25/2017 12:40 PM CDT Jose Bell MD LAB - URINE CHEMISTRY ORDERABLES Final Result [facility] [address] [place] [address], [facility] [phone] * HEMOGLOBIN A1C - POINT OF CARE (AMB) (10/25/2017 10:55 AM CDT) Hemoglobin A1c POCT 7.6 % [facility] QC Verified Yes [facility] Blood BLOOD SPECIMEN / Unknown 10/25/2017 10:55 AM CDT Jose Bell MD LAB - POINT OF CARE ORDERABLES F inal Result [facility] [address] [place] [address], [facility] [phone] from Last 3 Months or Most Recently Relevant to Health [place] [address] [facility] Care Teams Early Childhood Education Coordinator Relationship Specialty Start Date End Date Helen Agudelo MD [address] [place] [address] PCP - General 10/25/17
--- OUTSIDE RECORDS SUMMARY | 2024-10-06 15:39 | XMS_ITS | Clinical Summary ---
Author Organization [facility] Address [address] [place] [id number] Care Team Providers Care Cross Country Truck Driver Name Role Phone Isidoro Pace MD Primary Care Provider [phone] Allergies No known active allergies Medications ascorbic [...] mouth nightly as needed (constipation) Active white petrolatum-fraud examiner al oiL (EUCERIN) creamIndications :skin irritation [...] part of foot 10/12/2022 Palliative care encounter Medical History Medical History Date Comments Osteomyelitis (HCC) Diabetes mellitus (HCC) Anemia PVD (peripheral vascular disease) Social History Tobacco Use Types Packs/Day Years [...] often do you attend chur ch or judaism services? Never 10/12/2022 Do you belong to any clubs o r organizations such as faith groups, unions, fraternal or athletic groups, or [...] place to sleep or slept in a longterm (including now)? No 10/12/2022 Personal Safety Answer Date Recorded Have you ever been in or are you currently in a harmful physical or emotional relationship or is someone making you feel afraid or unsafe? Denies 10/28/2022 Comments Unknown Sex and Gender Information Value Date Recorded Sex Assigned at Not on file Legal Sex Female 8:16 PM SENIOR SALES EXECUTIVE Gender Identity Not on file Sexual Orientation Not on file Obstetrics History Last Filed Vital Signs Vital Sign Reading [...] 10/28/2022 10:10 AM CDT Plan of Treatment Health Maintenance Due Date Last Done Comments Albumin Creatinine Ratio, Urine 1945 Depression Screening 1945 Hepatitis C Screening 1946 Osteoporosis Screening-Bone Density Scan 1945 Dilated Eye Exam 1946 Foot Exam 1946 DTaP/Tdap/Td Vaccine (1 - Tdap) 1957 Hepatitis B Screening 1964 Pneumococcal vaccine 65+ (1 of 2 - PCV) 1965 Zoster Vaccine (1 of 2) 1996 Well Visit 65+ 2011 Hemoglobin A1C 07/06/2021 01/03/2021, 06/01/2017 Lipid Panel 01/03/2022 01/03/2021, 06/01/2017 Fall Risk Assessment 10/21/2023 10/20/2022 eGFR 11/19/2023 11/18/2022, 06/0 09/2022, 10/28/2022, Additional history exists Covid-19 Vaccine (3 - 2023-2 5 season) 2024 01/12/2021, 12/22/2020 Influenza Vaccine (#1) 2024 , 02/28/2019, 06/02/2017, Additional history exists Procedures Procedure Name Priority Date/Time Associated Diagnosis Comments EGFR Routine 11/18/2022 5:15 AM CDT HEMOGLOBIN A1C After X-Ray 06/01/2017 4:34 AM SENIOR SALES EXECUTIVE LIPID PANEL After X-Ray 06/01/2017 4:34 AM SENIOR SALES EXECUTIVE from Last 3 Months or Most Recently [...] Pace MD LAB BLOOD ORDERABLES Final Result [facility] [address] Department [place] [address] * (ABNORMAL) Hemoglobin A1c (06/01/2017 4:34 AM SENIOR SALES EXECUTIVE) Hgb A1C 10.9(H) 4.0 - 6.0 % [facility] Estimated Average Glucose 266 mg/dL [facility] Comment: The ADA recommends reporting an estimated Average Glucose (eAG) with all Hemoglobin A1c results using the equation derived from a study of 507 normal and diabetic adults. Minority populations were underrepresented and children were not included. (Diabetes Care 31:5052-2379, 2008). The eAG is not equivalent to a fasting glucose. Blood specimen (specimen) 06/01/2017 4:34 AM SENIOR SALES EXECUTIVE 06/01/2017 6:13 AM SENIOR SALES EXECUTIVE Narrative [facility] - 06/01/2017 6:30 AM SENIOR SALES EXECUTIVE Tres Segovia MD LAB BLOOD ORDERABLES Final Result [facility] Department [place] [address] * (ABNORMAL) Lipid panel (06/01/2017 4:34 AM SENIOR SALES EXECUTIVE) Cholesterol 256(H) 30 - 200 mg/dL [facility] Comment: Interpretive Data Desirable: <200 mg/dL Borderline high: 200-239 mg/dL High: > or = 240 mg/dL Literature Reference: National Cholesterol Education Program (NCEP) Expert Panel on Detection, Evaluation, and Treatment of High Blood Cholesterol in Adults (Adult Treatment Panel III). Circulation 2004; 110:227. Current interpretive data was last revised on 2015. Triglycerides 78 0 - 150 mg/dL [facility] Comment: Interpretive Data Desirable: < 150 mg/dL Borderline High: 150 - 199 mg/dL High: 200 - 499 mg/dL Very High: > or = 499 mg/dL Literature Reference: See Cholesterol Current interpretive data was last revised on 2015. HDL 69 >=40 mg/dL [facility] Comment: Interpretive Data Less than 40 mg/dL - low; A major risk factor for heart disease. Greater than or equal to 60 mg/dL - High; considered protective of heart disease. Literature Reference: See Cholesterol Current interpretive data was last revised on 2015. LDL, calculated 171(H) 10 - 129 mg/dL [facility] Comment: Interpretive Data Optimal: < 100 mg/dL Near Optimal: 100 - 129 mg/dL Borderline High: 130 - 159 mg/dL High: 160 - 189 mg/dL Very high: > or = 190 mg/dL Literature Reference: See Cholesterol Current interpretive data was last revised on 2015. Non-HDL Cholesterol 187 mg/dL [facility] Comment: Interpretive Data When triglycerides are >200 mg/dL, non-HDL C is a secondary target of therapy, with a goal 30 mg/dL higher than the identified LDL-C goal. Reference: See Cholesterol Reference. Current interpretive data was last revised 2015. Blood specimen (specimen) 06/01/2017 4:34 AM SENIOR SALES EXECUTIVE 06/01/2017 6:31 AM SENIOR SALES EXECUTIVE Narrative [facility] - 06/01/2017 7:13 AM SENIOR SALES EXECUTIVE us Tres Segovia MD LAB BLOOD ORDERABLES Final Result 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 10/17/2022 Insurance [employer] HMO [employer] HMO Advance Directives For more information, please contact: [phone] Documents on File Type Date Recorded Patient Numerical Control Drill Press Operator Expl anation ADVANCE DIRECTIVE 10/24/2022 2:34 PM POLST - Phys Order for PT Preferences ADVANCE DIRECTIVE 10/17/2022 1:59 PM Power of Production Operations Engineer-Medical * Full Code (Latest Code Status on File) Date Activated Date Inactivated Comments 10/12/2022 2:15 AM 10/20/2022 8:31 PM Healthcare Agents on File Name Relationship Healthcare Agent [facility] p Communication Osvaldo Rae Daughter Health Care Agent Care Teams Cross Country Truck Driver Relationship Specialty Start Date End Date Isidoro Pace MD [address] [place] [address] PCP - General Internal Medicine 10/13/22
--- OUTSIDE RECORDS SUMMARY | 2024-10-06 15:39 | XMS_ITS | CONTINUITY OF CARE DOCUMENT ---
Author Name bernie gibbs Address Unknown Organization [facility] Address [address] [place] [address] Phone [phone] Care Team Providers Care Pizzamaker Name Role Phone Dion Hines MD Unavailable Dion Hines MD Unavailable INSURANCE PROVIDERS Payer name Policy type / Coverage type [employer] red alliance party ID [facility] [employer]INT [id number]
--- NOTE | 2024-10-06 15:59 | ED.GENADULT ---
HPI - General Adult General Chief complaint: Unspecified <Aiyana Brock PA-C - Last Filed: 10/07/24 10:55> Stated complaint: blood in diaper <Aiyana Brock PA-C - Last Filed: 10/07/24 10:55> Time Seen by Provider: 10/06/24 15:59 <Aiyana Brock PA-C - Last Filed: 10/07/24 10:55> Focused HPI: This is a 79 year old female that presents to the ER for blood in her depends this morning. Unsure if the bleeding was coming from her vagina or rectum. Does report she has had some diarrhea. Denies fever, vomiting, dysuria. GENERAL: Elderly, well-nourished, and in no acute distress. HEAD: Normocephalic, atraumatic. CHEST: Clear to auscultation. ?No respiratory distress. HEART: Regular rate and rhythm.? NEURO: ?Alert and oriented x3. Patient screened in triage and initial orders placed.? ?Additional care and disposition to be based upon?diagnostic testing and treatment. <Aiyana Brock PA-C - Last Filed: 10/07/24 10:55> History of Present Illness HPI narrative: Agree with the HPI above. Patient is at her baseline mentation. Family members at bedside. <Mark Anthony Connors MD - Last Filed: 10/07/24 00:29> Related Data Home medications: Home Medications ?Medication ?Instructions ?Recorded ?Confirmed ?Last Taken ?Type gabapentin 100 mg capsule 100 mg PO TID nerve pain 05/27/22 02/08/23 Unknown History nifedipine 30 mg tablet,extended 30 mg PO DAILY 05/27/22 02/08/23 Unknown History release 24 hr ascorbic acid (vitamin C) 500 mg 500 mg PO BID 09/14/22 02/08/23 Unknown History tablet magnesium citrate (Citroma oral 296 ml PO DAILY PRN Constipation 09/14/22 02/08/23 Unknown History solution) magnesium hydroxide 400 mg/5 mL 30 ml PO HS PRN Constipation 09/14/22 02/08/23 Unknown History oral suspension (Milk of Magnesia) multivit with minerals-iron 18 1 tablet PO DAILY 09/14/22 02/08/23 Unknown History mg-folic ac 400 mcg-vit K 25 mcg tablet (Adults Multivitamin) Saccharomyces boulardii 250 mg 250 mg PO BID 10/09/22 02/08/23 Unknown History capsule mirtazapine 7.5 mg tablet 7.5 mg PO HS 10/09/22 02/08/23 Unknown History cholecalciferol (vitamin D3) 25 25 mcg PO DAILY 02/08/23 02/08/23 Unknown History mcg (1,000 unit) tablet cyanocobalamin (vitamin B-12) 1,000 mcg PO DAILY 02/08/23 02/08/23 Unknown History 1,000 mcg tablet quetiapine 25 mg tablet (Seroquel) 12.5 mg PO HS 02/08/23 02/08/23 Unknown History zinc gluconate 50 mg tablet 100 mg PO DAILY 02/08/23 02/08/23 Unknown History <Aiyana Brock PA-C - Last Filed: 10/07/24 10:55> Allergies/adverse reactions: Allergies Allergy/AdvReac Type Severity Reaction Status Date / Time lisinopril AdvReac Severe Swelling Verified 02/13/23 16:52 of Lip/Tongue/Throat <Aiyana Brock PA-C - Last Filed: 10/07/24 10:55> Review of Systems Review of Systems: As reviewed above in HPI <Mark Anthony Connors MD - Last Filed: 10/07/24 00:29> [facility] Past Medical History Medical History: Medical History Combined hyperlipidemia CVA (cerebral vascular accident) Dementia Diabetic foot ulcer DM2 (diabetes mellitus, type 2) HTN (hypertension), benign <Aiyana Brock PA-C - Last Filed: 10/07/24 10:55> Surgical History Surgical History: Surgical History No pertinent past surgical history <Aiyana Brock PA-C - Last Filed: 10/07/24 10:55> Family History Family History: Family History Father Hypertension Diabetes mellitus Mother Hypertension Diabetes mellitus <Aiyana Brock PA-C - Last Filed: 10/07/24 10:55> Social History Social History: Social History Social History: The patient is and has 6 children. 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 The patient resides at [facility]. Her daughter is the durable power senior trial attorney for healthcare. Former smoker. She denies any alcohol marijuana or illicit drugs. Code status full code Smoking status: Former smoker Alcohol intake: never Substance use: never Substance use type: does not use Lack of Transportation: No Lack of Food: Never True Current Housing: I Have Housing Concerned About Future Housing: No Difficulty Paying Gas/Electric Bills: No Difficulty Paying for Meds: No Currently Unemployed: No Education: Don't Know Difficulty w/ Childcare or Family Care: No Spiritual care concerns: No <Aiyana Brock PA-C - Last Filed: 10/07/24 10:55> Exam Narrative: GENERAL: [Well-appearing, well-nourished, and in no acute distress.] HEAD: [Normocephalic, atraumatic.] EYES: [PERRLA and EOMI.] ENT: Nares clear, no rhinorrhea or epistaxis. Mucous membranes moist. NECK: Supple. CHEST: [Clear to auscultation. No respiratory distress.] HEART: [Regular rate and rhythm]. No murmur heard. [Normal peripheral pulses.] ABDOMEN: [Soft, nondistended], [nontender], [No rigidity or guarding] GENITOURINARY: Chaperoned examination shows scant bleeding coming from the vagina without any blood clot passage. Speculum examination deferred per patient EXTREMITIES: Normal range of motion. [No edema.] SKIN: Warm, dry, no rash. NEURO: [No focal deficits]. Alert and oriented [x3.] PSYCH: [Normal mood and affect.] <Mark Anthony Connors MD - Last Filed: 10/07/24 00:29> Course Vital Signs Vital signs: Vital Signs Temperature 97.9 F 10/06/24 14:23 Pulse Rate 59 L 10/06/24 14:23 Respiratory Rate 14 10/06/24 14:23 Blood Pressure 150/59 H 10/06/24 14:23 Pulse Oximetry 100 10/06/24 14:23 Temperature 97.9 F 10/07/24 01:29 Pulse Rate 76 10/07/24 01:29 Respiratory Rate 16 10/07/24 01:29 Blood Pressure 137/76 10/07/24 01:29 Pulse Oximetry 98 10/07/24 01:29 <Aiyana Brock PA-C - Last Filed: 10/07/24 10:55> Vital Signs Temperature 97.9 F 10/06/24 14:23 Pulse Rate 59 L 10/06/24 14:23 Respiratory Rate 14 10/06/24 14:23 Blood Pressure 150/59 H 10/06/24 14:23 Pulse Oximetry 100 10/06/24 14:23 Temperature 97.9 F 10/07/24 01:29 Pulse Rate 76 10/07/24 01:29 Respiratory Rate 16 10/07/24 01:29 Blood Pressure 137/76 10/07/24 01:29 Pulse Oximetry 98 10/07/24 01:29 <Mark Anthony Connors MD - Last Filed: 10/07/24 00:29> Medical Decision Making MDM Narrative Medical decision making narrative: 79-year-old female presenting with history of hypertension, diabetes, dementia, peripheral vascular disease. Prior stroke. To the emergency department for suspected bleeding from either vagina or rectum. Patient lives at a group home facility from chronic debility after a stroke. Patient has no acute complaints at this time and is alert oriented x2 which is her baseline mentation. half-way staff noted that when a changes they noted some blood clots in her depends. Here we did change the patient and noticed a scant amount of bleeding that appears to be coming from the vagina and not coming from the rectum. There are no external hemorrhoids or tears appreciated, no masses. Blood work was obtained including CBC, coag studies, pelvic ultrasound for further evaluation. Patient has no complaints and has normal vital signs. Patient's workup was reassuring. No leukocytosis or anemia. She acts as a better hemoglobin than her normal baseline. Normal platelet count. Electrolytes are unremarkable. Normal creatinine compared to previous levels. Normal LFTs and glucose. Patient's pelvic x-ray showed multiple uterine fibroids but the endometrial stripe is not adequately visualized. Bilateral ovaries on visualized rectal distention is noted. CT scan without contrast obtained at this time for further delineation or other pathology findings. CT scan shows constipation and fecal impaction, mild wall thickening surrounding. She was given magnesium citrate and an enema and had a good bowel movement without any blood noted. She had no further bleeding episodes here in the emergency department and remained hemodynamically stable. She will have to follow up with an OBGYN regarding her uterine fibroids and vaginal bleeding. Family was made aware of the plan and comfortable with her discharge home at this time <Mark Anthony Connors MD - Last Filed: 10/07/24 00:29> Medical Records Medical records reviewed: Yes I reviewed the external patient's medical records. <Mark Anthony Connors MD - Last Filed: 10/07/24 00:29> Vital Signs Vital Signs: Vital Signs Temperature 97.9 F 10/06/24 14:23 Pulse Rate 59 L 10/06/24 14:23 Respiratory Rate 14 10/06/24 14:23 Blood Pressure 150/59 H 10/06/24 14:23 Pulse Oximetry 100 10/06/24 14:23 Temperature 97.9 F 10/07/24 01:29 Pulse Rate 76 10/07/24 01:29 Respiratory Rate 16 10/07/24 01:29 Blood Pressure 137/76 10/07/24 01:29 Pulse Oximetry 98 10/07/24 01:29 <Aiyana Brock PA-C - Last Filed: 10/07/24 10:55> Vital Signs Temperature 97.9 F 10/06/24 14:23 Pulse Rate 59 L 10/06/24 14:23 Respiratory Rate 14 10/06/24 14:23 Blood Pressure 150/59 H 10/06/24 14:23 Pulse Oximetry 100 10/06/24 14:23 Temperature 97.9 F 10/07/24 01:29 Pulse Rate 76 10/07/24 01:29 Respiratory Rate 16 10/07/24 01:29 Blood Pressure 137/76 10/07/24 01:29 Pulse Oximetry 98 10/07/24 01:29 <Mark Anthony Connors MD - Last Filed: 10/07/24 00:29> Lab Data Lab results reviewed: Yes I reviewed the patient's lab results. <Mark Anthony Connors MD - Last Filed: 10/07/24 00:29> Result diagrams: 10/06/24 19:33 10/06/24 19:33 <Aiyana Brock PA-C - Last Filed: 10/07/24 10:55> Labs: Lab Results 10/06/24 Range/Units 19:33 WBC 8.8 (4.5-10.0) K/mm3 RBC 3.86 L (4.2-5.4) M/mm3 Hgb 10.4 L (12.0-15.0) g/dL Hct 34.1 L (37.0-47.0) % MCV 88.3 (80-100) fl MCH 26.9 (26-34) pg MCHC 30.5 L (32-36) g/dl RDW 14.9 H (11.5-14.5) % Plt Count 306 (150-375) k/mm3 MPV 9.0 (7.4-10.4) fl Immature Gran % (Auto) 0.2 (0-0.5) % Neut % (Auto) 39.6 L (45.5-73.1) % Lymph % (Auto) 47.7 H (18.3-44.2) % Tillman % (Auto) 5.9 (2.6-8.5) % Eos % (Auto) 6.3 H (0-4.4) % Baso % (Auto) 0.3 (0.2-1.2) % Lymph # (Auto) 4.18 H (0.9-3.2) K/mm3 Tillman # (Auto) 0.5 (0.1-0.6) K/mm3 Eos # (Auto) 0.6 H (0-0.3) K/mm3 Baso # (Auto) 0.0 (0.0-0.1) K/mm3 Abs Immat Gran (auto) 0.02 (0.00-0.031) K/mm3 Absolute Neuts (auto) 3.5 (1.3-6.7) K/mm3 Absolute Nucleated RBC 0.000 (0.0-0.012) K/mm3 Nucleated RBC % 0.0 (0.0-0.2) % PT 14.4 (11.1-14.7) Seconds INR 1.1 APTT 33.1 (22.3-36.8) Seconds Sodium 139 (137-145) mmol/L Potassium 4.7 (3.4-5.0) mmol/L Chloride 107 (98-107) mmol/L Carbon Dioxide 24 (22-30) mmol/L Anion Gap 8 (4-12) mmol/L BUN 44 H (7-17) mg/dL Creatinine 1.18 H (0.7-1.0) mg/dL Estim Creat Clear Calc Not Reportable Estimated GFR 44 L (59 - ) Glucose 79 (65-110) mg/dL Calcium 10.2 (8.4-10.2) mg/dL Total Bilirubin 0.5 (0.2-1.3) mg/dL AST 25 (14-36) U/L ALT 9 (6-35) U/L Alkaline Phosphatase 104 (38-126) U/L Total Protein 9.0 H (6.3-8.2) g/dL Albumin 4.1 (3.5-5.1) g/dL Blood Type O Positive Antibody Screen Negative <Aiyana Brock PA-C - Last Filed: 10/07/24 10:55> Lab Results 10/06/24 Range/Units 19:33 WBC 8.8 (4.5-10.0) K/mm3 RBC 3.86 L (4.2-5.4) M/mm3 Hgb 10.4 L (12.0-15.0) g/dL Hct 34.1 L (37.0-47.0) % MCV 88.3 (80-100) fl MCH 26.9 (26-34) pg MCHC 30.5 L (32-36) g/dl RDW 14.9 H (11.5-14.5) % Plt Count 306 (150-375) k/mm3 MPV 9.0 (7.4-10.4) fl Immature Gran % (Auto) 0.2 (0-0.5) % Neut % (Auto) 39.6 L (45.5-73.1) % Lymph % (Auto) 47.7 H (18.3-44.2) % Tillman % (Auto) 5.9 (2.6-8.5) % Eos % (Auto) 6.3 H (0-4.4) % Baso % (Auto) 0.3 (0.2-1.2) % Lymph # (Auto) 4.18 H (0.9-3.2) K/mm3 Tillman # (Auto) 0.5 (0.1-0.6) K/mm3 Eos # (Auto) 0.6 H (0-0.3) K/mm3 Baso # (Auto) 0.0 (0.0-0.1) K/mm3 Abs Immat Gran (auto) 0.02 (0.00-0.031) K/mm3 Absolute Neuts (auto) 3.5 (1.3-6.7) K/mm3 Absolute Nucleated RBC 0.000 (0.0-0.012) K/mm3 Nucleated RBC % 0.0 (0.0-0.2) % PT 14.4 (11.1-14.7) Seconds INR 1.1 APTT 33.1 (22.3-36.8) Seconds Sodium 139 (137-145) mmol/L Potassium 4.7 (3.4-5.0) mmol/L Chloride 107 (98-107) mmol/L Carbon Dioxide 24 (22-30) mmol/L Anion Gap 8 (4-12) mmol/L BUN 44 H (7-17) mg/dL Creatinine 1.18 H (0.7-1.0) mg/dL Estim Creat Clear Calc Not Reportable Estimated GFR 44 L (59 - ) Glucose 79 (65-110) mg/dL Calcium 10.2 (8.4-10.2) mg/dL Total Bilirubin 0.5 (0.2-1.3) mg/dL AST 25 (14-36) U/L ALT 9 (6-35) U/L Alkaline Phosphatase 104 (38-126) U/L Total Protein 9.0 H (6.3-8.2) g/dL Albumin 4.1 (3.5-5.1) g/dL Blood Type O Positive Antibody Screen Negative <Mark Anthony Connors MD - Last Filed: 10/07/24 00:29> Imaging Data Attestation: I personally reviewed and interpreted this imaging study as follows: <Mark Anthony Connors MD - Last Filed: 10/07/24 00:29> My impression: Impressions Pelvis Ultrasound 10/06/24 20:41 IMPRESSION: Multiple likely uterine fibroids. Endometrial stripe is not adequately visualized in this transabdominal examination. Bilateral ovaries not visualized. Rectal distention. Abdomen/Pelvis CT 10/06/24 22:09 IMPRESSION: CT findings suggestive of fecal impaction and constipation. Mild surrounding wall thickening/inflammation as can be seen with early stercoral colitis. Eccentric distal rectal wall thickening, correlate for clinical findings of proctitis or rectal mass. <Mark Anthony Connors MD - Last Filed: 10/07/24 00:29> Critical Care Time Critical Care Time Critical Care Time: No <Aiyana Brock PA-C - Last Filed: 10/07/24 10:55> Discharge Plan Discharge Clinical Impression: Nonmenstrual vaginal bleeding Uterine fibroid Qualifiers: Uterine leiomyoma location: unspecified location Qualified Code(s): D25.9 - Leiomyoma of uterus, unspecified Constipation Qualifiers: Constipation type: unspecified constipation type Qualified Code(s): K59.00 - Constipation, unspecified Dementia Qualifiers: Dementia type: unspecified type Dementia severity: unspecified severity Dementia behavioral or psychological symptom: without behavioral, psychotic, or mood disturbance or anxiety Qualified Code(s): F03.90 - Unspecified dementia, unspecified severity, without behavioral disturbance, psychotic disturbance, mood disturbance, and anxiety <Aiyana Brock PA-C - Last Filed: 10/07/24 10:55> Patient Disposition: Home <Aiyana Brock PA-C - Last Filed: 10/07/24 10:55> Condition: Stable <Aiyana Brock PA-C - Last Filed: 10/07/24 10:55> Instructions: Antibiotic Form, Abnormal (Dysfunctional) Uterine Bleeding (ED), Uterine Fibroids (ED) <Aiyana Borck PA-C - Last Filed: 10/07/24 10:55> Additional Instructions: The ultrasound showed fibroids in the uterus which is likely the source of vaginal bleeding. CT scan shows some constipation which was alleviated after treatment here in the emergency department. Her blood count is reassuring and her laboratory studies otherwise showed no acute concern. She will have to follow up with an OBGYN regarding this and one was provided with discharge papers. Return with any new or worsening concerns at any time. We will also prescribe her MiraLax and magnesium citrate for any other constipation concerns. <Aiyana Brock PA-C - Last Filed: 10/07/24 10:55> Patient Language: Macedonian <Aiyana Brock PA-C - Last Filed: 10/07/24 10:55> Prescriptions: New magnesium citrate [Citrate of Magnesia] Solution 300 ml PO DAILY PRN (Reason: constipation) Qty: 296 0RF polyethylene glycol 3350 [Miralax] 17 gram powder in packet 17 g PO BID Qty: 30 0RF No Action Saccharomyces boulardii 250 mg Capsule 250 mg PO BID Rx Instructions: DC ON 10/15/22 mirtazapine 7.5 mg tablet 7.5 mg PO HS nifedipine 30 mg tablet extended release 24hr 30 mg PO DAILY gabapentin 100 mg capsule 100 mg PO TID ascorbic acid (vitamin C) 500 mg Tablet 500 mg PO BID magnesium citrate [Citroma] Solution 296 ml PO DAILY PRN (Reason: Constipation) magnesium hydroxide [Milk of Magnesia] 400 mg/5 mL Suspension 30 ml PO HS PRN (Reason: Constipation) Rx Instructions: give if no BM in 3 days Adults Multivitamin 18 mg iron-400 mcg-25 mcg Tablet 1 tablet PO DAILY bisacodyl 10 mg Suppository 10 mg RECTAL DAILY PRN (Reason: Constipation) Qty: 12 0RF Rx Instructions: Give if no BM in 48 hours clotrimazole 1 % Cream 1 applic TOPICAL BID Qty: 15 0RF Rx Instructions: Apply to groin and molly area cholecalciferol (vitamin D3) 25 mcg (1,000 unit) Tablet 25 mcg PO DAILY quetiapine [Seroquel] 25 mg Tablet 12.5 mg PO HS cyanocobalamin (vitamin B-12) 1,000 mcg Tablet 1,000 mcg PO DAILY zinc gluconate 50 mg Tablet 100 mg PO DAILY doxycycline hyclate 100 mg Tablet 100 mg PO Q12HR Qty: 13 0RF amoxicillin-pot clavulanate [Augmentin] 500-125 mg Tablet 1 tablet PO Q12HR Qty: 11 0RF Dakin's Solution 0.125 % Solution 1 applic topical Q12HR Qty: 473 0RF hydrocodone-acetaminophen 5-325 mg Tablet 1 tablet PO Q4H PRN (Reason: Moderate Pain (Scale Score 5-6)) Qty: 1 0RF <Aiyana Brock PA-C - Last Filed: 10/07/24 10:55> Follow-up/Referrals: Radha Lopez MD [Physician] - 1 Week (Uterine bleeding, fibroid uterus) PHYSICIAN NOT ON STAFF,NONSTAFF [Non-Staff] - <Aiyana Brock PA-C - Last Filed: 10/07/24 10:55> Time of Disposition: 00:29 <Aiyana Brock PA-C - Last Filed: 10/07/24 10:55> 00:29 <Mark Anthony Connors MD - Last Filed: 10/07/24 00:29>
--- OUTSIDE RECORDS SUMMARY | 2024-10-06 19:30 | XMS_ITS | CONTINUITY OF CARE DOCUMENT ---
Author Name bernie gibbs Address Unknown Organization [facility] Address [address] [place] [address] Phone [phone] Care Team Providers Care Screening Specialist Name Role Phone Dion Hines MD Unavailable [phone] Dion Hines MD Unavailable [phone] INSURANCE PROVIDERS Payer name Policy type / Coverage type [place] [employer] [id number] [id number]
--- OUTSIDE RECORDS SUMMARY | 2024-10-06 19:30 | XMS_ITS | Clinical Summary ---
Author Organization [facility] Address [address] [place] [address] Phone Care Team Providers Care Programming Manager Name Role Phone Edmund Botello MD Primary Care Provider [phone] Allergies No known active allergies Medications atorvastatin [...] 7.2(H) <=5.6 % 01/03/2021 9:27 AM CDT [facility] EST. AVG GLUCOSE, A1C 160 mg/dL 01/03/2021 9:27 AM CDT [facility] Blood Venipuncture / Unknown 01/03/2021 3:14 AM CDT 01/03/2021 3:31 AM CDT Narrative [facility] - 01/03/2021 9:27 AM CDT HGB A1C INTERPRETATION NORMAL: <5.7% PRE-DIABETES: 5.7 - 6.4% DIABETES: 6.5% OR GREATER us Yeyo Aguillon MD CHEMISTRY ORDERABLES Final Result [facility] CLIA# [id number] [place] [address] * LIPID PANEL (01/03/2021 3:14 AM CDT) CHOLESTEROL 117 <200 mg/dL 01/04/2021 1:11 AM CDT [facility] TRIGLYCERIDE 90 <150 mg/dL 01/04/2021 1:11 AM CDT [facility] HDL 47 40 - 59 mg/dL 01/04/2021 1:11 AM CDT [facility] LDL CALCULATED 52 <100 mg/dL 01/04/2021 1:11 AM CDT [facility] NON-HDL CHOLESTEROL 70 <130 mg/dL 01/04/2021 1:11 AM CDT [facility] Blood Venipuncture / Unknown 01/03/2021 3:14 AM CDT 01/03/2021 3:31 AM CDT Narrative [facility] - 01/04/2021 1:11 AM CDT [...] Ranges for Lipid Panels (NCEP/AMA) . us Alvaro [place] CHEMISTRY ORDERABLES Final Res ult [facility] CLIA# [id number] [place] [address] from Last 3 Months or Most Recently Relevant to Health Maintenance Insurance Advance Directives For more information, please contact: [phone] * Full Code (Latest Code Status on File) Date Activated Date Inactivated Comments 01/03/2021 7:56 AM 01/06/2021 8:29 PM Care Teams Programming Manager Relationship Specialty Start Date End Date Edmund Botello MD PCP - General Family Practice 01/03/21
--- OUTSIDE RECORDS SUMMARY | 2024-10-06 19:30 | XMS_ITS | Encounter Summary ---
Author Organization [facility] Address [address] [place] [address] Phone Care Team Providers Care Cable Inspector Name Role Phone No, Physician Primary Care Provider [phone] Isidoro Pace MD Primary Care Provider [phone] Encounter Details Date Type Department Care Team (Latest Contact Info) Description 06/06/2017 Orders Only [facility] CONVERSION Scanning, Provider Social History Tobacco Use Types Packs/Day Years Used Date Smoking Tobacco: Never Assessed Comments Unknown Sex and Gender Information Value Date Recorded Sex Assigned at Not on file Legal Sex Female 8:16 PM LEAD SOFTWARE TESTER Gender Identity Not on file Sexual Orientation Not on file documented as of this encounter Plan of Treatment Not on file documented as of this encounter Procedures Procedure Name Priority Date/Time Associated Diagnosis Comments VASCULAR LABORATORY REPORT 06/06/2017 10:28 PM LEAD SOFTWARE TESTER documented in this encounter Results * VASCULAR LABORATORY REPORT (06/06/2017 10:28 PM LEAD SOFTWARE TESTER) Anatomical Region Laterality Modality Ultrasound us Provider Scanning CV VASCULAR PROCEDURES Final R esult documented in this encounter Visit Diagnoses Not on filedocumented in this encounter Additional Health Concerns Infection Onset Date Last Indicated Resolved Time 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
--- OUTSIDE RECORDS SUMMARY | 2024-10-06 19:30 | XMS_ITS | Encounter Summary ---
Author Organization [facility] Address [address] [place] [address] Care Team Providers Care Physics Tutor Name Role Phone Edmund Botello MD Primary Care Provider [phone] Reason for Visit * Reason Onset Date Comments Suspected demtia, behavioral changes at home 01/05/2021 Left voicemail message for Sally Amaya on cell phone Encounter Details Date Type Department Care Team (Late st Contact Info) Description 01/05/2021 Telephone [facility] Admitting [address] [place] [address] [place] [address] [facility] [address] [place] [address] Suspected demtia, behavioral changes at [...] on filedocumented in this encounter Care Teams Physics Tutor Relationship Specialty Start Date End Date Edmund Botello MD PCP - General Family Practice 01/03/21 documented as of this encounter
--- OUTSIDE RECORDS SUMMARY | 2024-10-06 19:30 | XMS_ITS | Clinical Summary ---
Author Organization [facility] Address [address] [place] [address] Care Team Providers Care Container Packer Operator Name Role Phone Helen Agudelo MD Primary Care Provider [phone] Source Comments [facility],non-owned Affiliates and Associated Physician Practices is amultiple site organization consisting of ambulatory clinics and hospital sitesin [place], [place], [place] and [place]. This disclosure is being madepursuant to the Care Everywhere program and may not contain all information available regarding this patient. Last updated 18.[facility] Medications * Be aware that medications may [...] complication, with long-term current use of insulin ([facility]) TK 1 T PO BID 1 06/28/2017 Active NIFEdipine CR osmotic 24hr (PROCARDIA-XL) 60 MG tabletIndication s:Type 2 diabetes mellitus with complication, with long-term current use of insulin ([facility]) 10/22/2017 Activ e METHIMAZOLE POIndications:Ty pe 2 diabetes mellitus with complication, with long-term current use of insulin ([facility]) Active Cyanocobalamin (B-12) 1000 MCGIndications:B 12 [...] Not Established mcg/mL 10/25/2017 2:13 PM CDT [facility] Creatinine Urine 80 Not Established mg/dL 10/25/2017 2:13 PM CDT [facility] Comment: Result obtained by dilution. Urine Albumin/Creati nine Ratio 44(H) <30 mg/g 10/25/2017 2:13 PM CDT [facility] Urine URINE SPECIMEN OBTAINED BY CLEAN CATCH PROCEDURE / Unknown Collection / Unknown 10/25/2017 11:46 AM CDT 10/25/2017 12:40 PM CDT Jose Bell MD LAB - URINE CHEMISTRY ORDERABLES Final Result [facility] [address] [place] [address], [facility] [phone] * HEMOGLOBIN A1C - POINT OF CARE (AMB) (10/25/2017 10:55 AM CDT) Hemoglobin A1c POCT 7.6 % [facility] QC Verified Yes [facility] Blood BLOOD SPECIMEN / Unknown 10/25/2017 10:55 AM CDT Jose Bell MD LAB - POINT OF CARE ORDERABLES F inal Result [facility] [address] [place] [address], [facility] [phone] from Last 3 Months or Most Recently Relevant to Health Maintenance Insurance [employer] [facility] Care Teams Container Packer Operator Relationship Specialty Start Date End Date Helen Agudelo MD [address] [place] [address] PCP - General 10/25/17
--- OUTSIDE RECORDS SUMMARY | 2024-10-06 19:30 | XMS_ITS | Referral Summary ---
Author Organization [facility] Address [address] [place] [address] Care Team Providers Care Speech Pathologist Assistant Name Role Phone Isidoro Pace MD Primary Care Provider [phone] Allergies No known active allergies Medications ascorbic [...] mouth nightly as needed (constipation) Active white petrolatum-production miner al oiL (EUCERIN) creamIndications :skin irritation Apply [...] often do you attend chur ch or mandaen services? Never 10/12/2022 Do you belong to any clubs o r organizations such as shinto groups, unions, fraternal or athletic groups, or [...] place to sleep or slept in a halfway (including now)? No 10/12/2022 Personal Safety Answer Date Recorded Have you ever been in or are you currently in a harmful physical or emotional relationship or is someone making you feel afraid or unsafe? Denies 10/28/2022 Comments Unknown Sex and Gender Information Value Date Recorded Sex Assigned at Not on file Legal Sex Female 8:16 PM END STAPLER Gender Identity Not on file Sexual Orientation [...] HEMOGLOBIN A1C After X-Ray 06/01/2017 4:34 AM END STAPLER LIPID PANEL After X-Ray 06/01/2017 4:34 AM END STAPLER from Last 3 Months or Most Recently [...] BLOOD ORDERABLES Final Result Performing Organization Address [facility] Co de Phone Number [facility] [address] Department [place] [address] * (ABNORMAL) Hemoglobin A1c (06/01/2017 4:34 AM END STAPLER) Hgb A1C 10.9(H) 4.0 - 6.0 % [facility] Estimated Average Glucose 266 mg/dL [facility] Comment: The ADA recommends reporting an estimated Average Glucose (eAG) with all Hemoglobin A1c results using the equation derived from a study of 507 normal and diabetic adults. Minority populations were underrepresented and children were not included. (Diabetes Care 31:9729-5795, 2008). The eAG is not equivalent to a fasting glucose. Blood specimen (specimen) 06/01/2017 4:34 AM END STAPLER 06/01/2017 6:13 AM END STAPLER Narrative [facility] - 06/01/2017 6:30 AM END STAPLER us Tres Segovia MD LAB BLOOD ORDERABLES Final Result Performing Organization Address [facility] Co de Phone Number [facility] Department [place] [address] * (ABNORMAL) Lipid panel (06/01/2017 4:34 AM END STAPLER) Cholesterol 256(H) 30 - 200 mg/dL [facility] Comment: Interpretive Data Desirable: <200 mg/dL Borderline high: 200-239 mg/dL High: > or = 240 mg/dL Literature Reference: National Cholesterol Education Program (NCEP) Expert Panel on Detection, Evaluation, and Treatment of High Blood Cholesterol in Adults (Adult Treatment Panel III). Circulation 2004; 110:227. Current interpretive data was last revised on 2015. Triglycerides 78 0 - 150 mg/dL [facility] Comment: Interpretive Data Desirable: < 150 mg/dL Borderline High: 150 - 199 mg/dL High: 200 - 499 mg/dL Very High: > or = 499 mg/dL Literature Reference: See Cholesterol Current interpretive data was last revised on 2015. HDL 69 >=40 mg/dL [facility] Comment: Interpretive Data Less than 40 mg/dL - low; A major risk factor for heart disease. Greater than or equal to 60 mg/dL - High; considered protective of heart disease. Literature Reference: See Cholesterol Current interpretive data was last revised on 2015. LDL, calculated 171(H) 10 - 129 mg/dL [facility] Comment: Interpretive Data Optimal: < 100 mg/dL Near Optimal: 100 - 129 mg/dL Borderline High: 130 - 159 mg/dL High: 160 - 189 mg/dL Very high: > or = 190 mg/dL Literature Reference: See Cholesterol Current interpretive data was last revised on 2015. Non-HDL Cholesterol 187 mg/dL [facility] Comment: Interpretive Data When triglycerides are >200 mg/dL, non-HDL C is a secondary target of therapy, with a goal 30 mg/dL higher than the identified LDL-C goal. Reference: See Cholesterol Reference. Current interpretive data was last revised 2015. Blood specimen (specimen) 06/01/2017 4:34 AM END STAPLER 06/01/2017 6:31 AM END STAPLER Narrative [facility] - 06/01/2017 7:13 AM END STAPLER Tres Segovia MD LAB BLOOD ORDERABLES Final Result [facility] Department [place] [address] from Last 3 Months or Most Recently Relevant to Health Maintenance Additional Health Concerns Infection Onset Date Last Indicated MDR gram neg/ESBL 10/17/2022 10/17/2022 Insurance IDPA [facility] MEDICARE HMO [facility] MEDICARE HMO Advance Directives For more information, please contact: [phone] Documents on File Type Date Recorded 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 p Communication Osvaldo Rae Daughter Health Care Agent Care Teams Speech Pathologist Assistant Relationship Specialty Start Date End Date Isidoro Pace MD [address] [place] [address] PCP - General Internal Medicine 10/13/22
--- OUTSIDE RECORDS SUMMARY | 2024-10-06 19:30 | XMS_ITS | Clinical Summary ---
Author Organization [facility] Address [address] [place] [address] Care Team Providers Care Resident Assistant Cna Name Role Phone Helen Agudelo MD Primary Care Provider [phone] Social History Tobacco Use Types Packs/Day Years [...] patient's age to complete this topic [facility] Care Teams Resident Assistant Cna Relationship Specialty Start Date End Date Helen Agudelo MD [address] [place] [id number] PCP - General FAMILY PRACTICE 09/05/17
--- OUTSIDE RECORDS SUMMARY | 2024-10-06 19:30 | XMS_ITS | Clinical Summary ---
Author Organization [facility] Address [address] [place] [id number] Care Team Providers Care Odd Bundle Worker Name Role Phone Isidoro Pace MD Primary Care Provider [phone] Allergies No known active allergies Medications ascorbic [...] mouth nightly as needed (constipation) Active white petrolatum-clay miner al oiL (EUCERIN) creamIndications :skin irritation [...] any clubs o r organizations such as nondenominational groups, unions, fraternal or athletic groups, or [...] place to sleep or slept in a correction (including now)? No 10/12/2022 Personal Safety Answer Date Recorded Have you ever been in or are you currently in a harmful physical or emotional relationship or is someone making you feel afraid or unsafe? Denies 10/28/2022 Comments Unknown Sex and Gender Information Value Date Recorded Sex Assigned at Not on file Legal Sex Female 8:16 PM ALLERGY AND IMMUNOLOGY CHIEF Gender Identity Not on file Sexual Orientation [...] HEMOGLOBIN A1C After X-Ray 06/01/2017 4:34 AM ALLERGY AND IMMUNOLOGY CHIEF LIPID PANEL After X-Ray 06/01/2017 4:34 AM ALLERGY AND IMMUNOLOGY CHIEF from Last 3 Months or Most Recently [...] MD LAB BLOOD ORDERABLES Final Result [facility] [address] Department [place] [address] * (ABNORMAL) Hemoglobin A1c (06/01/2017 4:34 AM ALLERGY AND IMMUNOLOGY CHIEF) Hgb A1C 10.9(H) 4.0 - 6.0 % [facility] Estimated Average Glucose 266 mg/dL [facility] Comment: The ADA recommends reporting an estimated Average Glucose (eAG) with all Hemoglobin A1c results using the equation derived from a study of 507 normal and diabetic adults. Minority populations were underrepresented and children were not included. (Diabetes Care 31:3290-2967, 2008). The eAG is not equivalent to a fasting glucose. Blood specimen (specimen) 06/01/2017 4:34 AM ALLERGY AND IMMUNOLOGY CHIEF 06/01/2017 6:13 AM ALLERGY AND IMMUNOLOGY CHIEF Narrative [facility] - 06/01/2017 6:30 AM ALLERGY AND IMMUNOLOGY CHIEF Tres Segovia MD LAB BLOOD ORDERABLES Final Result [facility] Department [place] [address] * (ABNORMAL) Lipid panel (06/01/2017 4:34 AM ALLERGY AND IMMUNOLOGY CHIEF) Cholesterol 256(H) 30 - 200 mg/dL [facility] Comment: Interpretive Data Desirable: <200 mg/dL Borderline high: 200-239 mg/dL High: > or = 240 mg/dL Literature Reference: National Cholesterol Education Program (NCEP) Expert Panel on Detection, Evaluation, and Treatment of High Blood Cholesterol in Adults (Adult Treatment Panel III). Circulation 2004; 110:227. Current interpretive data was last revised on 2015. Triglycerides 78 0 - 150 mg/dL [facility] Comment: Interpretive Data Desirable: < 150 mg/dL Borderline High: 150 - 199 mg/dL High: 200 - 499 mg/dL Very High: > or = 499 mg/dL Literature Reference: See Cholesterol Current interpretive data was last revised on 2015. HDL 69 >=40 mg/dL [facility] Comment: Interpretive Data Less than 40 mg/dL - low; A major risk factor for heart disease. Greater than or equal to 60 mg/dL - High; considered protective of heart disease. Literature Reference: See Cholesterol Current interpretive data was last revised on 2015. LDL, calculated 171(H) 10 - 129 mg/dL [facility] Comment: Interpretive Data Optimal: < 100 mg/dL Near Optimal: 100 - 129 mg/dL Borderline High: 130 - 159 mg/dL High: 160 - 189 mg/dL Very high: > or = 190 mg/dL Literature Reference: See Cholesterol Current interpretive data was last revised on 2015. Non-HDL Cholesterol 187 mg/dL [facility] Comment: Interpretive Data When triglycerides are >200 mg/dL, non-HDL C is a secondary target of therapy, with a goal 30 mg/dL higher than the identified LDL-C goal. Reference: See Cholesterol Reference. Current interpretive data was last revised 2015. 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 p Communication Osvaldo Rae Daughter Health Care Agent Care Teams Odd Bundle Worker Relationship Specialty Start Date End Date Isidoro Pace MD [address] [place] [address] PCP - General Internal Medicine 10/13/22
[2024-10-06 19:43] LABS: Basophils Percent Auto 0.3 % (0.2-1.2); Eosinophils Absolute Auto 0.6 K/mm3 (0-0.3); Eosinophils Percent Auto 6.3 % (0-4.4); Hematocrit 34.1 % (37.0-47.0); Hemoglobin 10.4 g/dL (12.0-15.0); Immature Granulocyte Absolute 0.02 K/mm3 (0.00-0.031); Immature Granulocyte Percent A 0.2 % (0-0.5); Lymphocytes Absolute Auto 4.18 K/mm3 (0.9-3.2); Lymphocytes Percent Auto 47.7 % (18.3-44.2); Mean Corpuscular HGB Conc 30.5 g/dl (32-36); Mean Corpuscular Hemoglobin 26.9 pg (26-34); Mean Corpuscular Volume 88.3 fl (80-100); Monocytes Absolute Auto 0.5 K/mm3 (0.1-0.6); Monocytes Percent Auto 5.9 % (2.6-8.5); Neutrophils Absolute Auto 3.5 K/mm3 (1.3-6.7); Neutrophils Percent Auto 39.6 % (45.5-73.1); Platelet Count Result 306 k/mm3 (150-375); Red Blood Count 3.86 M/mm3 (4.2-5.4); Red Cell Distribution Width 14.9 % (11.5-14.5); White Blood Count 8.8 K/mm3 (4.5-10.0)
[2024-10-06 19:53] LABS: Alanine Aminotransferase 9 U/L (6-35); Albumin Level 4.1 g/dL (3.5-5.1); Alkaline Phosphatase 104 U/L (38-126); Anion Gap 8 mmol/L (4-12); Aspartate Amino Transferase 25 U/L (14-36); Bilirubin,Total 0.5 mg/dL (0.2-1.3); Blood Urea Nitrogen 44 mg/dL (7-17); Calcium 10.2 mg/dL (8.4-10.2); Carbon Dioxide 24 mmol/L (22-30); Chloride 107 mmol/L (98-107); Estimated Glomerular Filt Rate 44; Glucose 79 mg/dL (65-110); Potassium 4.7 mmol/L (3.4-5.0); Sodium 139 mmol/L (137-145)
[2024-10-06 19:55] LABS: INR 1.1; Partial Thromboplastin Time 33.1 Seconds (22.3-36.8); Prothrombin Time 14.4 Seconds (11.1-14.7)
[2024-10-06] MEDS: MAGNESIUM CITRATE 300 ML BTL PO (22:33)
--- NOTE | 2024-10-07 01:07 | PC.NURSE ---
unable to give nurse report. Carline unable to transfer phone to other hallway and other nurse not answering the phone. called a 4th time and spoke with carline again and verbalized that ems was here and patient was on her way back there.
[2024-10-07 01:29] VITALS: BP 137/76; PULSE 76; RESP 16; TEMP 36.6; O2SAT 98
--- NOTE | 2024-10-07 01:29 | PC.NURSE ---
depend changed, pt boots placed back on feet. report to ems.
== END 2024-10-07 01:32 | disposition home or self-care (01) ==
PROVIDERS: Physician Assistant; Emergency Provider Student in an Organized Health Care Education/Training Program
DX: N93.9 Abnormal uterine and vaginal bleeding, unspecified (principal); D25.9 Leiomyoma of uterus, unspecified; K59.00 Constipation, unspecified; F03.90 Unspecified dementia, unspecified severity, without behavioral disturbance, psychotic disturbance, mood disturbance, and anxiety; I10 Essential (primary) hypertension; E78.2 Mixed hyperlipidemia; E11.9 Type 2 diabetes mellitus without complications; Z86.73 Personal history of transient ischemic attack (TIA), and cerebral infarction without residual deficits; Z87.891 Personal history of nicotine dependence
CPT/HCPCS: 36415; 74176; 76856; 80053; 85025; 85610; 85730; 86850; 86900; 86901; 99284; A9270

== ENCOUNTER 2025-05-02 18:46 | Emergency (ER) | payer OTHER, SELFPAY ==
--- NOTE | ~2025-05-02 | XR_ITS ---
Examination: XR chest 1V portable Clinical History: dementia, vomiting Comparison: 10/08/2022 Technique: Portable AP Findings: Heart size normal. Lungs clear. No acute bony abnormality. IMPRESSION: 1. No acute cardiopulmonary findings given portable technique. Reviewed, dictated and finalized at location [employer]
[2025-05-02 18:43] VITALS: BP 149/55; PULSE 87; RESP 16; TEMP 36.6; O2SAT 98
--- NOTE | 2025-05-02 19:46 | ECG_ITS ---
Test Date: 2025-05-02 20:37:39 Measurements Intervals [place] Rate: 81 P: 37 HI: 168 QRS: -26 QRSD: 94 T: 53 QT: 359 QTc: 418 Interpretive Statements SINUS RHYTHM VOLTAGE CRITERIA FOR LVH [MEETS CRITERIA IN ONE OF: R(aVL), S(V1), R(V5), R(V5/V6)+S(V1)] Poor R wave progression No previous ECG available for comparison Electronically Signed On 05-02-2025 22:56:47 LEAD NUCLEAR MEDICINE TECHNOLOGIST by Hannah Finch M.D.
[2025-05-02 20:17] LABS: Hematocrit 28.5 % (37.0-47.0); Hemoglobin 8.2 g/dL (12.0-15.0); Immature Granulocyte Percent A 0.5 % (0-0.5); Immature Platelet Fraction Pct 0.9 % (0.9-11.2); Lymphocytes Absolute Auto 4.32 K/mm3 (0.9-3.2); Mean Corpuscular HGB Conc 28.8 g/dl (32-36); Mean Corpuscular Hemoglobin 25.5 pg (26-34); Mean Corpuscular Volume 88.8 fl (80-100); Nucleated Red Blood Cells Absolute Auto 0.000 K/mm3 (0.0-0.012); Nucleated Red Blood Cells Perc 0.0 % (0.0-0.2); Platelet Count Result 363 k/mm3 (150-375); Red Blood Count 3.21 M/mm3 (4.2-5.4); White Blood Count 13.1 K/mm3 (4.5-10.0)
--- NOTE | 2025-05-02 20:18 | ED.NAVMDI ---
HPI - Nausea/Vomiting/Diarrhea General Chief complaint: Nausea/Vomiting/Diarrhea Stated complaint: vomiting Time Seen by Provider: 05/02/25 19:45 History of Present Illness HPI Narrative: 80-year-old female with history of dementia, type 2 diabetes, hypertension, prior CVA. Patient presents to the emergency department from her half-way facility as she had 1 episode of vomiting. Patient arrives and not any apparent distress via ambulance. She is actually not sure why she is in the hospital as she states she has no symptoms. When asked about what happened when she vomited she says Oh yeah I did vomit 1 time but I am okay. she appears at her baseline neurological function and mentation based on review of the EMR and prior encounters in this emergency department. She has no signs of distress, no further nausea or vomiting episodes. No abdominal pain or discomfort. No belching or chest pain. No shortness of breath, back pain, fever, chills. Patient has no complaints at this time. Related Data Home Medications ?Medication ?Instructions ?Recorded ?Confirmed ?Last Taken ?Type gabapentin 100 mg capsule 100 mg PO TID nerve pain 05/27/22 02/08/23 Unknown History nifedipine 30 mg tablet,extended 30 mg PO DAILY 05/27/22 02/08/23 Unknown History release 24 hr ascorbic acid (vitamin C) 500 mg 500 mg PO BID 09/14/22 02/08/23 Unknown History tablet magnesium citrate (Citroma oral 296 ml PO DAILY PRN Constipation 09/14/22 02/08/23 Unknown History solution) magnesium hydroxide 400 mg/5 mL 30 ml PO HS PRN Constipation 09/14/22 02/08/23 Unknown History oral suspension (Milk of Magnesia) multivit with minerals-iron 18 1 tablet PO DAILY 09/14/22 02/08/23 Unknown History mg-folic ac 400 mcg-vit K 25 mcg tablet (Adults Multivitamin) Saccharomyces boulardii 250 mg 250 mg PO BID 10/09/22 02/08/23 Unknown History capsule mirtazapine 7.5 mg tablet 7.5 mg PO HS 10/09/22 02/08/23 Unknown History cholecalciferol (vitamin D3) 25 25 mcg PO DAILY 02/08/23 02/08/23 Unknown History mcg (1,000 unit) tablet cyanocobalamin (vitamin B-12) 1,000 mcg PO DAILY 02/08/23 02/08/23 Unknown History 1,000 mcg tablet quetiapine 25 mg tablet (Seroquel) 12.5 mg PO HS 02/08/23 02/08/23 Unknown History zinc gluconate 50 mg tablet 100 mg PO DAILY 02/08/23 02/08/23 Unknown History Allergies Allergy/AdvReac Type Severity Reaction Status Date / Time lisinopril AdvReac Severe Swelling Verified 05/02/25 19:00 of Lip/Tongue/Throat Review of Systems Review of Systems: As reviewed above in [facility] Past Medical History Medical History Diabetic foot ulcer DM2 (diabetes mellitus, type 2) Combined hyperlipidemia HTN (hypertension), benign CVA (cerebral vascular accident) Dementia Surgical History Surgical History No pertinent past surgical history Family History Family History Father Hypertension Diabetes mellitus Mother Hypertension Diabetes mellitus Social History Social History Social History: The patient is and has 6 children. 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 The patient resides at [facility]. Her daughter is the durable power marketing information analyst for healthcare. Former smoker. She denies any alcohol marijuana or illicit drugs. Code status full code Smoking status: Former smoker Alcohol intake: never Substance use: never Substance use type: does not use Lack of Transportation: No Lack of Food: Never True Current Housing: I Have Housing Concerned About Future Housing: No Difficulty Paying Gas/Electric Bills: No Difficulty Paying for Meds: No Currently Unemployed: No Education: Don't Know Difficulty w/ Childcare or Family Care: No Spiritual care concerns: No Exam Narrative: GENERAL: [Well-appearing, well-nourished, and in no acute distress.] HEAD: [Normocephalic, atraumatic.] EYES: [PERRLA and EOMI.] ENT: Nares clear, no rhinorrhea or epistaxis. Mucous membranes moist. NECK: Supple. CHEST: [Clear to auscultation. No respiratory distress.] HEART: [Regular rate and rhythm]. No murmur heard. [Normal peripheral pulses.] ABDOMEN: [Soft, nondistended], [nontender], [No rigidity or guarding] EXTREMITIES: Normal range of motion. no pitting edema. Extremities are in support boots for decreased mobility and comfort SKIN: Warm, dry, no rash. NEURO: [No focal deficits]. Alert and oriented X2 and at her baseline, PSYCH: [Normal mood and affect.] Course Vital Signs Vital signs: Vital Signs Temperature 36.6 C 05/02/25 18:43 Pulse Rate 87 05/02/25 18:43 Respiratory Rate 16 05/02/25 18:43 Blood Pressure 149/55 H 05/02/25 18:43 Pulse Oximetry 98 05/02/25 18:43 Oxygen Delivery Room Air 05/02/25 18:43 Temperature 36.6 C 05/02/25 18:43 Pulse Rate 81 05/02/25 21:16 Respiratory Rate 18 05/02/25 21:16 Blood Pressure 147/80 H 05/02/25 23:30 Pulse Oximetry 98 05/02/25 21:16 Oxygen Delivery Room Air 05/02/25 18:43 MDM - Nausea/Vomiting/Diarrhea MDM Narrative Medical decision making narrative: 80-year-old female with history of dementia, type 2 diabetes, hypertension, prior CVA. Patient presents to the emergency department from her half-way facility as she had 1 episode of vomiting. Patient arrives and not any apparent distress via ambulance. She is actually not sure why she is in the hospital as she states she has no symptoms. When asked about what happened when she vomited she says Oh yeah I did vomit 1 time but I am okay. she appears at her baseline neurological function and mentation based on review of the EMR and prior encounters in this emergency department. She has no signs of distress, no further nausea or vomiting episodes. No abdominal pain or discomfort. No belching or chest pain. No shortness of breath, back pain, fever, chills. Patient has no complaints at this time. patient is hemodynamically stable without any tachycardia, fever, hypoxemia. Unremarkable assessment with a soft nontender nondistended abdomen. Patient has no complaints at this time and states she is not nauseous or had any further vomiting episodes. She vomited 1 time according to herself hours ago around 5:00 p.m. but has not vomited since. Denies any symptoms at this time and overall is well-appearing at her baseline. Will obtain blood work , EKG, and give her Protonix and fluids. Could be potential some gastritis, gastroenteritis, nonspecific nausea vomiting less likely cardiac in origin or GI bleeding when origin. Patient observed for any recurrent symptoms or worsening presentations/developing concerns. Hemoglobin 8.2 around her baseline hemoglobin on multiple previous labs. Normal platelet count. No significant leukocytosis but mildly elevated but also chronically elevated on review. Electrolytes are all normal. Kidney function around baseline. Glucose normal. LFTs normal. Patient felt much better after the Maalox and Protonix. No further vomiting since she arrived to the ED and observed for numerous hours. Remains hemodynamically stable. Family later arrived informed us that patient did have large meal of fatty [place]'s yesterday and that is probably why she vomited today. Without any further symptomatology or any emergent concerns she is safe for discharge back to her skilled care facility at this time. Given return precautions and follow-up instructions. Medical Records Attestation: I reviewed the patient's medical records. Lab Data Attestation: I reviewed the patient's lab results. 05/02/25 20:10 05/02/25 21:13 Labs: Lab Results 05/02/25 05/02/25 Range/Units 20:10 21:13 WBC 13.1 H (4.5-10.0) K/mm3 RBC 3.21 L (4.2-5.4) M/mm3 Hgb 8.2 L (12.0-15.0) g/dL Hct 28.5 L (37.0-47.0) % MCV 88.8 (80-100) fl MCH 25.5 L (26-34) pg MCHC 28.8 L (32-36) g/dl RDW 16.2 H (11.5-14.5) % Plt Count 363 (150-375) k/mm3 MPV 9.6 (7.4-10.4) fl Immature Gran % (Auto) 0.5 (0-0.5) % Neut % (Auto) 58.5 (45.5-73.1) % Lymph % (Auto) 33.0 (18.3-44.2) % [place] % (Auto) 5.6 (2.6-8.5) % Eos % (Auto) 2.2 (0-4.4) % Baso % (Auto) 0.2 (0.2-1.2) % Lymph # (Auto) 4.32 H (0.9-3.2) K/mm3 [place] # (Auto) 0.7 H (0.1-0.6) K/mm3 Eos # (Auto) 0.3 (0-0.3) K/mm3 Baso # (Auto) 0.0 (0.0-0.1) K/mm3 Abs Immat Gran (auto) 0.06 H (0.00-0.031) K/mm3 Absolute Neuts (auto) 7.7 H (1.3-6.7) K/mm3 Absolute Nucleated RBC 0.000 (0.0-0.012) K/mm3 Band Neutrophils % Not Reportable Nucleated RBC % 0.0 (0.0-0.2) % Platelet Estimate Adequate (Adequate) % Immature Plt Fraction 0.9 (0.9-11.2) % Hypochromasia 1+ Anisocytosis 1+ Jose Alfredo Cells 1+ Schistocytes None seen Sodium 138 (137-145) mmol/L Potassium 4.6 (3.4-5.0) mmol/L Chloride 106 (98-107) mmol/L Carbon Dioxide 25 (22-30) mmol/L Anion Gap 7 (4-12) mmol/L BUN 36 H (7-17) mg/dL Creatinine 1.27 H (0.7-1.0) mg/dL Estim Creat Clear Calc 35 ml/min Estimated GFR 41 L (59 - ) Glucose 146 H (65-110) mg/dL Calcium 10.8 H (8.4-10.2) mg/dL Total Bilirubin 0.4 (0.2-1.3) mg/dL AST 21 (14-36) U/L ALT 9 (6-35) U/L Alkaline Phosphatase 116 (38-126) U/L Total Protein 8.5 H (6.3-8.2) g/dL Albumin 3.7 (3.5-5.1) g/dL Lipase 57 (23-300) U/L Imaging Data Attestation: I personally reviewed and interpreted this imaging study as follows: My impression: No acute consolidations or pneumothorax Discharge Plan Discharge Clinical Impression: Vomiting Dementia Qualifiers: Dementia type: unspecified type Dementia severity: unspecified severity Dementia behavioral or psychological symptom: without behavioral, psychotic, or mood disturbance or anxiety Qualified Code(s): F03.90 - Unspecified dementia, unspecified severity, without behavioral disturbance, psychotic disturbance, mood disturbance, and anxiety Patient Disposition: Home Condition: Stable Instructions: Antibiotic Form, Clear Liquid Diet (ED), Acute Nausea and Vomiting (ED) Additional Instructions: laboratory studies x-ray and EKG are all reassuring and normal. We have given you some antacid medication and Maalox. Follow-up with your regular PCP. Return with any emergent concerns. We have provided Zofran prescription in case you get nauseous at home. Patient Language: Maori Prescriptions: New ondansetron 4 mg tablet,disintegrating 4 mg PO Q8H PRN (Reason: nausea and vomiting) Qty: 10 0RF No Action Saccharomyces boulardii 250 mg Capsule 250 mg PO BID Rx Instructions: DC ON 10/15/22 mirtazapine 7.5 mg tablet 7.5 mg PO HS nifedipine 30 mg tablet extended release 24hr 30 mg PO DAILY gabapentin 100 mg capsule 100 mg PO TID ascorbic acid (vitamin C) 500 mg Tablet 500 mg PO BID magnesium citrate [Citroma] Solution 296 ml PO DAILY PRN (Reason: Constipation) magnesium hydroxide [Milk of Magnesia] 400 mg/5 mL Suspension 30 ml PO HS PRN (Reason: Constipation) Rx Instructions: give if no BM in 3 days Adults Multivitamin 18 mg iron-400 mcg-25 mcg Tablet 1 tablet PO DAILY bisacodyl 10 mg Suppository 10 mg RECTAL DAILY PRN (Reason: Constipation) Qty: 12 0RF Rx Instructions: Give if no BM in 48 hours clotrimazole 1 % Cream 1 applic TOPICAL BID Qty: 15 0RF Rx Instructions: Apply to groin and molly area cholecalciferol (vitamin D3) 25 mcg (1,000 unit) Tablet 25 mcg PO DAILY quetiapine [Seroquel] 25 mg Tablet 12.5 mg PO HS cyanocobalamin (vitamin B-12) 1,000 mcg Tablet 1,000 mcg PO DAILY zinc gluconate 50 mg Tablet 100 mg PO DAILY doxycycline hyclate 100 mg Tablet 100 mg PO Q12HR Qty: 13 0RF amoxicillin-pot clavulanate [Augmentin] 500-125 mg Tablet 1 tablet PO Q12HR Qty: 11 0RF Dakin's Solution 0.125 % Solution 1 applic topical Q12HR Qty: 473 0RF hydrocodone-acetaminophen 5-325 mg Tablet 1 tablet PO Q4H PRN (Reason: Moderate Pain (Scale Score 5-6)) Qty: 1 0RF magnesium citrate [Citrate of Magnesia] Solution 300 ml PO DAILY PRN (Reason: constipation) Qty: 296 0RF polyethylene glycol 3350 [Miralax] 17 gram powder in packet 17 g PO BID Qty: 30 0RF Follow-up/Referrals: UNKNOWN,DOCTOR [Primary Care Provider]
[2025-05-02 20:39] LABS: Anisocytosis 1+; Hypochromasia 1+
[2025-05-02 20:40] LABS: Burr Cells 1+; Schistocytes None Seen
[2025-05-02 21:16] VITALS: BP 159/72; PULSE 81; RESP 18; O2SAT 98
[2025-05-02] MEDS: MAG HYDROX/AL HYDROX/SIMETH 30 ML UDC PO (21:17)
[2025-05-02] MEDS: PANTOPRAZOLE 40 MG TABLET PO (21:18)
[2025-05-02 21:28] LABS: Alanine Aminotransferase 9 U/L (6-35); Albumin Level 3.7 g/dL (3.5-5.1); Alkaline Phosphatase 116 U/L (38-126); Anion Gap 7 mmol/L (4-12); Aspartate Amino Transferase 21 U/L (14-36); Bilirubin,Total 0.4 mg/dL (0.2-1.3); Blood Urea Nitrogen 36 mg/dL (7-17); Calcium 10.8 mg/dL (8.4-10.2); Carbon Dioxide 25 mmol/L (22-30); Chloride 106 mmol/L (98-107); Estimated CRCL calculation 35 ml/min; Estimated Glomerular Filt Rate 41; Glucose 146 mg/dL (65-110); Lipase 57 U/L (23-300); Potassium 4.6 mmol/L (3.4-5.0); Sodium 138 mmol/L (137-145); Total Protein 8.5 g/dL (6.3-8.2)
--- NOTE | 2025-05-02 22:41 | PC.NURSE ---
report given to nurse sidhu at [facility].
[2025-05-02 23:30] VITALS: BP 147/80
== END 2025-05-03 00:01 ==
PROVIDERS: Emergency Provider Student in an Organized Health Care Education/Training Program
DX: R11.10 Vomiting, unspecified (principal); F03.90 Unspecified dementia, unspecified severity, without behavioral disturbance, psychotic disturbance, mood disturbance, and anxiety; I10 Essential (primary) hypertension; E11.9 Type 2 diabetes mellitus without complications; E78.2 Mixed hyperlipidemia; Z87.891 Personal history of nicotine dependence; Z79.899 Other long term (current) drug therapy
CPT/HCPCS: 36415; 71045; 80053; 83690; 85025; 85055; 93005; 96374; 99284; A9270